=== PATIENT | male | born 1955 | race Caucasian/White ===

== ENCOUNTER 2020-02-11 13:13 | Outpatient (REF) | payer MEDICARE, SELFPAY ==
[2020-02-11 14:55] LABS: Prostate Specific Antigen Scr 0.53 ng/mL (<0.05-4.0)
[2020-02-12 08:03] LABS: SARS COV2 IgG Negative (Negative)
== END 2020-02-11 13:14 | disposition home or self-care (01) ==
LOC: HO.LAB 13:13
PROVIDERS: PCP Internal Medicine; Visit Provider Internal Medicine
DX: Z01.84 Encounter for antibody response examination (principal); Z12.5 Encounter for screening for malignant neoplasm of prostate; E11.65 Type 2 diabetes mellitus with hyperglycemia; I10 Essential (primary) hypertension; E78.00 Pure hypercholesterolemia, unspecified; I73.9 Peripheral vascular disease, unspecified; N40.1 Benign prostatic hyperplasia with lower urinary tract symptoms; R35.0 Frequency of micturition; Z94.4 Liver transplant status
CPT/HCPCS: 84153; 86769

== ENCOUNTER → 2020-04-21 09:22 | Outpatient (BNVA) | payer MEDICARE, SELFPAY | PROVIDERS: PCP Internal Medicine; Visit Provider Internal Medicine Endocrinology, Diabetes & Metabolism | DX: Z13.89 Encounter for screening for other disorder (principal) | CPT/HCPCS: Q3014 ==

== ENCOUNTER → 2020-08-09 09:14 | Outpatient (REF) | payer MEDICARE, SELFPAY | LOC: HO.SL 09:14 | PROVIDERS: PCP Internal Medicine; Visit Provider Internal Medicine | DX: G47.33 Obstructive sleep apnea (adult) (pediatric) (principal) | CPT/HCPCS: 95806 ==

== ENCOUNTER → 2020-08-25 08:54 | Outpatient (BNVA) | payer MEDICARE, SELFPAY | PROVIDERS: PCP Internal Medicine; Visit Provider Internal Medicine Endocrinology, Diabetes & Metabolism | DX: E11.65 Type 2 diabetes mellitus with hyperglycemia (principal); I10 Essential (primary) hypertension; E78.00 Pure hypercholesterolemia, unspecified; E66.9 Obesity, unspecified; E53.8 Deficiency of other specified B group vitamins; Z79.4 Long term (current) use of insulin | CPT/HCPCS: 82947; 99212 ==

== ENCOUNTER → 2020-11-28 11:22 | Outpatient (BNVA) | payer MEDICARE, SELFPAY | PROVIDERS: PCP Internal Medicine; Visit Provider Nurse Practitioner Gerontology | DX: E11.65 Type 2 diabetes mellitus with hyperglycemia (principal); Z79.4 Long term (current) use of insulin; I10 Essential (primary) hypertension; E78.00 Pure hypercholesterolemia, unspecified; E53.8 Deficiency of other specified B group vitamins; E66.9 Obesity, unspecified; Z68.41 Body mass index [BMI] 40.0-44.9, adult | CPT/HCPCS: 82947; 99212 ==

== ENCOUNTER → 2020-12-12 10:24 | Outpatient (BNVA) | payer MEDICARE, SELFPAY | PROVIDERS: PCP Internal Medicine; Visit Provider Nurse Practitioner Gerontology | DX: E11.65 Type 2 diabetes mellitus with hyperglycemia (principal); E78.00 Pure hypercholesterolemia, unspecified; I10 Essential (primary) hypertension; E66.9 Obesity, unspecified; E53.8 Deficiency of other specified B group vitamins; Z79.4 Long term (current) use of insulin | CPT/HCPCS: 82947; 99212 ==

== ENCOUNTER → 2020-12-27 10:08 | Outpatient (BNVA) | payer MEDICARE, SELFPAY | PROVIDERS: PCP Internal Medicine; Visit Provider Dietitian, Registered | DX: E11.65 Type 2 diabetes mellitus with hyperglycemia (principal); Z79.4 Long term (current) use of insulin | CPT/HCPCS: 97803 ==

== ENCOUNTER 2021-01-04 12:09 | Outpatient (REF) | payer MEDICARE, SELFPAY | END 2021-01-04 12:10 | disposition home or self-care (01) | LOC: HO.LAB 12:09 | PROVIDERS: PCP Internal Medicine; Visit Provider Nurse Practitioner Family | DX: Z13.89 Encounter for screening for other disorder (principal) ==

== ENCOUNTER 2021-01-05 10:15 | Outpatient (REF) | payer MEDICARE, SELFPAY ==
[2021-01-05 10:30] LABS: MANUAL DIFF FLAG NO
[2021-01-05 10:56] LABS: Basophils Percent Auto 0.5 % (0-2); Eosinophils Percent Auto 0.2 % (0-4); Hematocrit 44.4 % (42-52); Hemoglobin 15.3 g/dl (14.0-18.0); Imm Gran Abs Auto 0.01 X10*3/uL (0.00-0.03); Imm Gran Pct Auto 0.2 % (0.0-0.4); Lymphocytes Absolute Auto 1.4 X10*3/uL (1.2-4.9); Lymphocytes Percent Auto 33.9 % (20-40); Mean Corpuscular HGB Conc 34.5 g/dl (31.0-36.0); Mean Corpuscular Hemoglobin 31.3 pg (27.0-33.0); Mean Corpuscular Volume 90.8 fL (80-98); Mean Platelet Volume 9.7 fL (9.4-12.4); Monocytes Absolute Auto 0.4 X10*3/uL (0.1-1.2); Monocytes Percent Auto 10.2 % (2-11); Neutrophils Absolute Auto 2.3 X10*3/uL (2.0-8.3); Platelet Count 154 X10*3/uL (160-400); Red Blood Count 4.89 X10*6/uL (4.60-5.80); Red Cell Distribution Width 13.5 % (11.0-16.0); White Blood Count 4.1 X10*3/uL (4.8-10.8)
[2021-01-05 11:26] LABS: Estimated Glomerular Filt Rate > 60; Glucose Fasting 165 mg/dL (60-99)
[2021-01-05 11:38] LABS: Free T4 (Free Thyroxine) 0.89 ng/dL (0.71-1.85)
[2021-01-05 11:45] LABS: Creatinine Urine 264.08 mg/dL
[2021-01-05 11:50] LABS: Thyroid Stimulating Hormone 1.24 uIU/mL (0.32-4.0)
== END 2021-01-05 10:16 | disposition home or self-care (01) ==
LOC: HO.LAB 10:15
PROVIDERS: Absent Provider Internal Medicine; PCP Internal Medicine; Visit Provider Nurse Practitioner Family
DX: Z01.818 Encounter for other preprocedural examination (principal); E11.65 Type 2 diabetes mellitus with hyperglycemia; Z79.4 Long term (current) use of insulin
CPT/HCPCS: 36415; 82565; 82947; 84439; 84443; 85025

== ENCOUNTER → 2021-04-20 09:39 | Outpatient (BNVA) | payer MEDICARE, SELFPAY | PROVIDERS: PCP Internal Medicine; Visit Provider Nurse Practitioner Gerontology | DX: E11.65 Type 2 diabetes mellitus with hyperglycemia (principal); I10 Essential (primary) hypertension; E78.00 Pure hypercholesterolemia, unspecified; E66.9 Obesity, unspecified; Z68.41 Body mass index [BMI] 40.0-44.9, adult; E53.8 Deficiency of other specified B group vitamins; Z79.4 Long term (current) use of insulin | CPT/HCPCS: 82947; 99212 ==

== ENCOUNTER → 2021-06-27 10:07 | Outpatient (BNVA) | payer MEDICARE, SELFPAY | PROVIDERS: PCP Internal Medicine; Visit Provider Dietitian, Registered | DX: E11.65 Type 2 diabetes mellitus with hyperglycemia (principal); Z79.4 Long term (current) use of insulin | CPT/HCPCS: 97803 ==

== ENCOUNTER → 2021-07-19 09:04 | Outpatient (BNVA) | payer MEDICARE, SELFPAY | PROVIDERS: PCP Internal Medicine; Visit Provider Nurse Practitioner Gerontology | DX: E11.9 Type 2 diabetes mellitus without complications (principal); E78.00 Pure hypercholesterolemia, unspecified; E53.8 Deficiency of other specified B group vitamins; I10 Essential (primary) hypertension; Z79.4 Long term (current) use of insulin | CPT/HCPCS: 82947; 99212 ==

== ENCOUNTER 2021-08-27 09:05 | Outpatient (REF) | payer MEDICARE, SELFPAY ==
[2021-08-27 10:13] LABS: Hematocrit 42.5 % (42.0-52.0); Hemoglobin 14.5 g/dl (14.0-18.0); Mean Corpuscular HGB Conc 34.1 g/dl (31.0-36.0); Mean Corpuscular Hemoglobin 30.7 pg (27.0-33.0); Mean Platelet Volume 9.4 fL (9.4-12.4); Platelet Count 154 X10*3/uL (160-400); Red Blood Count 4.72 X10*6/uL (4.60-5.80); Red Cell Distribution Width 13.2 % (11.0-16.0); White Blood Count 3.9 X10*3/uL (4.8-10.8)
[2021-08-27 11:03] LABS: Alanine Aminotransferase 53 U/L (0-40); Albumin Level 3.9 g/dL (3.5-5.0); Alkaline Phosphatase 54 U/L (39-117); Anion Gap 15 (12-20); Aspartate Amino Transferase 38 U/L (5-37); Bilirubin Total 0.5 mg/dL (0.0-1.0); Blood Urea Nitrogen 21 mg/dL (9-16); Calcium 9.8 mg/dL (8.4-10.2); Carbon Dioxide 30 mmol/L (22-29); Chloride 100 mmol/L (96-108); Cholesterol 179 mg/dL; Estimated Glomerular Filt Rate > 60; Glucose Fasting 137 mg/dL (60-99); HDL Cholesterol 29 mg/dL; LDL Cholesterol Calculated 115 mg/dl; Potassium 4.7 mmol/L (3.3-5.1); Sodium 140 mmol/L (135-145); Total Protein 6.5 g/dL (6.5-8.0); Triglycerides 175 mg/dL
[2021-08-27 11:08] LABS: Free T4 (Free Thyroxine) 0.87 ng/dL (0.71-1.85); Thyroid Stimulating Hormone 1.89 uIU/mL (0.32-4.0)
[2021-08-27 11:31] LABS: Folate 10.6 ng/mL (> or = 4.0); Vitamin B12 < 146 pg/mL (200-900)
[2021-08-27 11:37] LABS: Creatinine Urine 198.09 mg/dL; Microalbum/Creatinine Ratio Ur 5.5 ug/mg cr
[2021-08-28 12:36] LABS: LDL Cholesterol Direct 128 mg/dL (<100)
== END 2021-08-27 09:06 | disposition home or self-care (01) ==
LOC: HO.LAB 09:05
PROVIDERS: Absent Provider Nurse Practitioner Gerontology; PCP Internal Medicine; Visit Provider Internal Medicine
DX: Z01.818 Encounter for other preprocedural examination (principal); E11.65 Type 2 diabetes mellitus with hyperglycemia; Z79.4 Long term (current) use of insulin
CPT/HCPCS: 36415; 80053; 80061; 82043; 82607; 82746; 83721; 84439; 84443; 85027

== ENCOUNTER → 2021-09-19 20:35 | Outpatient (REF) | payer MEDICARE, SELFPAY | LOC: HO.SL 20:35 | PROVIDERS: PCP Internal Medicine; Visit Provider Internal Medicine | DX: G47.33 Obstructive sleep apnea (adult) (pediatric) (principal) | CPT/HCPCS: 95811 ==

== ENCOUNTER → 2021-09-26 09:50 | Outpatient (BNVA) | payer MEDICARE, SELFPAY | PROVIDERS: PCP Internal Medicine; Visit Provider Dietitian, Registered | DX: E11.65 Type 2 diabetes mellitus with hyperglycemia (principal); Z79.4 Long term (current) use of insulin | CPT/HCPCS: 97803 ==

== ENCOUNTER 2022-02-25 10:58 | Outpatient (REF) | payer MEDICARE, SELFPAY ==
[2022-02-25 12:52] LABS: Alanine Aminotransferase 47 U/L (0-40); Albumin Level 4.4 g/dL (3.5-5.0); Alkaline Phosphatase 51 U/L (39-117); Anion Gap 15 (12-20); Aspartate Amino Transferase 30 U/L (5-37); Bilirubin Total 0.7 mg/dL (0.0-1.0); Blood Urea Nitrogen 27 mg/dL (9-16); Calcium 9.9 mg/dL (8.4-10.2); Carbon Dioxide 29 mmol/L (22-29); Chloride 103 mmol/L (96-108); Estimated Glomerular Filt Rate > 60; Glucose Fasting 116 mg/dL (60-99); Sodium 143 mmol/L (135-145); Total Protein 7.1 g/dL (6.5-8.0)
[2022-02-25 13:06] LABS: Ferritin 123 ng/mL (20-250)
[2022-02-25 13:14] LABS: Vitamin B12 179 pg/mL (200-900)
[2022-02-26 09:56] LABS: LDL Cholesterol Direct 136 mg/dL (<100)
[2022-03-01 22:57] LABS: Intrinsic Factor Antibodies Negative (Negative)
[2022-03-02 13:22] LABS: Parietal Cell Antibody <=20.0 Unit (<=20.0)
== END 2022-02-25 10:59 | disposition home or self-care (01) ==
LOC: HO.LAB 10:58
PROVIDERS: PCP Internal Medicine; Visit Provider Internal Medicine
DX: E11.65 Type 2 diabetes mellitus with hyperglycemia (principal); E78.00 Pure hypercholesterolemia, unspecified; G47.33 Obstructive sleep apnea (adult) (pediatric); Z79.4 Long term (current) use of insulin
CPT/HCPCS: 36415; 80053; 82607; 82728; 83516; 83721; 86340

== ENCOUNTER 2022-05-17 09:13 | Day surgery (SDC) | payer MEDICARE, SELFPAY ==
[2022-05-17 09:28] VITALS: BMI 36.6
[2022-05-17 09:31] VITALS: BP 164/80; PULSE 63; RESP 18; TEMP 36.2; O2SAT 99
[2022-05-17] MEDS: Lactated Ringers 1,000 ML 80 ML IVCONT (10:00)
[2022-05-17 10:16] LABS: Glucose, Whole Blood 160 mg/dL (60-115)
--- NOTE | 2022-05-17 11:12 | HO.ANESPROP2 ---
HPI - Anesthesia Eval Consult details Narrative: ho polyps screening [facility] Active Problems Active Problems: All Active Problems (Updated 05/16/22 @ 10:40 by Suzy Newman, RN) Witnessed apneic spells (Acute) Obesity (Acute) History of arthroplasty of left shoulder (Acute) Status post Mohs surgery for basal cell carcinoma (Acute) Hearing difficulty (Acute) Leg wound, left (Acute) B12 deficiency (Acute) senior care (current) use of insulin (Acute) BPH (benign prostatic hyperplasia) (Acute) Obstructive sleep apnea (Acute) Peripheral vascular disease (Acute) Hypercholesterolemia (Acute) Erectile dysfunction (Acute) Hypertension (Acute) Type 2 diabetes mellitus with hyperglycemia (Acute) Past Medical History Medical History (Updated 05/16/22 @ 10:40 by Suzy Newman RN) B12 deficiency BPH (benign prostatic hyperplasia) Diverticulosis Erectile dysfunction Fatty liver H/O urinary tract infection History of melanoma Hypercholesterolemia Hypertension IBS (irritable bowel syndrome) Internal hemorrhoid Leg wound, left senior care (current) use of insulin Obstructive sleep apnea Peripheral vascular disease Sleep apnea Type 2 diabetes mellitus with hyperglycemia Family History Family History Father No problems noted. Mother No problems noted. Family history of problems with anesthesia: No Surgical History Surgical History Back pain with history of spinal surgery History of Mohs surgery for squamous cell carcinoma of skin Hx of cataract surgery Hx of eye surgery Hx of shoulder replacement History of Problems with Anesthesia: No Social History Social History Housing: Apartment Alcohol intake: current Alcohol intake frequency: holidays/special occasions only Patient Tobacco Use Status: Former Tobacco user e-Cigarette/Vaping Use: Never Used Second Hand Smoke Exposure: Yes Use of substances other than those prescribed or required for medical reasons: No Substance Use Type: Former Substance User and Marijuana Are you DNR?: No Advance Directives: No Advance Directives Information Provided: Yes service: No Current occupational status: retired Cognitive needs: No Hearing needs: No Vision needs: Yes Meds Allergies Allergy/AdvReac Type Severity Reaction Status Date / Time amlodipine Allergy Unknown Unknown Verified 02/25/22 09:15 atorvastatin Allergy Unknown Unknown Verified 02/25/22 09:15 Iodinated Contrast Media AdvReac Unknown BLINDENESS Verified 02/25/22 09:15 [IV CONTRAST] Active Medications: Current Medications Lactated Ringer's (Lr) 1,000 mls @ 80 mls/hr IVCONT .[id number] CLARIBEL Last Admin: 05/17/22 10:00 Dose: 80 mls/hr Sodium Biphosphate/Sodium Phosphate (Sodium Phosphate,Fleming-Dibasic 133 Ml Enema) 133 ml WI ONCE PRN PRN Reason: Poor Colonoscopy Prep Results Home Medications Medication Instructions Recorded Confirmed Last Taken Type acetaminophen 500 mg capsule 500 mg PO Q6H PRN 02/11/20 10/19/21 Unknown History albuterol sulfate 90 mcg/actuation 2 puff inhalation Q4-6H PRN 02/11/20 10/19/21 Unknown History aerosol inhaler (ProAir HFA) aspirin 81 mg tablet,delayed 81 mg PO DAILY 02/11/20 10/19/21 05/10/22 History release (Adult Aspirin Regimen) cholecalciferol (vitamin D3) 25 25 mcg PO DAILY 02/11/20 10/19/21 Unknown History mcg (1,000 unit) capsule cranberry 405 mg capsule 405 mg PO DAILY 02/11/20 10/19/21 Unknown History sildenafil 50 mg tablet (Viagra) 50 mg PO DAILY PRN 02/11/20 10/19/21 Unknown History Exam Exam Date and Time: May 17, 2022 111 Height,Weight and Vital Signs: Height 6 ft 2 in Weight 129.274 kg Last Vital Signs Temp 97.2 F 05/17/22 09:31 Pulse 63 05/17/22 09:31 Resp 18 05/17/22 09:31 BP 164/80 H 05/17/22 09:31 Pulse Ox 99 05/17/22 09:31 O2 Del Method 05/17/22 09:31 Pertinent Lab Results Pertinent Lab Results: Laboratory Tests 05/17/22 09:47 POC Glucose 160 H Airway Mallampati Class: III TM Dist: >3cm Neck ROM: Full Loose/Missing/Broken Teeth: Yes (Multiple missing) Heart: rr Lungs: cta Assessment and Plan Assessment Anesthesia Assessment: Anesthesia Plan Discussed Final Anesthetic Review Family History of Problems with Anesthesia: No History of Problems with Anesthesia: No NPO: Yes ASA Class: II Final Preanesthetic Review: No Changes in Pt Med Stat, Meds/Allgs Chart Reviewed, Consent Obtained/Reviewed and Anes Risks/Benef Reviewed Patient Risk: Intermediate Procedure Risk: Low Anesthetic Plan Anesthetic Plan: MAC: Disposition: Standard PACU
[2022-05-17 11:33] VITALS: BP 100/64; PULSE 63; RESP 20; TEMP 36.3; O2SAT 95
--- NOTE | 2022-05-17 11:33 | PM.OP ---
Brief Operative Note Date of Service: 05/17/22 Pre-op diagnosis: Screening Post-op diagnosis: other (Diverticulosis, Area of scarring in cecum from previous polypectomy) Procedure: Colonoscopy to the cecum with biopsies Surgeon: Bismark Mir Anesthesia: MAC Was an Chemical Technician used for this Procedure?: No Estimated blood loss (mL): 2.0 Pathology: other (A. Biopsies of previous polypectomy site in the cecum) Condition: stable Disposition: PACU
[2022-05-17 11:51] VITALS: BP 133/85; PULSE 62; RESP 16; TEMP 36.3; O2SAT 96
--- NOTE | 2022-05-17 20:08 | OP_ITS ---
SURGEON: Bismark Mir MD INDICATIONS: The patient presents for evaluation of personal history of tubular adenoma of the colon. Full consent has been obtained from him for this, including risks of bleeding and perforation. PREOPERATIVE DIAGNOSIS: POSTOPERATIVE DIAGNOSIS: PROCEDURE PERFORMED: Colonoscopy to the cecum with biopsy. ESTIMATED BLOOD LOSS: COMPLICATIONS: ANESTHESIA: Medications used, monitored anesthesia care. ASSISTANTS: SPECIMENS: PREOPERATIVE DIAGNOSES: Colorectal cancer screening and personal history of tubular adenoma of the colon. POSTOPERATIVE DIAGNOSES: Colorectal cancer screening and personal history of tubular adenoma of the colon, area of scarring in cecum consistent with previous polypectomy site, diverticulosis, and internal hemorrhoids. DESCRIPTION OF PROCEDURE: The patient was placed in the left lateral decubitus position. The digital rectal exam revealed no abnormalities. The Olympus video pediatric colonoscope was entered into the rectum and advanced easily to the cecum. Once in the cecum, I did identify cecal pouch with appendiceal orifice and normal-appearing ileocecal valve. The entire cecum was well-visualized. In the cecum was a linear area of scarring consistent with polypectomy site. There was some slightly reddened areas around it, which were biopsied several times. There was no definitive evidence of any polyp tissue. The remainder of the cecum and ileocecal valve appeared normal. The scope was slowly withdrawn, assessing all mucosal surfaces carefully. Preparation was excellent. I did not visualize any other polyps, colitis, or angiodysplasia. There was a moderate amount of sigmoid diverticulosis. In the rectum, the scope was retroflexed visualizing internal hemorrhoids, but no other pathology. The rectal mucosa appeared normal. Scope was straightened and withdrawn from the patient. He tolerated the procedure well and was returned to recovery area in stable condition. IMPRESSION: 1. Scarring in cecum from area of previous polypectomy, status post biopsy. 2. Diverticulosis. 3. Internal hemorrhoids. PLAN: The results of the biopsy will be checked. I have recommend a repeat colonoscopy in 3 years for further surveillance. He was advised to not to use any aspirin or NSAIDs for 1 week. This has been discussed with his . MD YEFRI Griffin/JEAN / [id number] AMBER
== END 2022-05-17 12:18 | disposition home or self-care (01) ==
PROVIDERS: PCP Internal Medicine; Visit Provider Internal Medicine
PROC: 0DJD8ZZ Inspection of Lower Intestinal Tract, Via Natural or Artificial Opening Endoscopic (ICD-10-PCS; CPT 45378; principal; 2022-05-17 10:40)
DX: Z12.11 Encounter for screening for malignant neoplasm of colon (principal); Z86.010 Personal history of colon polyps; K57.30 Diverticulosis of large intestine without perforation or abscess without bleeding; K64.8 Other hemorrhoids; K58.9 Irritable bowel syndrome, unspecified; K76.0 Fatty (change of) liver, not elsewhere classified; I10 Essential (primary) hypertension; G47.33 Obstructive sleep apnea (adult) (pediatric); E11.9 Type 2 diabetes mellitus without complications; Z79.4 Long term (current) use of insulin; Z79.82 Long term (current) use of aspirin; Z79.899 Other long term (current) drug therapy; Z85.820 Personal history of malignant melanoma of skin; Z87.891 Personal history of nicotine dependence
CPT/HCPCS: 45380; 82947; 88305

== ENCOUNTER → 2022-06-03 11:10 | Outpatient (BNVA) | payer MEDICARE, SELFPAY | PROVIDERS: PCP Internal Medicine; Visit Provider Dietitian, Registered | DX: E11.65 Type 2 diabetes mellitus with hyperglycemia (principal); E78.00 Pure hypercholesterolemia, unspecified; E53.8 Deficiency of other specified B group vitamins; Z68.34 Body mass index [BMI] 34.0-34.9, adult; Z79.4 Long term (current) use of insulin; Z71.3 Dietary counseling and surveillance | CPT/HCPCS: 97803 ==

== ENCOUNTER 2022-11-19 16:08 | Outpatient (AMB) | payer MEDICARE, SELFPAY ==
[2022-11-19 16:09] VITALS: BP 134/86; PULSE 69; O2SAT 99; BMI 36.1
--- NOTE | 2022-11-19 16:09 | MHC.PC.OV ---
Vital Signs 11/19/22 16:09 Height 6 ft 2 in Weight 281 lb BMI 36.1 BP 134/86 Blood Pressure Location Lt brachial Position Sitting Pulse 69 Pulse Source Pulse Oximeter Temp Source Skin Pulse Oximetry (%) 99 Oxygen Delivery Method Room Air Intake Visit Reasons: Medical clearance Intake Note: . 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 Allergies amlodipine Allergy (Unknown, Verified 11/19/22 16:22) Unknown atorvastatin Allergy (Unknown, Verified 11/19/22 16:22) Unknown Iodinated Contrast Media [IV CONTRAST] Adverse Reaction (Unknown, Verified 11/19/22 16:22) BLINDENESS Medication List - Last Reconciled 11/19/22 by Lary Dukes, HORTENSIA acetaminophen 500 mg PO Q6H PRN albuterol sulfate 90 mcg/actuation (ProAir HFA) 2 puffs inhalation Q4-6H PRN aspirin (Adult Aspirin Regimen) 81 mg PO DAILY [BIPAP 12/8 cm H20 humidified AIR As directed] blood sugar diagnostic ([employer] Verio test strips) 3x daily cholecalciferol (vitamin D3) 25 mcg PO DAILY compr.stocking,knee,long,x-lrg As directed 20-30 mm HG cranberry 405 mg PO DAILY cyanocobalamin (vitamin B-12) 1,000 mcg PO DAILY 30 days hydralazine 25 mg PO Q8H 90 days hydrochlorothiazide 25 mg PO DAILY insulin glargine-lixisenatide 100 unit-33 mcg/mL (Soliqua 100/33) 24 units (0.24 mL) subcut BID 30 days losartan 50 mg PO BID metformin ER 1,000 mg (2 x 500 mg) PO BID metoprolol tartrate 100 mg PO BID 90 days pen needle, diabetic (BD Ultra-Fine Aspen Pen Needle) As directed twice a day rosuvastatin 40 mg PO DAILY 30 days sildenafil (Viagra) 50 mg PO DAILY PRN simvastatin 5 mg PO BEDTIME Tobacco use date assessed: 11/19/22 Fall risk assessment: No Falls in past year Last assessed Fall Risk: 11/19/22 Dental Screening Dental Screen Date: 11/19/22 Did you have a dental visit in the last 12 months?: Yes Did you have a dental problem in the last 6 months where you did not have access to dental care?: No HPI Medical clearance HPI Details Patient is a 66-year-old male who presents today for preop clearance. Patient of Dr. Richter. Surgery: Left shoulder reverse replacement (no preop paperwork from the surgeon). Patient reports left shoulder pain and arthritis. Date: 12/10/22 Surgeon: Dr. Marylin Menendez Location: [place], [place] Anaesthesia: General. Patient reports history of general anesthesia in the past that he tolerated well. Patient denies history of perioperative hypothermia or blood clotting disorders. Pt is on aspirin 81 mg daily. Medical history significant for diabetes type 2 - on insulin, hypertension, erectile dysfunction, hypercholesterolemia, PVD, CARTER-patient reports that he had prescription for BiPAP and he did not received this yet-he requested reprint of BiPAP prescription, BPH, hearing difficulty among others. Patient denies shortness of breath or chest pain. [facility] Medical History B12 deficiency BPH (benign prostatic hyperplasia) Diverticulosis Erectile dysfunction Fatty liver H/O urinary tract infection History of melanoma Hypercholesterolemia Hypertension IBS (irritable bowel syndrome) Internal hemorrhoid Leg wound, left halfway (current) use of insulin Obstructive sleep apnea Peripheral vascular disease Sleep apnea Type 2 diabetes mellitus with hyperglycemia Surgical History Back pain with history of spinal surgery History of Mohs surgery for squamous cell carcinoma of skin Hx of cataract surgery Hx of eye surgery Hx of shoulder replacement Family History Father No problems noted. Mother No problems noted. Social History Housing: Apartment Alcohol intake: current Alcohol intake frequency: holidays/special occasions only Patient Tobacco Use Status: Former Tobacco user e-Cigarette/Vaping Use: Never Used Second Hand Smoke Exposure: Yes Substance Use Type: Former Substance User and Marijuana service: No Current occupational status: retired Cognitive needs: No Hearing needs: No Vision needs: Yes Questionnaire Thrive Questionnaire Date Thrive assessed: 05/31/22 AUDIT C Alcohol Use Questionnaire (AUDIT-C) 1. How often do you have a drink containing alcohol?: Never 3. How often do you have six or more drinks on one occasion?: Never Total Score: 0 Score Reviewed/Action Taken: No YAZAN-7 AMB Questionnaire YAZAN-7 Date YAZAN - 7 assessed: 05/31/22 Source: Developed by Drs. Yunior Fraire, Claudine Anderson, Ry Aguilar and colleagues, with an educational huma from [employer]. Review of Systems Const Denies body aches, Denies chills, Denies fever(s) and Denies headache(s) Eyes Denies change in vision ENT Denies dizziness, Denies otalgia, Denies headache(s), Denies nasal discharge, Denies sinus pain and Denies sore throat Card Denies chest pain, Denies edema, Denies lightheadedness and Denies dyspnea Resp Denies cough, Denies dyspnea and Denies wheezing GI Denies abdominal pain, Denies constipation, Denies diarrhea, Denies nausea and Denies vomiting Denies dysuria Musc Denies myalgias and Reports arthralgias Skin/Breast Denies rash Neuro Denies dizziness and Denies headache(s) Aller/Immun Denies wheezing Physical exam (Primary Care) Vital Signs: Last Vital Signs Pulse 69 11/19/22 16:09 BP 134/86 11/19/22 16:09 Pulse Ox 99 11/19/22 16:09 Oxygen Delivery Method Room Air 11/19/22 16:09 BMI result Body Mass Index 36.1 Tobacco/Smoking Status: Tobacco use Status Tobacco use date assessed 11/19/22 11/19/22 16:11 Patient Tobacco Use Status Former Tobacco user 11/19/22 16:11 e-Cigarette/Vaping Use Never Used 11/19/22 16:11 Thrive Assessment: Date of Thrive Assessment Date Thrive assessed 05/31/22 11/19/22 16:11 Const General: cooperative and no acute distress Orientation/consciousness: patient oriented x3 HENMT Head: Yes normocephalic and Yes atraumatic Ears: TM's normal bilaterally Face and sinus: Yes sinuses nontender Mouth: oropharynx normal and moist mucous membranes Throat: Yes posterior oropharynx normal Eyes General: appearance normal, both eyes and all related structures Pupils: Equal, round and reactive pupils present EOM: EOMs intact bilaterally Neck Neck: Yes normal visual inspection, Yes full ROM and Yes no lymphadenopathy Thyroid: Thyroid normal Resp Effort & Inspection: normal respiratory effort and able to speak in complete sentences Auscultation: clear to auscultation bilaterally, no crackles, no rales, no rhonchi and no wheezes Cardio Rate: regular rate Rhythm: regular rhythm Heart sounds: S1 normal heart sound present, S2 normal heart sound present and no murmurs GI Palpation (GI): Soft to palpation, not firm, nontender, no guarding, not rigid and no hepatosplenomegaly Auscultation: normal bowel sounds General: No CVA tenderness Back/Spine/Pelvis Back: No CVA tenderness Skin General skin exam: no rashes or lesions noted Neuro General: patient oriented x3 Cranial nerves: Yes Equal, round and reactive pupils present Gait exam (Neuro): Normal gait present Extrem General: Yes full ROM and No edema Left upper extremity: shoulder/upper arm Details: inspection abnormal, tenderness and abnormal ROM (Pain with range of motion); no swelling, no ecchymosis, no crepitus and no unsual warmth Results AMB Hemoglobin A1c AMB Hemoglobin A1c 7.7 % Last Edit by GUNJAN Whaley on 11/19/22 16:27 Results Reviewed Results Reviewed: Laboratory Last Values Hgb A1c (Clinic) 7.7 % (4.0-6.0) H 11/19/22 15:43 Laboratory Tests 11/19/22 11/19/22 11/19/22 15:43 17:00 17:00 WBC 5.4 RBC 5.36 Hgb 16.2 Hct 48.5 MCV 90.5 MCH 30.2 MCHC 33.4 RDW 13.8 Plt Count 168 MPV 9.4 Absolute Nucleated RBC 0.000 Nucleated RBC % (auto) 0.0 PT 10.9 L INR 0.9 Sodium Potassium Chloride Carbon Dioxide Anion Gap BUN Creatinine Estim Creat Clear Calc Estimated GFR Random Glucose Hgb A1c (Clinic) 7.7 H Calcium TSH 11/19/22 17:00 WBC RBC Hgb Hct MCV MCH MCHC RDW Plt Count MPV Absolute Nucleated RBC Nucleated RBC % (auto) PT INR Sodium 143 Potassium 4.6 Chloride 105 Carbon Dioxide 26 Anion Gap 17 BUN 22 H Creatinine 1.16 Estim Creat Clear Calc Not Reportable Estimated GFR > 60 Random Glucose 131 H Hgb A1c (Clinic) Calcium 10.4 H TSH 2.10 Assessment and Plan Assessment & Plan (1) Obesity: Code(s): E66.9 - Obesity, unspecified Plan: BMI 36.1 (2) Obstructive sleep apnea: Comment: Not using CPAP as previous had insurance problem ( 07/2021) sleep study September 2021 severe Code(s): G47.33 - Obstructive sleep apnea (adult) (pediatric) Plan: BiPAP prescription reprinted for the patient, please allow patient to use his BiPAP if he will be staying overnight in the hospital after surgery (3) Type 2 diabetes mellitus with hyperglycemia: Code(s): E11.65 - Type 2 diabetes mellitus with hyperglycemia Qualifiers: Diabetes mellitus terminal operations supervisor insulin use: with terminal operations supervisor use Qualified Code(s): E11.65 - Type 2 diabetes mellitus with hyperglycemia; Z79.4 - halfway (current) use of insulin Plan: A1c 7.7 today Continue soliqua 24 units b.i.d. and metformin b.i.d. (4) Left shoulder pain: Code(s): M25.512 - Pain in left shoulder Plan: Surgery: Left shoulder reverse replacement (no preop paperwork from the surgeon).? Patient reports left shoulder pain and arthritis. Date: 12/10/22 Surgeon: Dr. Marylin Menendez Location: [place], [place] (5) Preoperative clearance: Code(s): Z01.818 - Encounter for other preprocedural examination Plan: METs > 4; RCRI Class 2 cardiovascular risk 0.9% for an intermediate risk surgery (recent blood work 11/2022) Regarding preop clearance, the patient is at acceptable risk for proposed surgery. Reviewed with the patient that no surgery is completely free of risk and that this examination is to assist the surgeon in reviewing informed consent. Postop care including DVT prophylaxis per surgeon. Patient is cleared for surgery. Patient is to take blood pressure medications on the day of surgery with small sips of water and hold all other medications. Patient is to take Soliqua 12 units night before surgery. Patient is to hold aspirin 5 days before surgery. 11/22/2022 EKG with no acute changes. Ordering Physician: Lary Dukes Date of Service: 11/22/22 Procedure(s): ECG 12 lead EKG Accession Number(s): [id number] cc: Lary Dukes~ Test Reason : preop Blood Pressure : / mmHG Vent. Rate : 061 BPM ? ? Atrial Rate : 061 BPM ?? P-R Int : 180 ms? QRS Dur : 086 ms ? ? QT Int : 402 ms ? ? ? P-R-T Axes : 024 012 031 degrees ?? QTc Int : 404 ms ? Normal sinus rhythm Normal ECG When compared with ECG of 23-JUL-2019 14:25, Vent. rate has decreased BY? 40 BPM ? ? Referred By: Lary Dukes ? Electronically Signed By:YUNIOR MANRIQUE DOFASERGIO Orders: Orders Basic Metabolic Panel 11/19/22 - Encounter for other preprocedural examination TSH reflex Free T4 11/19/22 - Encounter for other preprocedural examination Prothrombin Time INR 11/19/22 - Encounter for other preprocedural examination ECG 12 lead EKG 11/22/22 - Encounter for other preprocedural examination Complete Blood Count no Diff 11/19/22 - Encounter for other preprocedural examination AMB Hemoglobin A1c 11/19/22 E11.65 - Type 2 diabetes mellitus with hyperglycemia Medications: Refilled [BIPAP 12/8 cm H20 humidified AIR] As directed 1 ea 0RF G47.33 - Obstructive sleep apnea (adult) (pediatric) Coding Level of Care Code Est Pt Level 3 (48920) Diagnoses Obesity E66.9 Obstructive sleep apnea G47.33 Type 2 diabetes mellitus with hyperglycemia E11.65; Z79.4 Diabetes mellitus care home insulin use: with terminal operations supervisor use Left shoulder pain M25.512 Preoperative clearance Z
== END 2022-11-19 16:42 | disposition home or self-care (01) ==
PROVIDERS: PCP Internal Medicine; Visit Provider Nurse Practitioner Family
DX: E11.65 Type 2 diabetes mellitus with hyperglycemia (principal); Z79.4 Long term (current) use of insulin; E66.9 Obesity, unspecified; Z68.36 Body mass index [BMI] 36.0-36.9, adult; G47.33 Obstructive sleep apnea (adult) (pediatric); Z01.818 Encounter for other preprocedural examination; M25.512 Pain in left shoulder
CPT/HCPCS: 83036; 99213

== ENCOUNTER 2022-11-19 16:48 | Outpatient (REF) | payer MEDICARE, SELFPAY ==
[2022-11-19 17:15] LABS: INTERNATIONAL NORM RATIO 0.9 (0.9-1.1); Prothrombin Time 10.9 SEC (11.1-13.3)
[2022-11-19 17:16] LABS: Hematocrit 48.5 % (42.0-52.0); Hemoglobin 16.2 g/dl (14.0-18.0); Mean Corpuscular HGB Conc 33.4 g/dl (31.0-36.0); Mean Corpuscular Hemoglobin 30.2 pg (27.0-33.0); Mean Corpuscular Volume 90.5 fL (80.0-98.0); Mean Platelet Volume 9.4 fL (9.4-12.4); Platelet Count 168 X10*3/uL (160-400); Red Blood Count 5.36 X10*6/uL (4.60-5.80); Red Cell Distribution Width 13.8 % (11.0-16.0); White Blood Count 5.4 X10*3/uL (4.8-10.8)
[2022-11-19 17:55] LABS: Anion Gap 17 (12-20); Blood Urea Nitrogen 22 mg/dL (9-16); Calcium 10.4 mg/dL (8.4-10.2); Carbon Dioxide 26 mmol/L (22-29); Chloride 105 mmol/L (96-108); Estimated Glomerular Filt Rate > 60; Glucose Random 131 mg/dL (60-115); Potassium 4.6 mmol/L (3.3-5.1); Sodium 143 mmol/L (135-145)
== END 2022-11-19 16:49 | disposition home or self-care (01) ==
LOC: HO.LAB 16:48
PROVIDERS: PCP Internal Medicine; Visit Provider Nurse Practitioner Family
DX: Z01.818 Encounter for other preprocedural examination (principal); M25.512 Pain in left shoulder; E11.9 Type 2 diabetes mellitus without complications
CPT/HCPCS: 36415; 80048; 84443; 85027; 85610

== ENCOUNTER → 2022-11-22 11:21 | Outpatient (REF) | payer MEDICARE, SELFPAY ==
--- NOTE | 2022-11-22 11:24 | ECG_ITS ---
Test Reason : preop Blood Pressure : / mmHG Vent. Rate : 061 BPM Atrial Rate : 061 BPM P-R Int : 180 ms QRS Dur : 086 ms QT Int : 402 ms P-R-T Axes : 024 012 031 degrees QTc Int : 404 ms Normal sinus rhythm Normal ECG When compared with ECG of 23-JUL-2019 14:25, Vent. rate has decreased BY 40 BPM Referred By: Lary Dukes Electronically Signed By:YUNIOR MCKEE
== END ==
LOC: HO.CARD 11:21
PROVIDERS: PCP Internal Medicine; Visit Provider Nurse Practitioner Family
DX: Z01.818 Encounter for other preprocedural examination (principal)
CPT/HCPCS: 93005

== ENCOUNTER 2023-02-24 14:47 | Outpatient (AMB) | payer MEDICARE, SELFPAY ==
--- NOTE | 2023-02-24 14:48 | A.OFFPC_ITS ---
Vital Signs 02/24/23 14:49 Height 6 ft 2 in Weight 286 lb 0.2 oz BMI 36.7 BP 148/88 H Blood Pressure Location Rt brachial Position Sitting Pulse 71 Pulse Source Pulse Oximeter Pulse Oximetry (%) 99 Oxygen Delivery Method Room Air Intake Visit Reasons: DM Utility Gelatin Maker Required: No Allergies amlodipine Allergy (Unknown, Verified 02/24/23 14:49) Unknown atorvastatin Allergy (Unknown, Verified 02/24/23 14:49) Unknown Iodinated Contrast Media [IV CONTRAST] Adverse Reaction (Unknown, Verified 02/24/23 14:49) BLINDENESS Medication List - Last Reconciled 02/24/23 by Claudia Tang Po, acetaminophen 500 mg PO Q6H PRN albuterol sulfate 90 mcg/actuation (ProAir HFA) 2 puffs inhalation Q4-6H PRN aspirin (Adult Aspirin Regimen) 81 mg PO DAILY [BIPAP 12/8 cm H20 humidified AIR As directed Duration: 99] blood sugar diagnostic ([employer] Verio test strips) 3x daily cholecalciferol (vitamin D3) 25 mcg PO DAILY compr.stocking,knee,long,x-lrg As directed 20-30 mm HG cranberry 405 mg PO DAILY cyanocobalamin (vitamin B-12) 1,000 mcg PO DAILY 30 days hydralazine 25 mg PO Q8H 90 days hydrochlorothiazide 25 mg PO DAILY insulin glargine-lixisenatide 100 unit-33 mcg/mL (Soliqua 100/33) 24 units (0.24 mL) subcut BID 30 days losartan 50 mg PO BID metformin ER 1,000 mg (2 x 500 mg) PO BID metoprolol tartrate 100 mg PO BID 90 days pen needle, diabetic (BD Ultra-Fine Aspen Pen Needle) As directed twice a day rosuvastatin 40 mg PO DAILY 30 days sildenafil (Viagra) 50 mg PO DAILY PRN simvastatin 5 mg PO BEDTIME Tobacco use date assessed: 02/24/23 Fall risk assessment: No Falls in past year Last assessed Fall Risk: 02/24/23 HPI DM HPI Details 67-year-old obese male with diabetes luther litus hypertension hypercholesterolemia obstructive sleep apnea coming in for follow-up. Last seen in May 2022. Patient is up-to-date with the [facility] review of the notes had an EKG done normal patient has followed up with orthopedics and was advised to get CT shoulder without contrast left showing severe glenohumeral arthritis [place] blood work done. BP at home is good 130/60. Patient has hypersomnia and has daytime tiredness, had withessed apneic spells, sleeping and sleepy after meals. takes a nap in the afternoon- sleep study has been requested and dx as having CARTER. 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 Mother No problems noted. Social History Housing: Apartment Alcohol intake: current Alcohol intake frequency: holidays/special occasions only Patient Tobacco Use Status: Former Tobacco user e-Cigarette/Vaping Use: Never Used Second Hand Smoke Exposure: Yes Substance Use Type: Former Substance User and Marijuana service: No Current occupational status: retired Cognitive needs: No Hearing needs: No Vision needs: Yes Questionnaire Thrive Questionnaire Date Thrive assessed: 05/31/22 AUDIT C Alcohol Use Questionnaire (AUDIT-C) 1. How often do you have a drink containing alcohol?: Never 3. How often do you have six or more drinks on one occasion?: Never Total Score: 0 Score Reviewed/Action Taken: No YAZAN-7 AMB Questionnaire YAZAN-7 Date YAZAN - 7 assessed: 05/31/22 Source: Developed by Drs. Bismark Fraire, Claudine Anderson, Ry Aguilar and colleagues, with an educational huma from [employer]. Physical exam (Primary Care) Vital Signs: Last Vital Signs Pulse 71 02/24/23 14:49 BP 148/88 H 02/24/23 14:49 Pulse Ox 99 02/24/23 14:49 Oxygen Delivery Method Room Air 02/24/23 14:49 BMI result Body Mass Index 36.7 Tobacco/Smoking Status: Tobacco use Status Tobacco use date assessed 02/24/23 02/24/23 14:49 Patient Tobacco Use Status Former Tobacco user 02/24/23 14:49 e-Cigarette/Vaping Use Never Used 02/24/23 14:49 Thrive Assessment: Date of Thrive Assessment Date Thrive assessed 05/31/22 02/24/23 14:49 Const General: alert; No acute distress Eyes Conjunctivae: conjunctivae normal Resp Auscultation: clear to auscultation bilaterally Cardio Rate: regular rate Rhythm: regular rhythm GI Inspection: Yes normal to inspection Extrem General: Yes normal to inspection and No edema Results AMB Hemoglobin A1c AMB Hemoglobin A1c 7.3 % Last Edit by GUNJAN Whaley on 02/24/23 15:02 Assessment and Plan Assessment & Plan (1) Osteoarthritis of left glenohumeral joint: Comment: Dr. Lachelle Tesfaye shoulder replacement titanium Code(s): M19.012 - Primary osteoarthritis, left shoulder Plan: Patient follows up with orthopedics (2) Type 2 diabetes mellitus with hyperglycemia: Code(s): E11.65 - Type 2 diabetes mellitus with hyperglycemia Qualifiers: Diabetes mellitus retirement insulin use: with buttermaker continuous churn use Qualified Code(s): E11.65 - Type 2 diabetes mellitus with hyperglycemia; Z79.4 - custodial (current) use of insulin Plan: Decrease the amount of carbohydrate intake, pasta, bread, rice and potatoes are all sugar and that is aside from all the sweet stuff, remember that fruits are good but they are Sweet also. Hemoglobin A1c goal of less than 7.0. Patient is on Soliqua metformin (3) Hypertension: Code(s): I10 - Essential (primary) hypertension Qualifiers: Hypertension type: essential hypertension Qualified Code(s): I10 - Essential (primary) hypertension Plan: Continue with blood pressure medication. Decrease salt intake and exercise patient has been placed on metoprolol 100 mg twice a day losartan 50 mg b.i.d. hydralazine 25 mg t.i.d. and hydrochlorothiazide 25 (4) Hypercholesterolemia: Code(s): E78.00 - Pure hypercholesterolemia, unspecified Plan: Avoid fried foods, chicken skin, eggs, butter margarine, pastries and meat. Be it pork or beef they have a lot of cholesterol LDL goal of less than 100 and triglyceride of less than 150 February 2022 last blood work (5) Obstructive sleep apnea: Comment: Not using CPAP as previous had insurance problem ( 07/2021) sleep study September 2021 severe Code(s): G47.33 - Obstructive sleep apnea (adult) (pediatric) Plan: Discussed importance of CPAP (6) BPH (benign prostatic hyperplasia): Code(s): N40.0 - Benign prostatic hyperplasia without lower urinary tract symptoms Qualifiers: Lower urinary tract symptom detail: urinary frequency Lower urinary tract symptom presence: symptoms present Qualified Code(s): N40.1 - Benign prostatic hyperplasia with lower urinary tract symptoms; R35.0 - Frequency of micturition Plan: Continue with present medication (7) Obesity: Code(s): E66.9 - Obesity, unspecified Plan: Diet and exercise (8) Urinary incontinence: Code(s): R32 - Unspecified urinary incontinence (9) Insomnia: Code(s): G47.00 - Insomnia, unspecified Orders: Orders AMB Hemoglobin A1c Today E11.65 - Type 2 diabetes mellitus with hyperglycemia Microalbumin, Random (w Creat) Today E11.65 - Type 2 diabetes mellitus with hyperglycemia, Z79.4 - 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 Creatinine Urine Today E11.65 - Type 2 diabetes mellitus with hyperglycemia, Z79.4 - custodial (current) use of insulin Referrals Urology Referral R32 - Unspecified urinary incontinence Medications: New zolpidem (Ambien) 5 mg PO BEDTIME PRN 20 tabs 1RF sleep G47.00 - Insomnia, unspecified Refilled [BIPAP 12/8 cm H20 humidified AIR] As directed Duration: 99 1 ea 0RF G47.33 - Obstructive sleep apnea (adult) (pediatric) Coding Level of Care Code Est Pt Level 4 (52324) Diagnoses Osteoarthritis of left glenohumeral joint M19.012 Type 2 diabetes mellitus with hyperglycemia, with long-term current use of insulin E11.65; Z79.4 Diabetes mellitus retirement insulin use: with buttermaker continuous churn use Essential hypertension I10 Hypertension type: essential hypertension Hypercholesterolemia E78.00 Obstructive sleep apnea G47.33 Benign prostatic hyperplasia with urinary frequency N40.1; R35.0 Lower urinary tract symptom detail: urinary frequency Lower urinary tract symptom presence: symptoms present Obesity E66.9 Urinary incontinence R32 Insomnia G47.00
[2023-02-24 14:49] VITALS: BP 148/88; PULSE 71; O2SAT 99; BMI 36.7
== END 2023-02-24 15:26 | disposition home or self-care (01) ==
PROVIDERS: PCP Internal Medicine; Visit Provider Internal Medicine
DX: M19.012 Primary osteoarthritis, left shoulder (principal); E11.65 Type 2 diabetes mellitus with hyperglycemia; Z79.4 Long term (current) use of insulin; I10 Essential (primary) hypertension; E78.00 Pure hypercholesterolemia, unspecified; G47.33 Obstructive sleep apnea (adult) (pediatric); N40.1 Benign prostatic hyperplasia with lower urinary tract symptoms; R35.0 Frequency of micturition; E66.9 Obesity, unspecified; R32 Unspecified urinary incontinence; G47.00 Insomnia, unspecified
CPT/HCPCS: 83036; 99214

== ENCOUNTER 2023-03-11 13:04 | Outpatient (AMB) | payer MEDICARE, SELFPAY ==
[2023-03-11 13:05] VITALS: BP 122/70; PULSE 84; TEMP 36.3; O2SAT 96; BMI 37.0
--- NOTE | 2023-03-11 13:05 | MHC.OFFWIV ---
Intake Vital Signs 03/11/23 13:05 Height 6 ft 2 in Weight 288 lb BMI 37.0 BP 122/70 Blood Pressure Location Rt brachial Position Sitting Pulse 84 Pulse Source Pulse Oximeter Temp 97.4 F Pulse Oximetry (%) 96 Oxygen Delivery Method Room Air Intake Visit Reasons: EP, cough, congestion(masked) Intake Note: pt is here today for cough,congestion started Patient Tobacco Use Status: Former Tobacco user Allergies amlodipine Allergy (Unknown, Verified 03/11/23 13:06) Unknown atorvastatin Allergy (Unknown, Verified 03/11/23 13:06) Unknown Iodinated Contrast Media [IV CONTRAST] Adverse Reaction (Unknown, Verified 03/11/23 13:06) BLINDENESS Do you need a note to return to daycare/school/sports/work: No HPI HPI Comments History of Present Illness Details Patient is a 67-year-old male in today for sick visit. He states that over the past 5 days he has developed a cough without sputum, sore throat, headache, chills, and body aches. He has not traveled recently in no on else in the household is sick. He states that his cough has gotten progressively worse over the past couple of days, which is keeping him up at night. She also states he has general fatigue and muscle aches. Denies having a fever, shortness of breath, chest pain, nausea, vomiting, diarrhea. He has taken Tylenol he has some relief. 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 Mother No problems noted. Social History Housing: Apartment Alcohol intake: current Alcohol intake frequency: holidays/special occasions only Patient Tobacco Use Status: Former Tobacco user e-Cigarette/Vaping Use: Never Used Second Hand Smoke Exposure: Yes Substance Use Type: Former Substance User and Marijuana service: No Current occupational status: retired Cognitive needs: No Hearing needs: No Vision needs: Yes Review of Systems Const Details: Constitutional : No Weight loss, No Fever, Admits Chills, Admits Fatigue, No Malaise ENT/Mouth : Admits sore throat, No Rhinorrhea Eyes: No Eye Pain, No Swelling, No Redness Cardiovascular : No Chest Pain, No SOB, No Dyspnea on Exertion, No Orthopnea, No Edema, No Palpitations Respiratory : Admits dry Cough, No Sputum, No Wheezing Gastrointestinal : No Nausea, No Vomiting, No Diarrhea, No Constipation, No abdominal Pain, No Hematochezia, No Melena Musculoskeletal : No joint pain, Admits body aches, No Joint Swelling Skin : No Skin Lesions, No rash Neuro : No Weakness, No Numbness, No Dizziness, No Headache Psych : No Anxiety/Panic, No Depression Heme/Lymph: No Bruising, No Bleeding,No Lymphadenopathy Endocrine : No Polyuria, No Polydipsia All other systems reviewed and are negative Physical Exam Vital Signs: Last Vital Signs Temp 97.4 F 03/11/23 13:05 Pulse 84 03/11/23 13:05 BP 122/70 03/11/23 13:05 Pulse Ox 96 03/11/23 13:05 Oxygen Delivery Method Room Air 03/11/23 13:05 BMI result Body Mass Index 37.0 Vital signs have been reviewed and are stable Const Other: Appearance: Alert.? Oriented X3.? No acute distress.? Head: Normocephalic, atraumatic, no step-offs or deformities ENT: Pharynx normal.?TM visible, intact, effusion and erythema of right TM. Neck: Normal inspection.? Neck supple.? CVS: Normal heart rate and rhythm.? Pulses normal.? Respiratory: No respiratory distress.? Slight expiratory wheeze bilaterally in upper lobes. Skin: Skin warm and dry.? Normal skin color.? Normal skin turgor.? Neuro: Oriented X 3.? No motor deficit.? No sensory deficit. CN 2-12 intact General: cooperative and no acute distress Results Reviewed Results Reviewed: Will call patient with upper respiratory swab result Assessment & Plan Assessment & Plan (1) Right otitis media: Comment: Patient will be given Augmentin to be taken for the entire course. Patient has been educated on the side effects of the medication. Code(s): H66.91 - Otitis media, unspecified, right ear Qualifiers: Chronicity: acute Recurrence: non-recurrent Spontaneous tympanic membrane rupture: without spontaneous rupture Otitis media type: suppurative Qualified Code(s): H66.001 - Acute suppurative otitis media without spontaneous rupture of ear drum, right ear Plan: Patient will take medication as directed. Patient understands signs of worsening symptoms and when to return to the ED or when to report to the walk-in clinic. (2) Cough: Comment: Will prescribe benzonatate to be taken as directed. Patient states he is out of his albuterol inhaler will provide a refill for this. Patient has been educated on side effects of this medication and how to take them properly. Patient understand when to return to the walk-in clinic or when to report to the ER based on signs of worsening symptoms. Code(s): R05.9 - Cough, unspecified Qualifiers: Cough type: acute Qualified Code(s): R05.1 - Acute cough Plan Patient should follow-up with his PCP. Patient is agreeable to this plan Orders: Orders SARS-CoV2/FLU/RSV Today J06.9 - Acute upper respiratory infection, unspecified Medications: New albuterol sulfate 90 mcg/actuation (ProAir HFA) 2 puffs inhalation Q4-6H PRN 6.7 grams 0RF bronchospasm amoxicillin-pot clavulanate 875-125 mg 1 tab PO Q12H 20 tabs 0RF benzonatate 100 mg PO BID PRN 20 caps 0RF cough Coding Level of Care Code New Pt Level 3 (10785) Diagnoses Non-recurrent acute suppurative otitis media of right ear without spontaneous rupture of tympanic membrane H66.001 Chronicity: acute Recurrence: non-recurrent Spontaneous tympanic membrane rupture: without spontaneous rupture Otitis media type: suppurative Acute cough R05.1 Cough type: acute Time Spent (min) 15
== END 2023-03-11 14:13 | disposition home or self-care (01) ==
PROVIDERS: PCP Internal Medicine; Visit Provider Nurse Practitioner Primary Care
DX: H66.001 Acute suppurative otitis media without spontaneous rupture of ear drum, right ear (principal); R05.1 Acute cough
CPT/HCPCS: 99203; 99213

== ENCOUNTER 2023-03-11 16:06 | Outpatient (REF) | payer MEDICARE, SELFPAY ==
[2023-03-11 16:57] LABS: Influenza A PCR NEGATIVE (Negative); Influenza B PCR NEGATIVE (Negative); Resp Syncy Virus RNA Qual PCR NEGATIVE (Negative); SARS COV2 PCR INHOUSE NEGATIVE (Negative)
== END 2023-03-11 16:07 | disposition home or self-care (01) ==
LOC: HO.LNP 16:06
PROVIDERS: Visit Provider Nurse Practitioner Primary Care
DX: J06.9 Acute upper respiratory infection, unspecified (principal); Z11.52 Encounter for screening for COVID-19
CPT/HCPCS: 0241U

== ENCOUNTER 2023-03-17 10:18 | Outpatient (REF) | payer MEDICARE, SELFPAY ==
[2023-03-17 10:41] LABS: MANUAL DIFF FLAG NO
[2023-03-17 10:56] LABS: Basophils Percent Auto 0.6 % (0-2); Eosinophils Percent Auto 0.8 % (0-4); Hematocrit 45.8 % (42.0-52.0); Hemoglobin 15.5 g/dl (14.0-18.0); Imm Gran Abs Auto 0.06 X10*3/uL (0.00-0.03); Imm Gran Pct Auto 1.2 % (0.0-0.4); Lymphocytes Absolute Auto 1.6 X10*3/uL (1.2-4.9); Lymphocytes Percent Auto 30.7 % (20-40); Mean Corpuscular HGB Conc 33.8 g/dl (31.0-36.0); Mean Corpuscular Hemoglobin 29.9 pg (27.0-33.0); Mean Corpuscular Volume 88.2 fL (80.0-98.0); Mean Platelet Volume 9.1 fL (9.4-12.4); Monocytes Absolute Auto 0.5 X10*3/uL (0.1-1.2); Monocytes Percent Auto 10.2 % (2-11); Neutrophils Absolute Auto 2.9 x10*3/uL (2.0-8.3); Neutrophils Percent Auto 56.5 % (45-73); Platelet Count 194 X10*3/uL (160-400); Red Blood Count 5.19 X10*6/uL (4.60-5.80); Red Cell Distribution Width 12.9 % (11.0-16.0); White Blood Count 5.1 X10*3/uL (4.8-10.8)
[2023-03-17 11:05] LABS: Estimated Average Glucose 174 mg/dL; Hemoglobin A1c % 7.7 % (<6.0)
[2023-03-17 11:35] LABS: Alanine Aminotransferase 52 U/L (0-40); Alkaline Phosphatase 63 U/L (39-117); Anion Gap 17 (12-20); Aspartate Amino Transferase 39 U/L (5-37); Bilirubin Total 0.5 mg/dL (0.0-1.0); Blood Urea Nitrogen 24 mg/dL (9-16); Calcium 10.1 mg/dL (8.4-10.2); Carbon Dioxide 27 mmol/L (22-29); Chloride 101 mmol/L (96-108); Cholesterol 176 mg/dL (<200); Estimated Glomerular Filt Rate > 60; Glucose Random 172 mg/dL (60-115); HDL Cholesterol 30 mg/dL (>40); LDL Cholesterol Calculated 106 mg/dL (<100); Potassium 4.9 mmol/L (3.3-5.1); Sodium 140 mmol/L (135-145); Total Protein 7.3 g/dL (6.5-8.0); Triglycerides 201 mg/dL (<150)
[2023-03-17 11:54] LABS: Free T4 (Free Thyroxine) 0.89 ng/dL (0.71-1.85); Thyroid Stimulating Hormone 2.19 uIU/mL (0.32-4.0)
[2023-03-17 11:58] LABS: Folate 8.4 ng/mL (> or = 4.0); Prostate Specific Antigen Scr 0.33 ng/mL (<0.05-4.0); Vitamin B12 222 pg/mL (200-900)
[2023-03-17 12:37] LABS: Creatinine Urine 171.72 mg/dL; Microalbum/Creatinine Ratio Ur 21.5 ug/mg cr (<30)
== END 2023-03-17 10:19 | disposition home or self-care (01) ==
LOC: HO.LAB 10:18
PROVIDERS: PCP Internal Medicine; Visit Provider Internal Medicine
DX: Z12.5 Encounter for screening for malignant neoplasm of prostate (principal); E78.00 Pure hypercholesterolemia, unspecified; E11.65 Type 2 diabetes mellitus with hyperglycemia; Z79.4 Long term (current) use of insulin
CPT/HCPCS: 36415; 80053; 80061; 82043; 82570; 82607; 82746; 83036; 84153; 84439; 84443; 85025

== ENCOUNTER 2023-03-18 12:54 | Outpatient (AMB) | payer MEDICARE, SELFPAY ==
--- NOTE | 2023-03-18 12:58 | A.OFFPC_ITS ---
Vital Signs 03/18/23 13:00 Height 6 ft 2 in Weight 283 lb 8 oz BMI 36.4 BP 112/72 Blood Pressure Location Rt brachial Position Sitting Pulse 77 Pulse Source Pulse Oximeter Pulse Oximetry (%) 98 Oxygen Delivery Method Room Air Intake Visit Reasons: Sleep Study Intake Note: Patient is here to follow up on Sleep study results. Insurance Verification Clerk Required: No Facilities Technician: Not Required per policy Accompanied by: Self / Same As Patient Allergies amlodipine Allergy (Unknown, Verified 03/18/23 12:59) Unknown atorvastatin Allergy (Unknown, Verified 03/18/23 12:59) Unknown Iodinated Contrast Media [IV CONTRAST] Adverse Reaction (Unknown, Verified 03/18/23 12:59) BLINDENESS Medication List - Last Reconciled 03/18/23 by Claudia Richter MD acetaminophen 500 mg PO Q6H PRN albuterol sulfate 90 mcg/actuation (ProAir HFA) 2 puffs inhalation Q4-6H PRN amoxicillin-pot clavulanate 875-125 mg 1 tab PO Q12H aspirin (Adult Aspirin Regimen) 81 mg PO DAILY [BIPAP 12/8 cm H20 humidified AIR As directed Duration: 99] blood sugar diagnostic ([employer] Verio test strips) 3x daily cholecalciferol (vitamin D3) 25 mcg PO DAILY compr.stocking,knee,long,x-lrg As directed 20-30 mm HG cranberry 405 mg PO DAILY cyanocobalamin (vitamin B-12) 1,000 mcg PO DAILY 30 days hydralazine 25 mg PO Q8H 90 days hydrochlorothiazide 25 mg PO DAILY insulin glargine-lixisenatide 100 unit-33 mcg/mL (Soliqua 100/33) 24 units (0.24 mL) subcut BID 30 days losartan 50 mg PO BID metformin ER 1,000 mg (2 x 500 mg) PO BID metoprolol tartrate 100 mg PO BID 90 days pen needle, diabetic (BD Ultra-Fine Aspen Pen Needle) As directed twice a day zolpidem (Ambien) 5 mg PO BEDTIME PRN Tobacco use date assessed: 03/18/23 Fall risk assessment: No Falls in past year Last assessed Fall Risk: 03/18/23 Dental Screening Dental Screen Date: 03/18/23 Did you have a dental visit in the last 12 months?: No Did you have a dental problem in the last 6 months where you did not have access to dental care?: No Was dental information given to patient?: Patient has dentist HPI Sleep Study HPI Details 67-year-old obese male with an uncontrol led diabetes mellitus hypertension hypercholesterolemia obstructive sleep apnea BPH last seen in February 2023. Patient is here for follow-up. Up-to-date with colonoscopy May 2022. Recently went [facility] the [facility] March 11 had a cough and negative for flu RSV and COVID. Treated otitis media right ear with Augmentin and was given inhaler. no sob, asking tussionex but was rx tessalon but did not help with cough, no post nasl drip, no prodcuition was congested, , no ear pain. sleep study done 09/19/2021 severe degree of sleep apnea Bipap 12/8/cm H20 . presently no machine . PAtient has been sleepy a lot , sleeps on watching tv, takes after noon nap , after a meal gets sleepy, driving - not sleepy. , sleeps as a passenger in the car. 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 Mother No problems noted. Social History Housing: Apartment Alcohol intake: current Alcohol intake frequency: holidays/special occasions only Patient Tobacco Use Status: Former Tobacco user e-Cigarette/Vaping Use: Never Used Second Hand Smoke Exposure: Yes Substance Use Type: Former Substance User and Marijuana service: No Current occupational status: retired Cognitive needs: No Hearing needs: No Vision needs: Yes (glasses) Questionnaire Thrive Questionnaire Date Thrive assessed: 05/31/22 YAZAN-7 AMB Questionnaire YAZAN-7 Date YAZAN - 7 assessed: 05/31/22 Source: Developed by Drs. Bismark Fraire, Claudine Anderson, Ry Aguilar and colleagues, with an educational huma from [employer]. Physical exam (Primary Care) Vital Signs: Last Vital Signs Pulse 77 03/18/23 13:00 BP 112/72 03/18/23 13:00 Pulse Ox 98 03/18/23 13:00 Oxygen Delivery Method Room Air 03/18/23 13:00 BMI result Body Mass Index 36.4 Tobacco/Smoking Status: Tobacco use Status Tobacco use date assessed 03/18/23 03/18/23 13:27 Patient Tobacco Use Status Former Tobacco user 03/18/23 13:27 e-Cigarette/Vaping Use Never Used 03/18/23 13:27 Thrive Assessment: Date of Thrive Assessment Date Thrive assessed 05/31/22 03/18/23 13:27 Const General: alert; No acute distress Eyes Conjunctivae: conjunctivae normal Resp Auscultation: clear to auscultation bilaterally Cardio Rate: regular rate Rhythm: regular rhythm GI Inspection: Yes normal to inspection Extrem General: Yes normal to inspection and No edema Assessment and Plan Assessment & Plan (1) Type 2 diabetes mellitus with hyperglycemia: Code(s): E11.65 - Type 2 diabetes mellitus with hyperglycemia Qualifiers: Diabetes mellitus intermodal dispatcher insulin use: with care home use Qualified Code(s): E11.65 - Type 2 diabetes mellitus with hyperglycemia; Z79.4 - longterm (current) use of insulin Plan: Decrease the amount of carbohydrate intake, pasta, bread, rice and potatoes are all sugar and that is aside from all the sweet stuff, remember that fruits are good but they are Sweet also. Hemoglobin A1c goal of less than 7.0 patient is on Soliqua 24 units twice a day metformin a 1000 mg twice a day (2) Hypertension: Code(s): I10 - Essential (primary) hypertension Qualifiers: Hypertension type: essential hypertension Qualified Code(s): I10 - Essential (primary) hypertension Plan: Continue with blood pressure medication. Decrease salt intake and exercise takes metoprolol 100 mg twice a day and losartan 50 mg twice a day hydrochlorothiazide 25 mg once a day and hydralazine 25 mg 3 times a day (3) BPH (benign prostatic hyperplasia): Code(s): N40.0 - Benign prostatic hyperplasia without lower urinary tract symptoms Qualifiers: Lower urinary tract symptom presence: symptoms present Lower urinary tract symptom detail: urinary frequency Qualified Code(s): N40.1 - Benign prostatic hyperplasia with lower urinary tract symptoms; R35.0 - Frequency of micturition Plan: Stable Stable (4) B12 deficiency: Code(s): E53.8 - Deficiency of other specified B group vitamins Plan: Vitamin B12 1000 mcg once a day (5) Obstructive sleep apnea: Comment: Not using CPAP as previous had insurance problem ( =09/2021) sleep study September 2021 severe Code(s): G47.33 - Obstructive sleep apnea (adult) (pediatric) Plan: trying to acquire the BIPAP machine as the patient had the test 09/2021- severe and advised BIPAP Medications: Refilled metoprolol tartrate 100 mg PO BID 90 days 180 tabs 2RF I10 - Essential (primary) hypertension Coding Level of Care Code Est Pt Level 4 (94932) Diagnoses Type 2 diabetes mellitus with hyperglycemia, with long-term current use of insulin E11.65; Z79.4 Diabetes mellitus intermodal dispatcher insulin use: with care home use Essential hypertension I10 Hypertension type: essential hypertension Benign prostatic hyperplasia with urinary frequency N40.1; R35.0 Lower urinary tract symptom presence: symptoms present Lower urinary tract symptom detail: urinary frequency B12 deficiency E53.8 Obstructive sleep apnea G47.33
[2023-03-18 13:00] VITALS: BP 112/72; PULSE 77; O2SAT 98; BMI 36.4
== END 2023-03-18 13:52 | disposition home or self-care (01) ==
PROVIDERS: PCP Internal Medicine; Visit Provider Internal Medicine
DX: E11.65 Type 2 diabetes mellitus with hyperglycemia (principal); Z79.4 Long term (current) use of insulin; I10 Essential (primary) hypertension; N40.1 Benign prostatic hyperplasia with lower urinary tract symptoms; R35.0 Frequency of micturition; E53.8 Deficiency of other specified B group vitamins; G47.33 Obstructive sleep apnea (adult) (pediatric)
CPT/HCPCS: 99214

== ENCOUNTER 2023-04-19 09:09 | Outpatient (AMB) | payer MEDICARE, SELFPAY ==
--- NOTE | 2023-04-19 09:19 | AM.OFFWIN_ITS ---
Intake Vital Signs 04/19/23 09:21 Height 6 ft 2 in Weight 288 lb BMI 37.0 BP 120/78 Blood Pressure Location Rt brachial Position Sitting Pulse 84 Pulse Source Pulse Oximeter Temp 98.3 F Temp Source Oral Pulse Oximetry (%) 97 Oxygen Delivery Method Room Air Intake Visit Reasons: EP dark urine tiredness headache diabetic Intake Note: Patient here because he has been very fatigued, dark urine with a foul order, diabetic and headache which has been present for about 1 week. He has been sepsis in the past Patient Tobacco Use Status: Former Tobacco user Allergies amlodipine Allergy (Unknown, Verified 04/19/23:) Unknown atorvastatin Allergy (Unknown, Verified 04/19/23) Unknown Iodinated Contrast Media [IV CONTRAST] Adverse Reaction (Unknown, Verified 04/19/23) BLINDENESS Do you need a note to return to daycare/school/sports/work: No HPI EP dark urine tiredness headache diabetic HPI Details Patient is a 67-year-old male who comes to the walk-in clinic complaining of feeling more tired than usual, decreased appetite, headache and states that his urine is very dark and has a foul odor. Symptoms have been present for about a week. He comes in with his , and gives history of being a diabetic, and having sepsis due to pyelonephritis in the past, which was caught late as he did not have any urinary symptoms. He denies urinary symptoms today, as well as fever or chills, nausea vomiting or diarrhea, generalized myalgias, abdominal pain, weakness or dizziness, chest pain or shortness of breath, respiratory symptoms or other significant associated symptoms. 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 Mother No problems noted. Social History Housing: Apartment Alcohol intake: current Alcohol intake frequency: holidays/special occasions only Patient Tobacco Use Status: Former Tobacco user e-Cigarette/Vaping Use: Never Used Second Hand Smoke Exposure: Yes Substance Use Type: Former Substance User and Marijuana service: No Current occupational status: retired Cognitive needs: No Hearing needs: No Vision needs: Yes (glasses) Review of Systems Const All systems reviewed & are unremarkable except as noted in HPI and below Physical Exam Vital Signs: Last Vital Signs Temp 98.3 F 04/19/23 09:21 Pulse 84 04/19/23 09:21 BP 120/78 04/19/23 09:21 Pulse Ox 97 04/19/23 09:21 Oxygen Delivery Method Room Air 04/19/23 09:21 BMI result Body Mass Index 37.0 Const General: cooperative, healthy appearing, comfortable, no acute distress, alert, awake, Physically active and well groomed; No anxious, diaphoretic, ill appearing, intoxicated appearing or poor hygiene Nutritional Appearance: average body habitus Orientation/consciousness: oriented to person Limitations: no limitations Chest Chest palpation & inspection: normal palpation of entire chest wall Resp Effort & Inspection: normal respiratory effort, able to speak in complete sentences, no audible wheezes, no cough, no grunting, not labored, no nasal flaring, no retractions and symmetric chest movement Auscultation: clear to auscultation bilaterally, no crackles, no rales, no rhonchi, no wheezes, lung sounds not diminished and No rub present Cardio Palpation: normal PMI Rate: regular rate Rhythm: regular rhythm Heart sounds: S1 normal heart sound present and S2 normal heart sound present General: Yes CVA tenderness bilateral and diffuse Back/Spine/Pelvis Back: CVA tenderness Skin Other: Good color, warm and dry Neuro General: oriented to person Psych Appearance: grossly normal Mental Status: mental status grossly normal Speech and movement: Normal speech and movement present Affect: normal affect Attitude: cooperative Thought process: Normal thought process present Insight: Good insight present (Psych) Judgement: Good judgement present (Psych) Results AMB Urinalysis, Automated UA Leukoctes 70 Héctor/uL Last Edit by Mary Schumacher [facility] on 04/19/23 09:4 6 UA Nitrite Positive Last Edit by Mary Schumacher [facility] on 04/19/23 09:46 UA Urobilinogen 0.2 mg/dL Last Edit by Mary Schumacher [facility] on 04/19/23 09:46 UA Protein 30 mg/dL Last Edit by Mary Schumacher [facility] on 04/19/23 09:46 UA pH 5.5 Last Edit by Mary Schumacher [facility] on 04/19/23 09:46 UA Blood 0 Neeraj/uL Last Edit by Mary Schumacher [facility] on 04/19/23 09:46 UA Specific [place] 1.030 Last Edit by Mary Schumacher [facility] on 04/19/23 09:46 UA Ketone Positive Last Edit by Mary Schumacher [facility] on 04/19/23 09:46 UA Bilirubin 0 mg/dL Last Edit by Mary Schumacher [facility] on 04/19/23 09:46 UA Glucose 0 mg/dL Last Edit by Mary Schumacher [facility] on 04/19/23 09:46 Results Reviewed Results Reviewed: Laboratory Last Values Urine pH (Auto) 5.5 04/19/23 09:44 Specific [place] (Auto) 1.030 04/19/23 09:44 Urine Protein (Auto) 30 mg/dL 04/19/23 09:44 Glucose (UA)(Auto) 0 mg/dL 04/19/23 09:44 Urine Ketones (Auto) Positive 04/19/23 09:44 Urine Blood (Auto) 0 Neeraj/uL 04/19/23 09:44 Urine Nitrite (Auto) Positive 04/19/23 09:44 Urine Bilirubin (Auto) 0 mg/dL 04/19/23 09:44 Urine Urobilinogen (Auto) 0.2 mg/dL 04/19/23 09:44 Leukocyte Esterase (Auto) 70 Héctor/uL 04/19/23 09:44 Positive for ketones, protein, nitrites Assessment & Plan Assessment & Plan (1) UTI (urinary tract infection): Code(s): N39.0 - Urinary tract infection, site not specified Qualifiers: Urinary tract infection type: acute pyelonephritis Qualified Code(s): N10 - Acute pyelonephritis Plan: Patient with approximately 1 week systemic symptoms, comes in with his and reports that he has a history of sepsis due to pyelonephritis. Apparently he does not feel the urinary symptoms, which urologist had related to him is due to thickened bladder wall . He is positive for nitrites, protein ketones and leukocytes in his urine, and due to him having set cysts in the past, and current systemic symptoms, I suspect this is already upper urinary tract involvement. He was treated with ciprofloxacin with the prior pyelonephritis, and he states that he had no side effects due to this, however he does have a history reported of liver steatosis and although his hepatic panel most recently was stable, I will order the ciprofloxacin at the high dose but will have him check liver function tests and do a comprehensive metabolic profile along with CBC today. If his symptoms do not start to improve tomorrow, was advised to bring him to the emergency department for further evaluation, and they agreed to this. I also advised that he follow up with primary care or urologist however, if he does not need to go to the emergency department this weekend, for further monitoring and treatment. He is also pending microscopy results from his urine sample today. They were amenable to this plan. Orders: Orders AMB Urinalysis Automated Today Z13.9 - Encounter for screening, unspecified Complete Blood Count Auto Diff Today N39.0 - Urinary tract infection, site not specified UA CC w/rflx Micro + Cult Today R30.0 - Dysuria Liver Panel Today N39.0 - Urinary tract infection, site not specified Basic Metabolic Panel Today N39.0 - Urinary tract infection, site not specified Medications: New ciprofloxacin HCl 500 mg (2 x 250 mg) PO BID 5 days 20 tabs 0RF ciprofloxacin HCl 250 mg PO BID 10 tabs 0RF Coding Level of Care Code Est Pt Level 4 (72833) Diagnoses Acute pyelonephritis N10 Urinary tract infection type: acute pyelonephritis
[2023-04-19 09:21] VITALS: BP 120/78; PULSE 84; TEMP 36.8; O2SAT 97; BMI 37.0
== END 2023-04-19 10:34 | disposition home or self-care (01) ==
PROVIDERS: PCP Internal Medicine; Visit Provider Physician Assistant Medical
DX: N10 Acute pyelonephritis (principal); R82.998 Other abnormal findings in urine
CPT/HCPCS: 81003; 99214

== ENCOUNTER 2023-04-19 10:03 | Outpatient (REF) | payer MEDICARE, SELFPAY ==
[2023-04-19 11:12] LABS: Basophils Percent Auto 0.4 % (0-2); Eosinophils Percent Auto 0.5 % (0-4); Hematocrit 44.7 % (42.0-52.0); Hemoglobin 15.2 g/dl (14.0-18.0); Imm Gran Abs Auto 0.05 X10*3/uL (0.00-0.03); Imm Gran Pct Auto 0.6 % (0.0-0.4); Lymphocytes Absolute Auto 1.2 X10*3/uL (1.2-4.9); Lymphocytes Percent Auto 13.8 % (20-40); MANUAL DIFF FLAG NO; Mean Corpuscular Hemoglobin 30.3 pg (27.0-33.0); Mean Corpuscular Volume 89.2 fL (80.0-98.0); Mean Platelet Volume 9.6 fL (9.4-12.4); Monocytes Absolute Auto 1.1 X10*3/uL (0.1-1.2); Monocytes Percent Auto 12.7 % (2-11); Platelet Count 183 X10*3/uL (160-400); Red Blood Count 5.01 X10*6/uL (4.60-5.80); Red Cell Distribution Width 13.9 % (11.0-16.0); White Blood Count 8.3 X10*3/uL (4.8-10.8)
[2023-04-19 11:27] LABS: Alanine Aminotransferase 30 U/L (0-40); Albumin Level 3.8 g/dL (3.5-5.0); Alkaline Phosphatase 65 U/L (39-117); Anion Gap 16 (12-20); Aspartate Amino Transferase 18 U/L (5-37); Bilirubin Direct 0.5 mg/dL (0.0-0.5); Bilirubin Total 1.2 mg/dL (0.0-1.0); Blood Urea Nitrogen 20 mg/dL (9-16); Calcium 9.8 mg/dL (8.4-10.2); Carbon Dioxide 26 mmol/L (22-29); Chloride 99 mmol/L (96-108); Estimated Glomerular Filt Rate > 60; Glucose Random 147 mg/dL (60-115); Potassium 4.3 mmol/L (3.3-5.1); Sodium 137 mmol/L (135-145); Total Protein 7.3 g/dL (6.5-8.0)
[2023-04-19 11:27] LABS: Appearance Urine Turbid; Color Urine Dark Yellow; Glucose Urine UA Negative (Negative); Leukocyte Esterase Urine Moderate (2+) (Negative); Nitrite Urine Positive (Negative); PH 5.5 (5.0-9.0); Specific Gravity - Urine 1.025 (1.005-1.025); UMIC TRIGGER UACC YES; Urine Blood Negative (Negative); Urine Ketones 15 mg/dL (Negative); Urine Protein 30 (1+) mg/dL (Neg-Trace)
[2023-04-19 11:43] LABS: Bacteria Urine 4+ (None Seen); RBC Urine 0-2 /HPF (0-2); UACC Culture Trigger YES; WBC Urine >50 /HPF (0-5)
== END 2023-04-19 10:04 | disposition home or self-care (01) ==
LOC: HO.HMGCLDS 10:03
PROVIDERS: PCP Internal Medicine; Visit Provider Physician Assistant Medical
DX: N39.0 Urinary tract infection, site not specified (principal); E11.65 Type 2 diabetes mellitus with hyperglycemia; R30.0 Dysuria; R39.9 Unspecified symptoms and signs involving the genitourinary system; Z79.4 Long term (current) use of insulin
CPT/HCPCS: 36415; 80048; 80076; 81001; 85025; 87086; 87088; 87186

== ENCOUNTER 2023-04-19 21:34 | Emergency (ER) | payer MEDICARE, SELFPAY ==
[2023-04-19 21:50] VITALS: BP 188/96; PULSE 121; RESP 18; TEMP 37; O2SAT 98; BMI 37.0
[2023-04-19 22:17] LABS: MANUAL DIFF FLAG NO
[2023-04-19 22:18] LABS: Basophils Percent Auto 0.2 % (0-2); Eosinophils Percent Auto 0.8 % (0-4); Hematocrit 41.6 % (42.0-52.0); Hemoglobin 14.6 g/dl (14.0-18.0); Imm Gran Abs Auto 0.02 X10*3/uL (0.00-0.03); Imm Gran Pct Auto 0.4 % (0.0-0.4); Mean Corpuscular HGB Conc 35.1 g/dl (31.0-36.0); Mean Corpuscular Hemoglobin 30.3 pg (27.0-33.0); Mean Corpuscular Volume 86.3 fL (80.0-98.0); Mean Platelet Volume 9.1 fL (9.4-12.4); Monocytes Absolute Auto 0.7 X10*3/uL (0.1-1.2); Monocytes Percent Auto 14.3 % (2-11); Neutrophils Absolute Auto 3.4 x10*3/uL (2.0-8.3); Neutrophils Percent Auto 65.3 % (45-73); Platelet Count 170 X10*3/uL (160-400); Red Blood Count 4.82 X10*6/uL (4.60-5.80); Red Cell Distribution Width 13.6 % (11.0-16.0); White Blood Count 5.2 X10*3/uL (4.8-10.8)
--- NOTE | 2023-04-19 22:18 | MHC.EDTECH ---
Patient brought into triage area, blood cultures and labs were obtained and sent to lab. patient is attempting to give a urine sample at this time.
--- NOTE | 2023-04-19 22:25 | MHC.EDTECH ---
Urine sample collected and sen to lab.
[2023-04-19 22:27] LABS: Lactic Acid 1.8 mmol/L (0.5-2.0)
[2023-04-19 22:32] LABS: Alanine Aminotransferase 28 U/L (0-40); Albumin Level 3.6 g/dL (3.5-5.0); Alkaline Phosphatase 61 U/L (39-117); Anion Gap 16 (12-20); Aspartate Amino Transferase 22 U/L (5-37); Bilirubin Direct 0.4 mg/dL (0.0-0.5); Bilirubin Total 0.9 mg/dL (0.0-1.0); Blood Urea Nitrogen 20 mg/dL (9-16); Calcium 9.3 mg/dL (8.4-10.2); Carbon Dioxide 23 mmol/L (22-29); Chloride 100 mmol/L (96-108); Creatinine Clr Calc Pharmacy 78.2; Estimated Glomerular Filt Rate 56; Glucose Random 149 mg/dL (60-115); Potassium 3.9 mmol/L (3.3-5.1); Sodium 135 mmol/L (135-145); Total Protein 6.8 g/dL (6.5-8.0)
[2023-04-19 22:34] LABS: Appearance Urine Clear; Color Urine Yellow; Glucose Urine UA Negative (Negative); Leukocyte Esterase Urine Small (1+) (Negative); Nitrite Urine Negative (Negative); Specific Gravity - Urine 1.015 (1.005-1.025); UMIC TRIGGER UACC YES; Urine Blood Negative (Negative); Urine Ketones 15 mg/dL (Negative); Urine Protein Negative (Neg-Trace)
[2023-04-19 22:39] LABS: Bacteria Urine None Seen (None Seen); Hyaline Casts Urine 0-2 /LPF (0-2); RBC Urine 0-2 /HPF (0-2); Squamous Epithelial Cell Urine 0-2 /HPF (0-2); UACC Culture Trigger YES; WBC Urine 21-50 /HPF (0-5)
[2023-04-20 01:18] VITALS: BP 160/94; PULSE 120; RESP 20; TEMP 36.7; O2SAT 96
--- NOTE | 2023-04-20 05:15 | ED.GENADULT ---
HPI - General Adult General Chief complaint: General Medical Stated complaint: headache/went to Urgent care/report to er if worse Time Seen by Provider: 04/20/23 05:15 Source: patient Mode of arrival: ambulatory Limitations: no limitations History of Present Illness HPI narrative: 67-year-old male with history of diabetes mellitus, hypertension, hyperlipidemia, obstructive sleep apnea, sepsis secondary to UTI 2013 who presents emergency department for evaluation of headache, fatigue, fever frequency and urgency. Patient states that he has been sick x4 days. He denied dysuria but he states he is had increased urinary frequency with urgency. He notice that his urine was dark and cloudy. States he is had increased fatigue and increased sleepiness. Patient has had a headache which is intermittent. He went to an urgent care clinic and was diagnosed with a urinary tract infection. He was started on ciprofloxacin 250 mg twice a day and was contacted by the urgent care clinic and advised to take ciprofloxacin 250 mg 2 pills twice a day. The patient was concerned that he was getting worse and he was concerned that he may be septic so he came to the emergency department for evaluation. Patient states that he has been taking his temperature and the highest temperature that he had was 99.4. He states that he is had subjective fever but he denied chills, rhinorrhea, sore throat, chest pain, shortness of breath, dyspnea on exertion, nausea, vomiting, diarrhea or abdominal pain. Related Data Home Medications Medication Instructions Recorded Confirmed aspirin 81 mg tablet,delayed 81 mg PO DAILY 02/11/20 03/18/23 release (Adult Aspirin Regimen) cholecalciferol (vitamin D3) 25 25 mcg PO DAILY 02/11/20 03/18/23 mcg (1,000 unit) capsule cranberry 405 mg capsule 405 mg PO DAILY 02/11/20 03/18/23 Previous Rx's Medication Instructions Recorded compr.stocking,knee,long,x-lrg #12 ea 07/14/20 blood sugar diagnostic (OneTouch #100 ea 11/22/20 Verio test strips) cyanocobalamin (vitamin B-12) 1,000 mcg PO DAILY 30 days #30 caps 11/16/21 1,000 mcg capsule hydralazine 25 mg tablet 25 mg PO Q8H 90 days #270 tabs 09/30/22 hydrochlorothiazide 25 mg tablet 25 mg PO DAILY #90 tabs 09/30/22 insulin glargine 100 24 unit (0.24 mL) subcut BID 30 11/23/22 unit-lixisenatide 33 mcg/mL days #15 mL subcutaneous pen (Soliqua ) metformin 500 mg tablet,extended 1,000 mg (2 x 500 mg) PO BID #360 02/11/23 release 24 hr tabs pen needle, diabetic 32 gauge x #200 ea 02/11/23 (BD Ultra-Fine Aspen Pen Needle) zolpidem 5 mg tablet (Ambien) 5 mg PO BEDTIME PRN sleep #20 tabs 02/24/23 metoprolol tartrate 100 mg tablet 100 mg PO BID 90 days #180 tabs 03/18/23 BIPAP 12/8 cm H20 humidified AIR #1 ea 03/20/23 albuterol sulfate 90 mcg/actuation 2 puff inhalation Q4-6H PRN 04/02/23 aerosol inhaler (ProAir HFA) bronchospasm #6.7 grams ciprofloxacin HCl 250 mg tablet 500 mg (2 x 250 mg) PO BID 5 days 04/19/23 #20 tabs losartan 50 mg tablet 50 mg PO BID #180 tabs 04/19/23 ciprofloxacin HCl 250 mg tablet 250 mg PO Q12H 5 days #10 tabs 04/20/23 Allergies Allergy/AdvReac Type Severity Reaction Status Date / Time amlodipine Allergy Unknown Unknown Verified 04/19/23 21:50 atorvastatin Allergy Unknown Unknown Verified 04/19/23 21:50 Iodinated Contrast Media AdvReac Unknown BLINDENESS Verified 04/19/23 21:50 [IV CONTRAST] Review of Systems Review of Systems: Yes all other systems are reviewed and are negative [facility] Past Medical History [facility] Narrative: Social history: He denies tobacco use. He states he rarely drinks alcohol. 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 Mother No problems noted. Social History Social History Housing: Apartment Alcohol intake: never Patient Tobacco Use Status: Former Tobacco user e-Cigarette/Vaping Use: Never Used Second Hand Smoke Exposure: Yes Substance Use Type: Former Substance User and Marijuana service: No Current occupational status: retired Cognitive needs: No Hearing needs: No Vision needs: Yes (glasses) Physical Exam ED Vital Signs: Vital Signs - 24 hr 04/19/23 21:50 04/20/23 01:18 Temperature 98.6 F 98.1 F Pulse Rate 121 H 120 H Respiratory Rate 18 20 Blood Pressure 188/96 H 160/94 H Pulse Oximetry 98 96 Oxygen Delivery Method Room Air Room Air BMI result Body Mass Index 37.0 Vital signs revealed an elevated heart rate of 121 and elevated blood pressure of 188/96. Exam: General: Awake, alert in no distress Head: Normocephalic, atraumatic EENT: PERRL, Lids normal, sclera normal, conjunctiva normal, nose normal , ears normal, throat without erythema or exudates Neck: Supple, no adenopathy, no trachea midline or C-spine tenderness Lung: breath sounds symmetric, no wheezing, rales or rhonchi Chest: symmetric movement, nontender Heart: regular rate and rhythm, normal S1, S2 no murmurs or rubs Abdomen: soft, non-tender, nondistended, normal bowel sounds Back: no vertebral tenderness, no CVAT Extremities: no deformities, moves all extremities symmetrically, patient is wearing compression stockings and he does have 1+ pitting edema Neuro: Awake, alert, oriented, normal speech, cranial nerves intact, moves all extremities symmetrically Psych: Pleasant, cooperative Medical Decision Making Medical Decision Making MDM Narrative: 67-year-old male with history of diabetes mellitus, hypertension, hyperlipidemia, obstructive sleep apnea, sepsis secondary to UTI 2013 who presents emergency department for evaluation of headache, fatigue, fever frequency and urgency x4 days. Patient was seen in urgent care clinic, diagnosed with urinary tract infection started on ciprofloxacin. Patient did not feel better and was concerned that he may be septic so he came to the emergency department for evaluation. Patient did have tachycardia and an elevated blood pressure otherwise vital signs were normal. Physical examination was unremarkable. Following evaluation was ordered: CBC, BMP, liver panel, urinalysis, blood cultures x2 Patient was treated with Tylenol 975 mg orally. 05:51 My interpretation patient's laboratory evaluation as follows: WBC was normal 5200. BUN elevated 20. Glucose elevated 149. Lactic acid normal 1.8. Urinalysis was positive for leukocyte esterase. Microscopic revealed 20-50 WBCs with no bacteria. Patient's presentation and laboratory evaluation is consistent with a urinary tract infection. I do not think the patient's sepsis this time. Patient initially did have an elevated blood pressure and heart rate, discharge blood pressure still elevated but the patient does have essential hypertension. Patient's discharge heart rate was 86 which is reassuring. I did give the patient a prescription for ciprofloxacin 250 mg q.12 hours so that he can increase his dose to ciprofloxacin 250 mg, 2 pills q.12 hours for 5 days. Patient given printed and verbal instructions discharged home Differential Diagnosis Differential Diagnoses: The differential diagnosis associated with the presentation includes Differential diagnosis includes was not limited to viral syndrome, urinary tract infection, electrolyte abnormalities, anemia Admission/Observation Consideration of admission/observation: Escalation of care including admission/observation considered Lab Data MDM Lab Attestation statement: I reviewed the patient's lab results. 04/19/23 22:10 04/19/23 22:10 Labs: Lab Results 04/19/23 04/19/23 Range/Units 22:10 22:25 WBC 5.2 (4.8-10.8) X10*3/uL RBC 4.82 (4.60-5.80) X10*6/uL Hgb 14.6 (14.0-18.0) g/dl Hct 41.6 L (42.0-52.0) % MCV 86.3 (80.0-98.0) fL MCH 30.3 (27.0-33.0) pg MCHC 35.1 (31.0-36.0) g/dl RDW 13.6 (11.0-16.0) % Plt Count 170 (160-400) X10*3/uL MPV 9.1 L (9.4-12.4) fL Immature Gran % (Auto) 0.4 (0.0-0.4) % Neut % (Auto) 65.3 (45-73) % Lymph % (Auto) 19.0 L (20-40) % [place] % (Auto) 14.3 H (2-11) % Eos % (Auto) 0.8 (0-4) % Baso % (Auto) 0.2 (0-2) % Lymph # (Auto) 1.0 L (1.2-4.9) X10*3/uL [place] # (Auto) 0.7 (0.1-1.2) X10*3/uL Eos # (Auto) 0.0 (0.0-0.4) X10*3/uL Baso # (Auto) 0.0 (0.0-0.2) X10*3/uL Abs Immat Gran (auto) 0.02 (0.00-0.03) X10*3/uL Absolute Neuts (auto) 3.4 (2.0-8.3) x10*3/uL Absolute Nucleated RBC 0.000 (0.0-0.012) X10*3/uL Nucleated RBC % (auto) 0.0 (0.0-0.2) /100WBC Sodium 135 (135-145) mmol/L Potassium 3.9 (3.3-5.1) mmol/L Chloride 100 (96-108) mmol/L Carbon Dioxide 23 (22-29) mmol/L Anion Gap 16 (12-20) BUN 20 H (9-16) mg/dL Creatinine 1.28 (0.5-1.4) mg/dL Estim Creat Clear Calc 78.2 Estimated GFR 56 Random Glucose 149 H (60-115) mg/dL Lactic Acid 1.8 (0.5-2.0) mmol/L Calcium 9.3 (8.4-10.2) mg/dL Total Bilirubin 0.9 (0.0-1.0) mg/dL Direct Bilirubin 0.4 (0.0-0.5) mg/dL AST 22 (5-37) U/L ALT 28 (0-40) U/L Alkaline Phosphatase 61 (39-117) U/L Total Protein 6.8 (6.5-8.0) g/dL Albumin 3.6 (3.5-5.0) g/dL Urine Color Yellow Urine Appearance Clear Urine pH 5.0 (5.0-9.0) Ur Specific [place] 1.015 (1.005-1.025) Urine Protein Negative (Neg-Trace) mg/dL Urine Glucose (UA) Negative (Negative) mg/dL Urine Ketones 15 (Negative) mg/dL Urine Blood Negative (Negative) Urine Nitrite Negative (Negative) Ur Leukocyte Esterase Small (1+) H (Negative) Urine RBC 0-2 (0-2) /HPF Urine WBC 21-50 H (0-5) /HPF Ur Squamous Epith Cells 0-2 (0-2) /HPF Urine Bacteria None Seen (None Seen) Hyaline Casts 0-2 (0-2) /LPF Prescription Management I considered prescription management with: Antibiotic Chronic Conditions Patient?s care impacted by: Diabetes and Hypertension Discharge Plan Discharge Clinical Impression: Urinary tract infection Patient Disposition: Home, Self-Care Instructions: Urinary Tract Infection in Men (ED) Additional Instructions: Your white blood cell count was normal which is reassuring. Your kidney function was normal. Your lactic acid (a marker of severe infection) was normal. Your urine did reveal significant number of white blood cells in the urine which is consistent with a urinary tract infection. Continue to take the ciprofloxacin 250 mg mg pills, 2 pills twice a day for 5 days (I sent a 2nd prescription for ciprofloxacin 250 mg twice a day for 5 days to your pharmacy) Take ibuprofen 200 mg pills, 2 pills every 6 hours as needed for pain or fever. Take Tylenol (acetaminophen) 500 mg pills, 2 pills every 6 hours as needed for pain or fever. Follow-up with your doctor in 2 days. Please return to the emergency department if your symptoms get worse or if you develop any symptoms that are concerning to you. Prescriptions: New ciprofloxacin HCl 250 mg tablet 250 mg PO Q12H 5 Days Qty: 10 0RF No Action (DME) OneTouch Verio test strips Strip See Rx Instructions .Route Qty: 100 11RF Rx Instructions: 3x daily cyanocobalamin (vitamin B-12) 1,000 mcg capsule 1,000 mcg PO DAILY 30 Days Qty: 30 6RF hydralazine 25 mg tablet 25 mg PO Q8H 90 Days Qty: 270 2RF hydrochlorothiazide 25 mg tablet 25 mg PO DAILY Qty: 90 3RF Soliqua 100/33 100 unit-33 mcg/mL insulin pen 24 unit subcut BID 30 Days Qty: 15 6RF (DME) pen needle, diabetic [BD Ultra-Fine Aspen Pen Needle] 32 gauge x 5/32 needle See Rx Instructions .Route Qty: 200 11RF Rx Instructions: As directed twice a day metformin 500 mg tablet extended release 24 hr 1,000 mg PO BID Qty: 360 1RF (DME) BIPAP 12/8 cm H20 humidified AIR See Rx Instructions .Route .MEDSUPPLY Qty: 1 0RF Rx Instructions: As directed Duration: 99 albuterol sulfate [ProAir HFA] 90 mcg/actuation HFA aerosol inhaler 2 puff inhalation Q4-6H PRN (Reason: bronchospasm) Qty: 6.7 0RF losartan 50 mg tablet 50 mg PO BID Qty: 180 3RF cholecalciferol (vitamin D3) 25 mcg (1,000 unit) capsule 25 mcg PO DAILY cranberry 405 mg capsule 405 mg PO DAILY Rx Instructions: administer with a meal aspirin [Adult Aspirin Regimen] 81 mg tablet,delayed release (DR/EC) 81 mg PO DAILY (DME) compr.stocking,knee,long,x-lrg Misc See Rx Instructions .ROUTE .MEDSUPPLY Qty: 12 0RF Rx Instructions: As directed 20-30 mm HG metoprolol tartrate 100 mg tablet 100 mg PO BID 90 Days Qty: 180 2RF ciprofloxacin HCl 250 mg tablet 500 mg PO BID 5 Days Qty: 20 0RF zolpidem [Ambien] 5 mg tablet 5 mg PO BEDTIME PRN (Reason: sleep) Qty: 20 1RF
[2023-04-20 05:49] VITALS: BP 161/92; PULSE 85; RESP 18; TEMP 36.7; O2SAT 97
[2023-04-20] MEDS: Acetaminophen 325 MG TABLET 975 MG PO (05:58)
== END 2023-04-20 06:05 | disposition home or self-care (01) ==
PROVIDERS: Emergency Provider Emergency Medicine Emergency Medical Services; PCP Internal Medicine
DX: N39.0 Urinary tract infection, site not specified (principal); R51.9 Headache, unspecified; E11.9 Type 2 diabetes mellitus without complications; E78.5 Hyperlipidemia, unspecified
CPT/HCPCS: 36415; 80048; 80076; 81001; 83605; 85025; 87040; 99283; 99284

== ENCOUNTER 2023-05-02 13:03 | Outpatient (AMB) | payer MEDICARE, SELFPAY ==
--- NOTE | 2023-05-02 13:15 | A.OFFPC_ITS ---
Vital Signs 05/02/23 13:18 Height 6 ft 2 in Weight 287 lb BMI 36.8 Blood Pressure Location Lt brachial Position Sitting Pulse 87 Pulse Source Pulse Oximeter Pulse Oximetry (%) 98 Oxygen Delivery Method Room Air Intake Visit Reasons: [facility] [place] - UTI Director Of Email Marketing Required: No Allergies amlodipine Allergy (Unknown, Verified 05/02/23 13:17) Unknown atorvastatin Allergy (Unknown, Verified 05/02/23 13:17) Unknown Iodinated Contrast Media [IV CONTRAST] Adverse Reaction (Unknown, Verified 05/02/23 13:17) BLINDENESS Jardiance Adverse Reaction (Intermediate, Uncoded 05/02/23 13:45) Recurrent UTI Tobacco use date assessed: 03/18/23 Dental Screening Dental Screen Date: 05/02/23 HPI [facility] - UTI HPI Details 67-year-old obese male with uncontrolled diabetes mellitus hypertension BPH obstructive sleep apnea coming in for follow-up. Last seen in March 2023. Colonoscopy is up-to-date May 2022. April note appreciated from [facility] in ER urinary tract infection. With the patient getting recurrent UTI and history of sepsis before advised patient that we can not treat his diabetes with Jardiance/Farxiga/Invokana ever. Patient presently feels a little bit better concern about the Klebsiella. Did discussed with the patient that with diabetes uncontrolled patient is susceptible to infection/immunosuppressed. Patient does have a urology follow-up next week for urinary incontinence. Workup CT scan requested. [facility] Medical History Sleep apnea Fatty liver Internal hemorrhoid Diverticulosis IBS (irritable bowel syndrome) Leg wound, left H/O urinary tract infection B12 deficiency correction (current) use of insulin History of melanoma BPH (benign prostatic hyperplasia) Obstructive sleep apnea Peripheral vascular disease Hypercholesterolemia Erectile dysfunction Hypertension Type 2 diabetes mellitus with hyperglycemia Surgical History History of Mohs surgery for squamous cell carcinoma of skin Hx of shoulder replacement Back pain with history of spinal surgery Hx of eye surgery Hx of cataract surgery Family History Father No problems noted. Mother No problems noted. Social History Housing: Apartment Alcohol intake: never Patient Tobacco Use Status: Former Tobacco user e-Cigarette/Vaping Use: Never Used Second Hand Smoke Exposure: Yes Substance Use Type: Former Substance User and Marijuana service: No Current occupational status: retired Cognitive needs: No Hearing needs: No Vision needs: Yes (glasses) Questionnaire Thrive Questionnaire Date Thrive assessed: 05/31/22 YAZAN-7 AMB Questionnaire YAZAN-7 Date YAZAN - 7 assessed: 05/02/23 Source: Developed by Drs. Bismrak Fraire, Claudine Anderson, Ry Aguilar and colleagues, with an educational huma from [employer] Physical exam (Primary Care) Vital Signs: Last Vital Signs Pulse 87 05/02/23 13:18 Pulse Ox 98 05/02/23 13:18 Oxygen Delivery Method Room Air 05/02/23 13:18 BMI result Body Mass Index 36.8 Tobacco/Smoking Status: Tobacco use Status Tobacco use date assessed 03/18/23 05/02/23 13:16 Patient Tobacco Use Status Former Tobacco user 05/02/23 13:16 e-Cigarette/Vaping Use Never Used 05/02/23 13:16 Thrive Assessment: Date of Thrive Assessment Date Thrive assessed 05/31/22 05/02/23 13:16 Const General: alert; No acute distress Eyes Conjunctivae: conjunctivae normal Resp Auscultation: clear to auscultation bilaterally Cardio Rate: regular rate Rhythm: regular rhythm GI Inspection: Yes normal to inspection Extrem General: Yes normal to inspection and No edema Assessment and Plan Assessment & Plan (1) Type 2 diabetes mellitus with hyperglycemia: Code(s): E11.65 - Type 2 diabetes mellitus with hyperglycemia Qualifiers: Diabetes mellitus intermediate insulin use: with 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 Hemoglobin A1c goal of less than 7.0 patient is presently on Soliqua for diabetes and metformin a 1000 mg twice a day (2) Hypertension: Code(s): I10 - Essential (primary) hypertension Qualifiers: Hypertension type: essential hypertension Qualified Code(s): I10 - Essential (primary) hypertension Plan: Continue with blood pressure medication. Decrease salt intake and exercise on metoprolol 100 mg twice a day losartan 50 mg twice a day (3) Hypercholesterolemia: Code(s): E78.00 - Pure hypercholesterolemia, unspecified Plan: Avoid fried foods, chicken skin, eggs, butter margarine, pastries and meat. Be it pork or beef they have a lot of cholesterol LDL goal of less than 100 statin intolerant (4) Urinary tract infection: Code(s): N39.0 - Urinary tract infection, site not specified Plan: With urinary tract infection will request for a CT scan of the abdomen and referral to Urology (5) Obesity: Code(s): E66.9 - Obesity, unspecified Plan: Diet and exercise (6) Recurrent UTI: Code(s): N39.0 - Urinary tract infection, site not specified Plan: advised to do CT scan and will be seeing the urologist next week. Orders: Orders AMB Urinalysis Automated Today N39.0 - Urinary tract infection, site not specified, Z13.9 - Encounter for screening, unspecified CT abdomen pelvis wo IV con Today N39.0 - Urinary tract infection, site not specified Coding Level of Care Code Est Pt Level 4 (60091) Diagnoses Type 2 diabetes mellitus with hyperglycemia, with long-term current use of insulin E11.65; Z79.4 Diabetes mellitus intermediate insulin use: with intermediate use Essential hypertension I10 Hypertension type: essential hypertension Hypercholesterolemia E78.00 Urinary tract infection N39.0 Obesity E66.9 Recurrent UTI N39.0
[2023-05-02 13:18] VITALS: PULSE 87; O2SAT 98; BMI 36.8
== END 2023-05-02 13:48 | disposition home or self-care (01) ==
PROVIDERS: PCP Internal Medicine; Visit Provider Internal Medicine
DX: E11.65 Type 2 diabetes mellitus with hyperglycemia (principal); Z79.4 Long term (current) use of insulin; E66.9 Obesity, unspecified; Z68.36 Body mass index [BMI] 36.0-36.9, adult; I10 Essential (primary) hypertension; E78.00 Pure hypercholesterolemia, unspecified; N39.0 Urinary tract infection, site not specified; Z87.440 Personal history of urinary (tract) infections
CPT/HCPCS: 81002; 99214

== ENCOUNTER 2023-05-07 08:04 | Outpatient (AMB) | payer MEDICARE, SELFPAY ==
--- NOTE | 2023-05-07 08:00 | MHC.OFFVIS ---
Intake Intake Visit Reasons: Unspecified urinary incontinence Intake Note: NEW Patient presents today to established treatment for Unspecified Urinary Incontinence: Meds- None Allergies to Antibiotic- No Known Allergies Blood Thinner- Aspirin Post Void Residual: 0 Card Decorator Required: No Accompanied by: Self / Same As Patient Allergies amlodipine Allergy (Unknown, Verified 05/07/23 08:34) Unknown atorvastatin Allergy (Unknown, Verified 05/07/23 08:34) Unknown Iodinated Contrast Media [IV CONTRAST] Adverse Reaction (Unknown, Verified 05/07/23 08:34) BLINDENESS Jardiance Adverse Reaction (Intermediate, Uncoded 05/07/23 08:34) Recurrent UTI Medication List - Last Reconciled 05/07/23 by Jaz Cartagena MD albuterol sulfate 90 mcg/actuation (ProAir HFA) 2 puffs inhalation Q4-6H PRN aspirin (Adult Aspirin Regimen) 81 mg PO DAILY [BIPAP 12/8 cm H20 humidified AIR As directed Duration: 99] blood sugar diagnostic (OQV[employer]irTouch Verio test strips) 3x daily cholecalciferol (vitamin D3) 25 mcg PO DAILY compr.stocking,knee,long,x-lrg As directed 20-30 mm HG cranberry 405 mg PO DAILY cyanocobalamin (vitamin B-12) 1,000 mcg PO DAILY 30 days hydralazine 25 mg PO Q8H 90 days insulin glargine-lixisenatide 100 unit-33 mcg/mL (Soliqua 100/33) 24 units (0.24 mL) subcut BID 30 days losartan 50 mg PO BID metformin ER 1,000 mg (2 x 500 mg) PO BID metoprolol tartrate 100 mg PO BID 90 days pen needle, diabetic (BD Ultra-Fine Aspen Pen Needle) As directed twice a day tamsulosin (Flomax) 0.4 mg PO BEDTIME zolpidem (Ambien) 5 mg PO BEDTIME PRN HPI HPI Comments History of Present Illness Details Chinedu is a 67 year old who is here for evaluation for urinary incontinence. In review of his chart he had a positive urine culture on 04/19/2023 Klebsiella. The patient states that he was treated with a 10 day course of Cipro. He states that the urine leakage has resolved. Discussed Diabetes- CoMorbidity Past Medical history includes history of BPH and erectile dysfunction, type 2 diabetes currently requiring insulin, hypertension, obstructive sleep apnea, peripheral vascular disease. The patient states that he had a prior episode of E coli sepsis about 7 years ago he was admitted and given IV Levaquin. He was seen by an ID specialist at that time he states. At this time he states urinary symptoms are up 2-3 times at night with frequent voids during the day he denies dysuria currently. Evaluation-05/07/2023-prostate exam smooth no suspicious nodules, Scrotal swelling, buried penis He states he has pending a CT scan that was ordered by his PCP. I will review results when completed. I have discussed placing him on tamsulosin and will have him follow-up for office cystoscopy Review of labs PSA--03/17/2023--0.33 Urine culture 04/19/2023 Klebsiella pneumoniae Plan: CT abdomen and pelvis without IV contrast is pending ordered by PCP follow-up office cystoscopy tamsulosin 0.4 mg daily. Discussed side effects of tamsulosin may include dizziness. Scrotal ultrasound. [facility] Medical History Sleep apnea Fatty liver Internal hemorrhoid Diverticulosis IBS (irritable bowel syndrome) Leg wound, left H/O urinary tract infection B12 deficiency halfway (current) use of insulin History of melanoma BPH (benign prostatic hyperplasia) Obstructive sleep apnea Peripheral vascular disease Hypercholesterolemia Erectile dysfunction Hypertension Type 2 diabetes mellitus with hyperglycemia Surgical History History of Mohs surgery for squamous cell carcinoma of skin Hx of shoulder replacement Back pain with history of spinal surgery Hx of eye surgery Hx of cataract surgery Family History Father No problems noted. Mother No problems noted. Social History Housing: Apartment Alcohol intake: never Patient Tobacco Use Status: Former Tobacco user e-Cigarette/Vaping Use: Never Used Second Hand Smoke Exposure: Yes Substance Use Type: Former Substance User and Marijuana service: No Current occupational status: retired Cognitive needs: No Hearing needs: No Vision needs: Yes (glasses) Review of Systems Const All systems reviewed & are unremarkable except as noted in HPI and below Reports no additional complaints Eyes Reports no additional complaints ENT Reports no additional complaints Card Denies dyspnea Resp Denies cough and Denies dyspnea GI Reports no additional complaints Musc Reports no additional complaints Skin/Breast Denies rash and Denies unusual bruising Neuro Reports no additional complaints Psych Reports no additional complaints Endo Reports no additional complaints Enrrique/Lymph Reports no additional complaints Aller/Immun Reports no additional complaints Physical Exam Const General: healthy appearing, no acute distress and well developed Nutritional Appearance: overweight Orientation/consciousness: patient oriented x3 HEENT Head: Yes normocephalic and Yes atraumatic Eyes Conjunctivae: conjunctivae normal Neck Neck: Yes normal visual inspection Chest Chest palpation & inspection: normal inspection of the chest Resp Effort & Inspection: normal respiratory effort Cardio Rate: regular rate GI Inspection: Yes normal to inspection Other: Prostate Exam: Smooth, no suspicious nodules, Scrotal swelling, buried penis Skin General skin exam: no rashes or lesions noted Neuro General: patient oriented x3 Extrem General: No pedal edema Psych Appearance: grossly normal Affect: normal affect Office Procedures Post Void Residual Post Residual Void Post Void Residual (PVR): 0 [id number] Void Residual by ultrasound Results AMB Urinalysis, Automated UA Leukoctes 0 Héctor/uL Last Edit by [facility] on 05/07/23 08:39 UA Nitrite Negative Last Edit by Lulu Vencessuzanna Vences [facility] on 05/07/23 08:39 UA Urobilinogen 0.2 mg/dL Last Edit by Lulu Vencessuzanna Vences [facility] on 05/07/23 08:39 UA Protein 0 mg/dL Last Edit by Lulu Vencessuzanna Vences [facility] on 05/07/23 08:39 UA pH 6.0 Last Edit by Lulu Vencessuzanna Vences [facility] on 05/07/23 08:39 UA Blood 0 Neeraj/uL Last Edit by Lulu Vencessuzanna Vences [facility] on 05/07/23 08:39 UA Specific Novelty 1.025 Last Edit by Lulu Vencessuzanna Vences [facility] on 05/07/23 08:39 UA Ketone Positive Last Edit by Lulu Vencessuzanna Vences [facility] on 05/07/23 08:39 5mg/dl Lulu Vencessuzanna Vences 05/07/23 08:39 UA Bilirubin 0 mg/dL Last Edit by Lulu Vences ISIDORO Vences on 05/07/23 08:39 UA Glucose 1000 mg/dL Last Edit by Lulu Vences CMA on 05/07/23 08:39 Results Reviewed Results Reviewed: Collected: 04/19/23-UNK Status: DEBBIE Heath#: [id number] Received: 04/19/23-1232 Source: [facility] Sp Desc: Urine cheek Subm Dr: Elaina Leyva PA Ordered: Urine Culture Procedure Result Verified Urine Culture Final 04/21/23-736 Organism 1 Klebsiella pneumoniae Quant > 100,000 cfu/mL Kleb pneum M.I.C. RX --------- --- Ampicillin 16 R Ceftriaxone <=0.25 S Gentamicin <=1 S Levofloxacin <=0.12 S Nitrofurantoin 32 S Trimethoprim/Sulfamethoxazole <=20 S Assessment & Plan Assessment & Plan (1) Recurrent UTI: Code(s): N39.0 - Urinary tract infection, site not specified (2) BPH (benign prostatic hyperplasia): Code(s): N40.0 - Benign prostatic hyperplasia without lower urinary tract symptoms Qualifiers: Lower urinary tract symptom detail: urinary frequency Lower urinary tract symptom presence: symptoms present Qualified Code(s): N40.1 - Benign prostatic hyperplasia with lower urinary tract symptoms; R35.0 - Frequency of micturition (3) Diabetes: Code(s): E11.9 - Type 2 diabetes mellitus without complications (4) Scrotal swelling: Code(s): N50.89 - Other specified disorders of the male genital organs Plan CT abdomen and pelvis without IV contrast is pending ordered by PCP follow-up office cystoscopy tamsulosin 0.4 mg daily. Discussed side effects of tamsulosin may include dizziness. Scrotal ultrasound. Orders: Orders AMB Post Void Residual by ultrasound Today R33.9 - Retention of urine, unspecified US scrotum Today N50.89 - Other specified disorders of the male genital organs AMB Urinalysis Automated Today R33.9 - Retention of urine, unspecified Medications: New tamsulosin (Flomax) 0.4 mg PO BEDTIME 90 caps 3RF Changed From albuterol sulfate 90 mcg/actuation (ProAir HFA) 2 puffs inhalation Q4-6H PRN 6.7 grams 0RF bronchospasm To albuterol sulfate 90 mcg/actuation (ProAir HFA) 2 puffs inhalation Q4-6H PRN bronchospasm Patient Instructions: The patient had an opportunity to ask questions regarding treatment plan. All questions were answered. Laboratory studies and physical exam results were discussed and reviewed in detail. No major barriers to understanding were identified. The patient expressed understanding and agreement with the above treatment plan. The patient is aware they should contact our office by phone for worsening of their current condition or the appearance of new symptoms. Compliance is encouraged with any medications and followup testing that is ordered. It is a privilege to be allowed the opportunity to participate in the urologic care of your patient. If you have any questions or concerns regarding treatment for the above conditions please do not hesitate to contact me. The office telephone contact is [phone]. This note is constructed in part using voice recognition software. While every effort has been made to ensure accuracy ad setter errors may have been included. Yours sincerely, Jaz Cartagena MD Coding Level of Care Code New Pt Level 4 (69374) Diagnoses Recurrent UTI N39.0 Benign prostatic hyperplasia with urinary frequency N40.1; R35.0 Lower urinary tract symptom detail: urinary frequency Lower urinary tract symptom presence: symptoms present Diabetes E11.9 Scrotal swelling N50.89 CPT Codes Post Residual Void - PVR CPT Code: 12758-Yhoc Void Residual by ultrasound ([id number])
== END 2023-05-07 09:08 | disposition home or self-care (01) ==
PROVIDERS: PCP Internal Medicine; Visit Provider Urology
DX: N39.0 Urinary tract infection, site not specified (principal); N40.1 Benign prostatic hyperplasia with lower urinary tract symptoms; R35.0 Frequency of micturition; E11.9 Type 2 diabetes mellitus without complications; N50.89 Other specified disorders of the male genital organs; R33.9 Retention of urine, unspecified
CPT/HCPCS: 99204

== ENCOUNTER 2023-05-07 08:04 | Outpatient (REF) | payer MEDICARE, SELFPAY ==
[2023-05-07 16:35] LABS: Urine Cytology See Pathology rpt
== END 2023-05-07 08:05 | disposition home or self-care (01) ==
LOC: HO.LAB 08:04
PROVIDERS: PCP Internal Medicine; Visit Provider Urology
DX: R32 Unspecified urinary incontinence (principal); N40.1 Benign prostatic hyperplasia with lower urinary tract symptoms; N13.8 Other obstructive and reflux uropathy; N39.0 Urinary tract infection, site not specified; R35.0 Frequency of micturition; N50.89 Other specified disorders of the male genital organs; E11.9 Type 2 diabetes mellitus without complications; Z79.82 Long term (current) use of aspirin
CPT/HCPCS: 51798; 81003; 87086; 88112; 99202

== ENCOUNTER 2023-06-03 14:05 | Outpatient (AMB) | payer MEDICARE, SELFPAY ==
--- NOTE | 2023-06-03 14:10 | MHC.PC.OV ---
Vital Signs 06/03/23 14:11 Height 6 ft 2 in Weight 287 lb 0.6 oz BMI 36.8 BP 162/90 H Blood Pressure Location Lt brachial Position Sitting Pulse 80 Pulse Source Pulse Oximeter Pulse Oximetry (%) 97 Oxygen Delivery Method Room Air Intake Visit Reasons: 3 month f/u Intake Note: Patient is here to follow up on 3 months Direct Service Professional Required: No Allergies amlodipine Allergy (Unknown, Verified 06/03/23 14:12) Unknown atorvastatin Allergy (Unknown, Verified 06/03/23 14:12) Unknown Iodinated Contrast Media [IV CONTRAST] Adverse Reaction (Unknown, Verified 06/03/23 14:12) BLINDENESS Jardiance Adverse Reaction (Intermediate, Uncoded 06/03/23 14:12) Recurrent UTI Medication List - Last Reconciled 06/03/23 by Claudia Richter MD albuterol sulfate 90 mcg/actuation (ProAir HFA) 2 puffs inhalation Q4-6H PRN aspirin (Adult Aspirin Regimen) 81 mg PO DAILY [BIPAP 12/8 cm H20 humidified AIR As directed Duration: 99] blood sugar diagnostic ([employer] Verio test strips) 3x daily cholecalciferol (vitamin D3) 25 mcg PO DAILY compr.stocking,knee,long,x-lrg As directed 20-30 mm HG cranberry 405 mg PO DAILY cyanocobalamin (vitamin B-12) 1,000 mcg PO DAILY 30 days hydralazine 25 mg PO Q8H 90 days insulin glargine-lixisenatide 100 unit-33 mcg/mL (Soliqua 100/33) 26 units (0.26 mL) subcut BID 30 days losartan 50 mg PO BID metformin ER 1,000 mg (2 x 500 mg) PO BID metoprolol tartrate 100 mg PO BID 90 days pen needle, diabetic (BD Ultra-Fine Aspen Pen Needle) As directed twice a day tamsulosin (Flomax) 0.4 mg PO BEDTIME zolpidem (Ambien) 5 mg PO BEDTIME PRN Tobacco use date assessed: 06/03/23 Fall risk assessment: No Falls in past year Last assessed Fall Risk: 06/03/23 HPI 3 month f/u HPI Details 67-year-old obese male with uncontrolled diabetes mellitus hypertension hypercholesterolemia coming in for follow-up. Last seen in April 2023. Review of the notes was just seen for urinary incontinence by the urologist tamsulosin and scrotal ultrasound requested. 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 Mother No problems noted. Social History Housing: Apartment Alcohol intake: never Patient Tobacco Use Status: Former Tobacco user e-Cigarette/Vaping Use: Never Used Second Hand Smoke Exposure: Yes Substance Use Type: Former Substance User and Marijuana service: No Current occupational status: retired Cognitive needs: No Hearing needs: No Vision needs: Yes (glasses) Questionnaire Thrive Questionnaire Date Thrive assessed: 05/31/22 AUDIT C Alcohol Use Questionnaire (AUDIT-C) 1. How often do you have a drink containing alcohol?: Never 3. How often do you have six or more drinks on one occasion?: Never Total Score: 0 Score Reviewed/Action Taken: No YAZAN-7 AMB Questionnaire YAZAN-7 Date YAZAN - 7 assessed: 05/02/23 Source: Developed by Drs. Bismark Fraire, Claudine Anderson, Ry Aguilar and colleagues, with an educational huma from [employer]. Physical exam (Primary Care) Vital Signs: Last Vital Signs Pulse 80 06/03/23 14:11 BP 162/90 H 06/03/23 14:11 Pulse Ox 97 06/03/23 14:11 Oxygen Delivery Method Room Air 06/03/23 14:11 BMI result Body Mass Index 36.8 Tobacco/Smoking Status: Tobacco use Status Tobacco use date assessed 06/03/23 06/03/23 14:12 Patient Tobacco Use Status Former Tobacco user 06/03/23 14:12 e-Cigarette/Vaping Use Never Used 06/03/23 14:12 Thrive Assessment: Date of Thrive Assessment Date Thrive assessed 05/31/22 06/03/23 14:12 Const General: alert; No acute distress Eyes Conjunctivae: conjunctivae normal Resp Auscultation: clear to auscultation bilaterally Cardio Rate: regular rate Rhythm: regular rhythm GI Inspection: Yes normal to inspection Extrem General: Yes normal to inspection and No edema Results AMB Hemoglobin A1c AMB Hemoglobin A1c 8.2 % Last Edit by GUNJAN Whaley on 06/03/23 14:25 Results Reviewed Results Reviewed: Laboratory Last Values Hgb A1c (Clinic) 8.2 % (4.0-6.0) H 06/03/23 11:28 Assessment and Plan Assessment & Plan (1) Type 2 diabetes mellitus with hyperglycemia: Code(s): E11.65 - Type 2 diabetes mellitus with hyperglycemia Qualifiers: Diabetes mellitus intermediate manager insulin use: with intermediate manager use Qualified Code(s): E11.65 - Type 2 diabetes mellitus with hyperglycemia; Z79.4 - intermediate manager (current) use of insulin Plan: Decrease the amount of carbohydrate intake, pasta, bread, rice and potatoes are all sugar and that is aside from all the sweet stuff, remember that fruits are good but they are Sweet also. Hemoglobin A1c goal of less than 7.0. Patient on Soliqua 24 units twice a day metformin a 1000 mg twice a day (2) Hypertension: Code(s): I10 - Essential (primary) hypertension Qualifiers: Hypertension type: essential hypertension Qualified Code(s): I10 - Essential (primary) hypertension Plan: Continue with blood pressure medication. Decrease salt intake and exercise presently on metoprolol 100 mg twice a day losartan 50 mg twice a day hydralazine 25 mg 3 times a day (3) Hypercholesterolemia: Code(s): E78.00 - Pure hypercholesterolemia, unspecified Plan: Avoid fried foods, chicken skin, eggs, butter margarine, pastries and meat. Be it pork or beef they have a lot of cholesterol LDL goal of less than 100 and triglyceride of less than 150 statin intolerance (4) BPH (benign prostatic hyperplasia): Code(s): N40.0 - Benign prostatic hyperplasia without lower urinary tract symptoms Qualifiers: Lower urinary tract symptom presence: symptoms present Lower urinary tract symptom detail: urinary frequency Qualified Code(s): N40.1 - Benign prostatic hyperplasia with lower urinary tract symptoms; R35.0 - Frequency of micturition Plan: Patient follows up with urology and workup was requested (5) Obesity: Code(s): E66.9 - Obesity, unspecified Plan: Diet and exercise (6) Obstructive sleep apnea: Comment: Not using CPAP as previous had insurance problem ( =09/2021) sleep study September 2021 severe Code(s): G47.33 - Obstructive sleep apnea (adult) (pediatric) Orders: Orders AMB Hemoglobin A1c Today E11.65 - Type 2 diabetes mellitus with hyperglycemia Referrals Sleep Medicine Referral G47.33 - Obstructive sleep apnea (adult) (pediatric) Medications: Changed From insulin glargine-lixisenatide 100 unit-33 mcg/mL (Soliqua 100/33) 24 units (0.24 mL) subcut BID 15 mL 6RF 30 days E11.65 - Type 2 diabetes mellitus with hyperglycemia, Z79.4 - custodial (current) use of insulin To insulin glargine-lixisenatide 100 unit-33 mcg/mL (Soliqua 100/33) 26 units (0.26 mL) subcut BID 15.6 mL 6RF 30 days E11.65 - Type 2 diabetes mellitus with hyperglycemia, Z79.4 - intermediate manager (current) use of insulin Refilled [BIPAP 12/8 cm H20 humidified AIR] As directed Duration: 99 1 ea 0RF G47.33 - Obstructive sleep apnea (adult) (pediatric) Coding Level of Care Code Est Pt Level 4 (92823) Diagnoses Type 2 diabetes mellitus with hyperglycemia, with long-term current use of insulin E11.65; Z79.4 Diabetes mellitus intermediate manager insulin use: with long-term use Essential hypertension I10 Hypertension type: essential hypertension Hypercholesterolemia E78.00 Benign prostatic hyperplasia with urinary frequency N40.1; R35.0 Lower urinary tract symptom presence: symptoms present Lower urinary tract symptom detail: urinary frequency Obesity E66.9 Obstructive sleep apnea G47.33
[2023-06-03 14:11] VITALS: BP 162/90; PULSE 80; O2SAT 97; BMI 36.8
== END 2023-06-03 15:04 | disposition home or self-care (01) ==
PROVIDERS: PCP Internal Medicine; Visit Provider Internal Medicine
DX: E11.65 Type 2 diabetes mellitus with hyperglycemia (principal); Z79.4 Long term (current) use of insulin; E66.9 Obesity, unspecified; Z68.36 Body mass index [BMI] 36.0-36.9, adult; I10 Essential (primary) hypertension; E78.00 Pure hypercholesterolemia, unspecified; N40.1 Benign prostatic hyperplasia with lower urinary tract symptoms; R35.0 Frequency of micturition; G47.33 Obstructive sleep apnea (adult) (pediatric)
CPT/HCPCS: 83036; 99214

== ENCOUNTER 2023-06-11 16:17 | Outpatient (REF) | payer MEDICARE, SELFPAY ==
--- NOTE | ~2023-06-11 | US_ITS ---
EXAMINATION: US SCROTUM CLINICAL INFORMATION: Swelling of scrotum. COMPARISON: CT abdomen/pelvis 07/23/2019. TECHNIQUE: A sonogram of the scrotum was performed assessing cheek-scale appearance and color Doppler flow. Spectral Doppler analysis of the arterial and venous flow were performed in the testes bilaterally. FINDINGS: RIGHT: Right testicle measures 5.0 x 3.6 x 3.4 cm, volume 31.7 mL. No focal testicular parenchymal lesions are visualized. Spectral Doppler analysis of the arterial and venous flow is normal in the right testis. Small appendix testis measuring 0.7 cm. Right epididymal head is normal in size. No right varicocele is seen. Moderate to large hydrocele with floating debris. Right epididymal Doppler flow is normal. LEFT: Left testicle measures 4.4 x 3.0 x 3.2 cm, volume 22.0 mL. No focal testicular parenchymal lesions are visualized. Spectral Doppler analysis of the arterial and venous flow is normal in the left testis. Small appendix testis measuring 0.4 cm. Left epididymal head is normal in size. No left varicocele is seen. Small simple appearing hydrocele. Left epididymal Doppler flow is normal. US/US scrotum IMPRESSION: 1. Moderate to large right hydrocele with floating debris, recommend clinical correlation for superimposed infection. A short-term follow-up ultrasound is recommended. 2. Small simple appearing left hydrocele. 3. Otherwise, no significant abnormality.
== END 2023-06-11 16:18 | disposition home or self-care (01) ==
LOC: HO.US 16:17
PROVIDERS: PCP Internal Medicine; Visit Provider Urology
DX: N50.89 Other specified disorders of the male genital organs (principal)
CPT/HCPCS: 76870

== ENCOUNTER 2023-06-16 15:18 | Outpatient (REF) | payer MEDICARE, SELFPAY ==
--- NOTE | ~2023-06-16 | CT_ITS ---
EXAMINATION: CT ABDOMEN AND PELVIS WITHOUT CONTRAST CLINICAL INFORMATION: UTI. COMPARISON: CT abdomen and pelvis 07/23/2019. TECHNIQUE: Multidetector volumetric imaging was performed from the superior aspect of the liver through the pubic symphysis. Sagittal and coronal reformatted images were obtained on the technologist's workstation. This CT examination was performed using dose optimization techniques as appropriate, variously including the following: *Automated exposure control *Adjustment of mA and/or kV according to patient size (this includes techniques or standardized protocols for targeted exams where dose is matched to indication/reason for exam; i.e. extremities or head) *Use of iterative reconstruction technique DLP: 956 mGy-cm FINDINGS: LUNG BASES: The visualized lung bases are unremarkable. Minimal basilar atelectasis is present. Heart size normal. Coronary calcium is present. LIVER, GALLBLADDER, AND BILIARY TREE: The liver is normal in size and shape but with decreased attenuation consistent with hepatic steatosis. Punctate granuloma is present in the right lobe of the liver (5:113). No worrisome focal hepatic lesion or biliary ductal dilatation is present. The gallbladder is unremarkable with no evidence of radiopaque gallstones, gallbladder wall thickening, or obvious pericholecystic inflammatory changes. PANCREAS: Unremarkable. SPLEEN: Unremarkable. ADRENAL GLANDS: Unremarkable. KIDNEYS AND URETERS: The kidneys are normal in size, shape, and attenuation. 2 mm punctate nonobstructing calcification present at the wif-bz-mvufm pole of the right kidney posteriorly. No hydronephrosis, hydroureter, or additional calculi seen. No perinephric stranding. BLADDER: Unremarkable. GASTROINTESTINAL TRACT: The small and large bowel are unremarkable aside from moderate diverticulosis involving the left colon without evidence of diverticulitis. The appendix is unremarkable. ABDOMINAL WALL: No significant hernia is appreciated. LYMPH NODES: Normal. There is an ovoid rim calcified 1.5 cm density near the cecum, which may represent an old avulsed epiploic appendage. VASCULAR: Calcific atherosclerotic changes are present in the aorta and iliofemoral vessels. There is no evidence of an abdominal aortic aneurysm. PELVIC VISCERA: The prostate and seminal vesicles are unremarkable. OSSEOUS STRUCTURES: Marked degenerative changes are present throughout the lumbar spine. No bony destructive lesions are seen. CT/CT abdomen pelvis wo IV con IMPRESSION: 1. A cause for the patient's UTI has not been found. There is a single punctate 2 mm nonobstructing right renal calculus. 2. Incidental note made of hepatic steatosis, punctate hepatic granuloma, colonic diverticulosis without diverticulitis and marked degenerative changes in the spine. Fleischner guidelines were followed.
== END 2023-06-16 15:19 | disposition home or self-care (01) ==
LOC: HO.CT 15:18
PROVIDERS: PCP Internal Medicine; Visit Provider Internal Medicine
DX: N39.0 Urinary tract infection, site not specified (principal)
CPT/HCPCS: 74176

== ENCOUNTER 2023-06-23 09:15 | Outpatient (AMB) | payer MEDICARE, SELFPAY ==
--- NOTE | 2023-06-23 09:27 | MHC.OFFVIS ---
Intake Intake Visit Reasons: cysto/US (booked 06/11/2023) Intake Note: Patient presents today for a Cystoscopy Meds: Tamsulosin Allergies to Antibiotic: No Known Allergies Blood Thinner: None Urinalysis test clear for Cysto? Yes Disposable Uro-G Cystoscope Cannula Lot: [id number] Exp: 01/30/2026 Disciplinary Hearing Officer Required: No Accompanied by: Self / Same As Patient Allergies amlodipine Allergy (Unknown, Verified 06/23/23 09:45) Unknown atorvastatin Allergy (Unknown, Verified 06/23/23 09:45) Unknown Iodinated Contrast Media [IV CONTRAST] Adverse Reaction (Unknown, Verified 06/23/23 09:45) BLINDENESS Jardiance Adverse Reaction (Intermediate, Uncoded 06/23/23 09:45) Recurrent UTI Medication List - Last Reconciled 06/23/23 by Jaz Cartagena MD albuterol sulfate 90 mcg/actuation (ProAir HFA) 2 puffs inhalation Q4-6H PRN aspirin (Adult Aspirin Regimen) 81 mg PO DAILY [BIPAP 12/8 cm H20 humidified AIR As directed Duration: 99] blood sugar diagnostic (OneTouch Verio test strips) 3x daily cholecalciferol (vitamin D3) 25 mcg PO DAILY compr.stocking,knee,long,x-lrg As directed 20-30 mm HG cranberry 405 mg PO DAILY cyanocobalamin (vitamin B-12) 1,000 mcg PO DAILY 30 days hydralazine 25 mg PO Q8H 90 days insulin glargine-lixisenatide 100 unit-33 mcg/mL (Soliqua 100/33) 26 units (0.26 mL) subcut BID 30 days losartan 50 mg PO BID metformin ER 1,000 mg (2 x 500 mg) PO BID metoprolol tartrate 100 mg PO BID 90 days pen needle, diabetic (BD Ultra-Fine Aspen Pen Needle) As directed twice a day zolpidem (Ambien) 5 mg PO BEDTIME PRN HPI HPI Comments History of Present Illness Details 06/23/23--Chinedu is here for office cystoscopy. He was initially evaluated on 05/07/23 due to UTI. He was noted to have scrotal swelling on examination, and he was started on tamsulosin. He states he felt dizzy with the tamsulosin so he stopped the medicaiton. He had a CT abd/pelvis and scrotal US. I have reviewed results with the patient. On CT imaging a punctate 2 mm right kidney stone is noted, on US - Right moderate hydrocele with debris and small left hydrocele. Office cystoscopy- findings: proximal urethral stricture, bladder not visualized. I have encouraged him to drink adequate fluids and low sodium diet. Discussed Schedule outpatient urethrotomy, urethral dilation, cystoscopy d/c tamsulosin Review of chart: 05/07/23--Chinedu is a 67 year old who is here for evaluation for urinary incontinence. In review of his chart he had a positive urine culture on 04/19/2023 Klebsiella. The patient states that he was treated with a 10 day course of Cipro. He states that the urine leakage has resolved. Discussed Diabetes- CoMorbidity, Past Medical history includes history of BPH and erectile dysfunction, type 2 diabetes currently requiring insulin, hypertension, obstructive sleep apnea, peripheral vascular disease. The patient states that he had a prior episode of E coli sepsis about 7 years ago he was admitted and given IV Levaquin. He was seen by an ID specialist at that time he states. At this time he states urinary symptoms are up 2-3 times at night with frequent voids during the day he denies dysuria currently. Evaluation-05/07/2023-prostate exam smooth no suspicious nodules, Scrotal swelling, buried penis He states he has pending a CT scan that was ordered by his PCP. I will review results when completed. I have discussed placing him on tamsulosin and will have him follow-up for office cystoscopy Review of labs PSA--03/17/2023--0.33 Urine culture 04/19/2023 Klebsiella pneumoniae Plan: CT abdomen and pelvis without IV contrast is pending ordered by PCP follow-up office cystoscopy tamsulosin 0.4 mg daily. Discussed side effects of tamsulosin may include dizziness. Scrotal ultrasound. 06/23/23--PLAN DC tamsulosin 0.4 mg daily Schedule urethrotomy, urethral dilation, cystoscopy Medical clearance, HA1C - 06/03/23 - 8.2, stop aspirin 10 days prior [facility] Medical History Diabetes Sleep apnea Fatty liver Internal hemorrhoid Diverticulosis IBS (irritable bowel syndrome) Leg wound, left H/O urinary tract infection B12 deficiency [facility] (current) use of insulin History of melanoma BPH (benign prostatic hyperplasia) Obstructive sleep apnea Peripheral vascular disease Hypercholesterolemia Erectile dysfunction Hypertension Type 2 diabetes mellitus with hyperglycemia Surgical History History of Mohs surgery for squamous cell carcinoma of skin Hx of shoulder replacement Back pain with history of spinal surgery Hx of eye surgery Hx of cataract surgery Family History Father No problems noted. Mother No problems noted. Social History Housing: Apartment Alcohol intake: never Patient Tobacco Use Status: Former Tobacco user e-Cigarette/Vaping Use: Never Used Second Hand Smoke Exposure: Yes Substance Use Type: Former Substance User and Marijuana service: No Current occupational status: retired Cognitive needs: No Hearing needs: No Vision needs: Yes (glasses) Review of Systems Const All systems reviewed & are unremarkable except as noted in HPI and below Reports no additional complaints Eyes Reports no additional complaints ENT Reports no additional complaints Card Denies dyspnea Resp Denies cough and Denies dyspnea GI Reports no additional complaints Musc Reports no additional complaints Skin/Breast Denies rash and Denies unusual bruising Neuro Reports no additional complaints Psych Reports no additional complaints Endo Reports no additional complaints Enrrique/Lymph Reports no additional complaints Aller/Immun Reports no additional complaints Office Procedures Cystoscopy Consent Discussed risk and benefit or proposed procedure with the patient. Information consent for procedure given to the patient. Discussed technical aspects, risks, benefits and alternatives in full. Addressed all of the patient's questions and concerns regarding the procedure. The patient demonstrated knowledge and understanding. They wish to proceed with this procedure. Preparation The patient was prepped in the usual manner. A folded towel machine operator was present and in the room. Genitalia was prepped with betadine solution in a sterile manner. Lidocaine Jelly 2% was placed into the urethra and 16Fr flexible Olympus cystoscope was inserted into the meatus after adequate lubrication. Procedure Time out per protocol performed. Bladder Inspection Cystoscopy findings: bulbous urethra-- proximal urethral stricture, bladder not visualizeed [id number] DISPOSABLE SCOPE URO-G FLEXIBLE SCOPE Procedure code (CPT) selection complete Office Meds lidocaine HCl 2 % mucosal jelly in applicator Performing Provider: Jaz Cartagena MD Performing Location: [facility] Administered by: Noé Burgess LPN on 06/23/23 10:03 Dose Route Admin Location Dispensed Lot Number Expiration Date ND Radar Systems Engineer 20 mL intra-urethral 20 mL naproxen 500 mg tablet Performing Provider: Jaz Cartagena MD Performing Location: [facility] [place] Administered by: Noé Burgess LPN on 06/23/23 10:03 Dose Route Admin Location Dispensed Lot Number Expiration Date NDC Radar Systems Engineer 500 mg PO 1 tab ciprofloxacin HCl 500 mg tablet Performing Provider: Jaz Cartagena MD Performing Location: [facility] [place] Administered by: Noé Burgess LPN on 06/23/23 10:03 Dose Route Admin Location Dispensed Lot Number Expiration Date NDC Radar Systems Engineer 500 mg PO 1 tab Results AMB Urinalysis, Automated UA Leukoctes 0 Héctor/uL Last Edit by Lulu Vences CMA on 06/23/23 09:53 UA Nitrite Negative Last Edit by Lulu Vences CMA on 06/23/23 09:53 UA Urobilinogen 0.2 mg/dL Last Edit by Lulu Vences CMA on 06/23/23 09:53 UA Protein 15 mg/dL Last Edit by Lulu Vences CMA on 06/23/23 09:53 UA pH 6.0 Last Edit by Lulu Vences CMA on 06/23/23 09:53 UA Blood 80 Neeraj/uL Last Edit by Lulu Vences CMA on 06/23/23 09:53 UA Specific [place] 1.030 Last Edit by Lulu Vences CMA on 06/23/23 09:53 UA Ketone Positive Last Edit by Lulu Vences CMA on 06/23/23 09:53 5mg/dl Lulu Vences 06/23/23 09:53 UA Bilirubin 0 mg/dL Last Edit by Lulu Vences CMA on 06/23/23 09:53 UA Glucose 0 mg/dL Last Edit by Lulu Vences CMA on 06/23/23 09:53 Results Reviewed Results Reviewed: Laboratory Last Values Urine pH (Auto) 6.0 06/23/23 09:47 Specific [place] (Auto) 1.030 06/23/23 09:47 Urine Protein (Auto) 15 mg/dL 06/23/23 09:47 Glucose (UA)(Auto) 0 mg/dL 06/23/23 09:47 Urine Ketones (Auto) Positive 06/23/23 09:47 Urine Blood (Auto) 80 Neeraj/uL 06/23/23 09:47 Urine Nitrite (Auto) Negative 06/23/23 09:47 Urine Bilirubin (Auto) 0 mg/dL 06/23/23 09:47 Urine Urobilinogen (Auto) 0.2 mg/dL 06/23/23 09:47 Leukocyte Esterase (Auto) 0 Héctor/uL 06/23/23 09:47 Date of Service: 06/16/23 EXAMINATION: CT ABDOMEN AND PELVIS WITHOUT CONTRAST CLINICAL INFORMATION: UTI. COMPARISON: CT abdomen and pelvis 07/23/2019. TECHNIQUE: Multidetector volumetric imaging was performed from the superior aspect of the liver through the pubic symphysis. Sagittal and coronal reformatted images were obtained on the technologist's workstation. This CT examination was performed using dose optimization techniques as appropriate, variously including the following: *Automated exposure control *Adjustment of mA and/or kV according to patient size (this includes techniques or standardized protocols for targeted exams where dose is matched to indication/reason for exam; i.e. extremities or head) *Use of iterative reconstruction technique DLP: 956 mGy-cm FINDINGS: LUNG BASES: The visualized lung bases are unremarkable. Minimal basilar atelectasis is present. Heart size normal. Coronary calcium is present. LIVER, GALLBLADDER, AND BILIARY TREE: The liver is normal in size and shape but with decreased attenuation consistent with hepatic steatosis. Punctate granuloma is present in the right lobe of the liver (5:113). No worrisome focal hepatic lesion or biliary ductal dilatation is present. The gallbladder is unremarkable with no evidence of radiopaque gallstones, gallbladder wall thickening, or obvious pericholecystic inflammatory changes. PANCREAS: Unremarkable. SPLEEN: Unremarkable. ADRENAL GLANDS: Unremarkable. KIDNEYS AND URETERS: The kidneys are normal in size, shape, and attenuation. 2 mm punctate nonobstructing calcification present at the gnc-fw-ndxjj pole of the right kidney posteriorly. No hydronephrosis, hydroureter, or additional calculi seen. No perinephric stranding. BLADDER: Unremarkable. GASTROINTESTINAL TRACT: The small and large bowel are unremarkable aside from moderate diverticulosis involving the left colon without evidence of diverticulitis. The appendix is unremarkable. ABDOMINAL WALL: No significant hernia is appreciated. LYMPH NODES: Normal. There is an ovoid rim calcified 1.5 cm density near the cecum, which may represent an old avulsed epiploic appendage. VASCULAR: Calcific atherosclerotic changes are present in the aorta and iliofemoral vessels. There is no evidence of an abdominal aortic aneurysm. PELVIC VISCERA: The prostate and seminal vesicles are unremarkable. OSSEOUS STRUCTURES: Marked degenerative changes are present throughout the lumbar spine. No bony destructive lesions are seen. IMPRESSION: 1. A cause for the patient's UTI has not been found. There is a single punctate 2 mm nonobstructing right renal calculus. 2. Incidental note made of hepatic steatosis, punctate hepatic granuloma, colonic diverticulosis without diverticulitis and marked degenerative changes in the spine. Date of Service: 06/11/23 EXAMINATION: US SCROTUM CLINICAL INFORMATION: Swelling of scrotum. COMPARISON: CT abdomen/pelvis 07/23/2019. TECHNIQUE: A sonogram of the scrotum was performed assessing cheek-scale appearance and color Doppler flow. Spectral Doppler analysis of the arterial and venous flow were performed in the testes bilaterally. FINDINGS: RIGHT: Right testicle measures 5.0 x 3.6 x 3.4 cm, volume 31.7 mL. No focal testicular parenchymal lesions are visualized. Spectral Doppler analysis of the arterial and venous flow is normal in the right testis. Small appendix testis measuring 0.7 cm. Right epididymal head is normal in size. No right varicocele is seen. Moderate to large hydrocele with floating debris. Right epididymal Doppler flow is normal. LEFT: Left testicle measures 4.4 x 3.0 x 3.2 cm, volume 22.0 mL. No focal testicular parenchymal lesions are visualized. Spectral Doppler analysis of the arterial and venous flow is normal in the left testis. Small appendix testis measuring 0.4 cm. Left epididymal head is normal in size. No left varicocele is seen. Small simple appearing hydrocele. Left epididymal Doppler flow is normal. IMPRESSION: 1. Moderate to large right hydrocele with floating debris, recommend clinical correlation for superimposed infection. A short-term follow-up ultrasound is recommended. 2. Small simple appearing left hydrocele. 3. Otherwise, no significant abnormality. Assessment & Plan Assessment & Plan (1) Recurrent UTI: Code(s): N39.0 - Urinary tract infection, site not specified (2) BPH (benign prostatic hyperplasia): Code(s): N40.0 - Benign prostatic hyperplasia without lower urinary tract symptoms Qualifiers: Lower urinary tract symptom presence: symptoms present Lower urinary tract symptom detail: urinary frequency Qualified Code(s): N40.1 - Benign prostatic hyperplasia with lower urinary tract symptoms; R35.0 - Frequency of micturition (3) Diabetes: Code(s): E11.9 - Type 2 diabetes mellitus without complications (4) Scrotal swelling: Code(s): N50.89 - Other specified disorders of the male genital organs (5) Hydrocele, bilateral: Code(s): N43.3 - Hydrocele, unspecified (6) Urethral stricture: Code(s): N35.919 - Unspecified urethral stricture, male, unspecified site Plan Schedule urethrotomy, urethral dilation, cystoscopy d/c tamsulosin Orders: Orders AMB Urinalysis Automated Today R33.9 - Retention of urine, unspecified AMB Cystoscopy Today N39.0 - Urinary tract infection, site not specified, N40.0 - Benign prostatic hyperplasia without lower urinary tract symptoms, R32 - Unspecified urinary incontinence Patient Instructions: The patient had an opportunity to ask questions regarding treatment plan. All questions were answered. Imaging, Laboratory studies and physical exam results were discussed and reviewed in detail. No major barriers to understanding were identified. The patient expressed understanding and agreement with the above treatment plan. The patient is aware they should contact our office by phone for worsening of their current condition or the appearance of new symptoms. Compliance is encouraged with any medications and followup testing that is ordered. It is a privilege to be allowed the opportunity to participate in the urologic care of your patient. If you have any questions or concerns regarding treatment for the above conditions please do not hesitate to contact me. The office telephone contact is [phone]. This note is constructed in part using voice recognition software. While every effort has been made to ensure accuracy energy projects lead errors may have been included. Yours sincerely, Jaz Cartagena MD Coding Level of Care Code Est Pt Level 4 (10795) Diagnoses Recurrent UTI N39.0 Benign prostatic hyperplasia with urinary frequency N40.1; R35.0 Lower urinary tract symptom presence: symptoms present Lower urinary tract symptom detail: urinary frequency Diabetes E11.9 Scrotal swelling N50.89 Hydrocele, bilateral N43.3 Urethral stricture N35.919 CPT Codes Cystoscopy - CPT: 96097-[id number] ([id number])
== END 2023-06-23 10:57 | disposition home or self-care (01) ==
PROVIDERS: PCP Internal Medicine; Visit Provider Urology
DX: N40.1 Benign prostatic hyperplasia with lower urinary tract symptoms (principal); N39.0 Urinary tract infection, site not specified; R35.0 Frequency of micturition; E11.9 Type 2 diabetes mellitus without complications; N50.89 Other specified disorders of the male genital organs; N43.3 Hydrocele, unspecified; N35.919 Unspecified urethral stricture, male, unspecified site; R32 Unspecified urinary incontinence; N40.0 Benign prostatic hyperplasia without lower urinary tract symptoms; R33.9 Retention of urine, unspecified
CPT/HCPCS: 52000; 99214

== ENCOUNTER → 2023-06-23 09:15 | Outpatient (BNVA) | payer MEDICARE, SELFPAY | PROVIDERS: PCP Internal Medicine; Visit Provider Urology | DX: N39.0 Urinary tract infection, site not specified (principal); N32.89 Other specified disorders of bladder; N40.0 Benign prostatic hyperplasia without lower urinary tract symptoms; R35.0 Frequency of micturition; E11.9 Type 2 diabetes mellitus without complications; N43.3 Hydrocele, unspecified; N35.919 Unspecified urethral stricture, male, unspecified site | CPT/HCPCS: 52000; 81003; 99212 ==

== ENCOUNTER 2023-07-02 10:24 | Outpatient (AMB) | payer MEDICARE, SELFPAY ==
[2023-07-02 10:28] VITALS: BP 136/88; PULSE 66; O2SAT 97; BMI 36.3
--- NOTE | 2023-07-02 10:28 | A.OFFPC_ITS ---
Vital Signs 07/02/23 10:28 Height 6 ft 2 in Weight 283 lb 0.8 oz BMI 36.3 BP 136/88 Blood Pressure Location Lt brachial Position Sitting Pulse 66 Pulse Source Pulse Oximeter Pulse Oximetry (%) 97 Oxygen Delivery Method Room Air Intake Visit Reasons: Cystoscopy Intake Note: Patient is here for a Pre-op for cystoscopy, urethrotomy, urethral dilation under general anesthesia on 07/08/[address] Cartagena. Curb Builder Required: No Allergies amlodipine Allergy (Unknown, Verified 07/02/23 10:28) Unknown atorvastatin Allergy (Unknown, Verified 07/02/23 10:28) Unknown Iodinated Contrast Media [IV CONTRAST] Adverse Reaction (Unknown, Verified 07/02/23 10:28) BLINDENESS Jardiance Adverse Reaction (Intermediate, Uncoded 07/02/23 10:28) Recurrent UTI Medication List - Last Reconciled 07/02/23 by Claudia Richter MD albuterol sulfate 90 mcg/actuation (ProAir HFA) 2 puffs inhalation Q4-6H PRN aspirin (Adult Aspirin Regimen) 81 mg PO DAILY [BIPAP 12/8 cm H20 humidified AIR As directed Duration: 99] blood sugar diagnostic (OneTouch Verio test strips) 3x daily cholecalciferol (vitamin D3) 25 mcg PO DAILY compr.stocking,knee,long,x-lrg As directed 20-30 mm HG cranberry 405 mg PO DAILY cyanocobalamin (vitamin B-12) 1,000 mcg PO DAILY 30 days hydralazine 25 mg PO Q8H 90 days insulin glargine-lixisenatide 100 unit-33 mcg/mL (Soliqua 100/33) 26 units (0.26 mL) subcut BID 30 days losartan 50 mg PO BID metformin ER 1,000 mg (2 x 500 mg) PO BID metoprolol tartrate 100 mg PO BID 90 days pen needle, diabetic (BD Ultra-Fine Aspen Pen Needle) As directed twice a day zolpidem (Ambien) 5 mg PO BEDTIME PRN Tobacco use date assessed: 07/02/23 Fall risk assessment: No Falls in past year Last assessed Fall Risk: 07/02/23 Dental Screening Dental Screen Date: 07/02/23 Did you have a dental visit in the last 12 months?: No Did you have a dental problem in the last 6 months where you did not have access to dental care?: No HPI Cystoscopy HPI Details 67-year-old obese male with uncontrolled diabetes mellitus hypertension hypercholesterolemia BPH obstructive sleep apnea last seen in May 2023. At that time hemoglobin A1c was 8.2. 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 Mother No problems noted. Social History (Updated 07/02/23 @ 11:14 by Claudia Richter MD) Housing: Apartment Alcohol intake: never Patient Tobacco Use Status: Former Tobacco user Years Smoked: teenager stopped e-Cigarette/Vaping Use: Never Used Second Hand Smoke Exposure: Yes Substance Use Type: Former Substance User and Marijuana service: No Current occupational status: retired Cognitive needs: No Hearing needs: No Vision needs: Yes (glasses) Questionnaire Thrive Questionnaire Date Thrive assessed: 07/02/23 AUDIT C Alcohol Use Questionnaire (AUDIT-C) 1. How often do you have a drink containing alcohol?: Never 3. How often do you have six or more drinks on one occasion?: Never Total Score: 0 Score Reviewed/Action Taken: No YAZAN-7 AMB Questionnaire YAZAN-7 Date YAZAN - 7 assessed: 05/02/23 Source: Developed by Drs. Bismark Fraire, Claudine Anderson, Ry Aguilar and colleagues, with an educational huma from [employer]. Review of Systems Const Denies poor appetite and Denies weakness Eyes Denies no additional complaints ENT Reports Normal hearing present, Denies dizziness, Denies nasal congestion, Denies tinnitus and Denies sore throat Card Denies chest pain, Denies syncope, Denies rapid heart rate and Denies dyspnea Resp Denies cough and Denies dyspnea GI Denies change in stool character, Reports constipation, Denies diarrhea, Denies nausea and Denies vomiting Denies dysuria and Denies urinary frequency Neuro Reports Normal hearing present, Denies confusion, Denies dizziness, Denies syncope and Denies weakness Psych Denies confusion Physical exam (Primary Care) Vital Signs: Last Vital Signs Pulse 66 07/02/23 10:28 BP 136/88 07/02/23 10:28 Pulse Ox 97 07/02/23 10:28 Oxygen Delivery Method Room Air 07/02/23 10:28 BMI result Body Mass Index 36.3 Tobacco/Smoking Status: Tobacco use Status Tobacco use date assessed 07/02/23 07/02/23 10:29 Patient Tobacco Use Status Former Tobacco user 07/02/23 10:29 e-Cigarette/Vaping Use Never Used 07/02/23 10:29 Thrive Assessment: Date of Thrive Assessment Date Thrive assessed 07/02/23 07/02/23 10:29 Const General: alert; No acute distress or confusion Orientation/consciousness: No confusion Eyes Conjunctivae: conjunctivae normal Resp Auscultation: clear to auscultation bilaterally Cardio Rate: regular rate Rhythm: regular rhythm GI Inspection: Yes normal to inspection Neuro General: No confusion Cranial nerves: Yes Normal hearing present Extrem General: Yes normal to inspection and No edema Assessment and Plan Assessment & Plan (1) Urethral stricture: Code(s): N35.919 - Unspecified urethral stricture, male, unspecified site Plan: Patient is scheduled for urethrotomy under urologist (2) Hydrocele, bilateral: Code(s): N43.3 - Hydrocele, unspecified Plan: Patient follows up with urology (3) Type 2 diabetes mellitus with hyperglycemia: Code(s): E11.65 - Type 2 diabetes mellitus with hyperglycemia Qualifiers: Diabetes mellitus long term care 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 Hemoglobin A1c goal of less than 7.0. Patient is taking Soliqua metformin (4) Hypertension: Code(s): I10 - Essential (primary) hypertension Qualifiers: Hypertension type: essential hypertension Qualified Code(s): I10 - Essential (primary) hypertension Plan: Continue with blood pressure medication. Decrease salt intake and exercise patient takes metoprolol 100 mg twice a day losartan 50 mg twice a day hydralazine 25 mg t.i.d. (5) Hypercholesterolemia: Code(s): E78.00 - Pure hypercholesterolemia, unspecified Plan: Avoid fried foods, chicken skin, eggs, butter margarine, pastries and meat. Be it pork or beef they have a lot of cholesterol LDL goal of less than 100 and triglyceride of less than 150 (6) Obstructive sleep apnea: Comment: Not using CPAP as previous had insurance problem ( =09/2021) sleep study September 2021 severe Code(s): G47.33 - Obstructive sleep apnea (adult) (pediatric) Plan: Advised to use the CPAP (7) Obesity: Code(s): E66.9 - Obesity, unspecified Plan: Diet and exercise (8) Preop exam for internal medicine: Code(s): Z01.818 - Encounter for other preprocedural examination Plan: ekg and blood work advised . With DM belong to intermediate risk group discussed about medications aspirin as well as NSAIDs to be held 1 week before the procedure and advised to take the blood pressure medications metoprolol losartan and hydralazine. As for the insulin discussed with the patient on taking half the dose the night before the procedure. Orders: Orders Comprehensive Met. Panel Today Z01.818 - Encounter for other preprocedural examination ECG 12 lead EKG Today Z01.818 - Encounter for other preprocedural examination Complete Blood Count Auto Diff Today Z01.818 - Encounter for other preprocedural examination Coding Level of Care Code Est Pt Level 4 (87971) Diagnoses Urethral stricture N35.919 Hydrocele, bilateral N43.3 Type 2 diabetes mellitus with hyperglycemia, with long-term current use of insulin E11.65; Z79.4 Diabetes mellitus long term care phlebotomist insulin use: with long term care phlebotomist use Essential hypertension I10 Hypertension type: essential hypertension Hypercholesterolemia E78.00 Obstructive sleep apnea G47.33 Obesity E66.9 Preop exam for internal medicine Z01.818
== END 2023-07-02 11:20 | disposition home or self-care (01) ==
PROVIDERS: PCP Internal Medicine; Visit Provider Internal Medicine
DX: E11.65 Type 2 diabetes mellitus with hyperglycemia (principal); Z79.4 Long term (current) use of insulin; E66.9 Obesity, unspecified; Z68.36 Body mass index [BMI] 36.0-36.9, adult; N35.919 Unspecified urethral stricture, male, unspecified site; N43.3 Hydrocele, unspecified; I10 Essential (primary) hypertension; E78.00 Pure hypercholesterolemia, unspecified; G47.33 Obstructive sleep apnea (adult) (pediatric); Z01.818 Encounter for other preprocedural examination
CPT/HCPCS: 99214

== ENCOUNTER → 2023-07-02 11:28 | Outpatient (REF) | payer MEDICARE, SELFPAY ==
--- NOTE | 2023-07-02 11:35 | ECG_ITS ---
Test Reason : pre op Blood Pressure : / mmHG Vent. Rate : 058 BPM Atrial Rate : 000 BPM P-R Int : 000 ms QRS Dur : 070 ms QT Int : 374 ms P-R-T Axes : 000 014 020 degrees QTc Int : 367 ms Normal sinus rhythm Normal ECG When compared with ECG of 22-NOV-2022 11:23, No significant changes seen Referred By: Claudia Richter Electronically Signed By:Hermes Diaz
[2023-07-02 11:38] LABS: MANUAL DIFF FLAG NO
[2023-07-02 12:13] LABS: Basophils Percent Auto 0.4 % (0-2); Eosinophils Absolute Auto 0.1 X10*3/uL (0.0-0.4); Hematocrit 46.3 % (42.0-52.0); Imm Gran Abs Auto 0.02 X10*3/uL (0.00-0.03); Imm Gran Pct Auto 0.4 % (0.0-0.4); Lymphocytes Absolute Auto 1.8 X10*3/uL (1.2-4.9); Lymphocytes Percent Auto 34.8 % (20-40); Mean Corpuscular HGB Conc 34.6 g/dl (31.0-36.0); Mean Corpuscular Hemoglobin 30.7 pg (27.0-33.0); Mean Corpuscular Volume 88.9 fL (80.0-98.0); Mean Platelet Volume 9.2 fL (9.4-12.4); Monocytes Absolute Auto 0.5 X10*3/uL (0.1-1.2); Monocytes Percent Auto 9.2 % (2-11); Neutrophils Absolute Auto 2.8 x10*3/uL (2.0-8.3); Neutrophils Percent Auto 54.2 % (45-73); Platelet Count 173 X10*3/uL (160-400); Red Blood Count 5.21 X10*6/uL (4.60-5.80); Red Cell Distribution Width 13.3 % (11.0-16.0); White Blood Count 5.1 X10*3/uL (4.8-10.8)
[2023-07-02 12:50] LABS: Alanine Aminotransferase 62 U/L (0-40); Albumin Level 4.2 g/dL (3.5-5.0); Alkaline Phosphatase 60 U/L (39-117); Anion Gap 13 (12-20); Aspartate Amino Transferase 48 U/L (5-37); Bilirubin Total 0.7 mg/dL (0.0-1.0); Blood Urea Nitrogen 18 mg/dL (9-16); Calcium 10.1 mg/dL (8.4-10.2); Carbon Dioxide 28 mmol/L (22-29); Chloride 103 mmol/L (96-108); Estimated Glomerular Filt Rate > 60; Glucose Random 157 mg/dL (60-115); Potassium 4.2 mmol/L (3.3-5.1); Sodium 140 mmol/L (135-145); Total Protein 7.3 g/dL (6.5-8.0)
== END ==
LOC: HO.CARD 11:28
PROVIDERS: PCP Internal Medicine; Visit Provider Internal Medicine
DX: Z01.818 Encounter for other preprocedural examination (principal)
CPT/HCPCS: 36415; 80053; 85025; 93005

== ENCOUNTER → 2023-07-02 11:35 | Outpatient (BNV) | payer MEDICARE, SELFPAY | PROVIDERS: PCP Internal Medicine; Visit Provider Internal Medicine Cardiovascular Disease | DX: I10 Essential (primary) hypertension (principal) | CPT/HCPCS: 93010 ==

== ENCOUNTER 2023-07-08 08:12 | Day surgery (SDC) | payer MEDICARE, SELFPAY ==
--- NOTE | 2023-07-04 14:05 | HO.ANESPROP2 ---
Documented by User: Cadence Morales NP 07/04/23 14:06 HPI - Anesthesia Eval Consult details Narrative: 67yo M for Cystoscopy Urethrotomy with urethral dilation Medically cleared [facility] Active Problems Active Problems: All Active Problems (Updated 07/02/23 @ 11:16 by Claudia Richter MD) Preop exam for internal medicine (Acute) Urethral stricture (Acute) Hydrocele, bilateral (Acute) Right renal stone (Acute) Scrotal swelling (Acute) Recurrent UTI (Acute) Urinary tract infection (Acute) Cough (Acute) Right otitis media (Acute) Insomnia (Acute) Urinary incontinence (Acute) Osteoarthritis of left glenohumeral joint (Acute) Left shoulder pain (Acute) Preoperative clearance (Acute) Witnessed apneic spells (Acute) Obesity (Acute) History of arthroplasty of left shoulder (Acute) Status post Mohs surgery for basal cell carcinoma (Acute) Hearing difficulty (Acute) Leg wound, left (Acute) B12 deficiency (Acute) 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 (Acute) BPH (benign prostatic hyperplasia) (Acute) Obstructive sleep apnea (Acute) Peripheral vascular disease (Acute) Hypercholesterolemia (Acute) Erectile dysfunction (Acute) Hypertension (Acute) Type 2 diabetes mellitus with hyperglycemia (Acute) Past Medical History Medical History (Updated 07/02/23 @ 11:16 by Claudia Richter MD) Diabetes Sleep apnea Fatty liver Internal hemorrhoid Diverticulosis IBS (irritable bowel syndrome) Leg wound, left H/O urinary tract infection B12 deficiency 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 Mother No problems noted. Family history of problems with anesthesia: No Surgical History Surgical History (Updated 07/08/23 @ 10:40 by Hazel Izquierdo RN) Hx of cardiac cath History of Mohs surgery for squamous cell carcinoma of skin Hx of shoulder replacement Back pain with history of spinal surgery Hx of eye surgery Hx of cataract surgery History of Problems with Anesthesia: No Social History Social History (Updated 07/02/23 @ 11:14 by Claudia Richter MD) Housing: Apartment Alcohol intake: never Patient Tobacco Use Status: Former Tobacco user Years Smoked: teenager stopped e-Cigarette/Vaping Use: Never Used Second Hand Smoke Exposure: Yes Use of substances other than those prescribed or required for medical reasons: No Substance Use Type: Former Substance User and Marijuana Are you DNR?: No Advance Directives: No Advance Directives Information Provided: Yes service: No Current occupational status: retired Cognitive needs: No Hearing needs: No Vision needs: Yes (glasses) Meds Allergies Allergy/AdvReac Type Severity Reaction Status Date / Time amlodipine Allergy Unknown Unknown Verified 07/02/23 10:28 atorvastatin Allergy Unknown Unknown Verified 07/02/23 10:28 Iodinated Contrast Media AdvReac Unknown BLINDENESS Verified 07/02/23 10:28 [IV CONTRAST] Jardiance AdvReac Intermediate Recurrent Uncoded 07/02/23 10:28 UTI Home Medications Medication Instructions Recorded Confirmed Last Taken Type aspirin 81 mg tablet,delayed 81 mg PO DAILY 02/11/20 07/02/23 05/10/22 History release (Adult Aspirin Regimen) cholecalciferol (vitamin D3) 25 25 mcg PO DAILY 02/11/20 07/02/23 Unknown History mcg (1,000 unit) capsule cranberry 405 mg capsule 405 mg PO DAILY 02/11/20 07/02/23 Unknown History albuterol sulfate 90 mcg/actuation 2 puff inhalation Q4-6H PRN 05/07/23 07/02/23 Unknown History aerosol inhaler (ProAir HFA) bronchospasm Exam Pertinent Lab Results Pertinent Lab Results: Laboratory Tests 07/02/23 11:37 WBC 5.1 Hgb 16.0 Hct 46.3 Plt Count 173 Sodium 140 Potassium 4.2 Chloride 103 Carbon Dioxide 28 BUN 18 H Creatinine 0.96 Narrative Narrative: EKG 06/2023 Vent. Rate : 058 BPM Atrial Rate : 000 BPM P-R Int : 000 ms QRS Dur : 070 ms QT Int : 374 ms P-R-T Axes : 000 014 020 degrees QTc Int : 367 ms Normal sinus rhythm Normal ECG When compared with ECG of 22-NOV-2022 11:23, No significant changes seen Assessment and Plan Assessment Anesthesia Assessment: Chart Reviewed Final Anesthetic Review Family History of Problems with Anesthesia: No History of Problems with Anesthesia: No Documented by User: Fernando Minaya MD 07/08/23 10:52 [facility] Past Medical History Medical History (Updated 07/02/23 @ 11:16 by Claudia Richter MD) Diabetes Sleep apnea Fatty liver Internal hemorrhoid Diverticulosis IBS (irritable bowel syndrome) Leg wound, left H/O urinary tract infection B12 deficiency 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 Mother No problems noted. Surgical History Surgical History (Updated 07/08/23 @ 10:40 by Hazel Izquierdo RN) Hx of cardiac cath History of Mohs surgery for squamous cell carcinoma of skin Hx of shoulder replacement Back pain with history of spinal surgery Hx of eye surgery Hx of cataract surgery Social History Social History (Updated 07/02/23 @ 11:14 by Claudia Richter MD) Housing: Apartment Alcohol intake: never Patient Tobacco Use Status: Former Tobacco user Years Smoked: teenager stopped e-Cigarette/Vaping Use: Never Used Second Hand Smoke Exposure: Yes Use of substances other than those prescribed or required for medical reasons: No Substance Use Type: Former Substance User and Marijuana Are you DNR?: No Advance Directives: No Advance Directives Information Provided: Yes service: No Current occupational status: retired Cognitive needs: No Hearing needs: No Vision needs: Yes (glasses) Meds Allergies Allergy/AdvReac Type Severity Reaction Status Date / Time amlodipine Allergy Unknown Unknown Verified 07/02/23 10:28 atorvastatin Allergy Unknown Unknown Verified 07/02/23 10:28 Iodinated Contrast Media AdvReac Unknown BLINDENESS Verified 07/02/23 10:28 [IV CONTRAST] Jardiance AdvReac Intermediate Recurrent Uncoded 07/02/23 10:28 UTI Home Medications Medication Instructions Recorded Confirmed Last Taken Type aspirin 81 mg tablet,delayed 81 mg PO DAILY 02/11/20 07/02/23 05/10/22 History release (Adult Aspirin Regimen) cholecalciferol (vitamin D3) 25 25 mcg PO DAILY 02/11/20 07/02/23 Unknown History mcg (1,000 unit) capsule cranberry 405 mg capsule 405 mg PO DAILY 02/11/20 07/02/23 Unknown History albuterol sulfate 90 mcg/actuation 2 puff inhalation Q4-6H PRN 05/07/23 07/02/23 Unknown History aerosol inhaler (ProAir HFA) bronchospasm Exam Airway Mallampati Class: IV TM Dist: <=3cm Loose/Missing/Broken Teeth: No Heart: rr Lungs: cta but distant Assessment and Plan Assessment Anesthesia Assessment: Anesthesia Plan Discussed Final Anesthetic Review NPO: Yes ASA Class: III Final Preanesthetic Review: No Changes in Pt Med Stat, Meds/Allgs Chart Reviewed, Consent Obtained/Reviewed and Anes Risks/Benef Reviewed Patient Risk: Intermediate Procedure Risk: Low Anesthetic Plan Anesthetic Plan: GA Disposition: Standard PACU
[2023-07-04 16:01] VITALS: BMI 36.3
--- NOTE | ~2023-07-08 | FL_ITS ---
EXAMINATION: XR FLUOROSCOPY WITH IMAGES CLINICAL INFORMATION: Urethrotomy. COMPARISON: CT abdomen/pelvis 06/16/2023. TECHNIQUE: Fluoroscopy Supervised By: Dr. Jaz Cartagena. Fluoroscopy Time: 18.3 seconds. Cumulative Dose: 10.58 mGy. Images: 2. FINDINGS: A catheter is seen overlying the region of the bladder. One image demonstrates faint opacification of the bladder with IV contrast. Please see Dr. Jaz Catragena's procedure note for full details. FL/FL guidance in OR IMPRESSION: Fluoroscopy was provided for a urology procedure.
[2023-07-08 10:41] VITALS: BP 191/90; PULSE 64; RESP 16; TEMP 36.1; O2SAT 100
--- NOTE | 2023-07-08 10:44 | MHC.SHP ---
Pre-Procedural Eval Section A - 24 Hr Update-Section A only Date of Service: 07/08/23 The patient is an INPATIENT: No The patient has been examined within 24 hours of the surgical procedure. The History & Physical has been completed within 30 days and I have reviewed it.: Yes Section B - Complete if H&P > 30 days Chief Complaint: Unspecified urethral stricture, male, unspecified Allergies: Allergies Allergy/AdvReac Type Severity Reaction Status Date / Time amlodipine Allergy Unknown Unknown Verified 07/02/23 10:28 atorvastatin Allergy Unknown Unknown Verified 07/02/23 10:28 Iodinated Contrast Media AdvReac Unknown BLINDENESS Verified 07/02/23 10:28 [IV CONTRAST] Jardiance AdvReac Intermediate Recurrent Uncoded 07/02/23 10:28 UTI Plan Diagnosis/Plan: Unchanged I have reviewed the history and physical and performed a pertinent physical examination on my patient. No changes have occurred unless specified. Cystoscopy, urethrotomy, urethral dilation Time Spent With Patient Time: Total time managing care of this patient today ____ minutes.
[2023-07-08 10:52] LABS: Glucose, Whole Blood 148 mg/dL (60-115)
--- NOTE | 2023-07-08 10:53 | PC.NURSE ---
md antoine aware of his htn
[2023-07-08] MEDS: Lactated Ringers 1,000 ML 100 ML IVCONT (10:54)
--- NOTE | 2023-07-08 12:04 | W.PM.OPN ---
Operative Note Operative Note Date of Service: 07/08/23 Narrative: PREOP DIAGNOSIS: Urethral stricture POSTOP DIAGNOSIS: Urethral stricture PROCEDURE: Urethrogram, Cystoscopy, urethrotomy, urethral dilation, Kyle insertion SURGEON: Jaz Cartagena MD ANESTHESIA: General Indications: History of UTI, orchitis, office cystoscopy -findings proximal urethral stricture Details of procedure: The patient was brought into the operating room placed on the OR table in supine position. 2 g of Ancef IV. General anesthesia was administered. The patient was repositioned into lithotomy position, prepped and draped in the usual sterile fashion. Time-out was done per protocol. A 22 fr cystoscope was placed transurethrally there was a pinpoint urethral stricture proximally using the open-ended ureteral catheter contrast was injected through the stricture into the bladder; the length of the stricture <1 cm. Under cystoscopic direct visualization and fluoroscopic confirmation a guidewire was passed through the stricture into the bladder. Urethrotomy was performed with gradual dilation starting with an 8 Anguillan over the guidewire sequentially increasing up to a 20 Anguillan. The cystoscope was then passed over the guidewire into the bladder. The right and left ureteral orifices were visualized. The entire bladder was visualized. There were no suspicious bladder lesions seen. The guidewire was placed through the cystoscope. The cystoscope was removed. The 20 Anguillan [place] tip catheter was passed over the guidewire 15 cc of water to inflate the balloon. The patient was brought out of anesthesia and taken to recovery in stable condition. Complications: None Drains: 20 Anguillan [place] tip catheter
[2023-07-08 12:06] VITALS: BP 122/60; PULSE 97; RESP 19; TEMP 37.2; O2SAT 99
[2023-07-08 12:11] VITALS: BP 112/59; PULSE 96; RESP 16; O2SAT 96
[2023-07-08 12:16] VITALS: BP 114/66; PULSE 97; RESP 16; O2SAT 95
[2023-07-08 12:21] VITALS: BP 119/65; PULSE 96; RESP 16; O2SAT 97
[2023-07-08] MEDS: Phenazopyridine HCL 200 MG TABLET PO (12:30)
[2023-07-08 12:36] VITALS: BP 130/71; PULSE 92; RESP 16; TEMP 37.2; O2SAT 97
== END 2023-07-08 13:18 | disposition home or self-care (01) ==
PROVIDERS: PCP Internal Medicine; Visit Provider Urology
PROC: (CPT 52275; principal; 2023-07-08 10:10)
DX: N35.919 Unspecified urethral stricture, male, unspecified site (principal); N40.1 Benign prostatic hyperplasia with lower urinary tract symptoms; R35.0 Frequency of micturition; E11.9 Type 2 diabetes mellitus without complications; I10 Essential (primary) hypertension; Z87.440 Personal history of urinary (tract) infections; Z79.4 Long term (current) use of insulin; Z79.899 Other long term (current) drug therapy
CPT/HCPCS: 52275; 82947; 87086; C1758; C1769; J0131; J0360; J1956; J2371; J2704; J3010; Q9967

== ENCOUNTER → 2023-07-08 08:12 | Outpatient (BNV) | payer MEDICARE, SELFPAY | PROVIDERS: PCP Internal Medicine; Visit Provider Urology | DX: N35.919 Unspecified urethral stricture, male, unspecified site (principal) | CPT/HCPCS: 52341 ==

== ENCOUNTER → 2023-07-14 10:01 | Outpatient (BNVA) | payer MEDICARE, SELFPAY | PROVIDERS: PCP Internal Medicine; Visit Provider Urology ==

== ENCOUNTER → 2023-08-01 15:32 | Outpatient (BNVA) | payer MEDICARE, SELFPAY | PROVIDERS: PCP Internal Medicine; Visit Provider Urology | DX: N40.1 Benign prostatic hyperplasia with lower urinary tract symptoms (principal); R35.0 Frequency of micturition; N43.3 Hydrocele, unspecified; N35.919 Unspecified urethral stricture, male, unspecified site; N39.0 Urinary tract infection, site not specified; E11.9 Type 2 diabetes mellitus without complications; N39.8 Other specified disorders of urinary system | CPT/HCPCS: 51798; 81003; 99212 ==

== ENCOUNTER 2023-09-05 15:25 | Outpatient (AMB) | payer MEDICARE, SELFPAY ==
[2023-09-05 15:29] VITALS: BP 158/80; PULSE 87; O2SAT 97; BMI 37.4
--- NOTE | 2023-09-05 15:29 | MHC.PC.OV ---
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 Required: No Allergies amlodipine Allergy (Unknown, Verified 09/05/23 15:29) Unknown atorvastatin Allergy (Unknown, Verified 09/05/23 15:29) Unknown Iodinated Contrast Media [IV CONTRAST] Adverse Reaction (Unknown, Verified 09/05/23 15:29) BLINDENESS Jardiance Adverse Reaction (Intermediate, Uncoded 09/05/23 15:29) Recurrent UTI Medication List - Last Reconciled 09/05/23 by Claudia Richter MD albuterol sulfate 90 mcg/actuation (ProAir HFA) 2 puffs inhalation Q4-6H PRN aspirin (Adult Aspirin Regimen) 81 mg PO DAILY [BIPAP 12/8 cm H20 humidified AIR As directed Duration: 99] blood sugar diagnostic ([employer] Verio test strips) 3x daily cholecalciferol (vitamin D3) 25 mcg PO DAILY compr.stocking,knee,long,x-lrg As directed 20-30 mm HG cranberry 405 mg PO DAILY cyanocobalamin (vitamin B-12) 1,000 mcg PO DAILY 30 days flash glucose scanning reader (BidPal NetworkStyle Ronda 14 Day [place]) As directed flash glucose sensor (FreeStyle Ronda 2 Sensor kit) As directed hydralazine 25 mg PO Q8H 90 days insulin glargine-lixisenatide 100 unit-33 mcg/mL (Soliqua 100/33) 30 units (0.3 mL) subcut BID 30 days losartan 50 mg PO BID metformin ER 1,000 mg (2 x 500 mg) PO BID metoprolol tartrate 100 mg PO BID 90 days pen needle, diabetic (BD Ultra-Fine Aspen Pen Needle) As directed twice a day zolpidem (Ambien) 5 mg PO BEDTIME PRN Tobacco use date assessed: 09/05/23 Fall risk assessment: No Falls in past year Last assessed Fall Risk: 09/05/23 Dental Screening Dental Screen Date: 07/02/23 HPI DM, HTN , CHolesterol HPI Details 67-year-old obese male with uncontrolled diabetes mellitus having a urethral stricture sent to urologist hypertension hypercholesterolemia obstructive sleep apnea coming in for follow-up. Patient was seen in 06/25/2023 per preop. Patient's colonoscopy is up-to-date 05/27/2022. Patient had the urethral g/cystoscopy/urethrotomy/urethral dilatation and Kyle insertion 07/26/2023. Received also notes from Orthopedics for the left shoulder had left reverse total shoulder arthroplasty done last year [facility] Medical History (Updated 09/05/23 @ 16:19 by Claudia Richter MD) Diabetes Sleep apnea Fatty liver Internal hemorrhoid Diverticulosis IBS (irritable bowel syndrome) Leg wound, left H/O urinary tract infection B12 deficiency [employer] (current) use of insulin History of melanoma BPH (benign prostatic hyperplasia) Obstructive sleep apnea Peripheral vascular disease Hypercholesterolemia Erectile dysfunction Hypertension Type 2 diabetes mellitus with hyperglycemia Surgical History (Updated 09/01/23 @ 15:43 by Claudia Richter MD) Hx of cardiac cath History of Mohs surgery for squamous cell carcinoma of skin Hx of shoulder replacement Back pain with history of spinal surgery Hx of eye surgery Hx of cataract surgery Family History Father No problems noted. Mother No problems noted. Social History (Updated 07/02/23 @ 11:14 by Claudia Richter MD) Housing: Apartment Alcohol intake: never Patient Tobacco Use Status: Former Tobacco user Years Smoked: teenager stopped e-Cigarette/Vaping Use: Never Used Second Hand Smoke Exposure: Yes Substance Use Type: Former Substance User and Marijuana service: No Current occupational status: retired Cognitive needs: No Hearing needs: No Vision needs: Yes (glasses) Questionnaire Thrive Questionnaire Date Thrive assessed: 07/02/23 AUDIT C Alcohol Use Questionnaire (AUDIT-C) 1. How often do you have a drink containing alcohol?: Never 3. How often do you have six or more drinks on one occasion?: Never Total Score: 0 Score Reviewed/Action Taken: No YAZAN-7 AMB Questionnaire YAZAN-7 Date YAZAN - 7 assessed: 05/02/23 Source: Developed by Drs. Bismark Fraire, Claudine Anderson, Ry Aguilar and colleagues, with an educational huma from [employer]. Physical exam (Primary Care) Vital Signs: Last Vital Signs Pulse 87 09/05/23 15:29 BP 158/80 H 09/05/23 15:29 Pulse Ox 97 09/05/23 15:29 Oxygen Delivery Method Room Air 09/05/23 15:29 BMI result Body Mass Index 37.4 Tobacco/Smoking Status: Tobacco use Status Tobacco use date assessed 09/05/23 09/05/23 15:30 Patient Tobacco Use Status Former Tobacco user 09/05/23 15:30 e-Cigarette/Vaping Use Never Used 09/05/23 15:30 Thrive Assessment: Date of Thrive Assessment Date Thrive assessed 07/02/23 09/05/23 15:30 Const General: alert; No acute distress Eyes Conjunctivae: conjunctivae normal Resp Auscultation: clear to auscultation bilaterally Cardio Rate: regular rate Rhythm: regular rhythm GI Inspection: Yes normal to inspection Extrem General: Yes normal to inspection and No edema Results AMB Hemoglobin A1c AMB Hemoglobin A1c 8.2 % Last Edit by GUNJAN Whaley on 09/05/23 15:43 Results Reviewed Results Reviewed: Laboratory Last Values Hgb A1c (Clinic) 8.2 % (4.0-6.0) H 09/05/23 15:30 Assessment and Plan Assessment & Plan (1) Type 2 diabetes mellitus with hyperglycemia: Code(s): E11.65 - Type 2 diabetes mellitus with hyperglycemia Qualifiers: Diabetes mellitus watermaster insulin use: with mcc use Qualified Code(s): E11.65 - Type 2 diabetes mellitus with hyperglycemia; Z79.4 - [employer] (current) use of insulin Plan: Decrease the amount of carbohydrate intake, pasta, bread, rice and potatoes are all sugar and that is aside from all the sweet stuff, remember that fruits are good but they are Sweet also. Hemoglobin A1c goal of less than 7.0. Patient is on Soliqua metformin continues to have elevated A1c at 8.2 increase soliqua (2) Hypertension: Code(s): I10 - Essential (primary) hypertension Qualifiers: Hypertension type: essential hypertension Qualified Code(s): I10 - Essential (primary) hypertension Plan: Continue with blood pressure medication. Decrease salt intake and exercise takes metoprolol 100 mg twice a day losartan 50 mg twice a day hydralazine 25 mg 3 times a day- increase hydralazine to 50 mg TID (3) Hypercholesterolemia: Code(s): E78.00 - Pure hypercholesterolemia, unspecified Plan: Avoid fried foods, chicken skin, eggs, butter margarine, pastries and meat. Be it pork or beef they have a lot of cholesterol LDL goal of less than 100. Last blood work was in March still LDL of 106 retest advised (4) Urethral stricture: Comment: Status post urethral dilatation 07/26/2023 Dr. Menendez Code(s): N35.919 - Unspecified urethral stricture, male, unspecified site Plan: Continue to follow-up with urology Orders: Orders AMB Hemoglobin A1c Today E11.65 - Type 2 diabetes mellitus with hyperglycemia, Z79.4 - intermediate (current) use of insulin Comprehensive Met. Panel 3 Months E11.65 - Type 2 diabetes mellitus with hyperglycemia, Z79.4 - [employer] (current) use of insulin Complete Blood Count Auto Diff 3 Months E11.65 - Type 2 diabetes mellitus with hyperglycemia, Z79.4 - [employer] (current) use of insulin Hemoglobin A1c 3 Months E11.65 - Type 2 diabetes mellitus with hyperglycemia, Z79.4 - intermediate (current) use of insulin Lipid Panel 3 Months E11.65 - Type 2 diabetes mellitus with hyperglycemia, E78.00 - Pure hypercholesterolemia, unspecified, Z79.4 - [employer] (current) use of insulin Medications: New flash glucose scanning reader (BidPal NetworkStyle Ronda 14 Day [place]) As directed 1 ea 0RF E11.65 - Type 2 diabetes mellitus with hyperglycemia, Z79.4 - intermediate (current) use of insulin flash glucose sensor (FreeStyle Ronda 2 Sensor kit) As directed 6 kits 0RF E11.65 - Type 2 diabetes mellitus with hyperglycemia, Z79.4 - intermediate (current) use of insulin Changed From insulin glargine-lixisenatide 100 unit-33 mcg/mL (Soliqua 100/33) 26 units (0.26 mL) subcut BID 30 days 15.6 mL 6RF E11.65 - Type 2 diabetes mellitus with hyperglycemia, Z79.4 - [employer] (current) use of insulin To insulin glargine-lixisenatide 100 unit-33 mcg/mL (Soliqua 100/33) 30 units (0.3 mL) subcut BID 30 days 18 mL 6RF E11.65 - Type 2 diabetes mellitus with hyperglycemia, Z79.4 - [employer] (current) use of insulin From hydralazine 25 mg PO Q8H 90 days 270 tabs 2RF I10 - Essential (primary) hypertension To hydralazine 50 mg PO Q8H 90 days 270 tabs 2RF I10 - Essential (primary) hypertension Refilled metformin ER 1,000 mg (2 x 500 mg) PO BID 360 tabs 3RF E11.65 - Type 2 diabetes mellitus with hyperglycemia metoprolol tartrate 100 mg PO BID 90 days 180 tabs 2RF I10 - Essential (primary) hypertension Coding Level of Care Code Est Pt Level 4 (12365) Diagnoses Type 2 diabetes mellitus with hyperglycemia, with long-term current use of insulin E11.65; Z79.4 Diabetes mellitus mcc insulin use: with mcc use Essential hypertension I10 Hypertension type: essential hypertension Hypercholesterolemia E78.00 Urethral stricture N35.919
== END 2023-09-05 16:31 | disposition home or self-care (01) ==
PROVIDERS: PCP Internal Medicine; Visit Provider Internal Medicine
DX: E11.65 Type 2 diabetes mellitus with hyperglycemia (principal); Z79.4 Long term (current) use of insulin; I10 Essential (primary) hypertension; E78.00 Pure hypercholesterolemia, unspecified; N35.919 Unspecified urethral stricture, male, unspecified site
CPT/HCPCS: 83036; 99214

== ENCOUNTER 2023-09-15 13:42 | Outpatient (AMB) | payer MEDICARE, SELFPAY ==
--- NOTE | 2023-09-15 13:57 | MHC.OFFVIS ---
Vital Signs 09/15/23 14:08 Height 6 ft 2 in Weight 294 lb BMI 37.7 BP 130/80 Blood Pressure Location Lt brachial Position Sitting Pulse 84 Pulse Source Pulse Oximeter Pulse Oximetry (%) 95 Oxygen Delivery Method Room Air Intake Visit Reasons: [id number] Intake Note: Patient presents for CARTER. Need a new CPAP machine. Allergies amlodipine Allergy (Unknown, Verified 09/15/23 14:03) Unknown atorvastatin Allergy (Unknown, Verified 09/15/23 14:03) Unknown Iodinated Contrast Media [IV CONTRAST] Adverse Reaction (Unknown, Verified 09/15/23 14:03) BLINDENESS Jardiance Adverse Reaction (Intermediate, Uncoded 09/05/23 15:29) Recurrent UTI HPI Comments Details: 67-yr-old male presents for new in-person patient visit for sleep consultation. Patient reports he underwent HST in 2020 and f/u in-lab split night PSG study in 2021. Patient states that after undergoing the in-lab sleep study, he had an appointment to obtain a CPAP machine, however he never received a CPAP machine.? He comes today to reestablish care with sleep Medicine, in hopes of having his sleep apnea treated. 08/09/2020 home sleep study showed severe sleep apnea with AHI 44 per hour with O2 sara 82% and SpO2 under 88% times 40 minutes ? 09/25/2021 in-lab split night PSG sleep study showed severe obstructive sleep apnea with AHI 62 per hour and O2 sara 80%.? Periodic limb movements of sleep 60 per hour with a periodic limb movement of sleep arousal index of 1.2 per hour.? Patient was tried on CPAP and BiPAP.? Best reduction in nocturnal hypoxemia and obstructive sleep apnea was obtained with BiPAP set to 12/8 cm H2O. ? Patient states he is able to fall asleep without difficulty, however wakes up a few times at night. He endorses snoring, witnessed apneas, nocturia, vivid dreams, rare leg cramps,? fatigue. Patient denies gasping arousals, GERD, parasomnias, morning headaches, restless legs, hallucinations, sleep paralysis, drop attacks, bruxism. Sleep hygiene questionnaire: What is your usual sleep routine? Usual bedtime is at 10pm -12am; Usual wake-up time is at 8am. Do you take naps? no Is your sleep environment cool, dark, and quiet? yes Do you exercise? tries to walk- needs knee replacements. Do you take caffeine or other stimulants? tea at times. Do you use electronics in bed? 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 Mother No problems noted. Social History Housing: Apartment Alcohol intake: never Patient Tobacco Use Status: Former Tobacco user Years Smoked: teenager stopped e-Cigarette/Vaping Use: Never Used Second Hand Smoke Exposure: Yes Substance Use Type: Former Substance User and Marijuana service: No Current occupational status: retired Cognitive needs: No Hearing needs: No Vision needs: Yes (glasses) Physical Exam Vital Signs: Last Vital Signs Pulse 84 09/15/23 14:08 BP 130/80 09/15/23 14:08 Pulse Ox 95 09/15/23 14:08 Oxygen Delivery Method Room Air 09/15/23 14:08 BMI result Body Mass Index 37.7 Const General: no acute distress Orientation/consciousness: patient oriented x3 HEENT Other: Mallampati stage 4 Resp Effort & Inspection: normal respiratory effort and able to speak in complete sentences Auscultation: clear to auscultation bilaterally Cardio Rate: regular rate Rhythm: regular rhythm Heart sounds: S1 normal heart sound present and S2 normal heart sound present Neuro General: patient oriented x3 Psych Mental Status: mental status grossly normal Speech and movement: Clear speech present Attitude: cooperative Assessment & Plan Assessment & Plan (1) Severe obstructive sleep apnea: Code(s): G47.33 - Obstructive sleep apnea (adult) (pediatric) Category: Medical (2) Fatigue: Code(s): R53.83 - Other fatigue Category: Medical (3) Sleep difficulties: Code(s): G47.9 - Sleep disorder, unspecified Category: Medical Plan Reviewed previous sleep studies- results c/w severe CARTER, w/ in-lab split night PAP titration study showing treatment emergent central sleep apnea on CPAP. Thus, pt is advised to undergo HST to assess status of sleep apnea. Will also initiate BiPAP 12/8 cmH2O order, as pt should start on BiPAP tx as soon as able due to severe degree of sleep apnea in setting of HTN and diabetes. Pt increased also about Inspire- this may be an option if he does not tolerate PAP tx, however likely he would need to lose weight to the point where his BMI is less than 35. Pt to call with any worsening concerns or questions. Orders: Orders RT home sleep study Today G47.33 - Obstructive sleep apnea (adult) (pediatric), G47.9 - Sleep disorder, unspecified, R53.83 - Other fatigue Coding Level of Care Code New Pt Level 4 (89798) Diagnoses Severe obstructive sleep apnea G47.33 Fatigue R53.83 Sleep difficulties G47.9
[2023-09-15 14:08] VITALS: BP 130/80; PULSE 84; O2SAT 95; BMI 37.7
== END 2023-09-15 15:23 | disposition home or self-care (01) ==
PROVIDERS: PCP Internal Medicine; Visit Provider Nurse Practitioner Family
DX: G47.33 Obstructive sleep apnea (adult) (pediatric) (principal); R53.83 Other fatigue; G47.9 Sleep disorder, unspecified
CPT/HCPCS: 99204

== ENCOUNTER → 2023-09-15 13:42 | Outpatient (BNVA) | payer MEDICARE, SELFPAY | PROVIDERS: PCP Internal Medicine; Visit Provider Nurse Practitioner Family | DX: G47.33 Obstructive sleep apnea (adult) (pediatric) (principal); G47.9 Sleep disorder, unspecified; R53.83 Other fatigue | CPT/HCPCS: 99202 ==

== ENCOUNTER → 2023-10-21 09:54 | Outpatient (REF) | payer MEDICARE, SELFPAY | LOC: HO.SL 09:54 | PROVIDERS: Visit Provider Nurse Practitioner Family | DX: G47.33 Obstructive sleep apnea (adult) (pediatric) (principal); R53.83 Other fatigue | CPT/HCPCS: 95806 ==

== ENCOUNTER → 2023-10-21 10:37 | Outpatient (BNV) | payer MEDICARE, SELFPAY | PROVIDERS: Visit Provider Psychiatry & Neurology Neurology | DX: G47.33 Obstructive sleep apnea (adult) (pediatric) (principal) | CPT/HCPCS: 95806 ==

== ENCOUNTER 2023-11-06 16:55 | Emergency (ER) | payer MEDICARE, SELFPAY ==
--- NOTE | ~2023-11-06 | CT_ITS ---
EXAMINATION: CT ABDOMEN AND PELVIS WITHOUT CONTRAST CLINICAL INFORMATION: Right flank pain COMPARISON: CT abdomen 06/16/2023 TECHNIQUE: Multidetector volumetric imaging was performed from the superior aspect of the liver through the pubic symphysis. Sagittal and coronal reformatted images were obtained on the technologist's workstation. This CT examination was performed using dose optimization techniques as appropriate, variously including the following: *Automated exposure control *Adjustment of mA and/or kV according to patient size (this includes techniques or standardized protocols for targeted exams where dose is matched to indication/reason for exam; i.e. extremities or head) *Use of iterative reconstruction technique DLP: 1032 mGy-cm FINDINGS: LUNG BASES: Mild left basilar atelectasis. No pericardial or pleural effusion.. LIVER, GALLBLADDER, AND BILIARY TREE: Right hepatic lobe measures 19.9 cm. Low-attenuation of the liver with respect to spleen suggesting hepatic steatosis. Stable punctate granuloma in the right lobe. No evidence of suspicious liver lesion. No biliary duct dilatation. The gallbladder is unremarkable with no evidence of radiopaque gallstones, gallbladder wall thickening, or obvious pericholecystic inflammatory changes. PANCREAS: Unremarkable. SPLEEN: Unremarkable. ADRENAL GLANDS: Unremarkable. KIDNEYS AND URETERS: 3 mm calculus in the distal right ureter. Mild right hydroureteronephrosis. There is mild-moderate right perinephric stranding. No left renal or ureteral calculi. No left hydroureteronephrosis. BLADDER: Nondistended. No radiopaque calculi seen within the abdomen. GASTROINTESTINAL TRACT: Stomach is partially distended. No dilated small or large bowel loops. Colonic diverticulosis without evidence of diverticulitis. Appendix appears unremarkable. No significant free fluid. No free air. ABDOMINAL WALL: No significant hernia is appreciated. LYMPH NODES: No pathologically enlarged lymph nodes. VASCULAR: Atherosclerotic vascular calcification of the aorta and iliac vessels. No aneurysmal dilatation of the aorta. PELVIC VISCERA: Unremarkable. OSSEOUS STRUCTURES: Multilevel degenerative changes in the spine. No aggressive osseous abnormality seen.. CT/CT abdomen pelvis wo IV con IMPRESSION: 1. Mild right hydroureteronephrosis, with a 3 mm calculus in the distal right ureter. Mild-moderate right perinephric stranding. 2. Hepatomegaly. Hepatic steatosis. 3. Additional chronic changes as detailed above. Fleischner guidelines were followed.
[2023-11-06 17:03] VITALS: BP 213/109; PULSE 97; RESP 18; TEMP 36.5; O2SAT 96; BMI 37.8
--- NOTE | 2023-11-06 17:04 | ED.GENADULT ---
HPI - General Adult General Chief complaint: General Medical Stated complaint: rt side pain Time Seen by Provider: 11/06/23 17:25 Source: patient Mode of arrival: ambulatory Limitations: no limitations History of Present Illness ED Provider: Dr. Perrin HPI narrative: . Patient also had a tick bite yesterday which was removed there was a look at his pictures of the tick 67 yaer old male PMH: BPH, T2DM, HTN, OSAP not on CPAP who presents emergency room he states he may or may not have had kidney stones in the past he denies any dysuria or falls or injuries he denies lifting anything to cause the pain pain is to his back Related Data Home Medications ?Medication ?Instructions ?Recorded ?Confirmed aspirin 81 mg tablet,delayed 81 mg PO DAILY 02/11/20 09/05/23 release (Adult Aspirin Regimen) cholecalciferol (vitamin D3) 25 25 mcg PO DAILY 02/11/20 09/05/23 mcg (1,000 unit) capsule cranberry 405 mg capsule 405 mg PO DAILY 02/11/20 09/05/23 albuterol sulfate 90 mcg/actuation 2 puff inhalation Q4-6H PRN 05/07/23 09/05/23 aerosol inhaler (ProAir HFA) bronchospasm Previous Rx's ?Medication ?Instructions ?Recorded compr.stocking,knee,long,x-lrg #12 ea 07/14/20 cyanocobalamin (vitamin B-12) 1,000 mcg PO DAILY 30 days #30 caps 11/16/21 1,000 mcg capsule pen needle, diabetic 32 gauge x #200 ea 02/11/2332 (BD Ultra-Fine Aspen Pen Needle) zolpidem 5 mg tablet (Ambien) 5 mg PO BEDTIME PRN sleep #20 tabs 02/24/23 losartan 50 mg tablet 50 mg PO BID #180 tabs 04/19/23 blood sugar diagnostic (OneTouch #100 ea 06/26/23 Verio test strips) flash glucose scanning reader #1 ea 09/05/23 (FreeStyle Ronda 14 Day [place]) flash glucose sensor (FreeStyle #6 kits 09/05/23 Ronda 2 Sensor kit) hydralazine 50 mg tablet 50 mg PO Q8H 90 days #270 tabs 09/05/23 insulin glargine 100 30 unit (0.3 mL) subcut BID 30 09/05/23 unit-lixisenatide 33 mcg/mL days #18 mL subcutaneous pen (Soliqua 100/33) metformin 500 mg tablet,extended 1,000 mg (2 x 500 mg) PO BID #360 09/05/23 release 24 hr tabs metoprolol tartrate 100 mg tablet 100 mg PO BID 90 days #180 tabs 09/05/23 Allergies Allergy/AdvReac Type Severity Reaction Status Date / Time amlodipine Allergy Unknown Unknown Verified 11/06/23 17:08 atorvastatin Allergy Unknown Unknown Verified 11/06/23 17:08 Iodinated Contrast Media AdvReac Unknown BLINDENESS Verified 11/06/23 17:08 [IV CONTRAST] Jardiance AdvReac Intermediate Recurrent Uncoded 09/05/23 15:29 UTI Review of Systems Review of Systems: Review of systems: General: Patient denies any fever chills recent illness or falls Musculoskeletal: Denies back pain or body aches or other injuries HEENT: denies headache, runny nose, ear pain Respiratory: denies shortness of breath, cough Cardiovascular: no chest pain or palpitations : denies dysuria, frequency Abdomen: no nausea vomiting denies abdominal pain Extremities: no swelling, no pain Skin: no diaphoresis Yes all other systems are reviewed and are negative [facility] Past Medical History Medical History (Updated 11/06/23 @ 19:19 by Fede Perrin DO) Diabetes Sleep apnea Fatty liver Internal hemorrhoid Diverticulosis IBS (irritable bowel syndrome) Leg wound, left H/O urinary tract infection B12 deficiency halfway (current) use of insulin History of melanoma BPH (benign prostatic hyperplasia) Obstructive sleep apnea Peripheral vascular disease Hypercholesterolemia Erectile dysfunction Hypertension Type 2 diabetes mellitus with hyperglycemia Surgical History Hx of cardiac cath History of Mohs surgery for squamous cell carcinoma of skin Hx of shoulder replacement Back pain with history of spinal surgery Hx of eye surgery Hx of cataract surgery Family History Family History Father No problems noted. Mother No problems noted. Social History Social History Housing: Apartment Alcohol intake: never Patient Tobacco Use Status: Former Tobacco user Years Smoked: teenager stopped Smoked in Last 30 Days: No e-Cigarette/Vaping Use: Never Used Second Hand Smoke Exposure: Yes Use of substances other than those prescribed or required for medical reasons: No Substance Use Type: Former Substance User and Marijuana Advance Directives: No Advance Directives Information Provided: No Do you have a plan to hurt others: No Plan service: No Current occupational status: retired Cognitive needs: No Hearing needs: No Vision needs: Yes (glasses) Physical Exam ED Vital Signs: Vital Signs - 24 hr 11/06/23 17:03 11/06/23 17:26 11/06/23 18:12 Temperature 97.7 F 98.2 F 98.2 F Pulse Rate 97 98 103 H Respiratory Rate 18 18 22 H Blood Pressure 213/109 H 208/108 H 176/87 H Pulse Oximetry 96 94 94 Oxygen Delivery Method Room Air Room Air Room Air BMI result Body Mass Index 37.8 General: Well-appearing well-nourished in no signs of distress HEENT: Normocephalic atraumatic Neck: No signs of JVD, no masses no tenderness or lymphadenopathy Cardiovascular: Regular rate and rhythm Respiratory: Clear to auscultation bilaterally Abdomen: Soft nontender no masses no CVA tenderness Extremities: Normal pedal pulses no signs of edema Skin: Dry warm no rashes Back: No tenderness full ROM Course Course Course Narrative: This is a Rapid Medical Examination (RME) performed by Angelique Keane PA-C in triage. Full HPI, ROS, assessment and treatment plan per primary provider in the Main ED. 67 yo male hx of BPH, T2DM, HTN, OSAP not on CPAP, here for eval of constant 10/10 right flank pain beginning this afternoon while on the way home from the grocery store. no hx of similar symptoms. no dysuria, hematuria. States Dr. Woods mentioned seeing a kidney stone on imaging in the past. + hypertensive to 213/109. took BP meds this morning. right CVAT. No midline spinous tenderness or step off deformity. No paraspinal muscle tenderness. Plan: labs, ekg, UA, CT ordered Medications Administered Discontinued Medications Generic Name Dose Route Start Last Admin Trade Name Freq PRN Reason Stop Dose Admin Acetaminophen 650 mg 11/06/23 17:33 11/06/23 17:45 Acetaminophen 325 Mg Tablet PO 08/01/24 17:34 650 mg ONCE ONE Administration Sodium Chloride 1,000 mls @ 999 mls/hr 11/06/23 17:45 11/06/23 17:43 Ns IV 11/06/23 18:45 999 mls/hr .Q1H1M CLARIBEL Administration Ketorolac Tromethamine 15 mg 11/06/23 17:33 11/06/23 17:44 Ketorolac Tromethamine 15 Mg/Ml Vial IVPUSH 11/06/23 17:34 15 mg ONCE ONE Administration Medical Decision Making Medical Decision Making [facility] Narrative: I will treat the patient with Toradol fluids I will treat the tick bite exposure 200 mg of doxycycline once Differential Diagnosis Differential Diagnoses: The differential diagnosis associated with the presentation includes Kidney stone UTI pyelonephritis dehydration electrolyte abnormality acute on chronic back pain tick bite exposure Lab Data [facility] Lab Attestation statement: I reviewed the patient's lab results. 11/06/23 17:33 11/06/23 17:33 Labs: Lab Results 11/06/23 11/06/23 Range/Units 17:33 18:01 WBC 6.0 (4.8-10.8) X10*3/uL RBC 5.07 (4.60-5.80) X10*6/uL Hgb 15.7 (14.0-18.0) g/dl Hct 45.1 (42.0-52.0) % MCV 89.0 (80.0-98.0) fL MCH 31.0 (27.0-33.0) pg MCHC 34.8 (31.0-36.0) g/dl RDW 13.3 (11.0-16.0) % Plt Count 147 L (160-400) X10*3/uL MPV 9.4 (9.4-12.4) fL Immature Gran % (Auto) 0.5 H (0.0-0.4) % Neut % (Auto) 68.7 (45-73) % Lymph % (Auto) 21.5 (20-40) % [place] % (Auto) 8.3 (2-11) % Eos % (Auto) 0.5 (0-4) % Baso % (Auto) 0.5 (0-2) % Lymph # (Auto) 1.3 (1.2-4.9) X10*3/uL [place] # (Auto) 0.5 (0.1-1.2) X10*3/uL Eos # (Auto) 0.0 (0.0-0.4) X10*3/uL Baso # (Auto) 0.0 (0.0-0.2) X10*3/uL Abs Immat Gran (auto) 0.03 (0.00-0.03) X10*3/uL Absolute Neuts (auto) 4.1 (2.0-8.3) x10*3/uL Absolute Nucleated RBC 0.000 (0.0-0.012) X10*3/uL Nucleated RBC % (auto) 0.0 (0.0-0.2) /100WBC Sodium 139 (135-145) mmol/L Potassium 4.2 (3.3-5.1) mmol/L Chloride 105 (96-108) mmol/L Carbon Dioxide 20 L (22-29) mmol/L Anion Gap 18 (12-20) BUN 25 H (9-16) mg/dL Creatinine 1.88 H (0.5-1.4) mg/dL Estim Creat Clear Calc 53.8 Estimated GFR 36 Random Glucose 248 H (60-115) mg/dL Calcium 9.6 (8.4-10.2) mg/dL Magnesium 1.7 (1.6-2.6) mg/dL Total Bilirubin 0.5 (0.0-1.0) mg/dL AST 42 H (5-37) U/L ALT 61 H (0-40) U/L Alkaline Phosphatase 58 (39-117) U/L Troponin I High Sens 6.1 (<3.5-35.0) ng/L Total Protein 7.0 (6.5-8.0) g/dL Albumin 4.1 (3.5-5.0) g/dL Lipase 82 H (8-78) U/L Urine Color Yellow Urine Appearance Cloudy Urine pH 5.0 (5.0-9.0) Ur Specific [place] 1.025 (1.005-1.025) Urine Protein 30 (1+) H (Neg-Trace) mg/dL Urine Glucose (UA) >=1000 H (Negative) mg/dL Urine Ketones 15 (Negative) mg/dL Urine Blood Large (3+) H (Negative) Urine Nitrite Negative (Negative) Ur Leukocyte Esterase Negative (Negative) Urine RBC >20 H (0-2) /HPF Urine WBC 0-5 (0-5) /HPF Ur Squamous Epith Cells 0-2 (0-2) /HPF Urine Bacteria None Seen (None Seen) Hyaline Casts 0-2 (0-2) /LPF Independent Interpretation I performed an independent interpretation of an: EKG Radiology Impression Discussion of test interpretation with radiology: I have reviewed the radiologist's reading. External Record Review External record reviewed: Inpatient record, Office record and Outpatient record Chronic Conditions Patient?s care impacted by: Diabetes and Hypertension Diverticulosis sleep apnea fatty liver hemorrhoids B12 deficiency diabetes on long-term insulin BPH obstructive sleep apnea peripheral vascular disease hyperlipidemia hypertension Discharge Plan Discharge Clinical Impression: Right renal stone, Tick bite Patient Disposition: Home, Self-Care Instructions: Kidney Stones (ED) Additional Instructions: Get a CT and labs did show that you have a kidney stone. You can take ibuprofen as needed for pain please call follow-up with urologist. Prescriptions: No Action cyanocobalamin (vitamin B-12) 1,000 mcg capsule 1,000 mcg PO DAILY 30 Days Qty: 30 6RF (DME) pen needle, diabetic [BD Ultra-Fine Aspen Pen Needle] 32 gauge x 5/32 needle See Rx Instructions .Route Qty: 200 11RF Rx Instructions: As directed twice a day losartan 50 mg tablet 50 mg PO BID Qty: 180 3RF (DME) OneTouch Verio test strips Strip See Rx Instructions .Route Qty: 100 11RF Rx Instructions: 3x daily cholecalciferol (vitamin D3) 25 mcg (1,000 unit) capsule 25 mcg PO DAILY cranberry 405 mg capsule 405 mg PO DAILY Rx Instructions: administer with a meal aspirin [Adult Aspirin Regimen] 81 mg tablet,delayed release (DR/EC) 81 mg PO DAILY (DME) compr.stocking,knee,long,x-lrg Misc See Rx Instructions .ROUTE .MEDSUPPLY Qty: 12 0RF Rx Instructions: As directed 20-30 mm HG zolpidem [Ambien] 5 mg tablet 5 mg PO BEDTIME PRN (Reason: sleep) Qty: 20 1RF (DME) FreeStyle Ronda 14 Day [place] Misc See Rx Instructions .Route Qty: 1 0RF Rx Instructions: As directed (DME) FreeStyle Ronda 2 Sensor Kit See Rx Instructions .ROUTE .MEDSUPPLY Qty: 6 0RF Rx Instructions: As directed Soliqua 100/33 100 unit-33 mcg/mL insulin pen 30 unit subcut BID 30 Days Qty: 18 6RF metformin 500 mg tablet extended release 24 hr 1,000 mg PO BID Qty: 360 3RF hydralazine 50 mg tablet 50 mg PO Q8H 90 Days Qty: 270 2RF metoprolol tartrate 100 mg tablet 100 mg PO BID 90 Days Qty: 180 2RF albuterol sulfate [ProAir HFA] 90 mcg/actuation HFA aerosol inhaler 2 puff inhalation Q4-6H PRN (Reason: bronchospasm) Print Language: [place]ian
--- NOTE | 2023-11-06 17:08 | ECG_ITS ---
Test Reason : HTN Blood Pressure : / mmHG Vent. Rate : 099 BPM Atrial Rate : 099 BPM P-R Int : 206 ms QRS Dur : 074 ms QT Int : 332 ms P-R-T Axes : 027 011 011 degrees QTc Int : 426 ms Normal sinus rhythm Normal ECG When compared with ECG of 02-JUL-2023 11:41, Vent. rate has increased BY 41 BPM T wave amplitude has decreased in Anterior leads QT has lengthened Referred By: Yadira Keane Electronically Signed By:Hermes Diaz
[2023-11-06 17:26] VITALS: BP 208/108; PULSE 98; RESP 18; TEMP 36.8; O2SAT 94
[2023-11-06 17:38] LABS: MANUAL DIFF FLAG NO
[2023-11-06 17:43] LABS: Basophils Percent Auto 0.5 % (0-2); Eosinophils Percent Auto 0.5 % (0-4); Hematocrit 45.1 % (42.0-52.0); Hemoglobin 15.7 g/dl (14.0-18.0); Imm Gran Abs Auto 0.03 X10*3/uL (0.00-0.03); Imm Gran Pct Auto 0.5 % (0.0-0.4); Lymphocytes Absolute Auto 1.3 X10*3/uL (1.2-4.9); Lymphocytes Percent Auto 21.5 % (20-40); Mean Corpuscular HGB Conc 34.8 g/dl (31.0-36.0); Mean Platelet Volume 9.4 fL (9.4-12.4); Monocytes Absolute Auto 0.5 X10*3/uL (0.1-1.2); Monocytes Percent Auto 8.3 % (2-11); Neutrophils Absolute Auto 4.1 x10*3/uL (2.0-8.3); Neutrophils Percent Auto 68.7 % (45-73); Platelet Count 147 X10*3/uL (160-400); Red Blood Count 5.07 X10*6/uL (4.60-5.80); Red Cell Distribution Width 13.3 % (11.0-16.0)
[2023-11-06] MEDS: 0.9 % Sodium Chloride 1,000 ML 999 ML IV (17:43)
[2023-11-06] MEDS: Ketorolac Tromethamine 15 MG/ML VIAL IVPUSH (17:44)
[2023-11-06] MEDS: Acetaminophen 325 MG TABLET 650 MG PO (17:45)
[2023-11-06 17:57] LABS: Alanine Aminotransferase 61 U/L (0-40); Albumin Level 4.1 g/dL (3.5-5.0); Alkaline Phosphatase 58 U/L (39-117); Anion Gap 18 (12-20); Aspartate Amino Transferase 42 U/L (5-37); Bilirubin Total 0.5 mg/dL (0.0-1.0); Blood Urea Nitrogen 25 mg/dL (9-16); Calcium 9.6 mg/dL (8.4-10.2); Carbon Dioxide 20 mmol/L (22-29); Chloride 105 mmol/L (96-108); Creatinine Clr Calc Pharmacy 53.8; Estimated Glomerular Filt Rate 36; Glucose Random 248 mg/dL (60-115); Lipase 82 U/L (8-78); Magnesium 1.7 mg/dL (1.6-2.6); Potassium 4.2 mmol/L (3.3-5.1); Sodium 139 mmol/L (135-145)
[2023-11-06 18:06] LABS: Troponin-I High Sensitivity 6.1 ng/L (<3.5-35.0)
[2023-11-06 18:08] LABS: Appearance Urine Cloudy; Color Urine Yellow; Glucose Urine UA >=1000 mg/dL (Negative); Leukocyte Esterase Urine Negative (Negative); Nitrite Urine Negative (Negative); Specific Gravity - Urine 1.025 (1.005-1.025); UMIC TRIGGER UACC YES; Urine Blood Large (3+) (Negative); Urine Ketones 15 mg/dL (Negative); Urine Protein 30 (1+) mg/dL (Neg-Trace)
[2023-11-06 18:12] VITALS: BP 176/87; PULSE 103; RESP 22; TEMP 36.8; O2SAT 94
[2023-11-06 18:12] LABS: Bacteria Urine None Seen (None Seen); Hyaline Casts Urine 0-2 /LPF (0-2); RBC Urine >20 /HPF (0-2); Squamous Epithelial Cell Urine 0-2 /HPF (0-2); WBC Urine 0-5 /HPF (0-5)
[2023-11-06] MEDS: Doxycycline Monohydrate 100 MG CAPSULE 200 MG PO (19:36)
[2023-11-06 19:57] VITALS: BP 176/87; PULSE 103; RESP 22; TEMP 36.8; O2SAT 94
== END 2023-11-06 19:57 | disposition home or self-care (01) ==
PROVIDERS: Physician Assistant Medical; Emergency Provider Student in an Organized Health Care Education/Training Program; PCP Internal Medicine
DX: N13.2 Hydronephrosis with renal and ureteral calculous obstruction (principal); W57.XXXA Bitten or stung by nonvenomous insect and other nonvenomous arthropods, initial encounter; S30.860A Insect bite (nonvenomous) of lower back and pelvis, initial encounter; I10 Essential (primary) hypertension; E11.9 Type 2 diabetes mellitus without complications; E78.00 Pure hypercholesterolemia, unspecified; Z79.82 Long term (current) use of aspirin; Z79.899 Other long term (current) drug therapy; Z79.4 Long term (current) use of insulin; Z79.84 Long term (current) use of oral hypoglycemic drugs; Z87.891 Personal history of nicotine dependence; Y93.9 Activity, unspecified; Y92.9 Unspecified place or not applicable; Y99.9 Unspecified external cause status
CPT/HCPCS: 36415; 74176; 80053; 81001; 83690; 83735; 84484; 85025; 93005; 96361; 96374; 99284; 99285; J1885

== ENCOUNTER → 2023-11-06 17:08 | Outpatient (BNV) | payer MEDICARE, SELFPAY | PROVIDERS: Emergency Provider Student in an Organized Health Care Education/Training Program; PCP Internal Medicine; Visit Provider Internal Medicine Cardiovascular Disease | DX: I10 Essential (primary) hypertension (principal) | CPT/HCPCS: 93010 ==

== ENCOUNTER 2023-12-03 10:54 | Outpatient (REF) | payer MEDICARE, SELFPAY | END 2023-12-03 10:55 | disposition home or self-care (01) | LOC: HO.LAB 10:54 | PROVIDERS: PCP Internal Medicine; Visit Provider Urology | DX: Z12.5 Encounter for screening for malignant neoplasm of prostate (principal) | CPT/HCPCS: 36415; 84153 ==

== ENCOUNTER → 2023-12-10 03:30 | Outpatient (BNV) | payer MEDICARE, SELFPAY | PROVIDERS: PCP Internal Medicine; Visit Provider Psychiatry & Neurology Neurology | DX: G47.33 Obstructive sleep apnea (adult) (pediatric) (principal) | CPT/HCPCS: 95811 ==

== ENCOUNTER → 2023-12-10 20:30 | Outpatient (REF) | payer MEDICARE, SELFPAY | LOC: HO.SL 20:30 | PROVIDERS: PCP Internal Medicine; Visit Provider Nurse Practitioner Family | DX: G47.33 Obstructive sleep apnea (adult) (pediatric) (principal) | CPT/HCPCS: 95811 ==

== ENCOUNTER 2023-12-12 15:27 | Outpatient (AMB) | payer MEDICARE, SELFPAY ==
--- NOTE | 2023-12-12 15:39 | A.OFFVIS_ITS ---
Intake Visit Reasons: 6 follow up-PSA/PVR(PSA?) Intake Note: Pt presents to the office today for a 6 month follow up PSA/PVR. Allergies amlodipine Allergy (Unknown, Verified 12/12/23 15:39) Unknown atorvastatin Allergy (Unknown, Verified 12/12/23 15:39) Unknown Iodinated Contrast Media [IV CONTRAST] Adverse Reaction (Unknown, Verified 12/12/23 15:39) BLINDENESS Jardiance Adverse Reaction (Intermediate, Uncoded 12/12/23 15:39) Recurrent UTI Medication List - Last Reconciled 12/12/23 by Jaz Cartagena MD albuterol sulfate 90 mcg/actuation (ProAir HFA) 2 puffs inhalation Q4-6H PRN aspirin (Adult Aspirin Regimen) 81 mg PO DAILY blood sugar diagnostic (Inetecuch Verio test strips) 3x daily cholecalciferol (vitamin D3) 25 mcg PO DAILY ciprofloxacin HCl 500 mg PO BID compr.stocking,knee,long,x-lrg As directed 20-30 mm HG cranberry 405 mg PO DAILY cyanocobalamin (vitamin B-12) 1,000 mcg PO DAILY 30 days flash glucose scanning reader (ShareTrackerStyle Ronda 14 Day [place]) As directed flash glucose sensor (FreeStyle Ronda 2 Sensor kit) As directed hydralazine 50 mg PO Q8H 90 days insulin glargine-lixisenatide 100 unit-33 mcg/mL (Soliqua 100/33) 30 units (0.3 mL) subcut BID 30 days losartan 50 mg PO BID metformin ER 1,000 mg (2 x 500 mg) PO BID metoprolol tartrate 100 mg PO BID 90 days naproxen (Naprosyn) 500 mg PO BID PRN 7 days pen needle, diabetic (BD Ultra-Fine Aspen Pen Needle) As directed twice a day prednisone 20 mg PO DAILY 3 days tamsulosin 0.4 mg PO BEDTIME 14 days zolpidem (Ambien) 5 mg PO BEDTIME PRN HPI Comments Details: Chinedu is a 68 year old male with history of urethral dilation he has been treated by other urologist in the past. He is s/p urethral dilation by me on 07/08/23. He states he is urinating with a good stream. He states since his last visit he passed a stone and brought it in. PSA - 12/03/23--1.10 ng/mL. Will send stone for analysis. UA - nitrite positive. Cipro 500 mg bid for 7 days. Review of chart: 08/01/23--Chinedu is s/p urethral dilation in the OR. The patient states his urinary flow is great. He denies dysuria or hematuria. I discussed that the urethral stricture may be recurrent. He denies scrotal pain or swelling at this time. Urinalysis - leukocytes negative, blood negative. Plan -follow up in 6 months 06/23/23--Chinedu is here for office cystoscopy. He was initially evaluated on 05/07/23 due to UTI. He was noted to have scrotal swelling on examination, and he was started on tamsulosin. He states he felt dizzy with the tamsulosin so he stopped the medicaiton. He had a CT abd/pelvis and scrotal US. I have reviewed results with the patient. On CT imaging a punctate 2 mm right kidney stone is noted, on US - Right moderate hydrocele with debris and small left hydrocele. Office cystoscopy- findings: proximal urethral stricture, bladder not visualized. I have encouraged him to drink adequate fluids and low sodium diet. Discussed Schedule outpatient urethrotomy, urethral dilation, cystoscopy d/c tamsulosin 05/07/23--Chinedu is a 67 year old who is here for evaluation for urinary inco ntinence. In review of his chart he had a positive urine culture on 04/19/2023 Klebsiella. The patient states that he was treated with a 10 day course of Cipro. He states that the urine leakage has resolved. Discussed Diabetes- CoMorbidity, Past Medical history includes history of BPH and erectile dysfunction, type 2 diabetes currently requiring insulin, hypertension, obstructive sleep apnea, peripheral vascular disease. The patient states that he had a prior episode of E coli sepsis about 7 years ago he was admitted and given IV Levaquin. He was seen by an ID specialist at that time he states. At this time he states urinary symptoms are up 2-3 times at night with frequent voids during the day he denies dysuria currently. Evaluation-05/07/2023-prostate exam smooth no suspicious nodules, Scrotal swelling, buried penis He states he has pending a CT scan that was ordered by his PCP. I will review results when completed. I have discussed placing him on tamsulosin and will have him follow-up for office cystoscopy Review of labs PSA--03/17/2023--0.33 Urine culture 04/19/2023 Klebsiella pneumoniae Plan: CT abdomen and pelvis without IV contrast is pending ordered by PCP follow-up office cystoscopy tamsulosin 0.4 mg daily. Discussed side effects of tamsulosin may include dizziness. Scrotal ultrasound. 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 Mother No problems noted. Social History Housing: Apartment Alcohol intake: never Patient Tobacco Use Status: Former Tobacco user Years Smoked: teenager stopped e-Cigarette/Vaping Use: Never Used Second Hand Smoke Exposure: Yes Substance Use Type: Former Substance User and Marijuana service: No Current occupational status: retired Cognitive needs: No Hearing needs: No Vision needs: Yes (glasses) Review of Systems Const All systems reviewed & are unremarkable except as noted in HPI and below Reports no additional complaints Eyes Reports no additional complaints ENT Reports no additional complaints Card Reports no additional complaints Resp Reports no additional complaints GI Reports no additional complaints Reports as per HPI Musc Reports no additional complaints Skin/Breast Reports system reviewed and no additional complaints, except as documented Neuro Reports no additional complaints Psych Reports no additional complaints Endo Reports no additional complaints Enrrique/Lymph Reports no additional complaints Aller/Immun Reports no additional complaints Office Procedures Post Void Residual Post Residual Void Post Void Residual (PVR): 22 [id number] Void Residual by ultrasound Results AMB Urinalysis, Automated UA Leukoctes 0 Héctor/uL Last Edit by Vickie Hyman CMA on 12/12/23 15:44 UA Nitrite Positive Last Edit by Vickie Hyman, ISIDORO on 12/12/23 15:44 UA Urobilinogen 0.2 mg/dL Last Edit by Vickie Hyman, ISIDORO on 12/12/23 15:44 UA Protein 15 mg/dL Last Edit by Vickie Hyman, ISIDORO on 12/12/23 15:44 UA pH 6.0 Last Edit by Vickie Hyman, ISIDORO on 12/12/23 15:44 UA Blood 10 Neeraj/uL Last Edit by Vickie Hyman, ISIDORO on 12/12/23 15:44 UA Specific Artie 1.015 Last Edit by Vickie Hyman, ISIDORO on 12/12/23 15:44 UA Ketone Positive Last Edit by Vickie Hyman, ISIDORO on 12/12/23 15:44 UA Bilirubin 0 mg/dL Last Edit by Vickie Hyman, ISIDORO on 12/12/23 15:44 UA Glucose 1000 mg/dL Last Edit by Vickie Hyman CMA on 12/12/23 15:44 Results Reviewed Results Reviewed: Laboratory Last Values Urine pH (Auto) 6.0 12/12/23 15:41 Specific Artie (Auto) 1.015 12/12/23 15:41 Urine Protein (Auto) 15 mg/dL 12/12/23 15:41 Glucose (UA)(Auto) 1000 mg/dL 12/12/23 15:41 Urine Ketones (Auto) Positive 12/12/23 15:41 Urine Blood (Auto) 10 Neeraj/uL 12/12/23 15:41 Urine Nitrite (Auto) Positive 12/12/23 15:41 Urine Bilirubin (Auto) 0 mg/dL 12/12/23 15:41 Urine Urobilinogen (Auto) 0.2 mg/dL 12/12/23 15:41 Leukocyte Esterase (Auto) 0 Héctor/uL 12/12/23 15:41 Date of Service: 06/16/23 EXAMINATION: CT ABDOMEN AND PELVIS WITHOUT CONTRAST CLINICAL INFORMATION: UTI. COMPARISON: CT abdomen and pelvis 07/23/2019. TECHNIQUE: Multidetector volumetric imaging was performed from the superior aspect of the liver through the pubic symphysis. Sagittal and coronal reformatted images were obtained on the technologist's workstation. This CT examination was performed using dose optimization techniques as appropriate, variously including the following: *Automated exposure control *Adjustment of mA and/or kV according to patient size (this includes techniques or standardized protocols for targeted exams where dose is matched to indication/reason for exam; i.e. extremities or head) *Use of iterative reconstruction technique DLP: 956 mGy-cm FINDINGS: LUNG BASES: The visualized lung bases are unremarkable. Minimal basilar atelectasis is present. Heart size normal. Coronary calcium is present. LIVER, GALLBLADDER, AND BILIARY TREE: The liver is normal in size and shape but with decreased attenuation consistent with hepatic steatosis. Punctate granuloma is present in the right lobe of the liver (5:113). No worrisome focal hepatic lesion or biliary ductal dilatation is present. The gallbladder is unremarkable with no evidence of radiopaque gallstones, gallbladder wall thickening, or obvious pericholecystic inflammatory changes. PANCREAS: Unremarkable. SPLEEN: Unremarkable. ADRENAL GLANDS: Unremarkable. KIDNEYS AND URETERS: The kidneys are normal in size, shape, and attenuation. 2 mm punctate nonobstructing calcification present at the hvm-ai-hqkuy pole of the right kidney posteriorly. No hydronephrosis, hydroureter, or additional calculi seen. No perinephric stranding. BLADDER: Unremarkable. GASTROINTESTINAL TRACT: The small and large bowel are unremarkable aside from moderate diverticulosis involving the left colon without evidence of diverticulitis. The appendix is unremarkable. ABDOMINAL WALL: No significant hernia is appreciated. LYMPH NODES: Normal. There is an ovoid rim calcified 1.5 cm density near the cecum, which may represent an old avulsed epiploic appendage. VASCULAR: Calcific atherosclerotic changes are present in the aorta and iliofemoral vessels. There is no evidence of an abdominal aortic aneurysm. PELVIC VISCERA: The prostate and seminal vesicles are unremarkable. OSSEOUS STRUCTURES: Marked degenerative changes are present throughout the lumbar spine. No bony destructive lesions are seen. IMPRESSION: 1. A cause for the patient's UTI has not been found. There is a single punctate 2 mm nonobstructing right renal calculus. 2. Incidental note made of hepatic steatosis, punctate hepatic granuloma, colonic diverticulosis without diverticulitis and marked degenerative changes in the spine. Date of Service: 06/11/23 EXAMINATION: US SCROTUM CLINICAL INFORMATION: Swelling of scrotum. COMPARISON: CT abdomen/pelvis 07/23/2019. TECHNIQUE: A sonogram of the scrotum was performed assessing cheek-scale appearance and color Doppler flow. Spectral Doppler analysis of the arterial and venous flow were performed in the testes bilaterally. FINDINGS: RIGHT: Right testicle measures 5.0 x 3.6 x 3.4 cm, volume 31.7 mL. No focal testicular parenchymal lesions are visualized. Spectral Doppler analysis of the arterial and venous flow is normal in the right testis. Small appendix testis measuring 0.7 cm. Right epididymal head is normal in size. No right varicocele is seen. Moderate to large hydrocele with floating debris. Right epididymal Doppler flow is normal. LEFT: Left testicle measures 4.4 x 3.0 x 3.2 cm, volume 22.0 mL. No focal testicular parenchymal lesions are visualized. Spectral Doppler analysis of the arterial and venous flow is normal in the left testis. Small appendix testis measuring 0.4 cm. Left epididymal head is normal in size. No left varicocele is seen. Small simple appearing hydrocele. Left epididymal Doppler flow is normal. IMPRESSION: 1. Moderate to large right hydrocele with floating debris, recommend clinical correlation for superimposed infection. A short-term follow-up ultrasound is recommended. 2. Small simple appearing left hydrocele. 3. Otherwise, no significant abnormality. Assessment & Plan Assessment & Plan (1) Recurrent UTI: Code(s): N39.0 - Urinary tract infection, site not specified Category: Medical (2) BPH (benign prostatic hyperplasia): Code(s): N40.0 - Benign prostatic hyperplasia without lower urinary tract symptoms Category: Medical Qualifiers: Lower urinary tract symptom presence: symptoms present Lower urinary tract symptom detail: urinary frequency Qualified Code(s): N40.1 - Benign prostatic hyperplasia with lower urinary tract symptoms; R35.0 - Frequency of micturition (3) Diabetes: Code(s): E11.9 - Type 2 diabetes mellitus without complications Category: Medical (4) Hydrocele, bilateral: Code(s): N43.3 - Hydrocele, unspecified Category: Medical (5) Urethral stricture: Code(s): N35.919 - Unspecified urethral stricture, male, unspecified site Category: Medical (6) Right renal stone: Comment: June 2023 Code(s): N20.0 - Calculus of kidney Category: Medical Plan send stone for analysis. UA - nitrite positive. urine c/s. Cipro 500 mg bid for 7 days. FU in 4 months. monitor urinalysis. Orders: Orders AMB Post Void Residual by ultrasound 12/12/23 Z13.9 - Encounter for screening, unspecified Urine Culture 12/12/23 N39.0 - Urinary tract infection, site not specified AMB Urinalysis Automated 12/12/23 Z13.9 - Encounter for screening, unspecified Surgical 12/12/23 N20.0 - Calculus of kidney Medications: New ciprofloxacin HCl 500 mg PO BID 14 tabs 0RF Patient Instructions: The patient had an opportunity to ask questions regarding treatment plan. The patient expressed understanding and agreement with the above treatment plan. The patient is aware they should contact our office by phone for worsening of their current condition or the appearance of new symptoms. Compliance is encouraged with any medications and followup testing that is ordered. It is a privilege to be allowed the opportunity to participate in the urologic care of your patient. If you have any questions or concerns regarding treatment for the above conditions please do not hesitate to contact me. The office telephone contact is [phone]. This note is constructed in part using voice recognition software. While every effort has been made to ensure accuracy furniture crater errors may have been included. Yours sincerely, Jaz Cartagena MD Coding Level of Care Code Est Pt Level 4 (32491) Diagnoses Recurrent UTI N39.0 Benign prostatic hyperplasia with urinary frequency N40.1; R35.0 Lower urinary tract symptom presence: symptoms present Lower urinary tract symptom detail: urinary frequency Diabetes E11.9 Hydrocele, bilateral N43.3 Urethral stricture N35.919 Right renal stone N20.0 CPT Codes Post Residual Void - PVR CPT Code: 77192-Pezg Void Residual by ultrasound ([id number])
== END 2023-12-12 15:51 | disposition home or self-care (01) ==
PROVIDERS: PCP Internal Medicine; Visit Provider Urology
DX: N39.0 Urinary tract infection, site not specified (principal); N40.1 Benign prostatic hyperplasia with lower urinary tract symptoms; R35.0 Frequency of micturition; E11.9 Type 2 diabetes mellitus without complications; N43.3 Hydrocele, unspecified; N35.919 Unspecified urethral stricture, male, unspecified site; N20.0 Calculus of kidney
CPT/HCPCS: 99214

== ENCOUNTER 2023-12-12 15:27 | Outpatient (REF) | payer MEDICARE, SELFPAY | END 2023-12-12 15:28 | disposition home or self-care (01) | LOC: HO.LAB 15:27 | PROVIDERS: PCP Internal Medicine; Visit Provider Urology | DX: Z13.89 Encounter for screening for other disorder (principal) | CPT/HCPCS: 51798; 81003; 99212 ==

== ENCOUNTER 2023-12-12 15:49 | Outpatient (REF) | payer MEDICARE, SELFPAY ==
[2023-12-20 19:43] LABS: Stone Source KIDNEY STONE
== END 2023-12-12 15:50 | disposition home or self-care (01) ==
LOC: HO.LNP 15:49
PROVIDERS: Visit Provider Urology
DX: N39.0 Urinary tract infection, site not specified (principal); N20.0 Calculus of kidney
CPT/HCPCS: 51798; 81003; 82365; 87086; 87088; 87186; 88300; 99212

== ENCOUNTER 2023-12-22 10:23 | Outpatient (REF) | payer MEDICARE, SELFPAY ==
[2023-12-22 13:59] LABS: Appearance Urine Clear; Color Urine Yellow; Glucose Urine UA >=1000 mg/dL (Negative); Leukocyte Esterase Urine Negative (Negative); Nitrite Urine Negative (Negative); PH 5.5 (5.0-9.0); Specific Gravity - Urine 1.025 (1.005-1.025); UMIC TRIGGER UA YES; Urine Blood Negative (Negative); Urine Ketones 15 mg/dL (Negative); Urine Protein Negative (Neg-Trace)
[2023-12-22 14:05] LABS: Bacteria Urine None Seen (None Seen); Hyaline Casts Urine 0-2 /LPF (0-2); RBC Urine 0-2 /HPF (0-2); Squamous Epithelial Cell Urine 0-2 /HPF (0-2); WBC Urine 0-5 /HPF (0-5)
== END 2023-12-22 10:24 | disposition home or self-care (01) ==
LOC: HO.10HDLNP 10:23
PROVIDERS: Visit Provider Urology
DX: N39.0 Urinary tract infection, site not specified (principal); N35.919 Unspecified urethral stricture, male, unspecified site
CPT/HCPCS: 81001; 87086; 87147

== ENCOUNTER 2024-01-09 07:52 | Outpatient (REF) | payer MEDICARE, SELFPAY ==
[2024-01-09 08:14] LABS: MANUAL DIFF FLAG NO
[2024-01-09 08:41] LABS: Basophils Percent Auto 0.2 % (0-2); Eosinophils Absolute Auto 0.1 X10*3/uL (0.0-0.4); Eosinophils Percent Auto 1.4 % (0-4); Hematocrit 44.9 % (42.0-52.0); Hemoglobin 15.2 g/dl (14.0-18.0); Imm Gran Abs Auto 0.02 X10*3/uL (0.00-0.03); Imm Gran Pct Auto 0.5 % (0.0-0.4); Lymphocytes Absolute Auto 1.6 X10*3/uL (1.2-4.9); Mean Corpuscular HGB Conc 33.9 g/dl (31.0-36.0); Mean Corpuscular Hemoglobin 30.7 pg (27.0-33.0); Mean Corpuscular Volume 90.7 fL (80.0-98.0); Mean Platelet Volume 9.5 fL (9.4-12.4); Monocytes Absolute Auto 0.5 X10*3/uL (0.1-1.2); Monocytes Percent Auto 10.7 % (2-11); Neutrophils Absolute Auto 2.1 x10*3/uL (2.0-8.3); Neutrophils Percent Auto 49.2 % (45-73); Platelet Count 143 X10*3/uL (160-400); Red Blood Count 4.95 X10*6/uL (4.60-5.80); Red Cell Distribution Width 13.3 % (11.0-16.0); White Blood Count 4.2 X10*3/uL (4.8-10.8)
[2024-01-09 09:02] LABS: Creatinine Urine 176.91 mg/dL
[2024-01-09 09:06] LABS: Alanine Aminotransferase 53 U/L (0-40); Albumin Level 3.9 g/dL (3.5-5.0); Alkaline Phosphatase 56 U/L (39-117); Anion Gap 13 (12-20); Aspartate Amino Transferase 34 U/L (5-37); Bilirubin Total 0.8 mg/dL (0.0-1.0); Blood Urea Nitrogen 23 mg/dL (9-16); Calcium 9.2 mg/dL (8.4-10.2); Carbon Dioxide 26 mmol/L (22-29); Chloride 105 mmol/L (96-108); Cholesterol 176 mg/dL (<200); Estimated Glomerular Filt Rate > 60; Glucose Random 224 mg/dL (60-115); HDL Cholesterol 30 mg/dL (>40); LDL Cholesterol Calculated 101 mg/dL (<100); Potassium 4.3 mmol/L (3.3-5.1); Sodium 140 mmol/L (135-145); Total Protein 6.8 g/dL (6.5-8.0); Triglycerides 229 mg/dL (<150)
[2024-01-09 10:49] LABS: Estimated Average Glucose 214 mg/dL; Hemoglobin A1C 278.1655 umol/L; Hemoglobin A1c % 9.1 % (<6.0); Total Hemoglobin (HGBA1C) 3641.5468 umol/L
== END 2024-01-09 07:53 | disposition home or self-care (01) ==
LOC: HO.LAB 07:52
PROVIDERS: PCP Internal Medicine; Visit Provider Internal Medicine
DX: G47.33 Obstructive sleep apnea (adult) (pediatric) (principal); N20.0 Calculus of kidney; E66.9 Obesity, unspecified; Z68.37 Body mass index [BMI] 37.0-37.9, adult; E11.65 Type 2 diabetes mellitus with hyperglycemia; Z79.4 Long term (current) use of insulin; I10 Essential (primary) hypertension; E78.00 Pure hypercholesterolemia, unspecified; Z23 Encounter for immunization
CPT/HCPCS: 36415; 80053; 80061; 82570; 83036; 85025; 90471; 90656; 96127; 99212

== ENCOUNTER 2024-01-09 09:16 | Outpatient (AMB) | payer MEDICARE, SELFPAY ==
[2024-01-09 09:18] VITALS: BP 162/86; PULSE 76; O2SAT 96; BMI 37.1
--- NOTE | 2024-01-09 09:18 | A.OFFPC_ITS ---
Vital Signs 01/09/24 09:18 Height 6 ft 2 in Weight 131.088 kg BMI 37.1 BP 162/86 H Blood Pressure Location Lt brachial Position Sitting Pulse 76 Pulse Source Pulse Oximeter Pulse Oximetry (%) 96 Oxygen Delivery Method Room Air Intake Visit Reasons: 3 Month F/U Component Overhaul Operator Required: No Accompanied by: Self / Same As Patient Allergies amlodipine Allergy (Unknown, Verified 01/09/24 09:20) Unknown atorvastatin Allergy (Unknown, Verified 01/09/24 09:20) Unknown Iodinated Contrast Media [IV CONTRAST] Adverse Reaction (Unknown, Verified 01/09/24 09:20) BLINDENESS Jardiance Adverse Reaction (Intermediate, Uncoded 01/09/24 09:20) Recurrent UTI Tobacco use date assessed: 09/05/23 Fall risk assessment: No Falls in past year Last assessed Fall Risk: 01/09/24 Dental Screening Dental Screen Date: 07/02/23 HPI 3 Month F/U HPI Details 68-year-old obese male with diabetes luther litus hypertension hypercholesterolemia urethral stricture coming in for follow-up. Last seen in 08/25/2023. Patient had colonoscopy in 2022. Received note December for 2023 for CPAP titration advised start CPAP 14 cm water and medium F20 mask. Patient also has followed up with Urology December 13 status post urethral dilatation 05/27/2023 has passed the stone last prostate number in December 02 is 1.1 patient was prescribed Cipro 500 twice a day. November 05 ER visit for a tick bite doxycycline prophylaxis. BP high. But checks the blood pressure at home. for the CARTER--has not received the CPAP yet. Has been told to wait for the company to call. patient has been asking about bariatric surgery and discussed that he is not to old for it. A1c is still pending noted cholesterol to be elevated blood pressure checked at home is good [facility] Medical History Diabetes Sleep apnea Fatty liver Internal hemorrhoid Diverticulosis IBS (irritable bowel syndrome) Leg wound, left H/O urinary tract infection B12 deficiency [facility] (current) use of insulin History of melanoma BPH (benign prostatic hyperplasia) Obstructive sleep apnea Peripheral vascular disease Hypercholesterolemia Erectile dysfunction Hypertension Type 2 diabetes mellitus with hyperglycemia Surgical History Hx of cardiac cath History of Mohs surgery for squamous cell carcinoma of skin Hx of shoulder replacement Back pain with history of spinal surgery Hx of eye surgery Hx of cataract surgery Family History Father No problems noted. Mother No problems noted. Social History Housing: Apartment Alcohol intake: never Patient Tobacco Use Status: Former Tobacco user Tobacco use type: Cigarette Years Smoked: teenager stopped e-Cigarette/Vaping Use: Never Used Second Hand Smoke Exposure: Yes Substance Use Type: Former Substance User and Marijuana service: No Current occupational status: retired Cognitive needs: No Hearing needs: No Vision needs: Yes (glasses) Questionnaire PHQ-9 Over the last 2 weeks, how often have you been bothered by any of the following problems? 1. Little interest or pleasure in doing things: not at all 2. Feeling down, depressed, or hopeless: not at all 3. Trouble falling or staying asleep, or sleeping too much: not at all 4. Feeling tired or having little energy: not at all 5. Poor appetite or overeating: not at all 6. Feeling bad about yourself - or that you are a failure or have let yourself or your family down: not at all 7. Trouble concentrating on things, such as reading the newspaper or watching television: not at all 8. Moving or speaking so slowly that other people could have noticed. Or the opposite - being so fidgety or restless that you have been moving around a lot more than usual: not at all 9. Thoughts that you would be better off or of hurting yourself in some way: not at all Total score: 0 Depression Screening Interpretation: Negative Depression Screening Done: Yes Source: Developed by Drs. Bismark Fraire, Claudine Anderson, Ry Aguilar and colleagues, with an educational huma from [employer]. Thrive Questionnaire Date Thrive assessed: 07/02/23 Are you currently unemployed and looking for a job?: I choose not to answer this question AUDIT C Alcohol Use Questionnaire (AUDIT-C) 1. How often do you have a drink containing alcohol?: Never 3. How often do you have six or more drinks on one occasion?: Never Total Score: 0 Score Reviewed/Action Taken: No YAZAN-7 AMB Questionnaire YAZAN-7 Date YAZAN - 7 assessed: 05/02/23 Source: Developed by Drs. Bismark Fraire, Claudine Anderson, Ry Aguilar and colleagues, with an educational huma from [employer]. Physical exam (Primary Care) Vital Signs: Last Vital Signs Pulse 76 01/09/24 09:18 BP 162/86 H 01/09/24 09:18 Pulse Ox 96 01/09/24 09:18 Oxygen Delivery Method Room Air 01/09/24 09:18 BMI result Body Mass Index 37.1 Tobacco/Smoking Status: Tobacco use Status Tobacco use date assessed 09/05/23 01/09/24 09:19 Patient Tobacco Use Status Former Tobacco user 01/09/24 09:19 Tobacco use type Cigarette 01/09/24 09:23 e-Cigarette/Vaping Use Never Used 01/09/24 09:19 PHQ-9: PHQ-9 Score PHQ-9: Total score 0 01/09/24 09:43 Depression Screening Interpretation: Negative Thrive Assessment: Date of Thrive Assessment Date Thrive assessed 07/02/23 01/09/24 09:19 Const General: alert; No acute distress Eyes Conjunctivae: conjunctivae normal Resp Auscultation: clear to auscultation bilaterally Cardio Rate: regular rate Rhythm: regular rhythm GI Inspection: Yes normal to inspection Extrem General: Yes normal to inspection and No edema Office Procedures Flu Questionnaire Does the patient have a severe egg allergy?: No Does the patient have severe life threatening allergies?: No Does the patient have a fever or illness today?: No Has the patient ever had Guillain-Brothers Syndrome?: No Has the patient ever had any past reaction to a flu shot?: No Immunizations Fluarix Triv [id number] (PF) 45 mcg (15 mcg x 3)/0.5 mL IM syringe Performing Provider: Claudia Richter MD [facility] Administered by: Lorraine Atkins CMA on 01/09/24 10:01 Dose Route Admin Location Dispensed Lot Number Expiration Date [facility] Developmental Services Worker 0.5 mL IM Left Deltoid 0.5 mL [id number] 10/04/24 [id number] pickrset VIS Given Date VIS Provided VIS Publication Date 01/09/24 Single Vaccine 20 Eligibility Eligibility Date Funding Source [place] [facility] [place] 01/09/24 Private Coding Level of Care Code Est Pt Level 4 (84912) Complex EM visit Add On G2211 Diagnoses Severe obstructive sleep apnea G47.33 Right renal stone N20.0 Obesity E66.9 Type 2 diabetes mellitus with hyperglycemia, with long-term current use of insulin E11.65; Z79.4 Diabetes mellitus tank terminal gauger insulin use: with tank terminal gauger use Essential hypertension I10 Hypertension type: essential hypertension Hypercholesterolemia E78.00 Additional Codes PHQ-9 - 98125 - PHQ-9 Billing: ([id number]) Assessment & Plan Assessment & Plan (1) Severe obstructive sleep apnea: Comment: December for CPAP titration advised start CPAP 14 cm water and medium F20 mask Code(s): G47.33 - Obstructive sleep apnea (adult) (pediatric) Category: Medical Plan: And had CPAP titration advising CPAP 14 cm water with medium F20 mask (2) Right renal stone: Comment: June 2023 Code(s): N20.0 - Calculus of kidney Category: Medical Plan: Keep well hydrated and stone sent for analysis (3) Obesity: Code(s): E66.9 - Obesity, unspecified Category: Medical Plan: Diet and exercise (4) Type 2 diabetes mellitus with hyperglycemia: Code(s): E11.65 - Type 2 diabetes mellitus with hyperglycemia Category: Medical Qualifiers: Diabetes mellitus tank terminal gauger insulin use: with tank terminal gauger use Qualified Code(s): E11.65 - Type 2 diabetes mellitus with hyperglycemia; Z79.4 - oil heaterman (current) use of insulin Plan: Decrease the amount of carbohydrate intake, pasta, bread, rice and potatoes are all sugar and that is aside from all the sweet stuff, remember that fruits are good but they are Sweet also. Hemoglobin A1c goal of less than 7.0 on metformin a 1000 mg twice a day Soliqua 100/3330 units twice a day (5) Hypertension: Code(s): I10 - Essential (primary) hypertension Category: Medical Qualifiers: Hypertension type: essential hypertension Qualified Code(s): I10 - Essential (primary) hypertension Plan: Continue with blood pressure medication. Decrease salt intake and exercise on hydralazine 50 mg 3 times a day losartan 50 mg twice a day metoprolol 100 mg twice a day (6) Hypercholesterolemia: Code(s): E78.00 - Pure hypercholesterolemia, unspecified Category: Medical Plan: Avoid fried foods, chicken skin, eggs, butter margarine, pastries and meat. Be it pork or beef they have a lot of cholesterol LDL goal of less than 100 and triglyceride of less than 150 on no medication right now. Patient had reaction to atorvastatin. Orders: Orders Complete Blood Count Auto Diff 3 Months E78.00 - Pure hypercholesterolemia, unspecified Comprehensive Met. Panel 3 Months E78.00 - Pure hypercholesterolemia, unspecified Hemoglobin A1c 3 Months E11.65 - Type 2 diabetes mellitus with hyperglycemia, Z79.4 - [facility] (current) use of insulin Influenza [id number] Immunization Today Z23 - Encounter for immunization Lipid Panel 3 Months E78.00 - Pure hypercholesterolemia, unspecified Thyroid Stimulating Hormone 3 Months E11.65 - Type 2 diabetes mellitus with hyperglycemia, Z79.4 - [facility] (current) use of insulin Free T4 (Free Thyroxine) 3 Months E11.65 - Type 2 diabetes mellitus with hyperglycemia, Z79.4 - [facility] (current) use of insulin Medications: New rosuvastatin 5 mg PO DAILY 30 tabs 3RF E78.00 - Pure hypercholesterolemia, unspecified Fluarix Triv [id number] (PF) (flu vacc [id number] 6mos up(PF)) 0.5 mL IM ONCE 0.5 mL 0RF NS Z23 - Encounter for immunization
== END 2024-01-09 10:07 | disposition home or self-care (01) ==
PROVIDERS: PCP Internal Medicine; Visit Provider Internal Medicine
DX: E11.65 Type 2 diabetes mellitus with hyperglycemia (principal); Z79.4 Long term (current) use of insulin; E66.812 Obesity, class 2; Z68.37 Body mass index [BMI] 37.0-37.9, adult; G47.33 Obstructive sleep apnea (adult) (pediatric); N20.0 Calculus of kidney; Z23 Encounter for immunization; I10 Essential (primary) hypertension; E78.00 Pure hypercholesterolemia, unspecified

== ENCOUNTER 2024-04-08 13:42 | Outpatient (AMB) | payer MEDICARE, SELFPAY ==
--- NOTE | 2024-04-08 13:57 | MHC.OFFVIS ---
Intake Visit Reasons: 4m follow up Intake Note: Patient is present for 4M F/U Urology Medication:TAMSULOSIN Antibiotic Allergy:ATORVASTATIN Blood Thinner:ASPIRIN TODAY'S PVR: 12ML'S Double End Production Grinder Required: No Allergies amlodipine Allergy (Unknown, Verified 04/08/24 14:00) Unknown atorvastatin Allergy (Unknown, Verified 04/08/24 14:00) Unknown Iodinated Contrast Media [IV CONTRAST] Adverse Reaction (Unknown, Verified 04/08/24 14:00) BLINDENESS Jardiance Adverse Reaction (Intermediate, Uncoded 04/08/24 14:00) Recurrent UTI HPI Comments Details: 04/08/24--Chinedu is a 68 year old male with history of urethral dilation he has been treated by other urologist in the past. He is s/p urethral dilation by me on 07/08/23. He states he is still doing well, urinating with a good stream. He is not using tamsulosin. PSA - 12/03/23--1.10 ng/mL. FU in one year. PSA prior. Review of chart: 12/12/23--Chinedu is a 68 year old male with history of urethral dilation he has been treated by other urologist in the past. He is s/p urethral dilation by me on 07/08/23. He states he is urinating with a good stream. He states since his last visit he passed a stone and brought it in. PSA - 12/03/23--1.10 ng/mL. Will send stone for analysis. UA - nitrite positive. Cipro 500 mg bid for 7 days. 08/01/23--Chinedu is s/p urethral dilation in the OR. The patient states his urinary flow is great. He denies dysuria or hematuria. I discussed that the urethral stricture may be recurrent. He denies scrotal pain or swelling at this time. Urinalysis - leukocytes negative, blood negative. Plan -follow up in 6 months 06/23/23--Chinedu is here for office cystoscopy. He was initially evaluated on 05/07/23 due to UTI. He was noted to have scrotal swelling on examination, and he was started on tamsulosin. He states he felt dizzy with the tamsulosin so he stopped the medicaiton. He had a CT abd/pelvis and scrotal US. I have reviewed results with the patient. On CT imaging a punctate 2 mm right kidney stone is noted, on US - Right moderate hydrocele with debris and small left hydrocele. Office cystoscopy- findings: proximal urethral stricture, bladder not visualized. I have encouraged him to drink adequate fluids and low sodium diet. Discussed Schedule outpatient urethrotomy, urethral dilation, cystoscopy d/c tamsulosin 05/07/23--Chinedu is a 67 year old who is here for evaluation for urinary incontinence. In review of his chart he had a positive urine culture on 04/19/2023 Klebsiella. The patient states that he was treated with a 10 day course of Cipro. He states that the urine leakage has resolved. Discussed Diabetes- CoMorbidity, Past Medical history includes history of BPH and erectile dysfunction, type 2 diabetes currently requiring insulin, hypertension, obstructive sleep apnea, peripheral vascular disease. The patient states that he had a prior episode of E coli sepsis about 7 years ago he was admitted and given IV Levaquin. He was seen by an ID specialist at that time he states. At this time he states urinary symptoms are up 2-3 times at night with frequent voids during the day he denies dysuria currently. Evaluation-05/07/2023-prostate exam smooth no suspicious nodules, Scrotal swelling, buried penis He states he has pending a CT scan that was ordered by his PCP. I will review results when completed. I have discussed placing him on tamsulosin and will have him follow-up for office cystoscopy Review of labs PSA--03/17/2023--0.33 Urine culture 04/19/2023 Klebsiella pneumoniae Plan: CT abdomen and pelvis without IV contrast is pending ordered by PCP follow-up office cystoscopy tamsulosin 0.4 mg daily. Discussed side effects of tamsulosin may include dizziness. Scrotal ultrasound. [facility] Medical History Diabetes Sleep apnea Fatty liver Internal hemorrhoid Diverticulosis IBS (irritable bowel syndrome) Leg wound, left H/O urinary tract infection B12 deficiency group home (current) use of insulin History of melanoma BPH (benign prostatic hyperplasia) Obstructive sleep apnea Peripheral vascular disease Hypercholesterolemia Erectile dysfunction Hypertension Type 2 diabetes mellitus with hyperglycemia Surgical History Hx of cardiac cath History of Mohs surgery for squamous cell carcinoma of skin Hx of shoulder replacement Back pain with history of spinal surgery Hx of eye surgery Hx of cataract surgery Family History Father No problems noted. Mother No problems noted. Social History Housing: Apartment Alcohol intake: never Patient Tobacco Use Status: Former Tobacco user Tobacco use type: Cigarette Years Smoked: teenager stopped e-Cigarette/Vaping Use: Never Used Second Hand Smoke Exposure: Yes Substance Use Type: Former Substance User and Marijuana service: No Current occupational status: retired Cognitive needs: No Hearing needs: No Vision needs: Yes (glasses) Review of Systems Const All systems reviewed & are unremarkable except as noted in HPI and below Reports no additional complaints Eyes Reports no additional complaints ENT Reports no additional complaints Card Reports no additional complaints Resp Reports no additional complaints GI Reports no additional complaints Reports as per HPI Musc Reports no additional complaints Skin/Breast Reports system reviewed and no additional complaints, except as documented Neuro Reports no additional complaints Psych Reports no additional complaints Endo Reports no additional complaints Enrrique/Lymph Reports no additional complaints Aller/Immun Reports no additional complaints Office Procedures Post Void Residual Post Residual Void Post Void Residual (PVR): 12 [id number] Void Residual by ultrasound Results AMB Urinalysis, Automated UA Leukoctes 0 Héctor/uL Last Edit by MARICARMEN Mcdermott on 04/08/24 14:16 UA Nitrite Negative Last Edit by MARICARMEN Mcdermott on 04/08/24 14:16 UA Urobilinogen 0.2 mg/dL Last Edit by MARICARMEN Mcdermott on 04/08/24 14:16 UA Protein 0 mg/dL Last Edit by MARICARMEN Mcdermott on 04/08/24 14:16 UA pH 5.5 Last Edit by MARICARMEN Mcdermott on 04/08/24 14:16 UA Blood 0 Neeraj/uL Last Edit by MARICARMEN Mcdermott on 04/08/24 14:16 UA Specific Sutton 1.030 Last Edit by MARICARMEN Mcdermott on 04/08/24 14:16 UA Ketone Positive Last Edit by MARICARMEN Mcdermott on 04/08/24 14:16 UA Bilirubin 0 mg/dL Last Edit by MARICARMEN Mcdermott on 04/08/24 14:16 UA Glucose 0 mg/dL Last Edit by MARICARMEN Mcdermott on 04/08/24 14:16 Results Reviewed Results Reviewed: Laboratory Last Values Urine pH (Auto) 5.5 04/08/24 14:15 Specific Sutton (Auto) 1.030 04/08/24 14:15 Urine Protein (Auto) 0 mg/dL 04/08/24 14:15 Glucose (UA)(Auto) 0 mg/dL 04/08/24 14:15 Urine Ketones (Auto) Positive 04/08/24 14:15 Urine Blood (Auto) 0 Neeraj/uL 04/08/24 14:15 Urine Nitrite (Auto) Negative 04/08/24 14:15 Urine Bilirubin (Auto) 0 mg/dL 04/08/24 14:15 Urine Urobilinogen (Auto) 0.2 mg/dL 04/08/24 14:15 Leukocyte Esterase (Auto) 0 Héctor/uL 04/08/24 14:15 Assessment & Plan Assessment & Plan Orders: Orders AMB Urinalysis Automated Today Z13.9 - Encounter for screening, unspecified Coding CPT Codes Post Residual Void - PVR CPT Code: [id number] Void Residual by ultrasound ([id number])
== END 2024-04-08 14:52 | disposition home or self-care (01) ==
PROVIDERS: PCP Internal Medicine; Visit Provider Urology
DX: Z13.9 Encounter for screening, unspecified (principal)

== ENCOUNTER → 2024-04-08 13:42 | Outpatient (BNVA) | payer MEDICARE, SELFPAY | PROVIDERS: PCP Internal Medicine; Visit Provider Urology | DX: N40.1 Benign prostatic hyperplasia with lower urinary tract symptoms (principal); R35.0 Frequency of micturition; N43.3 Hydrocele, unspecified; N35.919 Unspecified urethral stricture, male, unspecified site; Z87.440 Personal history of urinary (tract) infections; Z87.442 Personal history of urinary calculi | CPT/HCPCS: 51798; 81003; 99212 ==

== ENCOUNTER 2024-04-13 08:40 | Outpatient (AMB) | payer MEDICARE, SELFPAY ==
[2024-04-13 09:29] VITALS: BP 164/98; PULSE 66; O2SAT 96; BMI 38.0
--- NOTE | 2024-04-13 09:29 | MHC.OFFVIS ---
Vital Signs 04/13/24 09:29 Height 6 ft 2 in Weight 296 lb BMI 38.0 BP 164/98 H Blood Pressure Location Rt brachial Position Sitting Pulse 66 Pulse Source Pulse Oximeter Pulse Oximetry (%) 96 Oxygen Delivery Method Room Air Intake Visit Reasons: Follow up Dentistry Professor Required: No Accompanied by: Spouse Allergies amlodipine Allergy (Unknown, Verified 04/13/24 09:31) Unknown atorvastatin Allergy (Unknown, Verified 04/13/24 09:31) Unknown Iodinated Contrast Media [IV CONTRAST] Adverse Reaction (Unknown, Verified 04/13/24 09:31) BLINDENESS Jardiance Adverse Reaction (Intermediate, Uncoded 04/08/24 14:00) Recurrent UTI HPI Comments Details: 68-yr-old male presents for follow-up visit following sleep study. Patient is accompanied by his spouse. 11/10/2023, HST: Revealed severe obstructive sleep apnea with nocturnal hypoxemia w/ AHI 35/hour O2 sara 81%, SpO2 under 90% for 120 minutes and under 88% for 27 minutes study time. Average SpO2 90%. Percentage of snoring was 22%. 12/10/2023, in-lab CPAP titration study: Sleep apnea and oxygenation levels were optimized on CPAP of 13-14 cm H2O. Additionally during study, periodic limb movements of sleep were 3/hour and PLMS arousal index she has was 0.5/hour. Thus, patient was advised to start CPAP 13 cm H2O, which he received on April 02. Unfortunately, he did not tolerate CPAP 13 cm H2O once at home. He stated at this pressure he had GI upset, bloating, and some dry eye. So, he called the office requesting a decrease in the CPAP pressure, and we decreased the pressure to CPAP 12 cm H2O via his Res[facility] Pap portal. Since, he is tolerating the CPAP better. He is having much less GI bloating and dry eye. He is finding that his mind feels much clearer since he started using the CPAP. He would like to try another mask, as his current mask is blowing into his eyes some. Also his current mask prevents him from being able to read at bedtime, as it prohibit him from wearing his glasses. He notes that the respiratory company had offered him another mask initially, however then stated he could not use that mask because he has a history of bilateral shoulder replacement surgery. [address], [address] Email: [email or web address] Compliance Report Usage 04/02/2024 - 04/13/2024 Usage days 11/12 days (92%) >= 4 hours 11 days (92%) < 4 hours 0 days (0%) Usage hours 55 hours 21 minutes Average usage (total days) 4 hours 37 minutes Average usage (days used) 5 hours 2 minutes Median usage (days used) 5 hours 10 minutes Total used hours (value since last reset - 04/13/2024) 66 hours AirSense 10 AutoSet Serial number [id number] Mode CPAP Set pressure 12 cmH2O EPR Fulltime EPR level 3 Therapy Leaks - L/min Median: 10.9 95th percentile: 33.4 Maximum: 45.2 Events per hour AI: 2.1 HI: 0.3 AHI: 2.4 PFSH Medical History Diabetes Sleep apnea Fatty liver Internal hemorrhoid Diverticulosis IBS (irritable bowel syndrome) Leg wound, left H/O urinary tract infection B12 deficiency 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 Mother No problems noted. Social History Housing: Apartment Alcohol intake: never Patient Tobacco Use Status: Former Tobacco user Tobacco use type: Cigarette Years Smoked: teenager stopped e-Cigarette/Vaping Use: Never Used Second Hand Smoke Exposure: Yes Substance Use Type: Former Substance User and Marijuana service: No Current occupational status: retired Cognitive needs: No Hearing needs: No Vision needs: Yes (glasses) Physical Exam Vital Signs: Last Vital Signs Pulse 66 04/13/24 09:29 BP 164/98 H 04/13/24 09:29 Pulse Ox 96 04/13/24 09:29 Oxygen Delivery Method Room Air 04/13/24 09:29 BMI result Body Mass Index 38.0 Const General: no acute distress Orientation/consciousness: patient oriented x3 Resp Effort & Inspection: normal respiratory effort and able to speak in complete sentences Auscultation: clear to auscultation bilaterally Neuro General: patient oriented x3 Psych Mental Status: mental status grossly normal Speech and movement: Clear speech present Attitude: cooperative Assessment & Plan Assessment & Plan (1) Severe obstructive sleep apnea: Comment: 11/10/2023, HST: AHI 35/hour O2 sara 81%, SpO2 under 90% for 120 minutes and under 88% for 27 minutes study time. Average SpO2 90%. Percentage of snoring was 22% Code(s): G47.33 - Obstructive sleep apnea (adult) (pediatric) Category: Medical (2) Nocturnal hypoxemia: Code(s): G47.34 - Idiopathic sleep related nonobstructive alveolar hypoventilation Category: Medical Plan Reviewed results of sleep study report, results c/w severe obstructive sleep apnea and nocturnal hypoxemia. Discussed complications a/w untreated CARTER. Continue CPAP 12 cmH2O w/ EPR 3 nightly > 4 hours, as pt has started to have good clinical effect from use. However, as we have decreased his CPAP pressure to improve tolerance, I have advised patient to undergo overnight pulse oximetry reading x1 while on CPAP 12 cm H2O w/ EPR 2 and room air, to determine if CPAP is adequately reducing severity of nocturnal hypoxemia. Will also request a new CPAP mask fitting. Note, h/o bilateral shoulder replacement surgery should not preclude the patient from using a CPAP mask containing magnets. If mass leaking continues to cause dry eye, may try wearing a sleep mask over his eyes. Clean CPAP machine and supplies routinely. Change CPAP supplies routinely. Use distilled water in CPAP water reservoir. Pt to contact us or respiratory company with any questions or concerns. Orders: Orders Overnight Pulse Oximetry Today G47.33 - Obstructive sleep apnea (adult) (pediatric), G47.34 - Idiopathic sleep related nonobstructive alveolar hypoventilation Coding Level of Care Code Est Pt Level 4 (23741) Diagnoses Severe obstructive sleep apnea G47.33 Nocturnal hypoxemia G47.34
== END 2024-04-13 10:17 | disposition home or self-care (01) ==
PROVIDERS: PCP Internal Medicine; Visit Provider Nurse Practitioner Family
DX: G47.33 Obstructive sleep apnea (adult) (pediatric) (principal); G47.34 Idiopathic sleep related nonobstructive alveolar hypoventilation
CPT/HCPCS: 99214

== ENCOUNTER → 2024-04-13 08:40 | Outpatient (BNVA) | payer MEDICARE, SELFPAY | PROVIDERS: PCP Internal Medicine; Visit Provider Nurse Practitioner Family | DX: G47.33 Obstructive sleep apnea (adult) (pediatric) (principal); G47.34 Idiopathic sleep related nonobstructive alveolar hypoventilation | CPT/HCPCS: 99212 ==

== ENCOUNTER 2024-04-22 09:20 | Outpatient (AMB) | payer MEDICARE, SELFPAY ==
[2024-04-22 09:34] VITALS: BP 146/82; PULSE 77; O2SAT 95; BMI 37.0
--- NOTE | 2024-04-22 09:34 | MHC.PC.OV ---
Vital Signs 04/22/24 09:34 Height 6 ft 2 in Weight 288 lb BMI 37.0 BP 146/82 H Blood Pressure Location Lt brachial Position Sitting Pulse 77 Pulse Source Pulse Oximeter Pulse Oximetry (%) 95 Oxygen Delivery Method Room Air Intake Visit Reasons: Diabetes mellitus hypercholesterolemia Allergies amlodipine Allergy (Unknown, Verified 04/22/24 09:34) Unknown atorvastatin Allergy (Unknown, Verified 04/22/24 09:34) Unknown Iodinated Contrast Media [IV CONTRAST] Adverse Reaction (Unknown, Verified 04/22/24 09:34) BLINDENESS Jardiance Adverse Reaction (Intermediate, Uncoded 04/22/24 09:34) Recurrent UTI Tobacco use date assessed: 04/22/24 Fall risk assessment: No Falls in past year Last assessed Fall Risk: 04/22/24 Dental Screening Dental Screen Date: 04/22/24 Did you have a dental visit in the last 12 months?: Yes Did you have a dental problem in the last 6 months where you did not have access to dental care?: No Was dental information given to patient?: Patient has dentist HPI Diabetes mellitus hypercholesterolemia HPI Details The patient is a 68-year-old male presenting with concerns regarding management of Type 2 Diabetes Mellitus, Essential Hypertension, and Obstructive Sleep Apnea. He has a history of Type 2 Diabetes Mellitus, with recent lab work indicating an improvement in HbA1c from 9.1% to 7.9%. The patient reports making dietary changes, specifically reducing sugar intake, which he believes have contributed to his weight loss and improved HbA1c levels. Additionally, the patient is concerned about his cholesterol levels and is reminded of the recommendation to keep LDL levels below 100 mg/dL; he plans to have his cholesterol checked post-visit. He notes significant weight loss, currently at 288 lbs, with a target weight of 280 lbs. The patient confirms he is not currently on prednisone but had previously taken it post-urological procedure for inflammation. He reports improved urination since the intervention for Benign Prostatic Hyperplasia. The patient discusses his consistent blood pressure readings, sometimes apt, housing metoprolol, hydralazine, and losartan adjustments when necessary. Regarding Obstructive Sleep Apnea, the patient shares experiencing reduced daytime fatigue since adopting CPAP therapy, although transitioning from a nasal to a full face mask was necessary for comfort. 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 Mother No problems noted. Social History Housing: Apartment Alcohol intake: never Patient Tobacco Use Status: Former Tobacco user Tobacco use type: Cigarette Years Smoked: teenager stopped e-Cigarette/Vaping Use: Never Used Second Hand Smoke Exposure: Yes Substance Use Type: Former Substance User and Marijuana service: No Current occupational status: retired Cognitive needs: No Hearing needs: No Vision needs: Yes (glasses) Questionnaire PHQ-9 Over the last 2 weeks, how often have you been bothered by any of the following problems? 1. Little interest or pleasure in doing things: not at all 2. Feeling down, depressed, or hopeless: not at all 3. Trouble falling or staying asleep, or sleeping too much: not at all 4. Feeling tired or having little energy: not at all 5. Poor appetite or overeating: not at all 6. Feeling bad about yourself - or that you are a failure or have let yourself or your family down: not at all 7. Trouble concentrating on things, such as reading the newspaper or watching television: not at all 8. Moving or speaking so slowly that other people could have noticed. Or the opposite - being so fidgety or restless that you have been moving around a lot more than usual: not at all 9. Thoughts that you would be better off or of hurting yourself in some way: not at all Total score: 0 Depression Screening Interpretation: Negative Depression Screening Done: Yes Source: Developed by Drs. Bismark Fraire, Ry Rdz and colleagues, with an educational huma from [employer]. Thrive Questionnaire Date Thrive assessed: 04/22/24 I am a: Patient What is your living situation today?: I have a steady place to live Within the past 12 months, did the food you bought not last and you didn't have the money to get more?: Never true Within the past 12 months, did you worry whether your food would run out before you got money to buy more?: Never true Do you have trouble paying for medicines?: No Do you have trouble getting transportation to medical appointments?: No Do you have trouble paying your heating and electricity bill?: No Do you have trouble taking care of your child, family member or friend?: No Do you have trouble with day-to-day activities such as bathing, preparing meals, shopping, managing finances, etc.?: No Are you currently unemployed and looking for a job?: I choose not to answer this question Are you interested in more education?: No Currently or been in a relationship where the following occur: No concerns reported THRIVE Score: 0 AUDIT C Alcohol Use Questionnaire (AUDIT-C) 1. How often do you have a drink containing alcohol?: Never 3. How often do you have six or more drinks on one occasion?: Never Total Score: 0 Score Reviewed/Action Taken: No YAZAN-7 AMB Questionnaire YAZAN-7 Date YAZAN - 7 assessed: 04/22/24 Feeling nervous, anxious, or on edge: 0 = Not at all Not being able to stop or control worryin = Not at all Worrying too much about different things: 0 = Not at all Trouble relaxin = Not at all Being so restless that it is hard to sit still: 0 = Not at all Becoming easily annoyed or irritable: 0 = Not at all Feeling afraid as if something awful might happen: 0 = Not at all Total YAZAN-7 score (0-4 normal; 5-9 mild; 10-14 moderate; 15-21 severe): 0 Source: Developed by Drs. Bismark Fraire, Ry Rdz and colleagues, with an educational huma from [employer]. Physical exam (Primary Care) Vital Signs: Last Vital Signs Pulse 77 04/22/24 09:34 BP 146/82 H 04/22/24 09:34 Pulse Ox 95 04/22/24 09:34 Oxygen Delivery Method Room Air 04/22/24 09:34 BMI result Body Mass Index 37.0 Tobacco/Smoking Status: Tobacco use Status Tobacco use date assessed 04/22/24 04/22/24 09:47 Patient Tobacco Use Status Former Tobacco user 04/22/24 09:47 Tobacco use type Cigarette 04/22/24 09:47 e-Cigarette/Vaping Use Never Used 04/22/24 09:47 PHQ-9: PHQ-9 Score PHQ-9: Total score 0 04/22/24 10:00 Depression Screening Interpretation: Negative Thrive Assessment: Date of Thrive Assessment Date Thrive assessed 04/22/24 04/22/24 09:47 Currently or been in a relationship where the following occur: No concerns reported Const General: alert; No acute distress Eyes Conjunctivae: conjunctivae normal Resp Auscultation: clear to auscultation bilaterally Cardio Rate: regular rate Rhythm: regular rhythm GI Inspection: Yes normal to inspection Extrem General: Yes normal to inspection and No edema Results AMB Hemoglobin A1c AMB Hemoglobin A1c 7.9 % Last Edit by Lorraine Atkins CMA on 04/22/24 10:01 Results Reviewed Results Reviewed: Laboratory Last Values Hgb A1c (Clinic) 7.9 % (4.0-6.0) H 04/22/24 10:00 Coding Level of Care Code Est Pt Level 4 (26589) Complex EM visit Add On G2211 Diagnoses Type 2 diabetes mellitus with hyperglycemia, with long-term current use of insulin E11.65; Z79.4 Diabetes mellitus penitentiary insulin use: with terminal gauger supervisor use Essential hypertension I10 Hypertension type: essential hypertension Hypercholesterolemia E78.00 Obesity E66.9 Severe obstructive sleep apnea G47.33 Assessment & Plan Assessment & Plan (1) Type 2 diabetes mellitus with hyperglycemia: Code(s): E11.65 - Type 2 diabetes mellitus with hyperglycemia Category: Medical Qualifiers: Diabetes mellitus terminal gauger supervisor insulin use: with penitentiary use Qualified Code(s): E11.65 - Type 2 diabetes mellitus with hyperglycemia; Z79.4 - termite helper (current) use of insulin (2) Hypertension: Code(s): I10 - Essential (primary) hypertension Category: Medical Qualifiers: Hypertension type: essential hypertension Qualified Code(s): I10 - Essential (primary) hypertension (3) Hypercholesterolemia: Code(s): E78.00 - Pure hypercholesterolemia, unspecified Category: Medical (4) Obesity: Code(s): E66.9 - Obesity, unspecified Category: Medical (5) Severe obstructive sleep apnea: Comment: 11/10/2023, HST: AHI 35/hour O2 sara 81%, SpO2 under 90% for 120 minutes and under 88% for 27 minutes study time. Average SpO2 90%. Percentage of snoring was 22% Code(s): G47.33 - Obstructive sleep apnea (adult) (pediatric) Category: Medical Plan - Schedule and complete a blood test for lipid profile to evaluate current cholesterol levels. - Continue monitoring fasting blood glucose and HbA1c; target therapy for achieving an HbA1c less than 7%. - Continue antihypertensive regimen: metoprolol, hydralazine, and losartan, with routine blood pressure monitoring. - Maintain CPAP therapy for Obstructive Sleep Apnea; encourage continued use and adjustment for comfort. - Patient received advice on necessary vaccinations: COVID-19, RSV, and confirmed receiving an annual influenza vaccination. Recommended to obtain these at his local pharmacy. - Continue weight management efforts, aiming for weight under 280 lbs, along with maintaining dietary adjustments. - Call for future consultations as needed and reinforce routine examinations. Orders: Orders AMB Hemoglobin A1c Today Z13.9 - Encounter for screening, unspecified Medications: Discontinued prednisone Discontinued Reason: Duplicate 20 mg PO DAILY 3 days 3 tabs 0RF
== END 2024-04-22 10:13 | disposition home or self-care (01) ==
PROVIDERS: PCP Internal Medicine; Visit Provider Internal Medicine
DX: E11.65 Type 2 diabetes mellitus with hyperglycemia (principal); Z79.4 Long term (current) use of insulin; E66.9 Obesity, unspecified; Z68.37 Body mass index [BMI] 37.0-37.9, adult; I10 Essential (primary) hypertension; E78.00 Pure hypercholesterolemia, unspecified; G47.33 Obstructive sleep apnea (adult) (pediatric)

== ENCOUNTER → 2024-04-22 09:20 | Outpatient (BNVA) | payer MEDICARE, SELFPAY | PROVIDERS: PCP Internal Medicine; Visit Provider Internal Medicine | DX: E11.65 Type 2 diabetes mellitus with hyperglycemia (principal); I10 Essential (primary) hypertension; E78.00 Pure hypercholesterolemia, unspecified; E66.9 Obesity, unspecified; G47.33 Obstructive sleep apnea (adult) (pediatric); Z79.4 Long term (current) use of insulin | CPT/HCPCS: 83036; 99212 ==

== ENCOUNTER 2024-05-17 14:27 | Outpatient (AMB) | payer MEDICARE, SELFPAY ==
--- NOTE | 2024-05-17 14:30 | MHC.PC.OV ---
Vital Signs 05/17/24 14:32 Height 6 ft 2 in Weight 292 lb BMI 37.5 BP 160/90 H Blood Pressure Location Lt brachial Position Sitting Pulse 85 Pulse Source Pulse Oximeter Pulse Oximetry (%) 98 Oxygen Delivery Method Room Air Intake Visit Reasons: Open Wound RT Leg [employer] Assistant Manager Required: No Accompanied by: Self / Same As Patient Allergies amlodipine Allergy (Unknown, Verified 05/17/24 14:30) Unknown atorvastatin Allergy (Unknown, Verified 05/17/24 14:30) Unknown Iodinated Contrast Media [IV CONTRAST] Adverse Reaction (Unknown, Verified 05/17/24 14:30) BLINDENESS Jardiance Adverse Reaction (Intermediate, Uncoded 04/22/24 09:34) Recurrent UTI Tobacco use date assessed: 04/22/24 Fall risk assessment: No Falls in past year Last assessed Fall Risk: 05/17/24 Dental Screening Dental Screen Date: 04/22/24 HPI Open Wound RT Leg HPI Details The patient is a 68-year-old male presenting with an open wound on the right leg. The wound ruptured spontaneously while the patient was sitting at home on a recent Friday night, described as releasing a significant amount of fluid. There was no known trauma preceding the rupture. Over the weekend following the initial event, the patient abstained from further medical visits, instead choosing to present here due to continued drainage and odor from the wound. The patient was previously assessed in the emergency room at [facility], where an incision and drainage procedure was performed with a scalpel following lidocaine administration. An ultrasound was utilized, and further drainage was attempted with a hemostat. The patient was prescribed doxycycline 100 mg taken twice daily during the ER visit, which commenced on the immediate weekend after the wound opened, but there has been no significant improvement noted. The patient reports a persistent odor, and the wound continues to exude fluid. The patient is seeking further evaluation and management as there was no culture or blood work done initially to guide antibiotic therapy. 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 Mother No problems noted. Social History Housing: Apartment Alcohol intake: never Patient Tobacco Use Status: Former Tobacco user Tobacco use type: Cigarette Years Smoked: teenager stopped e-Cigarette/Vaping Use: Never Used Second Hand Smoke Exposure: Yes Substance Use Type: Former Substance User and Marijuana service: No Current occupational status: retired Cognitive needs: No Hearing needs: No Vision needs: Yes (glasses) Questionnaire Thrive Questionnaire Date Thrive assessed: 04/22/24 YAZAN-7 AMB Questionnaire YAZAN-7 Date YAZAN - 7 assessed: 04/22/24 Source: Developed by Drs. Bismark Fraire, Claudine Anderson, Ry Aguilar and colleagues, with an educational huma from [employer]. Physical exam (Primary Care) Vital Signs: Last Vital Signs Pulse 85 05/17/24 14:32 BP 160/90 H 05/17/24 14:32 Pulse Ox 98 05/17/24 14:32 Oxygen Delivery Method Room Air 05/17/24 14:32 BMI result Body Mass Index 37.5 Tobacco/Smoking Status: Tobacco use Status Tobacco use date assessed 04/22/24 05/17/24 14:38 Patient Tobacco Use Status Former Tobacco user 05/17/24 14:38 Tobacco use type Cigarette 05/17/24 14:38 e-Cigarette/Vaping Use Never Used 05/17/24 14:38 Thrive Assessment: Date of Thrive Assessment Date Thrive assessed 04/22/24 05/17/24 14:38 Const General: alert; No acute distress Eyes Conjunctivae: conjunctivae normal Resp Auscultation: clear to auscultation bilaterally Cardio Rate: regular rate Rhythm: regular rhythm GI Inspection: Yes normal to inspection Male genitals images: 1. R groin abscess with incision and drainage of thick yellowish secrestions 2 cm Coding Level of Care Code Est Pt Level 4 (00888) Diagnoses Type 2 diabetes mellitus with hyperglycemia, with long-term current use of insulin E11.65; Z79.4 Diabetes mellitus supervisor intermediates insulin use: with supervisor intermediates use Peripheral vascular disease I73.9 Scrotal abscess N49.2 Assessment & Plan Assessment & Plan (1) Type 2 diabetes mellitus with hyperglycemia: Code(s): E11.65 - Type 2 diabetes mellitus with hyperglycemia Category: Medical Qualifiers: Diabetes mellitus supervisor intermediates insulin use: with supervisor intermediates use Qualified Code(s): E11.65 - Type 2 diabetes mellitus with hyperglycemia; Z79.4 - bed bug exterminator (current) use of insulin Plan: Decrease the amount of carbohydrate intake, pasta, bread, rice and potatoes are all sugar and that is aside from all the sweet stuff, remember that fruits are good but they are Sweet also. Hemoglobin A1c goal of less than 7.0. Patient on Soliqua 30 units twice a day metformin 1000 mg twice a day (2) Peripheral vascular disease: Code(s): I73.9 - Peripheral vascular disease, unspecified Category: Medical Plan: When sitting down elevate the legs, exercise, and support stockings (3) Scrotal abscess: Code(s): N49.2 - Inflammatory disorders of scrotum Category: Medical Plan: antibiotic sent , changed from doxycycline to Augmentin Plan - For the open wound on the right leg, discontinue doxycycline and prescribe Augmentin 875 mg due to concerns about ineffective coverage; initiate Bactrim for potential MRSA coverage. - Change dressing regularly and monitor for changes in drainage or odor. - Instruct on maintaining optimal blood glucose control to promote wound healing and reduce recurrence risk. - Continue monitoring blood pressure and cholesterol levels; maintain compliance with current hypertension and hypercholesterolemia medications. - Monitoring recommended for severe obstructive sleep apnea and benign prostatic hyperplasia as needed. - Follow up in one week to evaluate the wound?s response to treatment, with consideration of further surgical consultation if no improvement is observed. Medications: New amoxicillin-pot clavulanate 875-125 mg 1 tab PO BID 14 tabs 0RF N49.2 - Inflammatory disorders of scrotum
[2024-05-17 14:32] VITALS: BP 160/90; PULSE 85; O2SAT 98; BMI 37.5
== END 2024-05-17 15:07 | disposition home or self-care (01) ==
PROVIDERS: PCP Internal Medicine; Visit Provider Internal Medicine
DX: E11.65 Type 2 diabetes mellitus with hyperglycemia (principal); Z79.4 Long term (current) use of insulin; I73.9 Peripheral vascular disease, unspecified; N49.2 Inflammatory disorders of scrotum

== ENCOUNTER → 2024-05-17 14:27 | Outpatient (BNVA) | payer MEDICARE, SELFPAY | PROVIDERS: PCP Internal Medicine; Visit Provider Internal Medicine | DX: E11.65 Type 2 diabetes mellitus with hyperglycemia (principal); I73.9 Peripheral vascular disease, unspecified; Z79.4 Long term (current) use of insulin; N49.2 Inflammatory disorders of scrotum | CPT/HCPCS: 99212 ==

== ENCOUNTER 2024-05-25 07:45 | Outpatient (REF) | payer MEDICARE, SELFPAY ==
--- OUTSIDE RECORDS SUMMARY | 2024-05-25 07:48 | XMS_ITS | Encounter Summary ---
Author Organization [facility] Address [phone] [facility] [email or web address] [place] [address] Care Team Providers Care Employee Services Manager Name Role Phone Claudia Richter MD Primary Care Provider [phone] Reason for Visit * Reason Comments Abscess Encounter Details Date Type Department Care Team ([facility] st Contact Info) Description 05/14/2024 11:57 PM EST - 05/15/2024 1:23 AM EST Emergency [facility] [address] [place] [address] Carl Hernandez, DO [address] [place] [address] [email or web address] Discharge Disposition: Home or Self Care Social History Tobacco Use Types Packs/Day Years Used Date Smoking Tobacco: Never Smokeless Tobacco: Never Tobacco Cessation:Counseling Given: Not Answered Alcohol Use Standard Drinks/Week Comments Not Currently 0 (1 standard drink = 0.6 oz pur e alcohol) Education Answer Date Recorded Are you interested in more education? Not on ally e 05/15/2024 Are you concerned about learning? Not on file 05/15/2024 No 05/15/2024 No 05/15/2024 Digital Access Answer Date Recorded No 05/15/2024 No 05/15/2024 Reliable internet access at home? Not on file 05/15/2024 Device with a working camera? Not on file Intimate Partner Violence Answer Date R ecorded Are you denied basic needs s uch as food, clothing, or medical care? No 05/14/2024 In the past 12 months have y ou been in a relationship with a person who hurts, threatens, or tries to control you? No 05/14/2024 Are you denied basic needs s uch as food, clothing, or medical care? No 05/14/2024 In the past 12 months have y ou been in a relationship with a person who hurts, threatens, or tries to control you? No 05/14/2024 Sex and Gender Information Value Date Recorded Sex Assigned at Male 05/14/2024 10:54 PM EST Gender Identity Male 05/14/2024 10:54 PM EST Sexual Orientation Not on file documented as of this encounter Last Filed Vital Signs Vital Sign Reading Time Taken Comments Blood Pressure 122/81 05/15/2024 1:22 AM EST Pulse 87 05/15/2024 1:22 AM EST Temperature 36.1 ??C (96.9 ??F) 05/15/2024 1:22 AM ES T Respiratory Rate 18 05/15/2024 1:22 AM EST Oxygen Saturation 95% 05/15/2024 1:22 AM EST Inhaled Oxygen Concentration - - Weight 129.3 kg (285 lb) 05/14/2024 10:57 PM EST Height 188 cm (6' 2 ) 05/14/2024 10:57 PM EST Body Mass Index 36.59 05/14/2024 10:57 PM EST documented in this encounter Discharge Instructions * Discharge Instructions* Carl Hernandez DO - 05/15/2024 12:49 AM EST As we discussed drainage and bleeding are expected. Keep loosing covering on do not apply anything that is occlusive to the area as drainage is desired. Take the antibiotics as prescribed for the full 7 days. As we discussed return for any significant areas of erythema or worsening size of the abscess or fevers. * Attachments The following attachments cannot be sent through Care Everywhere. * Abscess: Skin (Jamaican) documented in this encounter Medications at Time of Discharge Medication Sig Dispensed Refills Start Date End Date acetaminophen (TYLENOL) 500 mg capsule Take 500 mg by mouth every 6 (six) hours as needed for pain (specific location in comments). aspirin 81 mg chewable tablet Take 81 mg by mouth daily. cholecalciferol, vitamin D3, 25 mcg (1,000 unit) capsule Take 1,000 Units by mouth daily. hydrALAZINE (APRESOLINE) 50 MG tablet Take 50 mg by mouth every 8 (eight) hours. losartan (COZAAR) 50 MG tablet Take 50 mg by mouth 2 (two) times a day. metFORMIN (GLUMETZA) 1000 MG (MOD) 24 hr tablet Take 1,000 mg by mouth 2 (two) times a day with meals. metoprolol tartrate (LOPRESSOR) 100 MG tablet Take 100 mg by mouth 2 (two) times a day. sildenafiL (VIAGRA) 50 mg tablet Take 50 mg by mouth as needed. SOLIQUA 100/33 100 unit-33 mcg/mL InPn Inject 28 Units under the skin 2 (two) times a day. doxycycline hyclate (DORYX) 100 mg tablet (To-Go) Take 100 mg (1 tablet) by mouth twice daily for 7 days 05/15/2024 05/22/2024 documented as of this encounter Procedure Notes Only the most recent of 2 notes is shown. * Carl Hernandez DO - 05/15/2024 12:45 AM ESTAssociated Order(s): Incision and Drainage Procedure Incision and Drainage Date/Time: 05/15/2024 12:45 AM Performed by: Carl Hernandez DO Authorized by: Carl Hernandez DO [place] Protocol: Emergent situation Consent obtained: Yes A time out verifies correct patient, procedure, equipment and site/side marked as required: Indications: Ultrasound Guided: Static Location: Body area: Anogenital Laterality: Right Location details: Scrotal space/wall Procedure Details: Scalpel size: 11 Incision type: Single straight Complexity: Simple Drainage: Bloody Drainage amount: Scant Wound treatment: Wound left open Patient tolerance: Patient tolerated the procedure well with no immediate complications Images: Images saved: Yes documented in this encounter ED Notes * Stephenie Frost RN - 05/15/2024 1:21 AM EST ED Nursing Progress Note Pt medically cleared and prepared for discharge. Discharge instructions reviewed, pt verbalized understanding. Pt A&O x4, ambulatory with a steady gait. Pt denies any new or worsening medical complaints. Pt has safe ride home. All belongings with patient, all safety maintained. * Elaine Lombardi RN - 05/14/2024 10:55 PM EST Pt reports abscess in right groin, reports + drainage, foul odor per pt. Pt states in opened up on its own and is still draining, packed with dressing by spouse. * Carl Hernandez DO - 05/14/2024 10:46 PM EST Chief Complaint Chief Complaint Patient presents with Abscess History of Present Illness The patient, Chinedu Zambrano,is a 68 y.o. male who presents for evaluation of Abscess 68-year-old male presents for evaluation of abscess. States it is localized to the right area of his groin. He states it felt a limit out a couple days ago today became more swollen and then spontaneously drained. Had a similar presentation . Patient states that he does have a history of diabetes. 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 Pain is actually quite mild. Unless otherwise specified, I have reviewed and agree with the triage and nursing notes. ROS A ten point review of systems was negative except what was noted in the HPI. Review of Systems Past Medical History No past medical history on file. Past Surgical History No past surgical history on file. Home Medications Prior to Admission medications Medication Sig acetaminophen (TYLENOL) 500 mg capsule 500 mg, Oral, Every 6 hours PRN aspirin 81 mg chewable tablet 81 mg, Oral, Daily cholecalciferol, vitamin D3, 25 mcg (1,000 unit) capsule 1,000 Units, Oral, Daily hydrALAZINE (APRESOLINE) 50 MG tablet 50 mg, Oral, Every 8 hours losartan (COZAAR) 50 MG tablet 50 mg, Oral, 2 times daily metFORMIN (GLUMETZA) 1000 MG (MOD) 24 hr tablet 1,000 mg, Oral, 2 times daily with meals metoprolol tartrate (LOPRESSOR) 100 MG tablet 100 mg, Oral, 2 times daily sildenafiL (VIAGRA) 50 mg tablet 50 mg, Oral, As needed SOLIQUA 100/33 100 unit-33 mcg/mL InPn 28 Units, Subcutaneous, 2 times daily doxycycline hyclate (DORYX) 100 mg tablet (To-Go) Take 100 mg (1 tablet) by mouth twice daily for 7days Allergies Allergies Allergen Reactions Iodinated Contrast Media Other (See Comments) Hives Social and Family History Social History Tobacco Use Smoking status: Never Smokeless tobacco: Never Substance Use Topics Alcohol use: Not Currently Social History Substance and Sexual Activity Drug Use Not on file No family history on file. Physical Exam Vital Signs: ED Triage Vitals [05/14/24 5026] Encounter Vitals Group BP (!) 155/89 Systolic BP Percentile Diastolic BP Percentile Heart Rate 80 Respiratory Rate 16 Temperature 36.1 ??C (97 ??F) Temp src SpO2 98 % Weight 285 lb Height 6' 2 Head Circumference Peak Flow Pain Score Pain Loc Pain Education Exclude from Growth Chart Physical Exam General: Well Nourished, Well Developed HENT: Normocephalic, Atraumatic Eyes: Pupils equal, EOM Intact Cardiovascular: Normal Rate, Normal Rhythm, Good Distal Perfusion Pulmonary: Normal Effort, symmetric chest rise Abdominal: Soft, Non-tender, Non-distended Groin: Scrotal enlargement due to hydrocele no fluctuance, induration or erythema of the scrotum, there is a indurated erythematous 2 x 2 cm area at the junction of the right leg and groin. There is spontaneous brown/purulent drainage. No diffuse crepitus no diffuse warmth. Neurological: Alert, Orientated x 3 Psych: Normal Mood and Affect Laboratory Testing No results found for this visit on 05/14/24. Radiology Testing Bedside Ultrasound Final Result [facility] Patient presents as above. Symptoms consistent with simple abscess. Quite low concern for acute Jessica's gangrene. Bedside ultrasound confirmed still some remaining fluid. Incision and drainage wasattempted with probing of the wound. Slight purulence mostly blood drained from the area. Will discharge home with doxycycline. Return precautions discussed. Clinical Impressions as of 05/15/24 0049 Abscess Clinical Impression Diagnosis Description Comment Final diagnosis Abscess Abscess -- Disposition: Home Carl Hernandez DO 05/15/24 0049 documented in this encounter Plan of Treatment Not on file documented as of this encounter Procedures Procedure Name Priority Date/Time Associated Diagnosis Comments INCISION AND DRAINAGE Routine 05/15/2024 12:45 AM EST US BEDSIDE Routine 05/15/2024 12:29 AM EST documented in this encounter Results * INCISION AND DRAINAGE (05/15/2024 12:45 AM EST) Narrative Carl Hernandez DO - 05/15/2024 12:45 AM EST Carl Hernandez, ? 05/15/2024 12:46 AM Incision and Drainage Date/Time: 05/15/2024 12:45 AM Performed by: Carl Hernandez DO Authorized by: Carl Hernandez DO ?? [place] Protocol: ?Emergent situation ??Consent obtained: ??Yes A time out verifies correct patient, procedure, equipment and site/side marked as required: Indications: ??Ultrasound Guided: ??Static Location: ??Body area: ??Anogenital ??Laterality: ??Right ??Location details: ??Scrotal space/wall Procedure Details: ??Scalpel size: ??11 ??Incision type: ??Single straight ??Complexity: ??Simple ??Drainage: ??Bloody ??Drainage amount: ??Scant ??Wound treatment: ??Wound left open ??Patient tolerance: ??Patient tolerated the procedure well with no immediate complications Images: ?Images saved: ??Yes Carl Hernandez DO PROCEDURE/MINOR SURG ICAL ORDERABLES * US BEDSIDE (05/15/2024 12:29 AM EST) Anatomical Region Laterality Modality Ultrasound Narrative 05/15/2024 12:29 AM EST Carl Hernandez DO ? 05/15/2024 12:45 AM Bedside Ultrasound Date/Time: 05/15/2024 12:29 AM Performed by: Carl Hernandez DO Authorized by: Carl Hernandez, DO ?? Exam Type: Soft Tissue Soft Tissue Exam Findings & Impression: Indications: patient with swelling and fluctuance ?? Body Area: ??Trunk Laterality: ??Right Edema: the soft tissue was visualized and edema was present ?? Fluid Collection: the soft tissue was visualized and a fluid collection was present (anechoic or mobile debris) ?? Color Doppler: the soft tissue was visualized and color doppler was not present ?? Overall Impressions: fluid collection ?? Images: Images Saved: Yes ??Accession Number: [id number] Carl Hernandez DO IMG POINT OF CARE EX AMS documented in this encounter Visit Diagnoses Diagnosis Abscess- Primary Cellulitis and abscess of unspecified site documented in this encounter Administered Medications Inactive Administered Medications - up to 3 most recent administrations Medication Order MAR Action Action Date Dose Rate Site doxycycline hyclate (DORYX) tablet (To-Go) 1 kit 1 kit, Oral, Once, On 05/15/24 at 0100, For 1 dose, Take 1 tablet (100 mg) by mouth every 12 hours (twice daily) for 7 days., Indication: Empiric, Infection Source: Skin & Soft Tissue Infection Provider dispensed take home meds 05/15/2024 1:22 AM EST 1 kit documented in this encounter Active and Recently Administered Medications Times are shown in EST. Scheduled Medication Order 05/13/2024 05/14/2024 05/15/2024 doxycycline hyclate (DORYX) tablet (To-Go) 1 kit (COMPLETED) 1 kit, Oral, Once, On 05/15/24 at 0100, For 1 dose, Take 1 tablet (100 mg) by mouth every 12 hours (twice daily) for 7 days., Indication: Empiric, Infection Source: Skin & Soft Tissue Infection 0122 (Provider dispe nsed take home meds - Provider: Stephenie Frost RN) documented in this encounter Care Teams Employee Services Manager Relationship Specialty Start Date End Date Claudia Richter MD [address] [place] [id number] PCP - General Internal Medicine 05/14/24 documented as of this encounter Additional Source Comments The information contained in this document represents components of the legal health record. It is not the complete legal health record.[facility]
--- OUTSIDE RECORDS SUMMARY | 2024-05-25 07:48 | XMS_ITS ---
Author Organization [facility] Address [address] [facility] [place] [address] Care Team Providers Care Ice Cream Truck Driver Name Role Phone lCaudia Richter Primary Care Provider UnavailShelbi Andrew Unavailable [phone] Eric Gonzales Unavailable [phone] Allergies Allergen (clinical drug ingredient) Drug/Non Drug Allergy documented on EMR Reaction Allergy Type Onset Date Status amlodipine Amlodipine Unknown Drug Allergy Activ e atorvastatin Atorvastatin Unknown Drug Allergy A ctive Iodinated contrast media (substance) Iodinated Diagnostic Agents Unknown Drug Allergy Active Medications Medication SIG (Take, Route, Frequency, Duration) Notes Start Date End Date Status Rosuvastatin Calcium 40 MG 1 tablet Oral ly Once a day for 30 day(s) Unknown Aspirin 81 MG 1 tablet Orally Once a day for 30 day(s) Unknown Viagra 50 MG 1 tablet as needed Orally Once a day for 30 day(s) Unknown Sulfamethoxazole-Trimethop rim 800-160 MG 1 tablet Orally Twice a day for 10 day(s) Unknown Vitamin B 12 Unknown Acetaminophen 500 MG 1 capsule as needed Orally every 6 hrs Unknown Soliqua 100-33 UNT-MCG/ML as directed Subcutaneous 30 units 2 times a day Active Metoprolol Tartrate 100 MG 1 tablet with food Orally Twice a day for 30 day(s) Active Albuterol Sulfate 108 (90 Base) MCG/ACT 1 puff as needed Inhalation every 4 hrs Unknown Vitamin D3 25 MCG (1000 UT) 1 capsule Orally Once a day for 30 day(s) Active Cranberry 405 MG as directed Orally Active hydroCHLOROthiazide 25 MG 1 tablet in e morning Orally Once a day for 30 day(s) Active hydrALAZINE HCl 50 MG 1 tablet with food Orally Three times a day Active metFORMIN HCl ER (MOD) 1000 MG 1 tablet with evening meal Orally Once a day for 30 day(s) Active Losartan Potassium 50 MG 1 tablet Orally Once a day for 30 day(s) 3 times a day Active Social History Tobacco Use: Social History Observation Description Date Details (start date - stop date) Never Smoker NA - NA Tobacco Use/Smoking Question Answer Notes Are you a: nonsmoker Additional Findings: Tobacco Non-User Current no n-smoker Alcohol Screen Question Answer Notes Did you have a drink containing alcohol in the p ast year? No Points 0 Interpretation Negative Tobacco use other than smoking: Question Answer Notes Are you an other tobacco user? No Vital Signs Height 6 ft 2 in in 09/10/2023 Weight 288 lbs 09/10/2023 BMI 36.97 kg/m2 09/10/2023 Procedures Procedure Date Ordered Date Performed Result Body Sit e 92230-LEZM SKIN LESIONS, OVER 09/10/2023 N/A [id number] DYSTROPHIC NAILS ANY # 09/10/2023 N/A Encounters Encounter Location Date Provider Diagnosis [facility] [address] [place] [address] 09/10/2023 Eric Gonzales Type 2 diabetes mellitus with diabetic polyneuropathy E11.42 ; Xerosis cutis L85.3 and Skin disease L98.9 Assessments Encounter Date Diagnosis (ICD Code) Assessment Notes Treatment Notes Treatment Clinical Notes Section Notes 09/10/2023 Type 2 diabetes mellitus with diabetic polyneuropathy (ICD-10 - E11.42) 09/10/2023 Xerosis cutis (ICD-10 - L85.3) 09/10/2023 Skin disease (ICD-10 - L98.9) Plan Of Treatment Pending Test Test Name Order Date 99129-WTDO SKIN LESIONS, OVER 4 09/10/19 24 [id number] DYSTROPHIC NAILS ANY # Next Appt Details Follow Up: 3 Months, 4 Month s, Reason: Procedure Notes * Category Sub-Category Detail Notes Keratoma Treatment Parring or Cutting o f Benign Hyperkeratotic Lesion(s) 71891 ( More than 4 Lesions ) - The Benign hyperkeratotic lesions, as described above were pared, and/or cut utilizing a sterile 15 blade, tissue nippers, and/or dremel Nail Reduction Nail Reduction Trimming of non- dystrophic nails performed to reduce/remove overall nail length and girth, by manual and electrical means with use of a nail nipper and/or dremel, to more viable healthy nail plate or bed tissue 6-10 (69218) Progress Notes * Chinedu BAGLEY JDOB:[birth year] (67 yo M)Acc No.[id number]:09/10/2023 Progress Note Patient:?Chinedu Bagley Provider:?Eric Gonzales DPM :1955???Age:67 Y???Sex:Male Roney e:09/10/2023 Address:[place] [address] [place], [place] [id number] Pcp:Claudia Richter Subjective: * Chief Complaints: * ??? * HPI: ???At Risk footcare:?Pt States Last PCP Visit:?Date?08/06/2023 ???Skin problems:?Nature:?dryness , scaling.?Location:?B/L , Heel/Rearfoot , Forefoot.?Duration:?several years.?Onset/Cause:?unknown.?Course:?worse.?Aggravated by:?no aggrevating factors.?Severity/Quality:?moderate.? * ROS:?General/Constitutional:?Nausea?denies.?Vomiting?denies.?Hunger Thirst?denies.?Loss appetite?denies.?Chills?denies.?Fatigue?denies.?Fever?denies.?Night Sweats?denies.?Unexplained weight loss?denies.?Unexplained weight gain?denies.?HEENTM:?Dentures?denies.?Dizziness?denies.?Glasses/contacts?admits.?Retinopathy?de nies.?Blurred/double vision?denies.?TMJ?denies.?Discharge/drainage?denies.?Implants?denies.?Sore throat?denies.?Dental implants?denies.?Hard of hearing ?admits.?Difficulty chewing/swallowing/speaking?denies.?Nose bleeds?denies.?Sore mouth?denies.?Respiratory:?On Oxygen?denies.?Pneumonia/pleurisy?denies.?Bronchitis?denies.?Emphysema?denies.?C oughing?denies.?Cough blood?denies.?Shortness of breath?denies.?Wheezing?denies.?Cardiovascular:?Pacemaker?denies.?MVP?denies.?WPW?denies.?CHF?denies.?Heart attack?denies.?Septal defect?denies.?Rapid beat?denies.?Chest pain ?denies.?Atrial Fib.?denies.?Murmur/Palpitations?denies.?Gastrointestinal:?Hemorrhoids?denies.?Stomach/Abdominal pain?denies.?Dark blood stool?denies.?Irritable bowel ?denies.?Constipation?denies.?Diarrhea?denies.?Hematology:?Swelling?denies.?Clots?denies.?Varicose Veins?denies.?Bruising?denies.?Bleeding problem?denies.?Genitourinary:?Blood urine?denies.?Frequent/Painfu/urination/bladder control?denies.?Kidney stones?denies.?Infection (UTI)?admits.?Nephropathy?denies.?sex trans dis (STD)?denies.?Prostate?denies.?Musculoskeletal:?Hammertoes?denies.?Bunions?denies.?Back Pain?admits.?Muscle Cramps/ Resting?admits.?Muscle cramps / walking?denies.?Generalized aches and pains?admits.?Weakness?denies.?Integ.:?Frias?denies.?Scars?denies.?Corns/calluses?admits.?Ingrown nails?denies.?Painful nails?denies.?Open Sores?denies.?Rashes?denies.?Neurologic:?Difficulty sleeping?admits.?Brain disorder?denies.?Numbness?denies.?Balance trouble?denies.?Confusion?denies.?Fainting/blackouts?denies.?Tingling?denies.?Tr emors?denies.? * Medical History:? * Surgical History:?spine surg enriqueta Albert cataract surgery 2000'seye surgery retinal detachment malignant melanoma 2000left shoulder surgery 12/2022Right shoulder repair * Hospitalization/Major Diagno stic Procedure:?Denies Past Hospitalization * Family History:?Mother: dece ased.?Father: .? * Social History:?Tobacco Use:?Tobacco Use/Smoking?Are you a:?nonsmoker ?Additional Findings: Tobacco Non-User?Current non-smoker ?Tobacco use other than smoking?Are you an other tobacco user??No ???Drugs/Alcohol:?Drugs?Have you used drugs other than those for medical reasons in the past 12 months??No ?Alcohol Screen?Did you have a drink containing alcohol in the past year??No ?Points?0 ?Interpretation?Negative ???Miscellaneous:?no Caffeine. ?no Children. ?no Exercise. ?Marital status: . ?Occupation: retired. * Medications:?TakingCranberry 405 MG Capsule as directed Orally hydrALAZINE HCl 50 MG Tablet 1 tablet with food Orally Three times a dayhydroCHLOROthiazide 25 MG Tablet 1 tablet in the morning Orally Once a dayLosartan Potassium 50 MG Tablet 1 tablet Orally Once a day, Notes: 3 times a daymetFORMIN HCl ER (MOD) 1000 MG Tablet Extended Release 24 Hour 1 tablet with evening meal Orally Once a dayMetoprolol Tartrate 100 MG Tablet 1 tablet with food Orally Twice a daySoliqua 100-33 UNT-MCG/ML Solution Pen-injector as directed Subcutaneous , Notes: 30 units 2 times a dayVitamin D3 25 MCG (1000 UT) Capsule 1 capsule Orally Once a dayTaking Cranberry 405 MG Capsule as directed Orally Taking hydrALAZINE HCl 50 MG Tablet 1 tablet with food Orally Three times a dayTaking hydroCHLOROthiazide 25 MG Tablet 1 tablet in the morning Orally Once a dayTaking Losartan Potassium 50 MG Tablet 1 tablet Orally Once a day, Notes: 3 times a dayTaking metFORMIN HCl ER (MOD) 1000 MG Tablet Extended Release 24 Hour 1 tablet with evening meal Orally Once a dayTaking Metoprolol Tartrate 100 MG Tablet 1 tablet with food Orally Twice a dayTaking Soliqua 100-33 UNT-MCG/ML Solution Pen-injector as directed Subcutaneous , Notes: 30 units 2 times a dayTaking Vitamin D3 25 MCG (1000 UT) Capsule 1 capsule Orally Once a dayUnknownAlbuterol Sulfate 108 (90 Base) MCG/ACT Aerosol Powder Breath Activated 1 puff as needed Inhalation every 4 hrsAcetaminophen 500 MG Capsule 1 capsule as needed Orally every 6 hrsAspirin 81 MG Tablet Chewable 1 tablet Orally Once a dayRosuvastatin Calcium 40 MG Tablet 1 tablet Orally Once a daySulfamethoxazole-Trimethoprim 800-160 MG Tablet 1 tablet Orally Twice a dayViagra 50 MG Tablet 1 tablet as needed Orally Once a dayVitamin B 12 Medication List reviewed and reconciled with the patientUnknown Albuterol Sulfate 108 (90 Base) MCG/ACT Aerosol Powder Breath Activated 1 puff as needed Inhalation every 4 hrsUnknown Acetaminophen 500 MG Capsule 1 capsule as needed Orally every 6 hrsUnknown Aspirin 81 MG Tablet Chewable 1 tablet Orally Once a dayUnknown Rosuvastatin Calcium 40 MG Tablet 1 tablet Orally Once a dayUnknown Sulfamethoxazole-Trimethoprim 800-160 MG Tablet 1 tablet Orally Twice a dayUnknown Viagra 50 MG Tablet 1 tablet as needed Orally Once a dayUnknown Vitamin B 12 Medication List reviewed and reconciled with the patient * Allergies:?AmlodipineAtorvas tatinIodinated Diagnostic Agentsyes[Allergies Verified] Objective: * Vitals:?Ht: 6 ft 2 in, Wt:28 8, BMI:36.97, Shoe size:10.5, BS:130. * ???Past Orders: ???Lab:HEMOGLOBIN A1C (GLYCO HEMOGLOBIN) (Order Date - 04/10/2023) (Collection Date - 03/07/2023) ? Value Reference Range ?HEMOGLOBIN A1C (HH) 7.2 * Examination: ???Ophthalmology Referral: ?DIABETES EYE EXAM?Neurological: ?SENSORY:?Neurological exam demonstrates , reduced vibration sensation , 5.07 monofilament test performed at plantar aspects of 5 varied sites per foot shows sensation.?Vascular: ?DP PULSES:?05/11, B/L.?PT PULSES:?04/10, B/L.?CAPILLARY FILL TIME:?3 secs. per digit. B/L.?SKIN TEMPERTURE GRADIENT OF THE LOWER EXTERMITIES:?normal, B/L.?HAIR GROWTH/TEXTURE/ELASTICITY/TURGOR:?normal, B/L.?PIGMENTATION:?normal, B/L.?EDEMA:?/ , B/L , Foot , Ankle(s) , Leg(s).?TELANGECTASIA:?absent, B/L.?Dermatologic: ?SKIN FINDINGS:?Skin exam reveals Keratotic lesion(s) located at , IPJ , TA , T5 , SUB MTH (s) , 1 , Heel(s) , B/L , Skin shows sign(s) of, dryness, scaling, in a stocking fashion, no fissure(s) present, B/L.?General Examination: ?GENERAL APPEARANCE:?pleasant, alert, well nourished, well developed, well hydrated, with good attention to hygene/body habitus, and in no acute distress.?ORIENTED:?person,place, and time.?FOOT EXAM:?Orthopedic: ?MUSCLE STRENGTH:?5/5 all groups in a symmetrical fashion , B/L.?FOOT MORPHOLOGY:? Pes Planus structure, LEFT more advanced than right.?BUNION:?Medially prominent 1st MPJ , Dorsally prominent 1st MPJ , B/L , Lateral tracking 1st MPJ incompletely reducible , Limited 1st MPJ Dorsal ROM , Limited 1st MPJ Plantar ROM.?Nails: ?NAILS are:? Elongated, overgrown, nondystrophic, 1-5 B/L.? Assessment: * Assessment: 1.?Type 2 diabetes mellitus with diabetic polyneuropathy - E11.42?2.?Xerosis cutis - L85.3?3.?Skin disease - L98.9 (Primary)? Plan: * Treatment: * Procedures:?Keratoma Treatment:?Parring or Cutting of Benign Hyperkeratotic Lesion(s)?13793 ( More than 4 Lesions ) - The Benign hyperkeratotic lesions, as described above were pared, and/or cut utilizing a sterile 15 blade, tissue nippers, and/or dremel.?Nail Reduction:?Nail Reduction?Trimming of non-dystrophic nails performed to reduce/remove overall nail length and girth, by manual and electrical means with use of a nail nipper and/or dremel, to more viable healthy nail plate or bed tissue 6-10 (20012).? * Procedure Codes:?45625 TRIM SKIN LESIONS, OVER 4, Modifiers: XS G0127 TRIMMING DYSTROPHIC NAILS ANY #, Modifiers: XS * Follow Up:?3 Months, 4 Month s * Images: * Sign off status: Completed true * Provider:?Eric Gonzales DPM Date:? 024 Generated for Mahnaz danuta/Lacho/eTransmitting on:?05/25/2024 07:47 AM EST History and Physical Notes * HPI (History of Present Illness) Category Sub-Category Detail Notes Category Not es Skin problems Nature: dryness , scaling Location: B/L , Heel/Rearfoot , Forefoot Duration: several years Onset/Cause: unknown Course: worse Aggravated by: no aggrevating facto rs Severity/Quality: moderate At Risk footcare Pt States Last PCP Visit: Date: 4 Examination Category Sub-Category Detail Notes Category Not es Neurological SENSORY: Neurological exa m demonstrates , reduced vibration sensation , 5.07 monofilament test performed at plantar aspects of 5 varied sites per foot shows sensation Dermatologic SKIN FINDINGS: Skin exam reveal s Keratotic lesion(s) located at , IPJ , TA , T5 , SUB MTH (s) , 1 , Heel(s) , B/L , Skin shows sign(s) of, dryness, scaling, in a stocking fashion, no fissure(s) present, B/L Orthopedic FOOT MORPHOLOGY: Pes Planus stru cture, LEFT more advanced than right BUNION: Medially prominent 1 st MPJ , Dorsally prominent 1st MPJ , B/L , Lateral tracking 1st MPJ incompletely reducible , Limited 1st MPJ Dorsal ROM , Limited 1st MPJ Plantar ROM MUSCLE STRENGTH: 5/5 all groups in a symmetrical fashion , B/L General Examination GENERAL APPEARANCE: pleasant , alert, well nourished, well developed, well hydrated, with good attention to hygene/body habitus, and in no acute distress FOOT EXAM: Lower Extremity Neurological Exa m performed:: Yes Visual exam of foot performed:: Yes Date: 04/10/2023 Sensory testing performed:: sensations d iminished Pedal pulse taking performed:: 2+ ORIENTED: person,place, and ti me Ophthalmology Referral DIABETES EYE EXAM Diabeti c Retinopathy Screening:: Yes 09/2022 Findings of Diabetic Eye Exam:: no retin opathy Vascular DP PULSES (B): 2/4, B/L PT PULSES (B): 1/4, B/L CAPILLARY FILL TIME: 3 secs. per digit. B/L TEMPERTURE GRADIENT (C): normal, B/L TROPHIC CONDITION-TEXTURE/EL ASTICITY/TURGOR/HAIR GROWTH (B): normal, B/L EDEMA (C): 1/4 , B/L , Foot , A nkle(s) , Leg(s) TELANGECTASIA: absent, B/L PIGMENTATION: normal, B/L Nails NAILS are: Elongated, overgrown, nondys trophic, 1-5 B/L
--- OUTSIDE RECORDS SUMMARY | 2024-05-25 07:48 | XMS_ITS ---
Author Organization [facility] Address [address] [facility] [place] [address] Care Team Providers Care Gate Cutter Name Role Phone Claudia Richter Primary Care Provider Shelbi Joe Unavailable [phone] Allergies Allergen (clinical drug ingredient) Drug/Non Drug Allergy documented on EMR Reaction Allergy Type Onset Date Status amlodipine Amlodipine Unknown Drug Allergy Activ e atorvastatin Atorvastatin Unknown Drug Allergy A ctive Iodinated contrast media (substance) Iodinated Diagnostic Agents Unknown Drug Allergy Active REASON FOR VISIT Dr Hallman Medications Medication SIG (Take, Route, Frequency, Duration) Notes Start Date End Date Status Vitamin B 12 Active Sulfamethoxazole-Trimetho prim 800-160 MG 1 tablet Orally Twice a day for 10 day(s) Not-Taking Rosuvastatin Calcium 40 MG 1 tablet Orally Once a day for 30 day(s) Active Viagra 50 MG 1 tablet as needed Orally Once a day for 30 day(s) Active Aspirin 81 MG 1 tablet Orally Once a day for 30 day(s) Active Acetaminophen 500 MG 1 capsule as needed Orally every 6 hrs PRN Active Vitamin D3 25 MCG (1000 UT) 1 capsule Orally Once a day for 30 day(s) Active Albuterol Sulfate 108 (90 Base) MCG/ACT 1 puff as needed Inhalation every 4 hrs PRN Active Soliqua 100-33 UNT-MCG/ML as directed Subcutaneous 30 units 2 times a day Active Metoprolol Tartrate 100 MG 1 tablet with food Orally Twice a day for 30 day(s) Active hydroCHLOROthiazide 25 MG 1 tablet in th e morning Orally Once a day for 30 day(s) Active Losartan Potassium 50 MG 1 tablet Orally Once a day for 30 day(s) 3 times a day Active Cranberry 405 MG as directed Orally Active hydrALAZINE HCl 50 MG 1 tablet with food Orally Three times a day Active metFORMIN HCl ER (MOD) 1000 MG 1 tablet with evening meal Orally Once a day for 30 day(s) Active Encounters Encounter Location Date [facility] [address] [place] [address] 05/13/2024 Shelbi Lizama Plan Of Treatment No Information Progress Notes * Chinedu BAGLEYDOB:[birth year] (68 yo M)Acc No.[id number]:05/13/2024 Progress Note Patient:?Chinedu BAGLEY Provider:?Shelbi Lizama DPM :1955???Age:68 Y???Sex:Male Roney e:05/13/2024 Address:[place] [address] Pcp:Claudia Richter Subjective: * Chief Complaints: * ???1. Dr Hallman. * Medical History:?type II tere betes, Hypertension, B12 nutritional deficiency, Prostatic hyperplasia, Sleep apnea, Peripheral vascular disease, Cancer, Measles, Mumps, Chicken pox, Back,Hip,and Knee pain, Cataracts, Psoriasis/eczema, Arthritis, Poor circulation, Joint implants/screws, Urinary blockage. * Medications:?Taking Cranberr y 405 MG Capsule as directed Orally , Taking hydrALAZINE HCl 50 MG Tablet 1 tablet with food Orally Three times a day , Taking hydroCHLOROthiazide 25 MG Tablet 1 tablet in the morning Orally Once a day , Taking Losartan Potassium 50 MG Tablet 1 tablet Orally Once a day , Notes to Pharmacist: 3 times a day, Taking metFORMIN HCl ER (MOD) 1000 MG Tablet Extended Release 24 Hour 1 tablet with evening meal Orally Once a day , Taking Metoprolol Tartrate 100 MG Tablet 1 tablet with food Orally Twice a day , Taking Soliqua 100-33 UNT-MCG/ML Solution Pen-injector as directed Subcutaneous , Notes to Pharmacist: 30 units 2 times a day, Taking Vitamin D3 25 MCG (1000 UT) Capsule 1 capsule Orally Once a day , Taking Albuterol Sulfate 108 (90 Base) MCG/ACT Aerosol Powder Breath Activated 1 puff as needed Inhalation every 4 hrs , Notes to Pharmacist: PRN, Taking Acetaminophen 500 MG Capsule 1 capsule as needed Orally every 6 hrs , Notes to Pharmacist: PRN, Taking Aspirin 81 MG Tablet Chewable 1 tablet Orally Once a day , Taking Rosuvastatin Calcium 40 MG Tablet 1 tablet Orally Once a day , Taking Viagra 50 MG Tablet 1 tablet as needed Orally Once a day , Taking Vitamin B 12 , Not-Taking/PRN Sulfamethoxazole-Trimethoprim 800-160 MG Tablet 1 tablet Orally Twice a day * Allergies:?Amlodipine, Atorv astatin, Iodinated Diagnostic Agents. Objective: * Vitals:? Assessment: Plan: * Treatment: * Images: * The named appointment provid er may or may not be the originator of this progress note, and it is not deemed complete until electronically signed by the appointment provider. Sign off status: Pending * Provider:?Shelbi Lizama DPM Date:?0 05/13/2024 Generated for Mahnaz tipton/Lacho/Val on:?05/25/2024 07:47 AM EST
--- OUTSIDE RECORDS SUMMARY | 2024-05-25 07:48 | XMS_ITS | Clinical Summary ---
Author Organization [facility] Address [phone] [facility] [place] [address] Care Team Providers Care Pug Mill Operator Name Role Phone Claudia Richter MD Primary Care Provider [phone] Allergies Active Allergy Reactions Criticality Noted Date Comments Iodinated Contrast Media Other (See Comments) 0 12/23/2000 Hives Medications Medication Sig Dispensed Refills Start Date End Date Status acetaminophen (TYLENOL) 500 mg capsule Take 500 mg by mouth every 6 (six) hours as needed for pain (specific location in comments). Active aspirin 81 mg chewable tablet Take 81 mg by mouth daily. Active cholecalciferol, vitamin D3, 25 mcg (1,000 unit) capsule Take 1,000 Units by mouth daily. Active hydrALAZINE (APRESOLINE) 50 MG tablet Take 50 mg by mouth every 8 (eight) hours. Active SOLIQUA 100/33 100 unit-33 mcg/mL InPn Inject 28 Units under the skin 2 (two) times a day. Active losartan (COZAAR) 50 MG tablet Take 50 mg by mouth 2 (two) times a day. Active metFORMIN (GLUMETZA) 1000 MG (MOD) 24 hr tablet Take 1,000 mg by mouth 2 (two) times a day with meals. Active metoprolol tartrate (LOPRESSOR) 100 MG tablet Take 100 mg by mouth 2 (two) times a day. Active sildenafiL (VIAGRA) 50 mg tablet Take 50 mg by mouth as needed. Active doxycycline hyclate (DORYX) 100 mg tablet (To-Go) Take 100 mg (1 tablet) by mouth twice daily for 7 days 05/15/2024 05/22/2024 Encounters Date Type Department Care Team Description 05/15/2024 12:30 AM EST Ancillary Procedure [facility] [address] [place] [address] Carl Hernandez DO 05/14/2024 11:57 PM EST - 05/15/2024 1:23 AM EST Emergency [facility] [address] [place] [address] Carl Hernandez, DO Discharge Disposition: Home or Self Care from Last 3 Months Social History Tobacco Use Types Packs/Day Years [...] PM EST Sexual Orientation Not on file Last Filed Vital Signs Vital Sign Reading [...] Mass Index 36.59 05/14/2024 10:57 PM EST Plan of Treatment Health Maintenance Due Date Last Done Comments Adult Td,Tdap Booster 1955 CREATININE LEVEL 1955 LIPID PANEL 1953 POTASSIUM LEVEL 1953 DEPRESSION SCREENING 1965 HEPATITIS B SCREENING 12/05/1971 HEPATITIS C SCREENING 12/05/1971 SMOKING STATUS SCREENING (On ce After 26 Yrs) 12/05/1979 COLOGUARD 1998 COLONOSCOPY 1998 COLORECTAL CANCER SCREENING 1998 FIT TEST 1998 FOBT 1998 SIGMOIDOSCOPY 1998 VIRTUAL COLONOSCOPY 1998 PNEUMOCOCCAL VACCINES (50+ y ears) (1 of 1 - PCV) 12/05/2003 ZOSTER VACCINES (1 of 2) 12/05/2003 INFLUENZA VACCINE (#1) 2023 COVID-19 VACCINE ( - 2023-2 5 season) 2023 RSV VACCINE (1 - 1-dose 75+ series) 2028 HEPATITIS A VACCINES Aged Out No long er eligible based on patient's age to complete this topic HEPATITIS B VACCINES Aged Out No long er eligible based on patient's age to complete this topic HIB VACCINES Aged Out No longer eligi ble based on patient's age to complete this topic MENINGOCOCCAL VACCINES (ACWY) Aged Out No longer eligible based on patient's age to complete this topic Medical Devices Not on file Procedures Procedure Name Priority Date/Time Associated Diagnosis Comments INCISION AND DRAINAGE Routine 05/15/2024 12:45 AM EST BEDSIDE Routine 05/15/2024 12:29 AM EST from Last 3 Months Results * INCISION AND DRAINAGE (05/15/2024 12:45 AM EST) Narrative Carl Hernandez DO - 05/15/2024 12:45 AM EST Carl Hernandez, DO ? 05/15/2024 12:46 AM Incision and Drainage Date/Time: 05/15/2024 12:45 AM Performed by: Carl Hernandez DO Authorized by: Carl Hernandez DO ?? [place] Protocol: ?Emergent situation ??Consent obtained: ??Yes A [...] Ultrasound Narrative 05/15/2024 12:29 AM EST Carl Hernandez, DO ? 05/15/2024 12:45 AM Bedside Ultrasound Date/Time: 05/15/2024 12:29 AM Performed by: Carl Hernandez DO Authorized by: Carl Hernandez DO ?? Exam Type: Soft Tissue Soft [...] ?? Images: Images Saved: Yes ??Accession Number: [id number] Carl Hernandez DO IMG POINT OF CARE EX AMS from Last 3 Months Care Teams Pug Mill Operator Relationship Specialty Start Date End Date Claudia Richter MD [address] [place] [id number] PCP - General Internal Medicine 05/14/24 Additional Source Comments The information contained in this document represents components of the legal health record. It is not the complete legal health record.[facility]
--- OUTSIDE RECORDS SUMMARY | 2024-05-25 07:48 | XMS_ITS | Patient Health Record ---
Author Organization [facility] Address [address] [place] [address] Care Team Providers Care Torpedo Man Name Role Phone Po Claudia BORJA Primary Care Provider Bismark Moody [phone] ALLERGIES Allergen (clinical drug ingredient) Drug/Non Drug Allergy documented on EMR Reaction Allergy Type Onset Date Status IVP dye (uncoded) Unknown Allergy Ac tive REASON FOR REFERRAL No Information MEDICATIONS Medication SIG (Take, Route, Frequency, Duration) Notes Start Date End Date Status Aspirin Adult Low Dose 81 MG 1 tablet Or ally Once a day Active Vitamin D 2000 UNIT 1 tablet Orally Once a day Active Soliqua 100-33 UNT-MCG/ML 20 units Subcu taneous BID Active hydrALAZINE HCl 25 MG 25 MG ORALLY EVERY 8 HOURS FOR 90 DAYS Oral for 90 Active Cranberry 405 MG as directed Orally Active metFORMIN HCl 1000 MG 1 tablet with a me al Orally Twice a day Active Losartan Potassium 50 MG 1 in am 1 at hs Orally twice a day Active hydroCHLOROthiazide 25 MG TAKE 1 TABLET BY MOUTH DAILY Oral for 90 Active IMMUNIZATIONS Vaccine Route Administration Date Status Comme nts Influenza Unknown 01/21/2018 Administered Influenza Unknown 01/05/2022 Administered SOCIAL HISTORY Sex Assigned At : Social History Observation Description Sex Assigned At Unknown PROBLEMS Problem Type ICD Code Onset Dates Problem Status W/U Status Risk SNOMED Code Notes Problem Encounter for screening for malignant neoplasm of colon (Z12.11) Active confirmed 101595947 Problem History of adenomatous polyp of colon (Z86.010) Active confirmed 775942232 Problem Personal history of colonic polyps (Z86.010) Active confirmed History of polyp of colon (situation) (496437215) Problem Diverticulosis of large intestine without perforation or abscess without bleeding (K57.30) Active confirmed Diverticul ar disease of colon (207874558) Problem Encounter for screening for malignant neoplasm of rectum (Z12.12) Active confirmed Screening for malignant neoplasm of rectum (804076692) Problem Elevated liver function tests (R79.89) Active confirmed 759478846 Problem Elevated liver enzymes (R74.8) Active confirmed 374478503 Problem Fatty liver (K76.0) Active confirmed 390009097 Problem Liver mass (R16.0) Active confirmed 300 312609 Problem Long-term use of aspirin therapy (Z79.82) Active confirmed 390105743 Problem Liver lesion (K76.9) Active confirmed 088927511 PLAN OF TREATMENT Pending Test Test Name Order Date BUN 02/15/2016 BUN 06/01/2015 CREATININE 02/15/2016 CREATININE 06/01/2015 LIVER PROFILE 02/16/2015 CEA 02/16/2015 ALPHA-FETOPROTEIN,TUMOR MARKER 5 MRI ABD W&WO CONTRAST 06/01/2015 MRI ABD W&WO CONTRAST 02/15/2016 Pathology 05/17/2022 Future Test Test Name Order Date COLONOSCOPY 06/01/2015 COLONOSCOPY 09/15/2018 COLONOSCOPY 04/02/2022 Insurance Providers Payer Name Payer Address Payer Phone Subscriber Number Group Number Insured Name Patient Relationship to Insured Coverage Start Date Coverage End Date MEDICARE OF [place] [address] [place] [phone] [id number] OLIVIA ROBERTS Self - patient is the insured [employer] CLAIMS [address] [place] [address] [id number] OLIVIA ROBERTS Self - patient is the insured MEDICAL (GENERAL) HISTORY Medical History History ICD Code Hx. of tubular adenomas-2 cecal polyps r emoved in 01/2009 IBS Diverticulosis Small internal hemorrhoids HTN DM Denies MD,CVA,Lung disease,renal disease E.coli urosepsis in 02/2015 Colonoscopy in 06/3012--flat cecal adenoma removed and a small adenoma removed in the ascending colon; F/U colonoscopy in 08/2015 revealed a small residual tubular adenoma in the cecum at the previous polypectomy site-- this was removed Fatty liver--02/2015 MRI, CT and U/S with nonspecific liver lesion--? atypical hemangioma--normal AFP and CEA level---had a stable F/U MRI in 07/2015 and in 05/2016 Sleep apnea--not using CPAP Colonoscopy 01/2019 with a small cecal t ubular adenoma removed Surgical History Surgery Date(Month/Year) Malignant lesion on gbew-oqkmkblm-jknwzd [place] [facility] [place]ar[place] surgery in both eyes Detached retina surgery in both eyes Shoulder replacement on the right--Dr. Gm alanis 2020
--- OUTSIDE RECORDS SUMMARY | 2024-05-25 07:48 | XMS_ITS ---
[facility] Address [address] [facility] [place] [address] Care Team Providers Care Cytotechnologist/Cytology Supervisor Name Role Phone Claudia Richter Primary Care Provider UnavailShelbi Andrew Unavailable [phone] Eric Gonzales Unavailable [phone] Allergies Allergen (clinical drug ingredient) Drug/Non Drug Allergy documented on EMR Reaction Allergy Type Onset Date Status amlodipine Amlodipine Unknown Drug Allergy Activ e atorvastatin Atorvastatin Unknown Drug Allergy A ctive Iodinated contrast media (substance) Iodinated Diagnostic Agents Unknown Drug Allergy Active Medications Medication SIG (Take, Route, Frequency, Duration) Notes Start Date End Date Status Viagra 50 MG 1 tablet as needed Orally Once a day for 30 day(s) Active Sulfamethoxazole-Trimetho prim 800-160 MG 1 tablet Orally Twice a day for 10 day(s) Not-Taking Rosuvastatin Calcium 40 MG 1 tablet Orally Once a day for 30 day(s) Active Aspirin 81 MG 1 tablet Orally Once a day for 30 day(s) Active Vitamin B 12 Active Acetaminophen 500 MG 1 capsule as needed Orally every 6 hrs PRN Active Albuterol Sulfate 108 (90 Base) MCG/ACT 1 puff as needed Inhalation every 4 hrs PRN Active Vitamin D3 25 MCG (1000 UT) 1 capsule Orally Once a day for 30 day(s) Active Soliqua 100-33 UNT-MCG/ML as directed Subcutaneous 30 units 2 times a day Active Metoprolol Tartrate 100 MG 1 tablet with food Orally Twice a day for 30 day(s) Active hydroCHLOROthiazide 25 MG 1 tablet in e morning Orally Once a day for 30 day(s) Active hydrALAZINE HCl 50 MG 1 tablet with food Orally Three times a day Active Cranberry 405 MG as directed Orally Active metFORMIN HCl ER (MOD) 1000 MG [...] Answer Notes Did you have a drink contain ing alcohol in the past year? Yes How often did you have a dri nk containing alcohol in the past year? Monthly or less (1 point) Points 1 Interpretation Negative Tobacco use other than smoking: Question Answer Notes Are you an other tobacco user? No Vital Signs Blood pressure systolic 130 mm Hg 01/08/20 24 Blood pressure diastolic 90 mm Hg 024 Height 6ft 2in in 01/08/2024 Weight 282 lbs 01/08/2024 BMI 36.2 kg/m2 01/08/2024 Encounters Encounter Location Date Provider Diagnosis [facility] [place] [address] 01/08/2024 Eric Gonzales Type 2 diabetes mellitus with diabetic polyneuropathy E11.42 ; Xerosis cutis L85.3 and Skin disease L98.9 Assessments Encounter Date Diagnosis (ICD Code) Assessment Notes Treatment Notes Treatment Clinical Notes Section Notes 01/08/2024 Type 2 diabetes mellitus with diabetic polyneuropathy (ICD-10 - E11.42) 01/08/2024 Xerosis cutis (ICD-10 - L85.3) 01/08/2024 Skin disease (ICD-10 - L98.9) Plan Of Treatment Next Appt Details Follow Up: 3 Months, 4 Month s, Reason: Procedure Notes * Category Sub-Category Detail Notes Keratoma Treatment Parring or Cutting o f Benign Hyperkeratotic Lesion(s) 53984 ( More than 4 Lesions ) - [...] healthy nail plate or bed tissue 6-10 (82777) Progress Notes * Chinedu BAGLEY JDOB:[birth year] (68 yo M)Acc No.[id number]:01/08/2024 Progress Note Patient:?Chinedu Bagley Provider:?Eric Gonzales DPM :1955???Age:68 Y???Sex:Male Roney e:01/08/2024 Address:[place] [address] Pcp:Claudia Richter Subjective: * Chief Complaints: * [...] surgery 2000'seye surgery retinal detachment malignant melanoma 2001left shoulder surgery 12/2022Right shoulder repair Urinary Blockage- Open up Urethra- Kidney Stone 11/2023 * Hospitalization/Major Diagno stic Procedure:?Denies Past Hospitalization * Family History:?Mother: dece ased.?Father: .? * Social History:?Tobacco Use:?Tobacco Use/Smoking?Are you a:?nonsmoker ?Additional Findings: Tobacco Non-User?Current non-smoker ?Tobacco use other than smoking?Are you an other tobacco user??No ???Drugs/Alcohol:?Drugs?Have you used drugs other than those for medical reasons in the past 12 months??No ?Alcohol Screen?Did you have a drink containing alcohol in the past year??Yes ?How often did you have a drink containing alcohol in the past year??Monthly or less (1 point) ?Points?1 ?Interpretation?Negative ???Miscellaneous:?no Caffeine. ?no Children. ?Exercise: yes, walking. ?Marital status: . 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 * Medications:?TakingCranberry 405 MG Capsule as directed [...] UT) Capsule 1 capsule Orally Once a dayAlbuterol Sulfate 108 (90 Base) MCG/ACT Aerosol Powder Breath Activated 1 puff as needed Inhalation every 4 hrs, Notes: PRNAcetaminophen 500 MG Capsule 1 capsule as needed Orally every 6 hrs, Notes: PRNAspirin 81 MG Tablet Chewable 1 tablet Orally Once a dayRosuvastatin Calcium 40 MG Tablet 1 tablet Orally Once a dayViagra 50 MG Tablet 1 tablet as needed Orally Once a dayVitamin B 12 Taking Cranberry 405 MG Capsule as directed Orally [...] Twice a dayTaking Soliqua 100-33 UNT-MCG/ML Solution Pen- injector as directed Subcutaneous , Notes: 30 units 2 times a dayTaking Vitamin D3 25 MCG (1000 UT) Capsule 1 capsule Orally Once a dayTaking Albuterol Sulfate 108 (90 Base) MCG/ACT Aerosol Powder Breath Activated 1 puff as needed Inhalation every 4 hrs, Notes: PRNTaking Acetaminophen 500 MG Capsule 1 capsule as needed Orally every 6 hrs, Notes: PRNTaking Aspirin 81 MG Tablet Chewable 1 tablet Orally Once a dayTaking Rosuvastatin Calcium 40 MG Tablet 1 tablet Orally Once a dayTaking Viagra 50 MG Tablet 1 tablet as needed Orally Once a dayTaking Vitamin B 12 Not-Taking/PRNSulfamethoxazole-Trimethoprim 800-160 MG Tablet 1 tablet Orally Twice a dayMedication List reviewed and reconciled with the patientNot-Taking/PRN Sulfamethoxazole-Trimethoprim 800-160 MG Tablet 1 tablet Orally Twice a dayMedication List reviewed and reconciled with the patient * Allergies:?AmlodipineAtorvas tatinIodinated Diagnostic Agentsyes[Allergies Verified] Objective: * Vitals:?Ht: 6ft 2in, Wt:282, BMI:36.2, Shoe size: 10.5, BP:130/90 mm Hg, BS: not taken, Ht-cm: 187.96 cm, Wt-k.91 kg. * ???Past Orders: ???Lab:HEMOGLOBIN A1C (GLYCO HEMOGLOBIN) (Order Date - 04/10/2023) (Collection Date - 03/07/2023) ? Value Reference Range ?HEMOGLOBIN A1C (HH) 7.2 * Examination: ???Ophthalmology Referral: ?DIABETES EYE EXAM?Neurological: ?SENSORY:?Neurological exam demonstrates , reduced vibration sensation , 5.07 monofilament test performed at plantar aspects of 5 varied sites per foot shows sensation.?Vascular: ?DP PULSES(B):?2/4, B/L.?PT PULSES(B):?1/4, B/L.?CAPILLARY FILL TIME:?3 secs. per digit. B/L.?TROPHIC CONDITION-TEXTURE/ELASTICITY/TURGOR/HAIR GROWTH(B):?normal, B/L.?TEMPERTURE GRADIENT(C):?normal, B/L.?PIGMENTATION:?normal, B/L.?EDEMA(C):? 3/4, B/L, Foot, Ankle(s), Leg(s).?TELANGECTASIA:?absent, B/L.?Dermatologic: ?SKIN FINDINGS:?Skin exam reveals Keratotic [...] Procedures:?Keratoma Treatment:?Parring or Cutting of Benign Hyperkeratotic Lesion(s)?95974 ( More than 4 Lesions ) - The Benign hyperkeratotic lesions, as described above were pared, and/or cut utilizing a sterile 15 blade, tissue nippers, and/or dremel.?Nail Reduction:?Nail Reduction?Trimming of non-dystrophic nails performed to reduce/remove overall nail length and girth, by manual and electrical means with use of a nail nipper and/or dremel, to more viable healthy nail plate or bed tissue 6-10 (50404).? * Procedure Codes:?15172 TRIM SKIN LESIONS, OVER 4, Modifiers: XS G0127 TRIMMING DYSTROPHIC NAILS ANY #, Modifiers: XS * Follow Up:?3 Months, 4 Month s * Images: * Sign off status: Completed true * Provider:?Eric Gonzales DPM Date:? 024 Generated for Printi ng/Faernestog/eTransmitting on:?05/25/2024 07:48 AM EST History and Physical Notes * [...] ti me Ophthalmology Referral DIABETES EYE EXAM Diabetic Reti nopathy Screening:: Yes 2023 Findings of Diabetic Eye Exam:: no retin opathy Vascular DP PULSES (B): 2/4, B/L PT PULSES (B): 1/4, B/L CAPILLARY FILL TIME: 3 secs. per digit. B/L TEMPERTURE GRADIENT (C): normal, B/L TROPHIC CONDITION-TEXTURE/EL ASTICITY/TURGOR/HAIR GROWTH (B): normal, B/L EDEMA (C): 3/4, B/L, Foot, Ankl e(s), Leg(s) TELANGECTASIA: absent, B/L PIGMENTATION: normal, B/L Nails NAILS are: Elongated, overgrown, nondys trophic, 1-5 B/L
--- OUTSIDE RECORDS SUMMARY | 2024-05-25 07:48 | XMS_ITS | Encounter Summary ---
Author Organization [facility] Address [phone] formerly [facility] [place] [address] Care Team Providers Care Business Systems Analyst Name Role Phone Claudia Richter MD Primary Care Provider [phone] Encounter Details Date Type Department Care Team (Late st Contact Info) Description 05/15/2024 12:30 AM EST Ancillary Procedure [facility], [address] [address] Carl Hernandez, DO [address] [place] [phone] [email or web address] Social History Tobacco Use Types Packs/Day Years Used Date Smoking Tobacco: Never Smokeless Tobacco: Never Alcohol Use Standard Drinks/Week Comments Not Currently [...] on file documented as of this encounter Plan of Treatment Not on file documented as of this encounter Procedures Procedure Name Priority Date/Time Associated Diagnosis Comments US BEDSIDE Routine 05/15/2024 12:29 AM EST documented in this encounter Results * US BEDSIDE (05/15/2024 12:29 AM EST) Anatomical Region Laterality Modality Ultrasound Narrative 05/15/2024 12:29 AM EST Carl Hernandez, DO ? 05/15/2024 12:45 AM Bedside Ultrasound Date/Time: 05/15/2024 12:29 AM Performed by: Carl Hernandez DO Authorized by: Carl Hernandez, ?? Exam Type: Soft Tissue Soft Tissue [...] ?? Images: Images Saved: Yes ??Accession Number: [id number] Carl Hernandez DO IMGm POINT OF CARE EX AMS documented in this encounter Visit Diagnoses Not on filedocumented in this encounter Care Teams Business Systems Analyst Relationship Specialty Start Date End Date Claudia Richter MD [address] [place] [id number] PCP - General Internal Medicine 05/14/24 documented as of this encounter Additional Source Comments The information contained in this document represents components of the legal health record. It is not the complete legal health record.[facility]
--- OUTSIDE RECORDS SUMMARY | 2024-05-25 07:48 | XMS_ITS | Patient Health Record ---
Author Organization [facility] Address [address] [facility] [place] [address] Care Team Providers Care Automation Machine Operator Name Role Phone Claudia Richter Primary Care Provider UnavailShelbi nAdrew Unavailable [phone] Eric Gonzales Unavailable [phone] Allergies Allergen (clinical drug ingredient) Drug/Non Drug Allergy documented on EMR Reaction Allergy Type Onset Date Status amlodipine Amlodipine Unknown Drug Allergy Activ e atorvastatin Atorvastatin Unknown Drug Allergy A ctive Iodinated contrast media (substance) Iodinated Diagnostic Agents Unknown Drug Allergy Active Reason For Referral No Information Medications Medication SIG (Take, Route, Frequency, Duration) Notes Start Date End Date Status Soliqua 100-33 UNT-MCG/ML as directed Subcutaneous 30 units 2 times a day Active hydroCHLOROthiazide 25 MG 1 tablet in th e morning Orally Once a day for 30 day(s) Active Vitamin B 12 Active Losartan Potassium 50 MG 1 tablet Orally Once a day for 30 day(s) 3 times a day Active Sulfamethoxazole-Trimetho prim 800-160 MG 1 tablet Orally Twice a day for 10 day(s) Not-Taking Cranberry 405 MG as directed Orally Active Rosuvastatin Calcium 40 MG 1 tablet Orally Once a day for 30 day(s) Active hydrALAZINE HCl 50 MG 1 tablet with food Orally Three times a day Active Viagra 50 MG 1 tablet as needed Orally Once a day for 30 day(s) Active Acetaminophen 500 MG 1 capsule as needed Orally every 6 hrs PRN Active Aspirin 81 MG 1 tablet Orally Once a day for 30 day(s) Active Vitamin D3 25 MCG (1000 UT) 1 capsule Orally Once a day for 30 day(s) Active Albuterol Sulfate 108 (90 Base) MCG/ACT 1 puff as needed Inhalation every 4 hrs PRN Active metFORMIN HCl ER (MOD) 1000 MG 1 tablet with evening meal Orally Once a day for 30 day(s) Active Metoprolol Tartrate 100 MG 1 tablet with food Orally Twice a day for 30 day(s) Active Social History Tobacco Use: Social History [...] Are you an other tobacco user? No Problems Problem Type SNOMED Code ICD Code Onset Dates Problem Status W/U Status Risk Notes Problem Polyneuropathy due to type 2 diabetes mellitus (474790518) Type 2 diabetes mellitus with diabetic polyneuropathy (E11.42) Active confirmed Vital Signs Blood pressure diastolic 90 mm Hg 01/08/2024 Height 6ft 2in in 01/08/2024 Blood pressure systolic 130 mm Hg 01/08/2024 Weight 282 lbs 01/08/2024 BMI 36.2 kg/m2 01/08/2024 Procedures Procedure Date Ordered Date Performed Result Body Sit e 43616-WXVY SKIN LESIONS, OVER 4 09/10/2023 N/A [id number] DYSTROPHIC NAILS ANY # 09/10/2023 N/A Encounters Encounter Location Date Provider Diagnosis [facility] [address] [address] 05/13/20[facility] [address] 09/10/2023 Eric Gonzales Type 2 diabetes mellitus with diabetic polyneuropathy E11.42 ; Xerosis cutis L85.3 and Skin disease L98.9 [facility] [address] 01/08/2024 Eric Gonzales Type 2 diabetes mellitus with diabetic polyneuropathy E11.42 ; Xerosis cutis L85.3 and Skin disease L98.9 Assessments Encounter Date Diagnosis (ICD Code) Assessment Notes Treatment Notes Treatment Clinical Notes Section Notes 09/10/2023 Type 2 diabetes mellitus with diabetic polyneuropathy (ICD-10 - E11.42) 01/08/2024 Type 2 diabetes mellitus with diabetic polyneuropathy (ICD-10 - E11.42) 09/10/2023 Xerosis cutis (ICD-10 - L85.3) 01/08/2024 Xerosis cutis (ICD-10 - L85.3) 09/10/2023 Skin disease (ICD-10 - L98.9) 01/08/2024 Skin disease (ICD-10 - L98.9) Plan Of Treatment Pending Test Test Name Order Date 86873-RUCO SKIN LESIONS, OVER 4 04/10/19 24 83371-NYOC SKIN LESIONS, OVER 4 09/10/19 24 38136-TNVU NAIL(S) 04/10/2023 F5334-ACTVEUKL DYSTROPHIC NAILS ANY # Insurance Providers Payer Name Payer Address Payer Phone Subscriber Number Group Number Insured Name Patient Relationship to Insured Coverage Start Date Coverage End Date Medicare National Govt Sv[employer] [address] [place] [address] [id number] Chinedu Siddiqi Self - patient is the insured [employer] [address] [place] [address] [id number] Chinedu Siddiqi Self - patient is the insured Medical (General) History Medical History History ICD Code type II diabetes Hypertension b12 nutritional deficiency prostatic hyperplasia Sleep apnea Peripheral vascular disease Cancer Measles Mumps Chicken pox Back,Hip,and Knee pain Cataracts Psoriasis/eczema Arthritis Poor circulation Joint implants/screws urinary blockage Surgical History Surgery Date(Month/Year) spine surgery Albert cataract surgery 1999' eye surgery retinal detachment malignant melanoma 2000 left shoulder surgery 12/2022 Right shoulder repair Urinary Blockage- Open up Urethra- Kidne y Stone 11/2023
[2024-05-25 08:06] LABS: MANUAL DIFF FLAG NO
[2024-05-25 08:24] LABS: Basophils Percent Auto 0.5 % (0-2); Eosinophils Absolute Auto 0.1 X10*3/uL (0.0-0.4); Eosinophils Percent Auto 1.1 % (0-4); Hematocrit 41.7 % (42.0-52.0); Hemoglobin 14.5 g/dl (14.0-18.0); Imm Gran Abs Auto 0.01 X10*3/uL (0.00-0.03); Imm Gran Pct Auto 0.2 % (0.0-0.4); Lymphocytes Absolute Auto 1.6 X10*3/uL (1.2-4.9); Lymphocytes Percent Auto 36.7 % (20-40); Mean Corpuscular HGB Conc 34.8 g/dl (31.0-36.0); Mean Corpuscular Volume 89.1 fL (80.0-98.0); Mean Platelet Volume 9.7 fL (9.4-12.4); Monocytes Absolute Auto 0.5 X10*3/uL (0.1-1.2); Monocytes Percent Auto 10.4 % (2-11); Neutrophils Absolute Auto 2.3 x10*3/uL (2.0-8.3); Neutrophils Percent Auto 51.1 % (45-73); Platelet Count 159 X10*3/uL (160-400); Red Blood Count 4.68 X10*6/uL (4.60-5.80); Red Cell Distribution Width 13.3 % (11.0-16.0); White Blood Count 4.4 X10*3/uL (4.8-10.8)
[2024-05-25 08:36] LABS: Estimated Average Glucose 163 mg/dL; Hemoglobin A1c % 7.3 % (<6.0)
[2024-05-25 09:06] LABS: Alanine Aminotransferase 66 U/L (0-40); Albumin Level 3.9 g/dL (3.5-5.0); Alkaline Phosphatase 51 U/L (39-117); Anion Gap 14 (12-20); Aspartate Amino Transferase 56 U/L (5-37); Bilirubin Total 0.5 mg/dL (0.0-1.0); Blood Urea Nitrogen 21 mg/dL (9-16); Calcium 9.6 mg/dL (8.4-10.2); Carbon Dioxide 26 mmol/L (22-29); Chloride 106 mmol/L (96-108); Cholesterol 163 mg/dL (<200); Estimated Glomerular Filt Rate > 60; Glucose Random 141 mg/dL (60-115); HDL Cholesterol 30 mg/dL (>40); LDL Cholesterol Calculated 100 mg/dL (<100); Potassium 4.6 mmol/L (3.3-5.1); Sodium 141 mmol/L (135-145); Triglycerides 166 mg/dL (<150)
[2024-05-25 09:22] LABS: Free T4 (Free Thyroxine) 0.87 ng/dL (0.71-1.85); Thyroid Stimulating Hormone 2.86 uIU/mL (0.32-4.0)
== END 2024-05-25 07:46 | disposition home or self-care (01) ==
LOC: HO.LAB 07:45
PROVIDERS: PCP Internal Medicine; Visit Provider Internal Medicine
DX: N49.2 Inflammatory disorders of scrotum (principal); I10 Essential (primary) hypertension; E11.65 Type 2 diabetes mellitus with hyperglycemia; E66.9 Obesity, unspecified; E78.00 Pure hypercholesterolemia, unspecified; Z79.4 Long term (current) use of insulin
CPT/HCPCS: 36415; 80053; 80061; 83036; 84439; 84443; 85025; 99212

== ENCOUNTER 2024-05-25 09:08 | Outpatient (AMB) | payer MEDICARE, SELFPAY ==
--- NOTE | 2024-05-25 09:14 | MHC.PC.OV ---
Vital Signs 05/25/24 09:15 Height 6 ft 2 in Weight 293 lb 4 oz BMI 37.6 BP 134/70 Blood Pressure Location Lt brachial Position Sitting Pulse 81 Pulse Source Pulse Oximeter Temp 97.1 F Temp Source Temporal Artery Scan Pulse Oximetry (%) 97 Oxygen Delivery Method Room Air Intake Visit Reasons: R groin abscess Intake Note: Patient is here to follow up on right groin abscess. Ready To Wear Department Manager Required: No Support Worker: Not Required per policy Accompanied by: Self / Same As Patient Allergies amlodipine Allergy (Unknown, Verified 05/25/24 09:15) Unknown atorvastatin Allergy (Unknown, Verified 05/25/24 09:15) Unknown Iodinated Contrast Media [IV CONTRAST] Adverse Reaction (Unknown, Verified 05/25/24 09:15) BLINDENESS Jardiance Adverse Reaction (Intermediate, Uncoded 05/25/24 09:15) Recurrent UTI Tobacco use date assessed: 05/25/24 Fall risk assessment: No Falls in past year Last assessed Fall Risk: 05/25/24 Dental Screening Dental Screen Date: 04/22/24 HPI R groin abscess HPI Details 68-year-old male with past medical history of diabetes mellitus, hypertension, hypercholesterolemia, urethral stricture last seen 05/17/2024 coming in for follow up on acute problem. At his last visit with Dr. Richter he mentions he had a abscess spontaneously rupture advised to continue on doxycycline and Augmentin was added to medication regimen advised to continue with regular dressing changes. Patient recently completed course of Augmentin yesterday. He has not had any further drainage from the wound since Friday and has been using ABD pads to dress the wound and has not noticed them saturated. Previously he was saturating these dressings. He is no longer having pain in this area and has no other concerns today. 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 Mother No problems noted. Social History Housing: Apartment Alcohol intake: never Patient Tobacco Use Status: Former Tobacco user Tobacco use type: Cigarette Years Smoked: teenager stopped e-Cigarette/Vaping Use: Never Used Second Hand Smoke Exposure: Yes Substance Use Type: Former Substance User and Marijuana service: No Current occupational status: retired Cognitive needs: No Hearing needs: No Vision needs: Yes (glasses) Questionnaire Thrive Questionnaire Date Thrive assessed: 04/22/24 YAZAN-7 AMB Questionnaire YAZAN-7 Date YAZAN - 7 assessed: 04/22/24 Source: Developed by Drs. Bismark Fraire, Claudine Anderson, Ry Aguilar and colleagues, with an educational huma from [employer]. Review of Systems Const Denies body aches, Denies chills, Denies fever(s) and Denies poor appetite Eyes Reports no additional complaints ENT Reports no additional complaints Card Denies chest pain, Denies lightheadedness and Denies dyspnea Resp Denies dyspnea GI Reports no additional complaints, Denies diarrhea, Denies nausea and Denies vomiting Reports no additional complaints Musc Reports no additional complaints and Denies abnormal gait Skin/Breast Reports system reviewed and no additional complaints, except as documented Neuro Denies abnormal gait Psych Reports no additional complaints Physical exam (Primary Care) Vital Signs: Last Vital Signs Temp 97.1 F 05/25/24 09:15 Pulse 81 05/25/24 09:15 BP 134/70 05/25/24 09:15 Pulse Ox 97 05/25/24 09:15 Oxygen Delivery Method Room Air 05/25/24 09:15 BMI result Body Mass Index 37.6 Tobacco/Smoking Status: Tobacco use Status Tobacco use date assessed 05/25/24 05/25/24 09:16 Patient Tobacco Use Status Former Tobacco user 05/25/24 09:16 Tobacco use type Cigarette 05/25/24 09:16 e-Cigarette/Vaping Use Never Used 05/25/24 09:16 Thrive Assessment: Date of Thrive Assessment Date Thrive assessed 04/22/24 05/25/24 09:16 Const General: cooperative, healthy appearing, comfortable and no acute distress Orientation/consciousness: patient oriented x3 HENMT Head: Yes normocephalic Ears: hearing grossly normal bilaterally General nose exam: Normal external nose present Eyes General: appearance normal, both eyes and all related structures Conjunctivae: conjunctivae normal Neck Neck: Yes full ROM and Yes no lymphadenopathy Resp Effort & Inspection: normal respiratory effort Auscultation: clear to auscultation bilaterally, no crackles, no rales, no rhonchi and no wheezes Cardio Rate: regular rate Rhythm: regular rhythm Male genitals images: 1. Right groin abscess with routine healing. Small area of open skin without surrounding erythema or drainage Skin General skin exam: no rashes or lesions noted Neuro General: patient oriented x3 Gait exam (Neuro): Normal gait present Extrem General: Yes normal to inspection, Yes full ROM and No edema Psych Affect: normal affect Attitude: cooperative Insight: Good insight present (Psych) Judgement: Good judgement present (Psych) Coding Level of Care Code Est Pt Level 3 (80264) Diagnoses Scrotal abscess N49.2 Essential hypertension I10 Hypertension type: essential hypertension Type 2 diabetes mellitus with hyperglycemia, with long-term current use of insulin E11.65; Z79.4 Diabetes mellitus fpc insulin use: with termite treater use Obesity E66.9 Assessment & Plan Assessment & Plan (1) Scrotal abscess: Code(s): N49.2 - Inflammatory disorders of scrotum Category: Medical Plan: At this time wound is no longer draining and no concern for infection at this time. Wound is nontender without surrounding erythema. He does have some areas of raw skin still present, advised patient to dress the wound if he is leaving the house and if there will be friction with the thigh otherwise to leave the area open to allow air to get to the wound. Patient may use topical antibiotic creams such as bacitracin or Neosporin to prevent further infection. Reviewed with patient red flag symptoms and when to present for re-evaluation. (2) Hypertension: Code(s): I10 - Essential (primary) hypertension Category: Medical Qualifiers: Hypertension type: essential hypertension Qualified Code(s): I10 - Essential (primary) hypertension Plan: Continue on current blood pressure medication. Avoid salt intake and encourage healthy diet and regular exercise. 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 Although fruits are generally healthy they should be eaten in moderation as they are still high in sugar. Hemoglobin A1c goal of less than 7%. (4) Obesity: Code(s): E66.9 - Obesity, unspecified Category: Medical Plan: Healthy diet and regular exercise is encouraged. Plan This note was constructed using voice recognition software. While every effort has been made to ensure accuracy and audiologist, still areas may have been included sometimes these areas may affect the content or meeting of the given symptoms. Total time spent caring for the patient today was 20 minutes. This includes time spent before the visit reviewing the chart, time spent during the visit, and time spent after the visit and documentation.
[2024-05-25 09:15] VITALS: BP 134/70; PULSE 81; TEMP 36.2; O2SAT 97; BMI 37.6
--- OUTSIDE RECORDS SUMMARY | 2024-05-25 09:43 | XMS_ITS | Encounter Summary ---
Author Organization [facility] Address [phone] [facility] [place] [address] Care Team Providers Care Specimen Boss Name Role Phone Claudia Richter MD Primary Care Provider [phone] Encounter Details Date Type Department Care Team (Late st Contact Info) Description 05/15/2024 12:30 AM EST Ancillary Procedure [facility], [address] [address] Carl Hernandez, DO [address] [place] [id number] [email or web address] Social History Tobacco Use Types Packs/Day Years [...] ?? Images: Images Saved: Yes ??Accession Number: [id number] Carl Hernandez DO IMGm POINT OF CARE EX AMS documented in this encounter Visit Diagnoses Not on filedocumented in this encounter Care Teams Specimen Boss Relationship Specialty Start Date End Date Claudia Richter MD [address] [place] [id number] PCP - General Internal Medicine 05/14/24 documented as of this encounter Additional Source Comments The information contained in this document represents components of the legal health record. It is not the complete legal health record.[facility]
--- OUTSIDE RECORDS SUMMARY | 2024-05-25 09:44 | XMS_ITS | Encounter Summary ---
Author Organization [facility] Address [phone] [facility] [employer] [place] [address] Care Team Providers Care Senior Tax Manager Name Role Phone Claudia Richter MD Primary Care Provider [phone] Reason for Visit * Reason Comments Abscess Encounter Details Date Type Department Care Team ([facility] st Contact Info) Description 05/14/2024 11:57 PM EST - 05/15/2024 1:23 AM EST Emergency [facility] [address] [place] [address] Carl Hernandez, DO [address] [place] [address] [email or web address] Discharge Disposition: Home or Self Care Social [...] sent through Care Everywhere. * Abscess: Skin (Gibraltarian) documented in this encounter Medications at Time [...] Hernandez DO Authorized by: Carl Hernandez DO [place] Protocol: Emergent situation Consent obtained: Yes A [...] Exam Vital Signs: ED Triage Vitals [05/14/24 1855] Encounter Vitals Group BP (!) 155/89 Systolic [...] 05/14/24. Radiology Testing Bedside Ultrasound Final Result [facility] Patient presents as above. Symptoms consistent with [...] DO Authorized by: Carl Hernandez DO ?? [place] Protocol: ?Emergent situation ??Consent obtained: ??Yes A [...] ?? Images: Images Saved: Yes ??Accession Number: [id number] Carl Hernandez DO IMG POINT OF CARE [...] RN) documented in this encounter Care Teams Senior Tax Manager Relationship Specialty Start Date End Date Claudia Richter MD [address] [place] [phone] PCP - General Internal Medicine 05/14/24 documented as of this encounter Additional Source Comments The information contained in this document represents components of the legal health record. It is not the complete legal health record.[facility]
== END 2024-05-25 10:08 | disposition home or self-care (01) ==
PROVIDERS: PCP Internal Medicine
DX: E11.65 Type 2 diabetes mellitus with hyperglycemia (principal); Z79.4 Long term (current) use of insulin; E66.9 Obesity, unspecified; Z68.37 Body mass index [BMI] 37.0-37.9, adult; N49.2 Inflammatory disorders of scrotum; I10 Essential (primary) hypertension

== ENCOUNTER 2024-07-12 09:44 | Outpatient (AMB) | payer MEDICARE, SELFPAY ==
--- NOTE | 2024-07-12 09:51 | MHC.OFFVIS ---
Vital Signs 07/12/24 09:56 Height 6 ft 2 in Weight 296 lb BMI 38.0 BP 160/90 H Blood Pressure Location Rt brachial Position Sitting Pulse 69 Pulse Source Pulse Oximeter Pulse Oximetry (%) 96 Oxygen Delivery Method Room Air Intake Visit Reasons: 3 mo follow up Intake Note: Patient presents for overnight pulse Ox done on 04/13/24 Other Spatial Scientist Required: No Accompanied by: Self / Same As Patient Allergies amlodipine Allergy (Unknown, Verified 07/12/24 10:02) Unknown atorvastatin Allergy (Unknown, Verified 07/12/24 10:02) Unknown Iodinated Contrast Media [IV CONTRAST] Adverse Reaction (Unknown, Verified 07/12/24 10:02) BLINDENESS Jardiance Adverse Reaction (Intermediate, Uncoded 07/12/24 10:02) Recurrent UTI HPI Comments Details: History of Present Illness The patient is a 68-year-old male presenting with follow-up care for obstructive sleep apnea. His CPAP compliance report indicates an overall usage rate of 97%, with a significant adherence to nightly therapy. The CPAP therapy, currently at a setting of 12 cm H2O, is effective in reducing his residual AHI to 1.9 per hour. He has adapted to the CPAP usage, attributed to a favorable mask fit modification, and has been consistent in maintenance, using distilled water despite minor mouth dryness. The latest overnight pulse oximetry denotes satisfactory oxygen saturation. He experiences improved daytime activity levels. Patient mentions a possible facial basal cell carcinoma lesions, which may necessitate temporary modification of CPAP use. Social History - The patient occasionally experiences mouth dryness from CPAP use. - There is a noted improvement in daytime sleepiness and activity engagement. - The patient manages his sleep apnea well with adherence to CPAP therapy. - He experiences an intermittent presentation of basal cell carcinoma requiring occasional dermatological procedures. Review of Systems - Respiratory: Denies daytime naps or scheduled naps. - Sleep: Reports occasional mouth dryness. CPAP compliance review: Does patient have sufficient PAP supplies? Yes Does patient clean PAP supplies on a regular basis? Yes Does the patient use distilled water in their PAP machine water reservoir? Yes PAP compliance report reviewed. Compliance report date range: June 12 2024 through July 11 2024 Overall usage: 97 percent Usage greater than 4 hours: 93 percent PAP setting: CPAP 12 cmH2O with EPR set to 3 Average usage on days used: 5 hours and 2 minutes Average mask leakage: 0 LPM Residual AHI: 1.9 per hour Results - Diagnostics: , Overnight pulse oximetry study showed highest oxygen level at 98% and lowest at 86% Though only under 90% for a brief period ( SpO2 under for 90% times less than 3 minutes and SpO2 under 88% for less than 1 minute) 04/13/2024, HPI: 68-yr-old male presents for follow-up visit following sleep study. Patient is accompanied by his spouse. 11/10/2023, HST: Revealed severe obstructive sleep apnea with nocturnal hypoxemia w/ AHI 35/hour O2 sara 81%, SpO2 under 90% for 120 minutes and under 88% for 27 minutes study time. Average SpO2 90%. Percentage of snoring was 22%. 12/10/2023, in-lab CPAP titration study: Sleep apnea and oxygenation levels were optimized on CPAP of 13-14 cm H2O. Additionally during study, periodic limb movements of sleep were 3/hour and PLMS arousal index she has was 0.5/hour. Thus, patient was advised to start CPAP 13 cm H2O, which he received on April 02. Unfortunately, he did not tolerate CPAP 13 cm H2O once at home. He stated at this pressure he had GI upset, bloating, and some dry eye. So, he called the office requesting a decrease in the CPAP pressure, and we decreased the pressure to CPAP 12 cm H2O via his Res[facility] Pap portal. Since, he is tolerating the CPAP better. He is having much less GI bloating and dry eye. He is finding that his mind feels much clearer since he started using the CPAP. He would like to try another mask, as his current mask is blowing into his eyes some. Also his current mask prevents him from being able to read at bedtime, as it prohibit him from wearing his glasses. He notes that the respiratory [employer] had offered him another mask initially, however then stated he could not use that mask because he has a history of bilateral shoulder replacement surgery. [address], [facility] Email: [email or web address] Compliance Report Usage 04/02/2024 - 04/13/2024 Usage days 11/12 days (92%) >= 4 hours 11 days (92%) < 4 hours 0 days (0%) Usage hours 55 hours 21 minutes Average usage (total days) 4 hours 37 minutes Average usage (days used) 5 hours 2 minutes Median usage (days used) 5 hours 10 minutes Total used hours (value since last reset - 04/13/2024) 66 hours AirSense 10 AutoSet Serial number [id number] Mode CPAP Set pressure 12 cmH2O EPR Fulltime EPR level 3 Therapy Leaks - L/min Median: 10.9 95th percentile: 33.4 Maximum: 45.2 Events per hour AI: 2.1 HI: 0.3 AHI: 2.4 PFSH Medical History Diabetes Sleep apnea Fatty liver Internal hemorrhoid Diverticulosis IBS (irritable bowel syndrome) Leg wound, left H/O urinary tract infection B12 deficiency longterm (current) use of insulin History of melanoma BPH (benign prostatic hyperplasia) Obstructive sleep apnea Peripheral vascular disease Hypercholesterolemia Erectile dysfunction Hypertension Type 2 diabetes mellitus with hyperglycemia Surgical History Hx of cardiac cath History of Mohs surgery for squamous cell carcinoma of skin Hx of shoulder replacement Back pain with history of spinal surgery Hx of eye surgery Hx of cataract surgery Family History Father No problems noted. Mother No problems noted. Social History Housing: Apartment Alcohol intake: never Patient Tobacco Use Status: Former Tobacco user Tobacco use type: Cigarette Years Smoked: teenager stopped e-Cigarette/Vaping Use: Never Used Second Hand Smoke Exposure: Yes Substance Use Type: Former Substance User and Marijuana service: No Current occupational status: retired Cognitive needs: No Hearing needs: No Vision needs: Yes (glasses) Physical Exam Vital Signs: Last Vital Signs Pulse 69 07/12/24 09:56 BP 160/90 H 07/12/24 09:56 Pulse Ox 96 07/12/24 09:56 Oxygen Delivery Method Room Air 07/12/24 09:56 BMI result Body Mass Index 38.0 Const General: no acute distress Orientation/consciousness: patient oriented x3 Resp Effort & Inspection: normal respiratory effort and able to speak in complete sentences Auscultation: clear to auscultation bilaterally Neuro General: patient oriented x3 Psych Mental Status: mental status grossly normal Speech and movement: Clear speech present Attitude: cooperative Assessment & Plan Assessment & Plan (1) Severe obstructive sleep apnea: Comment: 11/10/2023, HST: AHI 35/hour O2 sara 81%, SpO2 under 90% for 120 minutes and under 88% for 27 minutes study time. Average SpO2 90%. Percentage of snoring was 22% Code(s): G47.33 - Obstructive sleep apnea (adult) (pediatric) Category: Medical (2) Nocturnal hypoxemia: Comment: Improved on CPAP 13 cm H2O with EPR 3 therapy Code(s): G47.34 - Idiopathic sleep related nonobstructive alveolar hypoventilation Category: Medical Plan Discussion Notes During the consultation, I discussed the patient's sleep apnea management, emphasizing the excellent compliance with CPAP usage. I confirmed that the CPAP therapy settings are effectively managing his sleep apnea. We addressed the concerns regarding occasional mouth dryness, recommending an increase in CPAP humidity or trying Xylimelts, which I described as non-detrimental to dental health but restricted from canine exposure. The patient also discussed recent basal cell carcinoma management with cryotherapy and potential upcoming procedures. We jointly decided that should further interventions be needed, a temporary adaptation in his sleep therapy might be required. I recommended he return in a year, contingent upon maintaining current sleep apnea management success, yet encouraged prompt communication should issues arise. Plan and patient instructions: The patient is advised to continue current CPAP settings due to effective AHI reduction. For mouth dryness, adjust humidity or trial Xylimelts. Monitor any basal cell carcinoma treatments to coordinate sleep therapy. - Continue to use CPAP 12 cmH2O with EPR set to 3 nightly with a goal of greater than 4 hours nightly, as patient is experiencing good clinical effect from use. - You may adjust CPAP humidity levels as needed - Trials XyliMelts, 1-2 tabs applied to gums at bedtime. - Clean and change PAP supplies routinely, including filters, masks, tubing, and water reservoir. - Use distilled water in PAP water reservoir. - Follow up in one year unless otherwise indicated. Patient was informed and verbally consented to the use of an ambient scribe for clinic note documentation during this visit. Coding Level of Care Code Est Pt Level 3 (41296) Diagnoses Severe obstructive sleep apnea G47.33 Nocturnal hypoxemia G47.34
[2024-07-12 09:56] VITALS: BP 160/90; PULSE 69; O2SAT 96; BMI 38.0
--- OUTSIDE RECORDS SUMMARY | 2024-07-12 11:13 | XMS_ITS | Patient Health Record ---
Author Organization [facility] Address [address] [place] [address] Care Team Providers Care Data Processing Specialist Name Role Phone Claudia Richter Primary Care Provider UnavailShelbi Andrew Unavailable [phone] Eric Gonzalse Unavailable [phone] Allergies Allergen (clinical drug ingredient) Drug/Non Drug [...] Polyneuropathy due to type 2 diabetes mellitus ([id number]) Type 2 diabetes mellitus with diabetic polyneuropathy (E11.42) Active confirmed Vital Signs Blood pressure diastolic 90 mm Hg 01/08/2024 Height 6ft 2in in 01/08/2024 Blood pressure systolic 130 mm Hg 01/08/2024 Weight 282 lbs 01/08/2024 BMI 36.2 kg/m2 01/08/2024 Procedures Procedure Date Ordered Date Performed Result Body Sit e 45226-GSXU SKIN LESIONS, OVER 4 09/10/2023 N/A Y0590-SNMPCYWI DYSTROPHIC NAILS ANY # 09/10/2023 N/A Encounters Encounter Location Date Provider Diagnosis [facility] [address] [address] 05/13/2024 [facility] [address] 09/10/2023 Eric Gonzales Type 2 diabetes mellitus with diabetic polyneuropathy E11.42 ; Xerosis cutis L85.3 and Skin disease L98.9 [facility] [address] 01/08/2024 Eric Gonzales Type 2 diabetes mellitus [...] L85.3) 01/08/2024 Xerosis cutis (ICD-10 - L85.3) 01/08/2024 Skin disease (ICD-10 - L98.9) 09/10/2023 Skin disease (ICD-10 - L98.9) Plan Of Treatment Pending Test Test Name Order Date 63813-NUFF SKIN LESIONS, OVER 4 04/10/19 07113-UXZG SKIN LESIONS, OVER 4 09/10/19 39472-BTYR NAIL(S) 04/10/2023 N5329-[id number] DYSTROPHIC NAILS ANY # Next Appt Details Provider Name:Shelbi Lakeshia freedman, 07/29/2024 02:00:00 PM, [address] [place] [address], [phone], Insurance Providers Payer Name Payer Address Payer Phone Subscriber Number Group Number Insured Name Patient Relationship to Insured Coverage Start Date Coverage End Date Medicare National [employer] [address] [place] [address] [id number] Chinedu Siddiqi Self - patient is the insured [employer] [address] [place] [address] [id number] Chinedu Siddiqi Self - patient is the [...]
--- OUTSIDE RECORDS SUMMARY | 2024-07-12 11:13 | XMS_ITS ---
Author Organization [facility] Address [address] [facility] [place] [address] Care Team Providers Care Field Handyman Name Role Phone Claudia Richter Primary Care Provider Shelbi Joe Unavailable [phone] Allergies Allergen (clinical drug ingredient) Drug/Non Drug [...] Active Encounters Encounter Location Date Provider Diagnosis [facility] [address] [address] 05/13/2024 Shelbi Lizama Plan Of Treatment Next Appt Details Provider Name:Shelbi freedman, 07/29/2024 02:00:00 PM, [address] [place] [address], [phone], Progress Notes * Chinedu BAG[birth year]DOB:[birth year] (68 yo M)Acc No.[id number]:05/13/2024 Progress Note Patient:?Chiendu BAGLEY Provider:?Shelbi Lizama DPM :1955???Age:68 Y???Sex:Male Roney e:05/13/2024 Address:[place] [address] Pcp:Claudia Richter Subjective: * Chief Complaints: * [...] Lizama DPM Date:?0 05/13/2024 Generated for Mahnaz tipton/Lacho/Sereneitting on:?07/12/2024 11:13 AM EDT
--- OUTSIDE RECORDS SUMMARY | 2024-07-12 11:13 | XMS_ITS ---
[facility] Organization [facility] Address [address] [place] [address] Care Team Providers Care Mine Superintendent Name Role Phone Claudia Richter Primary Care Provider UnavailShelbi Andrew Unavailable [phone] Eric Gonzales Unavailable [phone] Allergies Allergen (clinical drug ingredient) Drug/Non Drug [...] other tobacco user? No Vital Signs Height 6ft 2in in 01/08/2024 Weight 282 lbs 01/08/2024 BMI 36.2 kg/m2 01/08/2024 Blood pressure systolic 130 mm Hg 01/08/20 24 Blood pressure diastolic 90 mm Hg 024 Encounters Encounter Location Date Provider Diagnosis [facility] [address] [place] [address] 01/08/2024 Eric Gonzales Type 2 diabetes mellitus [...] Up: 3 Months, 4 Month s, Reason: Provider Name:Shelbi freedman, 07/29/2024 02:00:00 PM, [address] [place] [address], [phone], Procedure Notes * Category Sub-Category Detail Notes Keratoma Treatment Parring or Cutting o f Benign Hyperkeratotic Lesion(s) 49373 ( More than 4 Lesions ) - [...] healthy nail plate or bed tissue 6-10 (69402) Progress Notes * Chinedu BAGLEYDOB:[birth year] (68 yo M)Acc No.[id number]:01/08/2024 Progress Note Patient:?Chinedu Bagley Provider:?Eric Gonzales DPM :1955???Age:68 Y???Sex:Male Roney e:01/08/2024 Address:[place] [address] [place], [place] [id number] Pcp:Claudia Richter Subjective: * Chief Complaints: * [...] 7.2 * Examination: ???Ophthalmology Referral: ?DIABETES EYE EXAM?Diabetic Retinopathy Screening:?Yes 2023 ?Findings of Diabetic Eye Exam:?no retinopathy?Neurological: ?SENSORY:?Neurological exam demonstrates , reduced vibration sensation [...] and in no acute distress.?ORIENTED:?person,place, and time.?FOOT EXAM:?Lower Extremity Neurological Exam performed:?Yes ?Visual exam of foot performed:?Yes ?Date?04/10/2023 ?Sensory testing performed:?sensations diminished ?Pedal pulse taking performed:?2+?Orthopedic: ?MUSCLE STRENGTH:?5/5 all groups in a symmetrical [...] Procedures:?Keratoma Treatment:?Parring or Cutting of Benign Hyperkeratotic Lesion(s)?95964 ( More than 4 Lesions ) - The Benign hyperkeratotic lesions, as described above were pared, and/or cut utilizing a sterile 15 blade, tissue nippers, and/or dremel.?Nail Reduction:?Nail Reduction?Trimming of non-dystrophic nails performed to reduce/remove overall nail length and girth, by manual and electrical means with use of a nail nipper and/or dremel, to more viable healthy nail plate or bed tissue 6-10 (73841).? * Procedure Codes:?24918 TRIM SKIN LESIONS, OVER 4, Modifiers: XS G0127 TRIMMING DYSTROPHIC NAILS ANY #, Modifiers: XS * Follow Up:?3 Months, 4 Month s * Images: * Sign off status: Completed true * Provider:?Eric Gonzales DPM Date:? 024 Generated for Mahnaz tipton/Lacho/eTransmitting on:?07/12/2024 11:13 AM EDT History and Physical Notes * HPI (History [...]
--- OUTSIDE RECORDS SUMMARY | 2024-07-12 11:13 | XMS_ITS ---
Author Organization [facility] Address [address] [facility] [place] [address] Care Team Providers Care Airborne Operations Superintendent Name Role Phone Claudia Richter Primary Care Provider UnavailShelbi Andrew Unavailable [phone] Eric Gonzales Unavailable [phone] Allergies Allergen (clinical drug ingredient) Drug/Non Drug [...] Ordered Date Performed Result Body Sit e 04366-EEUB SKIN LESIONS, OVER 09/10/2023 N/A N6340-[id number] DYSTROPHIC NAILS ANY # 09/10/2023 N/A Encounters Encounter Location Date Provider Diagnosis [facility] [place] [address] [place] [address] 09/10/2023 Eric Gonzales Type 2 diabetes mellitus [...] Treatment Pending Test Test Name Order Date 93217-DMAP SKIN LESIONS, OVER 4 09/10/19 D7513-[id number] DYSTROPHIC NAILS ANY # Next Appt Details Follow Up: 3 Months, 4 Month s, Reason: Provider Name:Shelbi freedman, 07/29/2024 02:00:00 PM, [address] [place], [address], Procedure Notes * Category Sub-Category Detail Notes Keratoma Treatment Parring or Cutting o f Benign Hyperkeratotic Lesion(s) 79452 ( More than 4 Lesions ) - [...] healthy nail plate or bed tissue 6-10 (38852) Progress Notes * Chinedu BAGLEY JDOB:[birth year] (67 yo M)Acc No.[id number]:09/10/2023 Progress Note Patient:?Chinedu Bagley Provider:?Eric Gonzales DPM :1955???Age:67 Y???Sex:Male Roney e:09/10/2023 Address:[place] [address] Pcp:Claudia Richter Subjective: * Chief Complaints: * [...] Surgical History:?spine surg enriqueta Albert cataract surgery 1999'seye surgery retinal detachment malignant melanoma 2001le shoulder surgery 12/2022Right shoulder repair * Hospitalization/Major [...] ???Ophthalmology Referral: ?DIABETES EYE EXAM?Diabetic Retinopathy Screening:?Yes 09/2022 ?Findings of Diabetic Eye Exam:?no retinopathy?Neurological: ?SENSORY:?Neurological exam demonstrates , reduced vibration sensation , 5.07 monofilament test performed at plantar aspects of 5 varied sites per foot shows sensation.?Vascular: ?DP PULSES:?/4, B/L.?PT PULSES:?04/10, B/L.?CAPILLARY FILL TIME:?3 secs. per digit. B/L.?SKIN TEMPERTURE GRADIENT OF THE LOWER EXTERMITIES:?normal, B/L.?HAIR GROWTH/TEXTURE/ELASTICITY/TURGOR:?normal, B/L.?PIGMENTATION:?normal, B/L.?EDEMA:?1/4 , B/L , Foot , Ankle(s) , [...] Procedures:?Keratoma Treatment:?Parring or Cutting of Benign Hyperkeratotic Lesion(s)?39661 ( More than 4 Lesions ) - The Benign hyperkeratotic lesions, as described above were pared, and/or cut utilizing a sterile 15 blade, tissue nippers, and/or dremel.?Nail Reduction:?Nail Reduction?Trimming of non-dystrophic nails performed to reduce/remove overall nail length and girth, by manual and electrical means with use of a nail nipper and/or dremel, to more viable healthy nail plate or bed tissue 6-10 (93850).? * Procedure Codes:?73643 TRIM SKIN LESIONS, OVER 4, Modifiers: XS G0127 TRIMMING DYSTROPHIC NAILS ANY #, Modifiers: XS * Follow Up:?3 Months, 4 Month s * Images: * Sign off status: Completed true * Provider:?Eric Gonzales DPM Date:? 024 Generated for Mahnaz tipton/Lacho/Val on:?07/12/2024 11:13 AM EDT History and Physical [...]
--- OUTSIDE RECORDS SUMMARY | 2024-07-12 11:14 | XMS_ITS | Patient Health Record ---
Author Organization [facility] Address [address] [place] [address] Care Team Providers Care Motor Builder Assembler Name Role Phone Po Claudia BORJA Primary Care Provider Bismark Moody [phone] Allergies Allergen (clinical drug ingredient) Drug/Non Drug Allergy documented on EMR Reaction Allergy Type Onset Date Status IVP dye (uncoded) Unknown Allergy Ac tive Reason For Referral No Information Medications Medication [...] BY MOUTH DAILY Oral for 90 Active Immunizations Vaccine Route Administration Date Status Comme nts Influenza Unknown 01/21/2018 Administered Influenza Unknown 01/05/2022 Administered Problems Problem Type SNOMED Code ICD Code Onset Dates Problem Status W/U Status Risk Notes Problem 360466887 Encounter for screening for malignant neoplasm of colon (Z12.11) Active confirmed Problem 774200169 History of adenomatous polyp of colon (Z86.010) Active confirmed Problem History of polyp of colon (situation) (557090545) Personal history of colonic polyps (Z86.010) Active confirmed Problem Diverticular disease of colon (646469531) Diverticulosis of large intestine without perforation or abscess without bleeding (K57.30) Active confirmed Problem Screening for malignant neoplasm of rectum (899788561) Encounter for screening for malignant neoplasm of rectum (Z12.12) Active confirmed Problem 100620488 Elevated liver function tests (R79.89) Active confirmed Problem 669312721 Elevated liver enzymes (R74.8) Active confirmed Problem 461969419 Fatty liver (K76.0) Active confirmed Problem 005518982 Liver mass (R16.0) Active confirmed Problem 927391299 Long-term use of aspirin therapy (Z79.82) Active confirmed Problem 250176626 Liver lesion (K76.9) Active confirmed Plan Of Treatment Pending Test Test Name Order Date BUN 06/01/2015 BUN 02/15/2016 CREATININE 02/15/2016 CREATININE 06/01/2015 LIVER PROFILE 02/16/2015 CEA 02/16/2015 ALPHA-FETOPROTEIN,TUMOR MARKER 5 MRI ABD W&WO CONTRAST 02/15/2016 MRI ABD W&WO CONTRAST 06/01/2015 Pathology 05/17/2022 Future Test Test Name Order Date COLONOSCOPY 06/01/2015 COLONOSCOPY 09/15/2018 COLONOSCOPY 04/02/2022 Insurance Providers Payer Name Payer Address Payer Phone Subscriber Number Group Number Insured Name Patient Relationship to Insured Coverage Start Date Coverage End Date MEDICARE OF [place] [address] [place] [address] [id number] OLIVIA ROBERTS Self - patient is the insured [employer] ATT[employer] CLAIMS [address] [place] [address] [id number] OLIVIA ROBERTS Self - patient is the insured Medical (General) History Medical History History ICD Code Hx. of tubular adenomas-2 cecal polyps r emoved in 01/2009 IBS Diverticulosis Small internal hemorrhoids HTN DM Denies [place],CVA,Lung disease,renal disease E.coli urosepsis in 02/2015 Colonoscopy [...] Surgical History Surgery Date(Month/Year) Malignant lesion on lijs-gxryuxal-kujwtu d at [facility] 2000 Cataract surgery in both eyes Detached retina surgery in both eyes Shoulder replacement on the right--Dr. Gm alanis 2020
--- OUTSIDE RECORDS SUMMARY | 2024-07-12 11:14 | XMS_ITS | Clinical Summary ---
Author Organization [facility] Address [address] [place] [phone] Phone Care Team Providers Care Credit Union Field Examiner Name Role Phone Claudia Richter MD Primary Care Provider [phone] Allergies Active Allergy Reactions Criticality Noted Date [...] 50 mg by mouth as needed. Active Encounters Date Type Department Care Team Description 05/15/2024 12:30 AM EST Ancillary Procedure [address] [address] Carl Hernandez DO 05/14/2024 11:57 PM EST - 05/15/2024 1:23 AM EST Emergency [facility] [address] [place] [address] Carl Hernandez, DO Discharge Disposition: Home or [...] POTASSIUM LEVEL 1955 DEPRESSION SCREENING 1965 HEPATITIS C SCREENING 12/05/1971 SMOKING STATUS SCREENING [...] US BEDSIDE Routine 05/15/2024 12:29 AM EST from Last 3 Months Results * INCISION AND DRAINAGE (05/15/2024 12:45 AM EST) Narrative Carl Hernandez DO - 05/15/2024 12:45 AM EST Carl Hernandez, DO ? 05/15/2024 12:46 AM Incision and Drainage Date/Time: 05/15/2024 12:45 AM Performed by: Carl Hernandez DO Authorized by: Carl Hernandez, DO ?? Moody Protocol: ?Emergent situation ??Consent obtained: ??Yes A [...] Narrative 05/15/2024 12:29 AM EST Carl Hernandez, ? 05/15/2024 12:45 AM Bedside Ultrasound Date/Time: [...] ?? Images: Images Saved: Yes ??Accession Number: [id number] Carl Hernandez DO IMG POINT OF CARE EX AMS from Last 3 Months Care Teams Credit Union Field Examiner Relationship Specialty Start Date End Date Claudia Richter MD [address] [place] [address] PCP - General Internal Medicine 05/14/24 Additional Source Comments The information contained in this document represents components of the legal health record. It is not the complete legal health record.[facility]
== END 2024-07-12 10:45 | disposition home or self-care (01) ==
LOC: HO.HSMS 09:44
PROVIDERS: PCP Internal Medicine; Visit Provider Nurse Practitioner Family
DX: G47.33 Obstructive sleep apnea (adult) (pediatric) (principal); G47.34 Idiopathic sleep related nonobstructive alveolar hypoventilation
CPT/HCPCS: 99213

== ENCOUNTER → 2024-07-12 09:44 | Outpatient (BNVA) | payer MEDICARE, SELFPAY | PROVIDERS: PCP Internal Medicine; Visit Provider Nurse Practitioner Family | DX: G47.33 Obstructive sleep apnea (adult) (pediatric) (principal); G47.34 Idiopathic sleep related nonobstructive alveolar hypoventilation; Z99.89 Dependence on other enabling machines and devices | CPT/HCPCS: 99212 ==

== ENCOUNTER 2024-08-11 10:45 | Outpatient (AMB) | payer MEDICARE, SELFPAY ==
[2024-08-11 10:51] VITALS: BP 142/88; PULSE 69; O2SAT 94; BMI 37.9
--- NOTE | 2024-08-11 10:51 | MHC.PC.OV ---
Vital Signs 08/11/24 10:51 08/11/24 11:38 Height 6 ft 2 in Weight 295 lb BMI 37.9 BP 142/88 H 134/70 Blood Pressure Location Lt brachial Lt brachial Position Sitting Sitting Pulse 69 Pulse Source Pulse Oximeter Pulse Oximetry (%) 94 Oxygen Delivery Method Room Air Intake Visit Reasons: follow up Allergies amlodipine Allergy (Unknown, Verified 08/11/24 10:51) Unknown atorvastatin Allergy (Unknown, Verified 08/11/24 10:51) Unknown Iodinated Contrast Media [IV CONTRAST] Adverse Reaction (Unknown, Verified 08/11/24 10:51) BLINDENESS Jardiance Adverse Reaction (Intermediate, Uncoded 08/11/24 10:51) Recurrent UTI Tobacco use date assessed: 05/25/24 Fall risk assessment: No Falls in past year Last assessed Fall Risk: 08/11/24 Dental Screening Dental Screen Date: 04/22/24 [facility] Medical History Diabetes Sleep apnea Fatty liver Internal hemorrhoid Diverticulosis IBS (irritable bowel syndrome) Leg wound, left H/O urinary tract infection B12 deficiency detention (current) use of insulin History of melanoma BPH (benign prostatic hyperplasia) Obstructive sleep apnea Peripheral vascular disease Hypercholesterolemia Erectile dysfunction Hypertension Type 2 diabetes mellitus with hyperglycemia Surgical History Hx of cardiac cath History of Mohs surgery for squamous cell carcinoma of skin Hx of shoulder replacement Back pain with history of spinal surgery Hx of eye surgery Hx of cataract surgery Family History Father No problems noted. Mother No problems noted. Social History Housing: Apartment Alcohol intake: never Patient Tobacco Use Status: Former Tobacco user Tobacco use type: Cigarette Years Smoked: teenager stopped e-Cigarette/Vaping Use: Never Used Second Hand Smoke Exposure: Yes Substance Use Type: Former Substance User and Marijuana service: No Current occupational status: retired Cognitive needs: No Hearing needs: No Vision needs: Yes (glasses) Questionnaire PHQ-9 Over the last 2 weeks, how often have you been bothered by any of the following problems? 1. Little interest or pleasure in doing things: not at all 2. Feeling down, depressed, or hopeless: not at all 3. Trouble falling or staying asleep, or sleeping too much: not at all 4. Feeling tired or having little energy: not at all 5. Poor appetite or overeating: not at all 6. Feeling bad about yourself - or that you are a failure or have let yourself or your family down: not at all 7. Trouble concentrating on things, such as reading the newspaper or watching television: not at all 8. Moving or speaking so slowly that other people could have noticed. Or the opposite - being so fidgety or restless that you have been moving around a lot more than usual: not at all 9. Thoughts that you would be better off or of hurting yourself in some way: not at all Total score: 0 Depression Screening Interpretation: Negative Depression Screening Done: Yes 08424 - PHQ-9 Billing: Yes Source: Developed by Drs. Bismark Fraire, Claudine Anderson, yR Aguilar and colleagues, with an educational huma from [employer]. Thrive Questionnaire Date Thrive assessed: 04/22/24 I am a: Patient What is your living situation today?: I have a steady place to live Within the past 12 months, did the food you bought not last and you didn't have the money to get more?: I choose not to answer this question Within the past 12 months, did you worry whether your food would run out before you got money to buy more?: I choose not to answer this question Do you have trouble paying for medicines?: No Do you have trouble getting transportation to medical appointments?: No Do you have trouble paying your heating and electricity bill?: No Do you have trouble taking care of your child, family member or friend?: No Do you have trouble with day-to-day activities such as bathing, preparing meals, shopping, managing finances, etc.?: No Are you currently unemployed and looking for a job?: No Are you interested in more education?: No Please select the resources that you would like help with: None Currently or been in a relationship where the following occur: No concerns reported THRIVE Score: 0 AUDIT C Alcohol Use Questionnaire (AUDIT-C) 1. How often do you have a drink containing alcohol?: Monthly or less 2. How many drinks containing alcohol do you have on a typical day when you are drinking?: 1 or 2 3. How often do you have six or more drinks on one occasion?: Never Total Score: 1 YAZAN-7 AMB Questionnaire YAZAN-7 Date YAZAN - 7 assessed: 04/22/24 Feeling nervous, anxious, or on edge: 0 = Not at all Not being able to stop or control worryin = Not at all Worrying too much about different things: 0 = Not at all Trouble relaxin = Not at all Being so restless that it is hard to sit still: 0 = Not at all Becoming easily annoyed or irritable: 0 = Not at all Feeling afraid as if something awful might happen: 0 = Not at all Total YAZAN-7 score (0-4 normal; 5-9 mild; 10-14 moderate; 15-21 severe): 0 Source: Developed by Drs. Bismark Fraire, Claudine Anderson, Ry Aguilar and colleagues, with an educational huma from [employer]. YAZAN-7 Assessment Billing YAZAN-7 Assessment Tool: YAZAN-7 Assessment 35510 Physical exam (Primary Care) Vital Signs: Last Vital Signs Pulse 69 08/11/24 10:51 BP 134/70 08/11/24 11:38 Pulse Ox 94 08/11/24 10:51 Oxygen Delivery Method Room Air 08/11/24 10:51 BMI result Body Mass Index 37.9 Tobacco/Smoking Status: Tobacco use Status Tobacco use date assessed 05/25/24 08/11/24 10:52 Patient Tobacco Use Status Former Tobacco user 08/11/24 10:52 Tobacco use type Cigarette 08/11/24 10:52 e-Cigarette/Vaping Use Never Used 08/11/24 10:52 PHQ-9: PHQ-9 Score PHQ-9: Total score 0 08/11/24 11:37 Depression Screening Interpretation: Negative Thrive Assessment: Date of Thrive Assessment Date Thrive assessed 04/22/24 08/11/24 10:52 Currently or been in a relationship where the following occur: No concerns reported Const General: alert; No acute distress Eyes Conjunctivae: conjunctivae normal Resp Auscultation: clear to auscultation bilaterally Cardio Rate: regular rate Rhythm: regular rhythm GI Inspection: Yes normal to inspection Extrem General: Yes normal to inspection and No edema Results AMB Hemoglobin A1c AMB Hemoglobin A1c 8.4 % Last Edit by Lorraine Atkins CMA on 08/11/24 11:12 Results Reviewed Results Reviewed: Laboratory Last Values Hgb A1c (Clinic) 8.4 % (4.0-6.0) H 08/11/24 10:58 Coding Level of Care Code Est Pt Level 4 (69974) Complex EM visit Add On G2211 Diagnoses Type 2 diabetes mellitus with hyperglycemia, with long-term current use of insulin E11.65; Z79.4 Diabetes mellitus [facility] insulin use: with remote computer terminal operator use Essential hypertension I10 Hypertension type: essential hypertension Hypercholesterolemia E78.00 Severe obstructive sleep apnea G47.33 Scrotal abscess N49.2 Additional Codes YAZAN-7 Assessment Billing - YAZAN-7 Assessment Tool: YAZAN-7 Assessment 31863 ([id number]) PHQ-9 - 04728 - PHQ-9 Billing: Yes ([id number]) Assessment & Plan Assessment & Plan (1) Type 2 diabetes mellitus with hyperglycemia: Code(s): E11.65 - Type 2 diabetes mellitus with hyperglycemia Category: Medical Qualifiers: Diabetes mellitus remote computer terminal operator insulin use: with remote computer terminal operator use Qualified Code(s): E11.65 - Type 2 diabetes mellitus with hyperglycemia; Z79.4 - detention (current) use of insulin Plan: Decrease the amount of carbohydrate intake, pasta, bread, rice and potatoes are all sugar and that is aside from all the sweet stuff, remember that fruits are good but they are Sweet also. Hemoglobin A1c goal of less than 7.0 patient is on insulin Soliqua 30 units twice a day metformin a 1000 mg twice a day (2) Hypertension: Code(s): I10 - Essential (primary) hypertension Category: Medical Qualifiers: Hypertension type: essential hypertension Qualified Code(s): I10 - Essential (primary) hypertension Plan: Continue with blood pressure medication. Decrease salt intake and exercise continue with metoprolol losartan (3) Hypercholesterolemia: Code(s): E78.00 - Pure hypercholesterolemia, unspecified Category: Medical (4) Severe obstructive sleep apnea: Comment: 11/10/2023, HST: AHI 35/hour O2 sara 81%, SpO2 under 90% for 120 minutes and under 88% for 27 minutes study time. Average SpO2 90%. Percentage of snoring was 22% Code(s): G47.33 - Obstructive sleep apnea (adult) (pediatric) Category: Medical Plan: Patient has met with sleep Medicine and discussed about the importance of getting CPAP treatment (5) Scrotal abscess: Code(s): N49.2 - Inflammatory disorders of scrotum Category: Medical Plan: Patient had I and D and antibiotic treatment. Plan History of Present Illness The patient is a 68-year-old male presenting with obstructive sleep apnea and a prior scrotal abscess. His obstructive sleep apnea has a severe classification with an AHI of 35, highlighting the necessity for continued discussions on adherence to CPAP therapy. While his diabetes regimen includes Siliqua and metformin, a hemoglobin A1c of 8.4% indicates a need for tighter glucose control, prompting discussions around using a continuous glucose monitoring device. He continues treatment for essential hypertension with metoprolol and losartan. In May 2024, he received treatment for a scrotal abscess with antibiotic therapy following a failed IND attempt. Laboratory results from May 25 reveal mild leukocytosis, leukocytopenia, and thrombocytopenia, while renal function was within normal limits. His liver function shows chronic elevation, with an LDL level of 100 mg/dL. Health Maintenance - Discussed the use of continuous glucose monitoring systems (Freestyle or Dexcom) to manage diabetes. - Monitored hemoglobin A1c with a goal of less than 7.0%. - Chronic condition management for hypertension and diabetes. - Ongoing evaluation and management of obstructive sleep apnea with sleep medicine team. Social History - The patient is reportedly cautious with finances. - Follows up with podiatry for ongoing foot care. - Discussion of medication use and adherence for chronic conditions. Review of Systems - General: Denies fever. - Respiratory: Reports obstructive sleep apnea but following up with sleep medicine. - Cardiovascular: Reports hypertension under control with medication. - Endocrine: Reports type 2 diabetes mellitus, managed with insulin and metformin. - Genitourinary: Reports past scrotal abscess. - Musculoskeletal: Denies significant concerns. - Hematologic: Reports mild leukocytosis, leukocytopenia, and thrombocytopenia from prior testing. Physical Exam Results - Labs: Hemoglobin A1c 8.4%, mild leukocytosis, leukocytopenia, thrombocytopenia, and chronically elevated liver function tests. - Tests: AHI of 35 events per hour indicating severe obstructive sleep apnea. Plan 1. 0%. The scrotal abscess, previously treated with antibiotics, will be regularly monitored for resolution. Current hypertension management will continue with metoprolol and losartan. Given recent laboratory findings of mild leukocytosis, leukocytopenia, and thrombocytopenia, continued monitoring and follow-up labs are essential to observe any developments.: Patient was informed and verbally consented to the use of an ambient scribe for clinic note documentation during this visit. Discussion Notes I discussed with the patient the ongoing management of his obstructive sleep apnea, including the importance and benefits of CPAP therapy adherence. We reviewed his diabetes treatment plan, emphasizing the role a continuous glucose monitor could play in better managing blood glucose levels. This device's potential use and insurance coverage were considerations discussed. Follow-up treatment for his hypertension includes maintaining metoprolol and losartan. I explained the benign nature of his previous scrotal abscess, with no further intervention needed post-antibiotic treatment. I also discussed the importance of regular lab follow-ups for monitoring his metabolic and hematologic parameters. Patient Instructions - Continue using CPAP every night for sleep apnea. - Monitor blood sugar at home and aim for better control with goal A1c less than 7.0. - Keep taking Siliqua and metformin as prescribed. - Stay on current hypertension medications: metoprolol and losartan. - Return for scheduled follow-up visits and lab tests. - Call the office if new symptoms develop or if conditions worsen. Orders: Orders AMB Hemoglobin A1c Today Z13.9 - Encounter for screening, unspecified Lipid Panel 3 Months E78.00 - Pure hypercholesterolemia, unspecified Comprehensive Met. 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
[2024-08-11 11:38] VITALS: BP 134/70
--- OUTSIDE RECORDS SUMMARY | 2024-08-11 12:06 | XMS_ITS | Clinical Summary ---
Author Organization [facility] Address [address] [place] [id number] Phone Care Team Providers Care Disability Advocate Name Role Phone Claudia Richter MD Primary Care Provider [phone] Allergies Active Allergy Reactions Criticality Noted Date [...] Description 05/15/2024 12:30 AM EST Ancillary Procedure [address] [address] Carl Hernandez DO 05/14/2024 11:57 PM EST - 05/15/2024 1:23 AM EST Emergency [facility] [address] [place] [address] Carl Hernandez, DO Discharge Disposition: Home or [...] DO Authorized by: Carl Hernandez, DO ?? [place] Protocol: ?Emergent situation ??Consent obtained: ??Yes A [...] ?? Images: Images Saved: Yes ??Accession Number: [id number] Carl Hernandez DO IMG POINT OF CARE EX AMS from Last 3 Months Care Teams Disability Advocate Relationship Specialty Start Date End Date Claudia Richter MD [address] [place] [id number] PCP - General Internal Medicine 05/14/24 Additional Source Comments The information contained in this document represents components of the legal health record. It is not the complete legal health record.[facility]
== END 2024-08-11 11:50 | disposition home or self-care (01) ==
LOC: HO.HMCH 10:46
PROVIDERS: PCP Internal Medicine; Visit Provider Internal Medicine
DX: E11.65 Type 2 diabetes mellitus with hyperglycemia (principal); Z79.4 Long term (current) use of insulin; I10 Essential (primary) hypertension; E78.00 Pure hypercholesterolemia, unspecified; G47.33 Obstructive sleep apnea (adult) (pediatric); N49.2 Inflammatory disorders of scrotum; Z13.9 Encounter for screening, unspecified

== ENCOUNTER → 2024-08-11 10:45 | Outpatient (BNVA) | payer MEDICARE, SELFPAY | PROVIDERS: PCP Internal Medicine; Visit Provider Internal Medicine | DX: E11.65 Type 2 diabetes mellitus with hyperglycemia (principal); E78.00 Pure hypercholesterolemia, unspecified; I10 Essential (primary) hypertension; G47.33 Obstructive sleep apnea (adult) (pediatric); N49.2 Inflammatory disorders of scrotum; Z79.4 Long term (current) use of insulin | CPT/HCPCS: 83036; 96127; 99212 ==

== ENCOUNTER 2024-12-14 08:36 | Outpatient (REF) | payer MEDICARE, SELFPAY ==
[2024-12-14 11:10] LABS: Appearance Urine Clear; Glucose Urine UA 250 mg/dL (Negative); PH 5.5 (5.0-9.0); Specific Gravity - Urine 1.015 (1.005-1.025); UMIC TRIGGER UACC YES
[2024-12-14 11:25] LABS: UACC Culture Trigger YES
[2024-12-14 11:34] LABS: Alanine Aminotransferase 72 U/L (0-40); Albumin Level 4.3 g/dL (3.5-5.0); Alkaline Phosphatase 57 U/L (39-117); Anion Gap 16 (12-20); Aspartate Amino Transferase 68 U/L (5-37); Blood Urea Nitrogen 20 mg/dL (9-16); Calcium 9.4 mg/dL (8.4-10.2); Carbon Dioxide 24 mmol/L (22-29); Chloride 103 mmol/L (96-108); Cholesterol 179 mg/dL (<200); Estimated Glomerular Filt Rate > 60; HDL Cholesterol 30 mg/dL (>40); Potassium 4.4 mmol/L (3.3-5.1); Sodium 139 mmol/L (135-145); Total Protein 7.2 g/dL (6.5-8.0); Triglycerides 232 mg/dL (<150)
== END 2024-12-14 08:37 | disposition home or self-care (01) ==
LOC: HO.LAB 08:36
PROVIDERS: PCP Internal Medicine; Visit Provider Internal Medicine
DX: Z23 Encounter for immunization (principal); R30.0 Dysuria; E78.00 Pure hypercholesterolemia, unspecified; E11.65 Type 2 diabetes mellitus with hyperglycemia; I10 Essential (primary) hypertension; I73.9 Peripheral vascular disease, unspecified; N40.1 Benign prostatic hyperplasia with lower urinary tract symptoms; R35.0 Frequency of micturition; G47.33 Obstructive sleep apnea (adult) (pediatric); Z79.4 Long term (current) use of insulin
CPT/HCPCS: 36415; 80053; 80061; 81001; 83036; 87086; 87088; 87186; 90471; 90714; 99212

== ENCOUNTER 2024-12-14 08:36 | Outpatient (AMB) | payer MEDICARE, SELFPAY ==
[2024-12-14 08:49] VITALS: BP 132/70; PULSE 74; O2SAT 99; BMI 38.1
--- NOTE | 2024-12-14 08:49 | A.OFFPC_ITS ---
Vital Signs 12/14/24 08:49 Height 6 ft 2 in Weight 297 lb BMI 38.1 BP 132/70 Blood Pressure Location Lt brachial Position Sitting Pulse 74 Pulse Source Pulse Oximeter Pulse Oximetry (%) 99 Oxygen Delivery Method Room Air Intake Visit Reasons: DM , obesity, cholesterol Allergies amlodipine Allergy (Unknown, Verified 12/14/24 08:49) Unknown atorvastatin Allergy (Unknown, Verified 12/14/24 08:49) Unknown Iodinated Contrast Media (IV CONTRAST) Adverse Reaction (Unknown, Verified 12/14/24 08:49) BLINDENESS Jardiance Adverse Reaction (Intermediate, Uncoded 12/14/24 08:49) Recurrent UTI Tobacco use date assessed: 05/25/24 Fall risk assessment: 1 Fall in past year Last assessed Fall Risk: 12/14/24 Dental Screening Dental Screen Date: 04/22/24 [facility] Medical History (Updated 12/14/24 @ 09:06 by Claudia Richter MD) Sleep difficulties Obstructive sleep apnea Diabetes Sleep apnea Fatty liver Internal hemorrhoid Diverticulosis IBS (irritable bowel syndrome) Leg wound, left H/O urinary tract infection B12 deficiency penitentiary (current) use of insulin History of melanoma BPH (benign prostatic hyperplasia) Peripheral vascular disease Hypercholesterolemia Erectile dysfunction Hypertension Type 2 diabetes mellitus with hyperglycemia Surgical History Hx of cardiac cath History of Mohs surgery for squamous cell carcinoma of skin Hx of shoulder replacement Back pain with history of spinal surgery Hx of eye surgery Hx of cataract surgery Family History Father No problems noted. Mother No problems noted. Social History Housing: Apartment Alcohol intake: never Patient Tobacco Use Status: Former Tobacco user Tobacco use type: Cigarette Years Smoked: teenager stopped e-Cigarette/Vaping Use: Never Used Second Hand Smoke Exposure: Yes Substance Use Type: Former Substance User and Marijuana service: No Current occupational status: retired Cognitive needs: No Hearing needs: No Vision needs: Yes (glasses) Questionnaire Thrive Questionnaire Date Thrive assessed: 08/11/24 I am a: Patient What is your living situation today?: I have a steady place to live Within the past 12 months, did the food you bought not last and you didn't have the money to get more?: I choose not to answer this question Within the past 12 months, did you worry whether your food would run out before you got money to buy more?: I choose not to answer this question Do you have trouble paying for medicines?: No Do you have trouble getting transportation to medical appointments?: No Do you have trouble paying your heating and electricity bill?: No Do you have trouble taking care of your child, family member or friend?: No Do you have trouble with day-to-day activities such as bathing, preparing meals, shopping, managing finances, etc.?: No Are you currently unemployed and looking for a job?: No Are you interested in more education?: No Please select the resources that you would like help with: None Currently or been in a relationship where the following occur: No concerns reported THRIVE Score: 0 AUDIT C Alcohol Use Questionnaire (AUDIT-C) 1. How often do you have a drink containing alcohol?: Monthly or less 2. How many drinks containing alcohol do you have on a typical day when you are drinking?: 1 or 2 3. How often do you have six or more drinks on one occasion?: Never Total Score: 1 YAZAN-7 AMB Questionnaire YAZAN-7 Date YAZAN - 7 assessed: 04/22/24 Source: Developed by Drs. Bismark Fraire, Claudine Anderson, Ry Aguilar and colleagues, with an educational huma from [employer]. Physical exam (Primary Care) Vital Signs: Last Vital Signs Pulse 74 12/14/24 08:49 BP 132/70 12/14/24 08:49 Pulse Ox 99 12/14/24 08:49 Oxygen Delivery Method Room Air 12/14/24 08:49 BMI result Body Mass Index 38.1 Tobacco/Smoking Status: Tobacco use Status Tobacco use date assessed 05/25/24 12/14/24 08:49 Patient Tobacco Use Status Former Tobacco user 12/14/24 08:49 Tobacco use type Cigarette 12/14/24 08:49 e-Cigarette/Vaping Use Never Used 12/14/24 08:49 Thrive Assessment: Date of Thrive Assessment Date Thrive assessed 08/11/24 12/14/24 08:49 Currently or been in a relationship where the following occur: No concerns reported Const General: alert; No acute distress Eyes Conjunctivae: conjunctivae normal Resp Auscultation: clear to auscultation bilaterally Cardio Rate: regular rate Rhythm: regular rhythm GI Inspection: Yes normal to inspection Extrem General: Yes normal to inspection and No edema Results AMB Hemoglobin A1c AMB Hemoglobin A1c 7.5 % Last Edit by Lorraine Atkins CMA on 12/14/24 09 :08 Immunizations Tenivac (PF) 5 Lf unit-2 Lf unit/0.5 mL intramuscular suspension Performing Provider: Claudia Richter MD [facility] Administered by: Lorraine Atkins CMA on 12/14/24 09:26 Dose Route Admin Location Dispensed Lot Number Expiration Date NDC [employer] 0.5 mL IM Left Deltoid 0.5 mL [id number] 07/06/26 90602-882-70 [employer] Total Dispensed Waste 0.5 mL 0 % VIS Given Date VIS Provided VIS Publication Date 12/14/24 Single Vaccine 20 Eligibility Eligibility Date Funding Source Not [facility] Eligible 12/14/24 Private Results Reviewed Results Reviewed: Laboratory Last Values Hgb A1c (Clinic) 7.5 % (4.0-6.0) H 12/14/24 08:50 Coding Level of Care Code Est Pt Level 4 (82203) Complex EM visit Add On G2211 Diagnoses Type 2 diabetes mellitus with hyperglycemia, with long-term current use of insulin E11.65; Z79.4 Diabetes mellitus dedicated 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 insulin use: with dedicated 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 use Hypercholesterolemia E78.00 Essential hypertension I10 Hypertension type: essential hypertension Peripheral vascular disease I73.9 Benign prostatic hyperplasia with urinary frequency N40.1; R35.0 Lower urinary tract symptom detail: urinary frequency Lower urinary tract symptom presence: symptoms present Severe obstructive sleep apnea G47.33 Assessment & Plan Assessment & Plan (1) Type 2 diabetes mellitus with hyperglycemia: Code(s): E11.65 - Type 2 diabetes mellitus with hyperglycemia Category: Medical Qualifiers: Diabetes mellitus custodial insulin use: with dedicated 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 use Qualified Code(s): E11.65 - Type 2 diabetes mellitus with hyperglycemia; Z79.4 - penitentiary (current) use of insulin Plan: Decrease the amount of carbohydrate intake, pasta, bread, rice and potatoes are all sugar and that is aside from all the sweet stuff, remember that fruits are good but they are Sweet also. Hemoglobin A1c goal of less than 7.0. Patient is on Lantus at 30 units once a day metformin a 1000 mg twice a day Mounjaro 2.5 mg once a week (2) Hypercholesterolemia: Code(s): E78.00 - Pure hypercholesterolemia, unspecified Category: Medical Plan: Avoid fried foods, chicken skin, eggs, butter margarine, pastries and meat. Be it pork or beef they have a lot of cholesterol LDL goal of less than 100 and patient was advised to get blood work done (3) Hypertension: Code(s): I10 - Essential (primary) hypertension Category: Medical Qualifiers: Hypertension type: essential hypertension Qualified Code(s): I10 - Essential (primary) hypertension Plan: Continue with blood pressure medication. Decrease salt intake and exercise on metoprolol 100 mg twice a day losartan 50 mg twice a day hydralazine 50 mg 3 ti mes a day (4) Peripheral vascular disease: Code(s): I73.9 - Peripheral vascular disease, unspecified Category: Medical Plan: When sitting down elevate the legs, exercise, and support stockings (5) BPH (benign prostatic hyperplasia): Code(s): N40.0 - Benign prostatic hyperplasia without lower urinary tract symptoms Category: Medical Qualifiers: Lower urinary tract symptom detail: urinary frequency Lower urinary tract symptom presence: symptoms present Qualified Code(s): N40.1 - Benign prostatic hyperplasia with lower urinary tract symptoms; R35.0 - Frequency of micturition Plan: Continue with present medication on tamsulosin (6) Severe obstructive sleep apnea: Comment: 11/10/2023, HST: AHI 35/hour O2 sara 81%, SpO2 under 90% for 120 minutes and under 88% for 27 minutes study time. Average SpO2 90%. Percentage of snoring was 22% Code(s): G47.33 - Obstructive sleep apnea (adult) (pediatric) Category: Medical Plan: Continue to use the CPAP more than 4 hours a night and benefits from this Plan History of Present Illness The patient is a 69-year-old male presenting for a follow-up visit. The patient has a history of diabetes mellitus, with a recent hemoglobin A1c of 8.4, indicating suboptimal control. He is currently on Lantus, Metformin, and Mounjaro, with a goal to reduce A1c to below 7.0. The patient reports gastric upset with Mounjaro but no nausea, and there is a plan to increase the dose if weight does not decrease. The patient has hypertension managed with Metoprolol, Losartan, and Hydralazine. His blood pressure management plan includes maintaining current medications. The patient has hypercholesterolemia with an LDL goal of less than 100 mg/dL. He is on Rosuvastatin and advised to have blood work done to monitor cholesterol levels. The patient has a history of peripheral vascular disease and continues on current medications. The patient has obstructive sleep apnea and uses CPAP therapy for more than 4 hours a night, which he finds beneficial. The patient has benign prostatic hyperplasia and is on Tamsulosin. The patient has posterior capsular opacification with a pending YAG laser capsulotomy for the right eye. The patient has a history of fatty liver disease with elevated liver enzymes noted in past blood work. The patient has a history of shingles, which was severe, affecting his chest and back. Preventative care measures include a colonoscopy performed in May 2022 and being up to date with ophthalmology visits. A tetanus vaccination is planned for today. Health Maintenance - Colonoscopy performed in May 2022 - Up to date with ophthalmology visits - Tetanus vaccination planned for today Social History Review of Systems - Gastrointestinal: Reports gastric upset with Mounjaro, denies nausea - Genitourinary: Denies dysuria, reports dark urine Physical Exam - Cardiovascular: Heart auscultation performed, patient doing well Results - Labs: Normal blood count, normal electrolytes, renal function 1.03, blood sugar 141, hemoglobin A1c 8.4, elevated liver enzymes, LDL cholesterol 100 Plan Patient was informed and verbally consented to the use of an ambient scribe for clinic note documentation during this visit. 1. Diabetes Mellitus The patient's diabetes mellitus is currently managed with Lantus, Metformin, and Mounjaro, with a target hemoglobin A1c of less than 7.0. The patient experiences gastric upset with Mounjaro, and there is a plan to increase the dose if weight does not decrease. 2. Hypertension Hypertension is managed with Metoprolol, Losartan, and Hydralazine, with a plan to maintain current medications. 3. Hypercholesterolemia The patient is on Rosuvastatin with an LDL goal of less than 100 mg/dL, and blood work is advised to monitor cholesterol levels. 4. Peripheral Vascular Disease The patient continues on current medications for peripheral vascular disease. 5. Obstructive Sleep Apnea The patient uses CPAP therapy for more than 4 hours a night, which he finds beneficial. 6. Benign Prostatic Hyperplasia The patient is on Tamsulosin for benign prostatic hyperplasia. 7. Posterior Capsular Opacification A YAG laser capsulotomy for the right eye is pending due to posterior capsular opacification. 8. Fatty Liver Disease The patient has a history of fatty liver disease with elevated liver enzymes noted in past blood work. 9. Preventative Care Preventative care measures include a colonoscopy performed in May 2022, being up to date with ophthalmology visits, and a tetanus vaccination planned for today. Discussion Notes During the visit, we discussed the management of diabetes mellitus with a focus on achieving an A1c goal of less than 7.0, and the potential need to adjust Mounjaro dosage based on weight changes. We also reviewed the patient's hypertension and hypercholesterolemia management plans, emphasizing the importance of maintaining current medications and monitoring cholesterol levels. The patient was informed about the pending YAG laser capsulotomy for posterior capsular opacification and the benefits of CPAP therapy for obstructive sleep apnea. Preventative care measures, including a recent colonoscopy and upcoming tetanus vaccination, were also discussed. Patient Instructions - Continue current diabetes medications and monitor blood sugar levels regularly. - Maintain current hypertension medications and monitor blood pressure. - Schedule blood work to monitor cholesterol levels and continue Rosuvastatin. - Use CPAP machine for at least 4 hours each night. - Follow up with ophthalmology for YAG laser capsulotomy scheduling. - Receive tetanus vaccination today. Orders: Orders UA CC w/rflx Micro + Cult Today R30.0 - Dysuria Td Immunization Today Z23 - Encounter for immunization AMB Hemoglobin A1c Today Z13.9 - Encounter for screening, unspecified Medications: Changed From tirzepatide (Mounjaro) for 4 weeks 2.5 mg (0.5 mL) subcut QWEEK 2 mL 1RF E11.65 - Type 2 diabetes mellitus with hyperglycemia, Z79.4 - penitentiary (current) use of insulin To tirzepatide for 4 weeks 5 mg (0.5 mL) subcut QWEEK 2 mL 2RF E11.65 - Type 2 diabetes mellitus with hyperglycemia, Z79.4 - terminal computer operator (current) use of insulin
--- OUTSIDE RECORDS SUMMARY | 2024-12-14 09:41 | XMS_ITS | Clinical Summary ---
Author Organization [facility] Address [address] [place] [id number] Phone Care Team Providers Care Agricultural Services Director Name Role Phone Claudia Richter MD Primary Care Provider [phone] Allergies Active Allergy Reactions Criticality Noted Date Comments Iodinated Contrast Media Other (See Comments) 0 12/23/2000 Hives Medications acetaminophen (TYLENOL) 500 mg capsule Take 500 mg by mouth every 6 (six) hours as needed for pain (specific location in comments). Active aspirin 81 mg chewable tablet Take 81 mg by mouth daily. Active cholecalciferol , vitamin D3, 25 mcg (1,000 unit) capsule [...] 50 mg by mouth as needed. Active Social History Tobacco Use Types Packs/Day Years [...] Assigned at Male 05/14/2024 10:54 PM EST Legal Sex Male 6:26 PM EST Gender Identity Male 05/14/2024 10:54 PM EST Sexual Orientation Not on file Last Filed Vital Signs Vital Sign Reading Time Taken Comments Blood Pressure 122/81 05/15/2024 1:22 AM EST Pulse 87 05/15/2024 1:22 AM EST Temperature 36.1 C (96.9 F) 05/15/2024 1:22 AM EST Respiratory Rate 18 05/15/2024 1:22 AM EST [...] 12/05/2003 ZOSTER VACCINES (1 of 2) 12/05/2003 COVID-19 VACCINE ( - 2023-2 5 season) [...] age to complete this topic MENINGOCOCCAL VACCINES (B) Aged Out N o longer eligible based on patient's age to complete this topic Medical Devices Not on file Insurance MEDICARE PART A & B [employer] MEDEX SUPPLEMENT MEDICARE PART A & [place] [address] [employer] MEDEX SUPPLEMENT MEDICARE PART A & B Member Subscriber Plan / Payer (Ef fective 2018-Present) Name:Chinedu Zambrano Member ID:[id number] Relation to Subscriber:Self Name:Chinedu Zambrano Subscriber ID:[id number] Payer ID:[id number] Group ID:Not on file Type:Medicare Address: [employer] [address] [place] [phone] [employer] CROSS MEDEX SUPPLEMENT MEDICARE PART A & B [employer] MEDEX SUPPLEMENT MEDICARE PART A & B [employer] MEDEX SUPPLEMENT MEDICARE PART A & B [employer] MEDEX SUPPLEMENT Care Teams Agricultural Services Director Relationship Specialty Start Date End Date Claudia Richter MD [address] [place] [id number] PCP - General Internal Medicine 05/14/24 Additional Source Comments The information contained in this document represents components of the legal health record. It is not the complete legal health record.[facility]
== END 2024-12-14 09:35 | disposition home or self-care (01) ==
LOC: HO.HMCH 08:37
PROVIDERS: PCP Internal Medicine; Visit Provider Internal Medicine
DX: E11.65 Type 2 diabetes mellitus with hyperglycemia (principal); Z79.4 Long term (current) use of insulin; E78.00 Pure hypercholesterolemia, unspecified; I10 Essential (primary) hypertension; I73.9 Peripheral vascular disease, unspecified; N40.1 Benign prostatic hyperplasia with lower urinary tract symptoms; R35.0 Frequency of micturition; G47.33 Obstructive sleep apnea (adult) (pediatric); Z23 Encounter for immunization; Z13.9 Encounter for screening, unspecified

== ENCOUNTER 2025-01-06 07:00 | Outpatient (REF) | payer MEDICARE, SELFPAY ==
--- OUTSIDE RECORDS SUMMARY | 2025-01-06 07:04 | XMS_ITS | Clinical Summary ---
Author Organization [facility] Address [address] [place] [address] Phone Care Team Providers Care Drive Worker Name Role Phone Claudia Richter MD Primary Care Provider [phone] Allergies Active Allergy Reactions Criticality Noted Date [...] (1 of 2) 12/05/2003 INFLUENZA VACCINE (#1) 2024 COVID-19 VACCINE (1 - 2023-2 5 season) 2024 RSV VACCINE (1 - 1-dose 75+ series) [...] file Insurance MEDICARE PART A & B [employer] MEDEX SUPPLEMENT MEDICARE PART A & B [facility] MEDEX SUPPLEMENT MEDICARE PART A & B [employer] MEDEX SUPPLEMENT MEDICARE PART A & B [employer] SUPPLEMENT MEDICARE PART A & B [employer] SUPPLEMENT MEDICARE PART A & B [employer] MEDEX SUPPLEMENT Care Teams Drive Worker Relationship Specialty Start Date End Date Claudia Richter MD [address] [place] [address] [address] [place] [phone] PCP - General Internal Medicine 05/14/24 Additional Source Comments The information contained in this document represents components of the legal health record. It is not the complete legal health record.[facility]
[2025-01-06 07:56] LABS: Appearance Urine Hazy; Glucose Urine UA Negative (Negative); PH 6.0 (5.0-9.0); Specific Gravity - Urine 1.025 (1.005-1.025)
== END 2025-01-06 07:01 | disposition home or self-care (01) ==
LOC: HO.LAB 07:00
PROVIDERS: Absent Provider Urology; PCP Internal Medicine; Visit Provider Internal Medicine
DX: R30.0 Dysuria (principal)
CPT/HCPCS: 81003

== ENCOUNTER 2025-02-07 12:58 | Outpatient (REF) | payer MEDICARE, SELFPAY ==
[2025-02-07 14:56] LABS: Prostate Specific Antigen 0.23 ng/mL (<0.05-4.0)
== END 2025-02-07 12:59 | disposition home or self-care (01) ==
LOC: HO.LAB 12:58
PROVIDERS: PCP Internal Medicine; Visit Provider Urology
DX: Z12.5 Encounter for screening for malignant neoplasm of prostate (principal); N35.919 Unspecified urethral stricture, male, unspecified site; N43.3 Hydrocele, unspecified; N20.0 Calculus of kidney; N50.89 Other specified disorders of the male genital organs; N39.0 Urinary tract infection, site not specified
CPT/HCPCS: 36415; 84153

== ENCOUNTER 2025-02-14 13:43 | Outpatient (AMB) | payer MEDICARE, SELFPAY ==
--- NOTE | 2025-02-14 13:52 | MHC.OFFVIS ---
Intake Visit Reasons: 10m/PSA Intake Note: Patient is present for a 10m follow up on PSA 02/07 PSA:0.23 Urology Medication:Tamsulosin, Vitamin B12 Antibiotic Allergy:ATORVASTATIN Blood Thinner:ASPIRIN PVR:0ml Customer Experience Associate Required: No Allergies amlodipine Allergy (Unknown, Verified 02/14/25 13:55) Unknown atorvastatin Allergy (Unknown, Verified 02/14/25 13:55) Unknown Iodinated Contrast Media (IV CONTRAST) Adverse Reaction (Unknown, Verified 02/14/25 13:55) BLINDENESS Jardiance Adverse Reaction (Intermediate, Uncoded 12/14/24 08:49) Recurrent UTI HPI Comments Details: 02/14/2025--Chinedu has a history of urethral stricture kidney stones and recurrent UTIs he is here for 10 month follow-up he had PSA done on 02/07/2025 which was 0.23 bladder scan PVR 0 mL he is prescribed tamsulosin. History of Present Illness The patient is a 69-year-old male presenting for a 10-month follow-up regarding his history of urethral stricture, kidney stones, and recurrent urinary tract infections. The patient has a history of urethral stricture, which has been managed with prior surgical intervention, leading to improved urinary flow. He reports good urinary flow most of the time, with no significant issues currently noted. The patient also has a history of kidney stones, although no recent episodes were discussed during this visit. Recurrent urinary tract infections have been a concern, with a recent episode approximately two months ago treated with ciprofloxacin. A urine culture performed on December 14 showed the presence of Proteus and E. coli, both sensitive to ciprofloxacin. The patient was asymptomatic during this episode, and the infection was identified during a routine physical examination. Preventative care includes regular follow-up and urine culture monitoring to ensure early detection and management of potential infections. Results - PSA level: 0.23 ng/mL (normal range: 0-4 ng/mL) - Urine culture (12/14/24): Presence of Proteus and E. coli, sensitive to ciprofloxacin Plan 1. Urethral Stricture 2. BPH - Continue monitoring urinary flow and symptoms. - Follow-up in six months to reassess urinary function. -tamsulosin 3. Recurrent Urinary Tract Infections - routine monitoring to detect potential infections early. 4. Kidney Stones - Renal US in 6 months 04/08/24--Chinedu is a 68 year old male with history of urethral stricture, kidney stones and recurrent UTI's; history of urethral dilation he has been treated by other urologist in the past. He is s/p urethral dilation by me on 07/08/23. He states he is still doing well, urinating with a good stream. He is not using tamsulosin. PSA - 12/03/23--1.10 ng/mL. FU in one year. PSA prior. 12/12/23--Chinedu is a 68 year old male with, history of urethral dilation he has been treated by other urologist in the past. He is s/p urethral dilation by me on 07/08/23. He states he is urinating with a good stream. He states since his last visit he passed a stone and brought it in. PSA - 12/03/23--1.10 ng/mL. Will send stone for analysis. UA - nitrite positive. Cipro 500 mg bid for 7 days. 08/01/23--Chinedu is s/p urethral dilation in the OR. The patient states his urinary flow is great. He denies dysuria or hematuria. I discussed that the urethral stricture may be recurrent. He denies scrotal pain or swelling at this time. Urinalysis - leukocytes negative, blood negative. Plan -follow up in 6 months 06/23/23--Chinedu is here for office cystoscopy. He was initially evaluated on 05/07/23 due to UTI. He was noted to have scrotal swelling on examination, and he was started on tamsulosin. He states he felt dizzy with the tamsulosin so he stopped the medicaiton. He had a CT abd/pelvis and scrotal US. I have reviewed results with the patient. On CT imaging a punctate 2 mm right kidney stone is noted, on US - Right moderate hydrocele with debris and small left hydrocele. Office cystoscopy- findings: proximal urethral stricture, bladder not visualized. I have encouraged him to drink adequate fluids and low sodium diet. Discussed Schedule outpatient urethrotomy, urethral dilation, cystoscopy d/c tamsulosin 05/07/23--Chinedu is a 67 year old who is here for evaluation for urinary incontinence. In review of his chart he had a positive urine culture on 04/19/2023 Klebsiella. The patient states that he was treated with a 10 day course of Cipro. He states that the urine leakage has resolved. Discussed Diabetes- CoMorbidity, Past Medical history includes history of BPH and erectile dysfunction, type 2 diabetes currently requiring insulin, hypertension, obstructive sleep apnea, peripheral vascular disease. The patient states that he had a prior episode of E coli sepsis about 7 years ago he was admitted and given IV Levaquin. He was seen by an ID specialist at that time he states. At this time he states urinary symptoms are up 2-3 times at night with frequent voids during the day he denies dysuria currently. Evaluation-05/07/2023-prostate exam smooth no suspicious nodules, Scrotal swelling, buried penis He states he has pending a CT scan that was ordered by his PCP. I will review results when completed. I have discussed placing him on tamsulosin and will have him follow-up for office cystoscopy Review of labs PSA--03/17/2023--0.33 Urine culture 04/19/2023 Klebsiella pneumoniae Plan: CT abdomen and pelvis without IV contrast is pending ordered by PCP follow-up office cystoscopy tamsulosin 0.4 mg daily. Discussed side effects of tamsulosin may include dizziness. Scrotal ultrasound. [facility] Medical History Sleep difficulties Obstructive sleep apnea Diabetes Sleep apnea Fatty liver Internal hemorrhoid Diverticulosis IBS (irritable bowel syndrome) Leg wound, left H/O urinary tract infection B12 deficiency assisted (current) use of insulin History of melanoma BPH (benign prostatic hyperplasia) Peripheral vascular disease Hypercholesterolemia Erectile dysfunction Hypertension Type 2 diabetes mellitus with hyperglycemia Surgical History Hx of cardiac cath History of Mohs surgery for squamous cell carcinoma of skin Hx of shoulder replacement Back pain with history of spinal surgery Hx of eye surgery Hx of cataract surgery Family History Father No problems noted. Mother No problems noted. Social History Housing: Apartment Alcohol intake: never Patient Tobacco Use Status: Former Tobacco user Tobacco use type: Cigarette Years Smoked: teenager stopped e-Cigarette/Vaping Use: Never Used Second Hand Smoke Exposure: Yes Substance Use Type: Former Substance User and Marijuana service: No Current occupational status: retired Cognitive needs: No Hearing needs: No Vision needs: Yes (glasses) Review of Systems Const All systems reviewed & are unremarkable except as noted in HPI and below Reports no additional complaints Eyes Reports no additional complaints ENT Reports no additional complaints Card Reports no additional complaints Resp Reports no additional complaints GI Reports no additional complaints Reports as per HPI Musc Reports no additional complaints Skin/Breast Reports system reviewed and no additional complaints, except as documented Neuro Reports no additional complaints Psych Reports no additional complaints Endo Reports no additional complaints Enrrique/Lymph Reports no additional complaints Aller/Immun Reports no additional complaints Office Procedures Post Void Residual Post Residual Void Post Void Residual (PVR): 0 [id number] Void Residual by ultrasound Results Reviewed Results Reviewed: Collected: 12/14/24-K Status: COMP Req#: [id number] Received: 12/14/24 Source: [facility] Sp Desc: Clean Cat Subm Dr: Claudia Richter MD Ordered: Urine Culture Procedure Result Verified Urine Culture Final 12/17/24 Organism 1 Proteus mirabilis Quant 10,000 to 50,000 cfu/mL Organism 2 Escherichia coli Quant 10,000 to 50,000 cfu/mL P mirabili E coli M.I.C. RX M.I.C. RX --------- --- --------- --- Ampicillin <=2 R 8 S Cefazolin (Urine) 4 S 4 S Cefepime 0.5 S <=0.12 S Ceftriaxone <=0.25 S <=0.25 S Ciprofloxacin <=0.06 S <=0.06 S Gentamicin <=1 S <=1 S Nitrofurantoin 128 R <=16 S Trimethoprim/Sulfamethoxazole <=20 S <=20 S Date of Service: 06/16/23 EXAMINATION: CT ABDOMEN AND PELVIS WITHOUT CONTRAST CLINICAL INFORMATION: UTI. COMPARISON: CT abdomen and pelvis 07/23/2019. TECHNIQUE: Multidetector volumetric imaging was performed from the superior aspect of the liver through the pubic symphysis. Sagittal and coronal reformatted images were obtained on the technologist's workstation. This CT examination was performed using dose optimization techniques as appropriate, variously including the following: *Automated exposure control *Adjustment of mA and/or kV according to patient size (this includes techniques or standardized protocols for targeted exams where dose is matched to indication/reason for exam; i.e. extremities or head) *Use of iterative reconstruction technique DLP: 956 mGy-cm FINDINGS: LUNG BASES: The visualized lung bases are unremarkable. Minimal basilar atelectasis is present. Heart size normal. Coronary calcium is present. LIVER, GALLBLADDER, AND BILIARY TREE: The liver is normal in size and shape but with decreased attenuation consistent with hepatic steatosis. Punctate granuloma is present in the right lobe of the liver (5:113). No worrisome focal hepatic lesion or biliary ductal dilatation is present. The gallbladder is unremarkable with no evidence of radiopaque gallstones, gallbladder wall thickening, or obvious pericholecystic inflammatory changes. PANCREAS: Unremarkable. SPLEEN: Unremarkable. ADRENAL GLANDS: Unremarkable. KIDNEYS AND URETERS: The kidneys are normal in size, shape, and attenuation. 2 mm punctate nonobstructing calcification present at the [id number] pole of the right kidney posteriorly. No hydronephrosis, hydroureter, or additional calculi seen. No perinephric stranding. BLADDER: Unremarkable. GASTROINTESTINAL TRACT: The small and large bowel are unremarkable aside from moderate diverticulosis involving the left colon without evidence of diverticulitis. The appendix is unremarkable. ABDOMINAL WALL: No significant hernia is appreciated. LYMPH NODES: Normal. There is an ovoid rim calcified 1.5 cm density near the cecum, which may represent an old avulsed epiploic appendage. VASCULAR: Calcific atherosclerotic changes are present in the aorta and iliofemoral vessels. There is no evidence of an abdominal aortic aneurysm. PELVIC VISCERA: The prostate and seminal vesicles are unremarkable. OSSEOUS STRUCTURES: Marked degenerative changes are present throughout the lumbar spine. No bony destructive lesions are seen. IMPRESSION: 1. A cause for the patient's UTI has not been found. There is a single punctate 2 mm nonobstructing right renal calculus. 2. Incidental note made of hepatic steatosis, punctate hepatic granuloma, colonic diverticulosis without diverticulitis and marked degenerative changes in the spine. Date of Service: 06/11/23 EXAMINATION: US SCROTUM CLINICAL INFORMATION: Swelling of scrotum. COMPARISON: CT abdomen/pelvis 07/23/2019. TECHNIQUE: A sonogram of the scrotum was performed assessing cheek-scale appearance and color Doppler flow. Spectral Doppler analysis of the arterial and venous flow were performed in the testes bilaterally. FINDINGS: RIGHT: Right testicle measures 5.0 x 3.6 x 3.4 cm, volume 31.7 mL. No focal testicular parenchymal lesions are visualized. Spectral Doppler analysis of the arterial and venous flow is normal in the right testis. Small appendix testis measuring 0.7 cm. Right epididymal head is normal in size. No right varicocele is seen. Moderate to large hydrocele with floating debris. Right epididymal Doppler flow is normal. LEFT: Left testicle measures 4.4 x 3.0 x 3.2 cm, volume 22.0 mL. No focal testicular parenchymal lesions are visualized. Spectral Doppler analysis of the arterial and venous flow is normal in the left testis. Small appendix testis measuring 0.4 cm. Left epididymal head is normal in size. No left varicocele is seen. Small simple appearing hydrocele. Left epididymal Doppler flow is normal. IMPRESSION: 1. Moderate to large right hydrocele with floating debris, recommend clinical correlation for superimposed infection. A short-term follow-up ultrasound is recommended. 2. Small simple appearing left hydrocele. 3. Otherwise, no significant abnormality. Assessment & Plan Assessment & Plan (1) BPH (benign prostatic hyperplasia): Code(s): N40.0 - Benign prostatic hyperplasia without lower urinary tract symptoms Category: Medical Qualifiers: Lower urinary tract symptom presence: symptoms present Lower urinary tract symptom detail: urinary frequency Qualified Code(s): N40.1 - Benign prostatic hyperplasia with lower urinary tract symptoms; R35.0 - Frequency of micturition (2) Hydrocele, bilateral: Code(s): N43.3 - Hydrocele, unspecified Category: Medical (3) Urethral stricture: Code(s): N35.919 - Unspecified urethral stricture, male, unspecified site Category: Medical (4) History of recurrent UTIs: Code(s): Z87.440 - Personal history of urinary (tract) infections Category: Medical (5) Bilateral kidney stones: Code(s): N20.0 - Calculus of kidney Category: Medical Plan PSA screening Orders: Orders AMB Urinalysis Automated Today N39.0 - Urinary tract infection, site not specified, Z87.442 - Personal history of urinary calculi AMB Post Void Residual by ultrasound Today N39.0 - Urinary tract infection, site not specified, Z87.442 - Personal history of urinary calculi US renal BI 5 Months N20.0 - Calculus of kidney Medications: Changed From tamsulosin 0.4 mg PO BEDTIME 14 days 14 caps 0RF To tamsulosin 0.4 mg PO BEDTIME 90 caps 2RF Patient Instructions: The patient had an opportunity to ask questions regarding treatment plan. The patient expressed understanding and agreement with the above treatment plan. The patient is aware they should contact our office by phone for worsening of their current condition or the appearance of new symptoms. Compliance is encouraged with any medications and followup testing that is ordered. It is a privilege to be allowed the opportunity to participate in the urologic care of your patient. If you have any questions or concerns regarding treatment for the above conditions please do not hesitate to contact me. The office telephone contact is [phone]. This note is constructed in part using voice recognition software. While every effort has been made to ensure accuracy weigher bulker errors may have been included. Yours sincerely, Jaz Cartagena MD Scribe Plan - Not visible on output: Patient was informed and verbally consented to the use of an ambient scribe for clinic note documentation during this visit. Coding Level of Care Code Est Pt Level 4 (65648) Diagnoses Benign prostatic hyperplasia with urinary frequency N40.1; R35.0 Lower urinary tract symptom presence: symptoms present Lower urinary tract symptom detail: urinary frequency Hydrocele, bilateral N43.3 Urethral stricture N35.919 History of recurrent UTIs Z87.440 Bilateral kidney stones N20.0 CPT Codes Post Residual Void - PVR CPT Code: 72256-[id number] Void Residual by ultrasound ([id number])
--- OUTSIDE RECORDS SUMMARY | 2025-02-14 15:56 | XMS_ITS | Clinical Summary ---
Author Organization [facility] Address [address] [place] [id number] Phone Care Team Providers Care Physicist Acoustics Name Role Phone Claudia Richter MD Primary Care Provider [phone] Allergies Active Allergy Reactions Criticality Noted Date [...] VACCINE (#1) 2024 COVID-19 VACCINE (1 - 2024-2 6 season) 2024 RSV VACCINE (1 - 1-dose 75+ series) 2028 HEPATITIS A VACCINES Aged Out No long er eligible based on patient's age to complete this topic HIB VACCINES Aged Out No longer eligi ble based on patient's age to complete this topic IPV VACCINES Aged Out No longer eligi ble based on patient's age to complete this topic MENINGOCOCCAL VACCINES (ACWY) Aged Out No longer eligible based on patient's age to complete this topic MENINGOCOCCAL VACCINES (B) Aged Out N o longer eligible based on patient's age to complete this topic Medical Devices Not on file Insurance MEDICARE PART A & B [employer] SUPPLEMENT MEDICARE PART A & B [id number] MEDEX SUPPLEMENT MEDICARE PART A & B [employer] MED[employer] SUPPLEMENT MEDICARE PART A & B [id number] MEDEX SUPPLEMENT MEDICARE PART A & B [employer] MEDEX SUPPLEMENT MEDICARE PART A & B [employer] MEDEX SUPPLEMENT Care Teams Physicist Acoustics Relationship Specialty Start Date End Date Claudia Richter MD [address] [place] [phone] PCP - General Internal Medicine 05/14/24 Additional Source Comments The information contained in this document represents components of the legal health record. It is not the complete legal health record.[facility]
== END 2025-02-14 14:25 | disposition home or self-care (01) ==
LOC: HO.HUSH 13:44
PROVIDERS: PCP Internal Medicine; Visit Provider Urology
DX: N40.1 Benign prostatic hyperplasia with lower urinary tract symptoms (principal); R35.0 Frequency of micturition; N43.3 Hydrocele, unspecified; N35.919 Unspecified urethral stricture, male, unspecified site; Z87.440 Personal history of urinary (tract) infections; N20.0 Calculus of kidney; N39.0 Urinary tract infection, site not specified; Z87.442 Personal history of urinary calculi
CPT/HCPCS: 99214

== ENCOUNTER → 2025-02-14 13:43 | Outpatient (BNVA) | payer MEDICARE, SELFPAY | PROVIDERS: PCP Internal Medicine; Visit Provider Urology | DX: N40.1 Benign prostatic hyperplasia with lower urinary tract symptoms (principal); N13.8 Other obstructive and reflux uropathy; R35.0 Frequency of micturition; N43.3 Hydrocele, unspecified; N35.919 Unspecified urethral stricture, male, unspecified site; Z87.440 Personal history of urinary (tract) infections; Z87.442 Personal history of urinary calculi | CPT/HCPCS: 51798; 81003; 99212 ==

== ENCOUNTER 2025-04-05 09:47 | Outpatient (AMB) | payer MEDICARE, SELFPAY ==
[2025-04-05 10:16] VITALS: BP 140/78; PULSE 71; O2SAT 98; BMI 38.1
--- NOTE | 2025-04-05 10:16 | A.OFFPC_ITS ---
Vital Signs 04/05/25 10:16 Height 6 ft 2 in Weight 297 lb BMI 38.1 BP 140/78 H Blood Pressure Location Lt brachial Position Sitting Pulse 71 Pulse Source Pulse Oximeter Pulse Oximetry (%) 98 Oxygen Delivery Method Room Air Intake Visit Reasons: 3 month f/u Allergies amlodipine Allergy (Unknown, Verified 04/05/25 10:17) Unknown atorvastatin Allergy (Unknown, Verified 04/05/25 10:17) Unknown Iodinated Contrast Media (IV CONTRAST) Adverse Reaction (Unknown, Verified 04/05/25 10:17) BLINDENESS Jardiance Adverse Reaction (Intermediate, Uncoded 04/05/25 10:17) Recurrent UTI Medication List - Last Reconciled 04/05/25 by Claudia Richter, albuterol sulfate 90 mcg/actuation (ProAir HFA) 2 puffs inhalation Q4-6H PRN aspirin (Adult Aspirin Regimen) 81 mg PO DAILY blood sugar diagnostic (Mapboxuch Verio test strips) 3x daily cholecalciferol (vitamin D3) 25 mcg PO DAILY compr.stocking,knee,long,x-lrg As directed 20-30 mm HG cranberry extract 405 mg PO DAILY cyanocobalamin (vitamin B-12) 1,000 mcg PO DAILY 30 days flash glucose scanning reader (Milestone ScientificStyle [place]) As directed flash glucose sensor (FreeStyle Ronda 2 Sensor kit) As directed hydralazine 50 mg PO Q8H 90 days insulin glargine (Lantus Solostar U-100 Insulin) 30 units (0.3 mL) subcut BID losartan 50 mg PO BID metformin ER 1,000 mg (2 x 500 mg) PO BID metoprolol tartrate 100 mg PO BID 90 days naproxen (Naprosyn) 500 mg PO BID PRN 7 days pen needle, diabetic (BD Ultra-Fine Aspen Pen Needle) As directed twice a day rosuvastatin 5 mg PO DAILY tamsulosin 0.4 mg PO BEDTIME tirzepatide 5 mg (0.5 mL) subcut QWEEK zolpidem (Ambien) 5 mg PO BEDTIME PRN Tobacco use date assessed: 05/25/24 Fall risk assessment: No Falls in past year Last assessed Fall Risk: 04/05/25 Dental Screening Dental Screen Date: 04/22/24 HPI HPI Comments History of Present Illness Details History of Present Illness The patient is a 69-year-old obese male presenting for a follow-up visit, last seen in December 2024. His medical history is significant for diabetes mellitus, hypertension, hypercholesterolemia, benign prostatic hyperplasia (BPH), severe obstructive sleep apnea with nocturnal hypoxemia, and a history of nephrolithiasis. He follows with pulmonology for his sleep apnea and urology for BPH and a history of bilateral renal calculi, which are monitored with ultrasounds. He also follows with podiatry. His last colon test was in May 2022. Review of recent lab work from December 2024 revealed normal electrolytes, creatinine of 1.1, hemoglobin A1c of 7.7%, elevated liver function tests, an LDL of 103, triglycerides of 232, and a PSA of 0.23. A blood count was done in May 2024. Health Maintenance - Last colon test was in May 2022. - He follows up with pulmonology for obs tructive sleep apnea, urology for BPH, and podiatry. - Diet and exercise were discussed. - Advised to stay well-hydrated. Social History - Diet and exercise were discussed. Results - Labs from December 2024: Electrolytes normal, creatinine 1.1, hemoglobin A1c 7.7%, elevated liver function tests, LDL 103, triglycerides 232, and PSA 0.23. - Labs from May 2024: Blood count p erformed. - Tests: Last colon test was in May 2022. - Imaging: Bilateral renal calculi are m onitored with ultrasounds. [facility] Medical History Sleep difficulties Obstructive sleep apnea Diabetes Sleep apnea Fatty liver Internal hemorrhoid Diverticulosis IBS (irritable bowel syndrome) Leg wound, left H/O urinary tract infection B12 deficiency [employer] (current) use of insulin History of melanoma BPH (benign prostatic hyperplasia) Peripheral vascular disease Hypercholesterolemia Erectile dysfunction Hypertension Type 2 diabetes mellitus with hyperglycemia Surgical History Hx of cardiac cath History of Mohs surgery for squamous cell carcinoma of skin Hx of shoulder replacement Back pain with history of spinal surgery Hx of eye surgery Hx of cataract surgery Family History Father No problems noted. Mother No problems noted. Social History Housing: Apartment Alcohol intake: never Patient Tobacco Use Status: Former Tobacco user Tobacco use type: Cigarette Years Smoked: teenager stopped e-Cigarette/Vaping Use: Never Used Second Hand Smoke Exposure: Yes Substance Use Type: Former Substance User and Marijuana service: No Current occupational status: retired Cognitive needs: No Hearing needs: No Vision needs: Yes (glasses) Questionnaire Thrive Questionnaire Date Thrive assessed: 08/11/24 I am a: Patient What is your living situation today?: I have a steady place to live Within the past 12 months, did the food you bought not last and you didn't have the money to get more?: I choose not to answer this question Within the past 12 months, did you worry whether your food would run out before you got money to buy more?: I choose not to answer this question Do you have trouble paying for medicines?: No Do you have trouble getting transportation to medical appointments?: No Do you have trouble paying your heating and electricity bill?: No Do you have trouble taking care of your child, family member or friend?: No Do you have trouble with day-to-day activities such as bathing, preparing meals, shopping, managing finances, etc.?: No Are you currently unemployed and looking for a job?: No Are you interested in more education?: No Currently or been in a relationship where the following occur: No concerns reported THRIVE Score: 0 YAZAN-7 AMB Questionnaire YAZAN-7 Date YAZAN - 7 assessed: 04/22/24 Source: Developed by Drs. Bismark Fraire, Claudine Anderson, Ry Aguilar and colleagues, with an educational huma from [employer]. Review of Systems Narrative Review of Systems Physical exam (Primary Care) Vital Signs: Last Vital Signs Pulse 71 04/05/25 10:16 BP 140/78 H 04/05/25 10:16 Pulse Ox 98 04/05/25 10:16 Oxygen Delivery Method Room Air 04/05/25 10:16 BMI result Body Mass Index 38.1 Tobacco/Smoking Status: Tobacco use Status Tobacco use date assessed 05/25/24 04/05/25 10:18 Patient Tobacco Use Status Former Tobacco user 04/05/25 10:18 Tobacco use type Cigarette 04/05/25 10:18 e-Cigarette/Vaping Use Never Used 04/05/25 10:18 Thrive Assessment: Date of Thrive Assessment Date Thrive assessed 08/11/24 04/05/25 10:18 Currently or been in a relationship where the following occur: No concerns reported Narrative Physical Exam Const General: alert; No acute distress Eyes Conjunctivae: conjunctivae normal Resp Auscultation: clear to auscultation bilaterally Cardio Rate: regular rate Rhythm: regular rhythm GI Inspection: Yes normal to inspection Extrem General: Yes normal to inspection and No edema Results AMB Hemoglobin A1c AMB Hemoglobin A1c 7.7 % Last Edit by Lorraine Atkins CMA on 04/05/25 10 :37 Results Reviewed Results Reviewed: Laboratory Last Values Hgb A1c (Clinic) 7.7 % (4.0-6.0) H 04/05/25 10:18 Coding Level of Care Code Est Pt Level 4 (76933) Add On Problem Visit Only Diagnoses Type 2 diabetes mellitus with hyperglycemia, with long-term current use of insulin E11.65; Z79.4 Diabetes mellitus [employer] insulin use: with half-way use Essential hypertension I10 Hypertension type: essential hypertension Hypercholesterolemia E78.00 Obesity E66.9 History of kidney stones Z87.442 Severe obstructive sleep apnea G47.33 Assessment & Plan Assessment & Plan (1) Type 2 diabetes mellitus with hyperglycemia: Code(s): E11.65 - Type 2 diabetes mellitus with hyperglycemia Category: Medical Qualifiers: Diabetes mellitus [employer] insulin use: with [employer] use Qualified Code(s): E11.65 - Type 2 diabetes mellitus with hyperglycemia; Z79.4 - [employer] (current) use of insulin Plan: Decrease the amount of carbohydrate intake, pasta, bread, rice and potatoes are all sugar and that is aside from all the sweet stuff, remember that fruits are good but they are Sweet also. Patient is on continuous glucose monitor to control the sugars on Lantus metformin tirzepatide at 5 mg once a week (2) Hypertension: Code(s): I10 - Essential (primary) hypertension Category: Medical Qualifiers: Hypertension type: essential hypertension Qualified Code(s): I10 - Essential (primary) hypertension Plan: Continue with blood pressure medication. Decrease salt intake and exercise patient on metoprolol 100 mg twice a day losartan 50 mg twice a day hydralazine 50 mg 3 times a day (3) Hypercholesterolemia: Code(s): E78.00 - Pure hypercholesterolemia, unspecified Category: Medical Plan: Avoid fried foods, chicken skin, eggs, butter margarine, pastries and meat. Be it pork or beef they have a lot of cholesterol LDL goal of less than 100 and triglyceride of less than 150 patient on rosuvastatin 5 mg once a day (4) Obesity: Code(s): E66.9 - Obesity, unspecified Category: Medical Plan: Diet and exercise (5) History of kidney stones: Code(s): Z87.442 - Personal history of urinary calculi Category: Medical Plan: Keep well hydrated, patient follows up with urology (6) Severe obstructive sleep apnea: Comment: 11/10/2023, HST: AHI 35/hour O2 sara 81%, SpO2 under 90% for 120 minutes and under 88% for 27 minutes study time. Average SpO2 90%. Percentage of snoring was 22% Code(s): G47.33 - Obstructive sleep apnea (adult) (pediatric) Category: Medical Plan: Continue to use the CPAP more than 4 hours a night and benefits from this. Plan Plan Patient was informed and verbally consented to the use of an ambient scribe for clinic note documentation during this visit. 1. Diabetes Mellitus The patient utilizes a continuous glucose monitor for sugar control. He will continue his current medication regimen, which includes Lantus, metformin, and tirzepatide 5 mg once weekly. 2. Hypertension Continue current antihypertensive therapy with metoprolol 100 mg twice a day, losartan 50 mg twice a day, and hydralazine 50 mg three times a day. 3. Hypercholesterolemia The treatment goal is an LDL of less than 100 and triglycerides of less than 150. Continue rosuvastatin 5 mg once a day and reinforce diet and exercise. 4. Benign Prostatic Hyperplasia Continue tamsulosin for management. The patient will continue to follow up with urology. 5. Nephrolithiasis Continue monitoring with ultrasounds. Advised to maintain good hydration. Continue follow-up with urology. 6. Obstructive Sleep Apnea The patient is advised to continue using his CPAP for more than 4 hours per night, as he benefits from this. He will continue to follow up with pulmonology. Discussion Notes I reviewed the patient's multiple chronic conditions, including diabetes, hypertension, hypercholesterolemia, BPH, and severe obstructive sleep apnea. We discussed that his current management for diabetes includes a continuous glucose monitor, Lantus, metformin, and tirzepatide, and that he will continue this regimen. His blood pressure will continue to be managed with metoprolol, losartan, and hydralazine. For cholesterol, we discussed the goal of an LDL less than 100 and triglycerides less than 150, and he will continue rosuvastatin. I advised him to continue using his CPAP for more than four hours a night for his sleep apnea. We also discussed the importance of diet, exercise, and staying well-hydrated to help manage his conditions, particularly the kidney stones. I reinforced the plan for him to continue follow-up appointments with his specialists, including pulmonology, urology, and podiatry. Patient Instructions - Continue to take your medications for diabetes (Lantus, metformin, tirzepatide) as prescribed and use your continuous glucose monitor. - Continue taking your blood pressure medications (metoprolol, losartan, hydralazine) as directed. - Continue your cholesterol medication (rosuvastatin). Our goal is to get your LDL cholesterol below 100 and triglycerides below 150. - Continue taking tamsulosin for your prostate. - Make sure to use your CPAP machine for more than 4 hours every night for your sleep apnea. - Remember to focus on diet and exercise. - Drink plenty of water throughout the day to help prevent kidney stones. - Keep your follow-up appointments with your other doctors, including the lung specialist, urologist, and foot doctor. Orders: Orders Complete Blood Count Auto Diff Today E11.65 - Type 2 diabetes mellitus with hyperglycemia, Z79.4 - skilled nursing (current) use of insulin Comprehensive Met. Panel Today E11.65 - Type 2 diabetes mellitus with hyperglycemia, Z79.4 - [employer] (current) use of insulin Hemoglobin A1c Today E11.65 - Type 2 diabetes mellitus with hyperglycemia, Z79.4 - skilled nursing (current) use of insulin Thyroid Stimulating Hormone Today E11.65 - Type 2 diabetes mellitus with hyperglycemia, Z79.4 - [employer] (current) use of insulin Lipid Panel Today E11.65 - Type 2 diabetes mellitus with hyperglycemia, E78.00 - Pure hypercholesterolemia, unspecified, Z79.4 - [employer] (current) use of insulin AMB Hemoglobin A1c Today Z13.9 - Encounter for screening, unspecified Free T4 (Free Thyroxine) Today E11.65 - Type 2 diabetes mellitus with hyperglycemia, Z79.4 - [employer] (current) use of insulin Vitamin B12 and Folate Today E11.65 - Type 2 diabetes mellitus with hyperglycemia, Z79.4 - [employer] (current) use of insulin Medications: New pen needle, diabetic (1st Tier Unifine Pentips) As directed Inject 4 x a day 400 ea 3RF E11.65 - Type 2 diabetes mellitus with hyperglycemia, Z79.4 - skilled nursing (current) use of insulin Changed From rosuvastatin 5 mg PO DAILY 30 tabs 3RF E78.00 - Pure hypercholesterolemia, unspecified To rosuvastatin 10 mg PO DAILY 30 tabs 4RF E78.00 - Pure hypercholesterolemia, unspecified From tirzepatide for 4 weeks 5 mg (0.5 mL) subcut QWEEK 2 mL 2RF E11.65 - Type 2 diabetes mellitus with hyperglycemia, Z79.4 - [employer] (current) use of insulin To tirzepatide for 4 weeks 7.5 mg (0.5 mL) subcut QWEEK 2 mL 2RF E11.65 - Type 2 diabetes mellitus with hyperglycemia, Z79.4 - [employer] (current) use of insulin
--- OUTSIDE RECORDS SUMMARY | 2025-04-05 12:40 | XMS_ITS | Clinical Summary ---
Author Organization [facility] Address [address] [place] [phone] Phone Care Team Providers Care S[employer] Research [employer] Analysis Name Role Phone Claudia Richter MD Primary Care Provider [phone] Allergies Active Allergy Reactions Criticality Noted Date [...] file Insurance MEDICARE PART A & B [place] MED[employer] SUPPLEMENT MEDICARE PART A & B [facility] MEDEX SUPPLEMENT MEDICARE PART A & B [employer] MEDEX SUPPLEMENT MEDICARE PART A & B [employer] SUPPLEMENT MEDICARE PART A & B [employer] SUPPLEMENT MEDICARE PART A & B [employer] CROSS MEDEX SUPPLEMENT Care Teams Svp Research And Strategic Analysis Relationship Specialty Start Date End Date Claudia Richter MD [address] [place] [address] Drive [address] [place] [phone] PCP - General Internal Medicine 05/14/24 Additional Source Comments The information contained in this document represents components of the legal health record. It is not the complete legal health record.[facility]
== END 2025-04-05 10:49 | disposition home or self-care (01) ==
LOC: HO.HMCH 09:48
PROVIDERS: PCP Internal Medicine; Visit Provider Internal Medicine
DX: E11.65 Type 2 diabetes mellitus with hyperglycemia (principal); Z79.4 Long term (current) use of insulin; I10 Essential (primary) hypertension; E78.00 Pure hypercholesterolemia, unspecified; E66.9 Obesity, unspecified; Z87.442 Personal history of urinary calculi; G47.33 Obstructive sleep apnea (adult) (pediatric); Z13.9 Encounter for screening, unspecified

== ENCOUNTER → 2025-04-05 09:47 | Outpatient (BNVA) | payer MEDICARE, SELFPAY | PROVIDERS: PCP Internal Medicine; Visit Provider Internal Medicine | DX: E11.65 Type 2 diabetes mellitus with hyperglycemia (principal); I10 Essential (primary) hypertension; E78.00 Pure hypercholesterolemia, unspecified; E66.9 Obesity, unspecified; Z68.31 Body mass index [BMI] 31.0-31.9, adult; G47.33 Obstructive sleep apnea (adult) (pediatric); Z87.442 Personal history of urinary calculi; Z79.4 Long term (current) use of insulin; Z87.891 Personal history of nicotine dependence; Z71.3 Dietary counseling and surveillance | CPT/HCPCS: 83036; 99212 ==